=== PATIENT | male | born 1945 | race Caucasian/White ===

== ENCOUNTER 2018-01-06 09:20 | Emergency (ER) | payer MEDICARE ==
[2018-01-06 09:27] VITALS: RESP 16
--- NOTE | 2018-01-06 10:17 | ED ---
General Adult HPI - General Chief complaint: Extremity Injury, Lower Stated complaint: Fall Time Seen by Provider: 01/06/18 09:53 Source: patient, RN notes reviewed Mode of arrival: wheelchair Limitations: no limitations - History of Present Illness Initial comments: Patient is 72-year-old male presented to the emergency room today with a chief complaint of injury to left foot that occurred yesterday. He does admit that he was using his lawnmower when his apparently got caught on the shift or unable to step down he twisted his left foot. He states he was able to continue to work yesterday. He states later in the day he noticed it was swollen and sore to ambulate. He states this morning unable to bear weight due to the pain. Patient denies any other injury or complaint. Patient denies any recent fever, chills, shortness of breath, chest pain, back pain, abdominal pain , nausea or vomiting, numbness or tingling, headaches or visual changes, or any other complaints. - Related Data Home Medications Medication Instructions Recorded Confirmed Aspirin EC [Ecotrin] 81 mg PO DAILY 06/18/14 01/06/18 Dorzolamide 2% [Trusopt] 1 drops BOTH EYES BID 06/18/14 01/06/18 Fluticasone/Salmeterol [Advair 1 inhalation PO BID 06/18/14 01/06/18 250-50 Diskus] Folic Acid 0.4 mg PO DAILY 06/18/14 01/06/18 Furosemide [Lasix] 10 mg PO DAILY 06/18/14 01/06/18 Latanoprost Ophth [Xalatan 0.005%] 1 drops BOTH EYES HS 06/18/14 01/06/18 Metoclopramide [Reglan] 10 mg PO DAILY 06/18/14 01/06/18 Omeprazole [PriLOSEC] 20 mg PO AC-BRKFST 06/18/14 01/06/18 Potassium Chloride [Klor-Con 10] 10 meq PO DAILY 06/18/14 01/06/18 Tiotropium [place] [Spiriva] 1 puff IH DAILY 06/18/14 01/06/18 Allergies Allergy/AdvReac Type Severity Reaction Status Date / Time No Known Allergies Allergy Verified 01/06/18 09:27 Review of Systems ROS Statement: Those systems with pertinent positive or pertinent negative responses have been documented in the HPI. ROS Other: All systems not noted in ROS Statement are negative. Past Medical History Past Medical History: Cancer, COPD, GERD/Reflux Additional Past Medical History / Comment(s): esophageal cancer, cataracts History of Any Multi-Drug Resistant Organisms: None Reported Additional Past Surgical History / Comment(s): esophageal surgery Past Psychological History: No Psychological Hx Reported Smoking Status: Former smoker Past Alcohol Use History: Rare Past Drug Use History: None Reported General Exam - General Exam Comments Initial Comments: General: The patient is awake and alert, in no distress, and does not appear acutely ill. Neck: The neck is supple, there is no tenderness or JVD. Cardiovascular: There is a regular rate and rhythm. No murmur, rub or gallop is appreciated. Respiratory: Lungs are clear to auscultation, respirations are non-labored, breath sounds are equal. No wheezes, stridor, rales, or rhonchi. Musculoskeletal: Patient does have mild swelling to the top left foot. He is tender over the second through fifth proximal metatarsals. Patient's sensations are intact. Pedal pupils 2+. He shows good range of motion. No tenderness specifically down to the digits of the toes. No tenderness over the left ankle. Neurological: A&O x 3. CN II-XII intact, There are no obvious motor or sensory deficits. Coordination appears grossly intact. Speech is normal. Skin: Skin is warm and dry and no rashes or lesions are noted. Psychiatric: Normal mood and affect. Limitations: no limitations Course Vital Signs 01/06/18 09:23 Temperature 98.5 F Pulse Rate 77 Respiratory 16 Rate Blood Pressure 154/70 O2 Sat by Pulse 98 Oximetry Medical Decision Making - Medical Decision Making Patient's x-ray reviewed and shows no acute fracture dislocation. Patient is able to bear weight and ambulate here in emergency room. Was discussed about placing a splint and follow-up orthopedics. He has declined splint. He states he will follow-up orthopedic doctor tomorrow. Patient is advised continued ice elevate. He states it has gotten a little bit better at the days gone on. She states is very stiff this morning. Was discussed that could be just a foot sprain. Was discussing be something more serious and to follow-up with orthopedics if symptoms are not improving. Advised return for any other concerns. Disposition Clinical Impression: Foot injury Disposition: HOME SELF-CARE Condition: Good Instructions: Foot Sprain (ED) Additional Instructions: Please follow back up with orthopedic tomorrow. Please continue to ice elevate the affected area at least 4 times a day for 20 minutes at a time. Please return to emergency room for any other concerns. Is patient prescribed a controlled substance at d/c from ED?: No Referrals: Izabella Caal MD [Primary Care Provider] - 1-2 days Time of Disposition: 11:17
--- NOTE | 2018-01-06 10:36 | XR ---
EXAMINATION TYPE: XR foot complete LT DATE OF EXAM: 01/06/2018 CLINICAL HISTORY: Left foot pain after twisting injury. TECHNIQUE: Frontal, lateral, and oblique images of the left foot are obtained. COMPARISON: None FINDINGS: There is no acute fracture/dislocation evident in the left foot. There is a hallux valgus deformity identified and mild degenerative changes of the distal and interphalangeal joints of first metacarpal phalangeal joint displayed as joint space narrowing and small marginal osteophytes and opp osing surface sclerosis. Peripheral arterial vascular calcifications are also noted. The overlying so ft tissue appears unremarkable. IMPRESSION: There is no acute fracture or dislocation in the left foot.
[2018-01-06 11:34] VITALS: BP 138/70; PULSE 75; TEMP 97.8
== END 2018-01-06 11:32 | disposition home or self-care (01) ==
LOC: EC 09:20
DX: S99.922A Unspecified injury of left foot, initial encounter (principal); M79.89 Other specified soft tissue disorders; J44.9 Chronic obstructive pulmonary disease, unspecified; K21.9 Gastro-esophageal reflux disease without esophagitis; Z85.01 Personal history of malignant neoplasm of esophagus; Z87.891 Personal history of nicotine dependence; Z79.51 Long term (current) use of inhaled steroids; Z79.82 Long term (current) use of aspirin; Z79.899 Other long term (current) drug therapy; X50.1XXA Overexertion from prolonged static or awkward postures, initial encounter; W18.39XA Other fall on same level, initial encounter
CPT/HCPCS: 99283

== ENCOUNTER 2020-04-19 15:02 | Inpatient (IN) | payer MEDICARE ==
[2020-04-19] MEDS ORDERED: IPRATROPIUM-ALBUTEROL 3 ML NEB INHALATION STA ×3 (15:20→16:44)
--- NOTE | 2020-04-19 15:23 | ED ---
Chest Pain HPI - General Chief Complaint: Chest Pain Stated Complaint: chest pain Time Seen by Provider: 04/19/20 15:13 Source: patient, RN notes reviewed Mode of arrival: ambulatory Limitations: no limitations - History of Present Illness Initial Comments: Is a 74-year-old male history of COPD who states she's had intermittent episodes of chest pain shortness breath or last several days getting worse today he started using his home inhaler. He denies any overt fevers chills or sweats but he does state he feels like he's filling up with fluid has exertional dyspnea left-sided achy chest pain is was mild in severity he has the pain when he tries to move or takes a deep breath. Does have a cough but no overt phlegm production at this time he states. No history of CHF. Other complaints or modifying factors MD Complaint: chest pain, other - Related Data Home Medications Medication Instructions Recorded Confirmed Aspirin EC [Ecotrin] 81 mg PO DAILY 06/18/14 01/06/18 Dorzolamide 2% [Trusopt] 1 drops BOTH EYES BID 06/18/14 01/06/18 Fluticasone/Salmeterol [Advair 1 inhalation PO BID 06/18/14 01/06/18 250-50 Diskus] Folic Acid 0.4 mg PO DAILY 06/18/14 01/06/18 Furosemide [Lasix] 10 mg PO DAILY 06/18/14 01/06/18 Latanoprost Ophth [Xalatan 0.005%] 1 drops BOTH EYES HS 06/18/14 01/06/18 Metoclopramide [Reglan] 10 mg PO DAILY 06/18/14 01/06/18 Omeprazole [PriLOSEC] 20 mg PO AC-BRKFST 06/18/14 01/06/18 Potassium Chloride [Klor-Con 10] 10 meq PO DAILY 06/18/14 01/06/18 Tiotropium [place] [Spiriva] 1 puff IH DAILY 06/18/14 01/06/18 Allergies Allergy/AdvReac Type Severity Reaction Status Date / Time No Known Allergies Allergy Verified 04/19/20 15:10 Review of Systems ROS Statement: Those systems with pertinent positive or pertinent negative responses have been documented in the HPI. ROS Other: All systems not noted in ROS Statement are negative. EKG Findings - EKG Results: EKG: interpreted by ERMD, sinus rhythm (Sinus rhythm a 91 NH interval 154 QRS duration 84 QT since QTC 362/445 by atrial enlargement and LVH. Possible lateral infarct of undetermined age.) Past Medical History Past Medical History: Cancer, COPD, GERD/Reflux Additional Past Medical History / Comment(s): esophageal cancer, cataracts, History of Any Multi-Drug Resistant Organisms: None Reported Additional Past Surgical History / Comment(s): esophageal surgery, Past Psychological History: No Psychological Hx Reported Smoking Status: Former smoker Past Alcohol Use History: Daily Past Drug Use History: None Reported General Exam - General Exam Comments Initial Comments: This is a well-developed asthenic appearing male who is awake alert oriented 3 Limitations: no limitations General appearance: alert, anxious, in distress Head exam: Present: atraumatic, normocephalic, normal inspection Eye exam: Present: normal appearance, PERRL, EOMI. Absent: scleral icterus, conjunctival injection, periorbital swelling ENT exam: Present: normal exam, mucous membranes moist Neck exam: Present: normal inspection. Absent: tenderness, meningismus, lymphadenopathy Respiratory exam: Present: respiratory distress, rhonchi, chest wall tenderness, decreased breath sounds. Absent: wheezes, rales, stridor Cardiovascular Exam: Present: regular rate, normal rhythm, normal heart sounds. Absent: systolic murmur, diastolic murmur, rubs, gallop, clicks GI/Abdominal exam: Present: soft, normal bowel sounds. Absent: distended, tenderness, guarding, rebound, rigid Extremities exam: Present: normal inspection, full ROM, normal capillary refill. Absent: tenderness, pedal edema, joint swelling, calf tenderness Back exam: Present: normal inspection Neurological exam: Present: alert, oriented X3, CN II-XII intact Psychiatric exam: Present: normal affect, normal mood Skin exam: Present: warm, dry, intact, normal color. Absent: rash Course Vital Signs 04/19/20 04/19/20 04/19/20 15:05 15:17 15:32 Temperature 97.7 F Pulse Rate 97 92 Pulse Rate [ 97 Marketing Analytics Specialist ] Respiratory 25 H Rate Blood Pressure 167/99 O2 Sat by Pulse 94 L Oximetry 04/19/20 04/19/20 04/19/20 15:38 16:23 16:32 Temperature Pulse Rate 91 92 98 Pulse Rate [ [employer] Specialist ] Respiratory 21 Rate Blood Pressure 138/81 O2 Sat by Pulse 98 Oximetry 04/19/20 16:42 Temperature Pulse Rate 95 Pulse Rate [ [employer] Specialist ] Respiratory Rate Blood Pressure O2 Sat by Pulse Oximetry - Reevaluation(s) Reevaluation #1: 04/19/20 16:43 Reevaluation patient revealed minimal improvement thus far his breathing abilities. Repeat updraft has been ordered. 04/19/20 16:43 In addition IV and easy him has been ordered. Chest Pain MDM - MDM X-ray reviewed and evidence of emphysematous changes with also evidence of a right lower lobe lung mass. Critical Care Time Critical Care Time: Yes Total Critical Care Time: 39 Critical Care Time: 39 minutes of critical care time which includes initial presentation with history physical labs x-rays multiple reevaluation patient responsive therapy discuss with patient regarding findings discussed with the main physician admission orders and documentation of the above this also includes reviewing old charting that was available Disposition Clinical Impression: COPD with exacerbation, Respiratory distress, acute, Atypical chest pain, Lung mass, Hyponatremia syndrome Disposition: ADMITTED IP TO THIS [facility] Condition: Fair Referrals: Izabella Caal MD [Primary Care Provider] - 1-2 days
[2020-04-19 15:49] LABS: Basophils # (A) 0.1 k/uL (0-0.2); Basophils % (A) 0 %; Eosinophils # (A) 0.3 k/uL (0-0.7); Eosinophils % (A) 3 %; HCT 43.9 % (39.0-53.0); HGB 14.2 gm/dL (13.0-17.5); Lymphocytes # (A) 1.6 k/uL (1.0-4.8); Lymphocytes % (A) 14 %; MCH 30.5 pg (25.0-35.0); MCHC 32.3 g/dL (31.0-37.0); MCV 94.5 fL (80.0-100.0); Mean Platelet Volume 6.2; Monocytes # (A) 0.9 k/uL (0-1.0); Monocytes % (A) 7 %; Neutrophils # (A) 8.9 k/uL (1.3-7.7); Neutrophils % (A) 74 %; Platelet Count 443 k/uL (150-450); RBC 4.65 m/uL (4.30-5.90); RDW 12.7 % (11.5-15.5)
--- NOTE | 2020-04-19 15:58 | XR ---
EXAMINATION TYPE: XR chest 2V DATE OF EXAM: 04/19/2020 COMPARISON: NONE HISTORY: Cough and shortness of breath. TECHNIQUE: Frontal and lateral views of the chest are obtained. FINDINGS: Background underlying emphysematous changes are present with increased retrosternal airspa ce. There is reticular interstitial changes bilaterally favoring parenchymal fibrosis. There is small left pleural effusion. There is left basilar opacity favoring scarring and/or atelectasis. The card iac silhouette size is within normal limits. Right pericardial curvilinear opacity with subtle right- sided volume loss as there is tracheal shift. The osseous structures are intact. IMPRESSION: Chronic emphysematous and pulmonary fibrotic changes. Small right pleural effusion. Subt le right-sided volume loss with suggestion of obstructing middle lobe mass. Consider contrast-enhance d chest CT to further evaluate.
[2020-04-19 16:01] LABS: D-Dimer 0.25 mg/L FEU (<0.60); INR 0.9 (<1.2); Partial Thromboplastin Time 25.8 sec (22.0-30.0); Prothrombin Time 9.5 sec (9.0-12.0)
[2020-04-19 16:02] LABS: ALT 14 U/L (4-49); AST 27 U/L (17-59); African American GFR (CKD) >90 (>60 ml/min/1.73 sqM); Albumin 4.4 g/dL (3.5-5.0); Alkaline Phosphatase 88 U/L (38-126); Anion Gap 11 mmol/L; Blood Urea Nitrogen 7 mg/dL (9-20); Calcium 9.1 mg/dL (8.4-10.2); Carbon Dioxide 26 mmol/L (22-30); Chloride 88 mmol/L (98-107); Creatine Kinase 137 U/L (55-170); Glucose 119 mg/dL (74-99); Magnesium 1.7 mg/dL (1.6-2.3); Non-African American GFR(CKD) >90 (>60 ml/min/1.73 sqM); Potassium 4.6 mmol/L (3.5-5.1); Sodium 125 mmol/L (137-145); Total Bilirubin 0.6 mg/dL (0.2-1.3); Total Protein 7.6 g/dL (6.3-8.2)
[2020-04-19] MEDS ORDERED: MAGNESIUM SULFATE-D5W PMX 1 GM in DEXTROSE/WATER 1 100ML.BAG IVPB ONE (16:26)
[2020-04-19] MEDS ORDERED: LEVOFLOXACIN 500 MG TAB PO STA (16:51)
[2020-04-19] MEDS: methylPREDNISolone SOD SUCCI 125 MG/2 ML VIAL IV SCH (17:06)
[2020-04-19] MEDS: SODIUM CHLORIDE 0.9% 1,000 ML IV SCH ×3 (17:07→21:58)
[2020-04-19] MEDS: IPRATROPIUM-ALBUTEROL 3 ML NEB INHALATION SCH (20:30)
[2020-04-19] MEDS ORDERED: FUROSEMIDE 10 MG/ML 4 ML VIAL IV STA (20:45)
[2020-04-19] MEDS: LATANOPROST 0.005% OPHTH DROPS 2.5 ML BTL BOTH EYES SCH (21:12)
[2020-04-19] MEDS: DORZOLAMIDE HCL 2% DROPS 10 ML BTL BOTH EYES SCH (21:12)
[2020-04-20] MEDS: methylPREDNISolone SOD SUCCI 125 MG/2 ML VIAL IV SCH ×5 (00:31→23:20)
[2020-04-20] MEDS: IPRATROPIUM-ALBUTEROL 3 ML NEB INHALATION SCH ×6 (00:58→19:43)
[2020-04-20 06:24] LABS: Glucose,Whole Blood 136 mg/dL (75-99)
[2020-04-20] MEDS: PANTOPRAZOLE 40 MG TABLET PO SCH (06:27)
[2020-04-20] MEDS ORDERED: BUDESONIDE 0.5 MG/2 ML NEBU INHALATION SCH (08:33)
[2020-04-20] MEDS ORDERED: FUROSEMIDE 10 MG TAB PO SCH (09:00)
[2020-04-20] MEDS: FOLIC ACID 1 MG TAB PO SCH (09:25)
[2020-04-20] MEDS: POTASSIUM CHLORIDE ER 10 MEQ TAB.ER.PRT PO SCH (09:25)
[2020-04-20] MEDS: ASPIRIN 81 MG PO SCH (09:25)
[2020-04-20] MEDS: METOCLOPRAMIDE 10 MG TAB PO SCH (09:25)
[2020-04-20] MEDS: guaiFENesin 600 MG TABLET.ER PO SCH ×2 (09:26→20:30)
[2020-04-20] MEDS: DORZOLAMIDE HCL 2% DROPS 10 ML BTL BOTH EYES SCH ×2 (09:26→20:31)
[2020-04-20] MEDS: LEVOFLOXACIN 500 MG TAB PO SCH (09:26)
[2020-04-20] MEDS: LEVOTHYROXINE 25 MCG TAB PO SCH (09:30)
[2020-04-20] MEDS ORDERED: RX INFO: IV CONTRAST WAS GIVEN 1 EACH MISC MISCELLANE PRN (11:11)
[2020-04-20 11:30] LABS: Glucose,Whole Blood 100 mg/dL (75-99)
[2020-04-20] MEDS ORDERED: IPRATROPIUM-ALBUTEROL 3 ML NEB INHALATION PRN (11:48)
--- NOTE | 2020-04-20 12:53 | CONS ---
CONSULTATION PULMONARY/CRITICAL CARE CONSULTATION: DATE OF SERVICE: 04/20/2020 REASON FOR CONSULTATION: COPD exacerbation. This is a 74-year-old male with a history of COPD. The patient apparently presented to the emergency room on April 19, 2020 at 1502 with complaints of increasing shortness of breath over the last couple of days, which was getting worse. In addition, he had intermittent episodes of chest discomfort. He was using his medications as prescribed. He denies any fever or chills. There was no sweats. The patient denied any nausea, vomiting, diarrhea, or abdominal pain. Also denied any genitourinary complaints. His shortness of breath appeared to be worse when he exerted himself. The chest pain was described as being mild in severity. The patient has had 1 or 2 episodes of coughing up phlegm, but mostly the cough is nonproductive. The patient denies other symptoms at this time. He does tell me that he was a heavy smoker in the past. Does not smoke currently. Apparently has a previous history of esophageal cancer and had an esophagectomy with Dr. Sow maybe 18 years ago or so. His family doctor is Dr. Mitchell. HOME MEDICATIONS: Include Ecotrin, eye drops, Advair, folic acid, Lasix, Reglan, Prilosec, potassium chloride, and Spiriva. ALLERGIES: Denied. MEDICAL HISTORY: Positive for esophageal cancer, COPD and acid reflux disease. He also has a history of cataracts. SURGICAL HISTORY: Includes a previous esophagectomy. That occurred maybe 17 or 18 years ago. SOCIAL HISTORY: Positive for previous heavy tobacco use. Does not smoke currently. He does drink on a daily basis. Denies any illicit drug use. FAMILY HISTORY: Noncontributory. Mother and father were healthy. REVIEW OF SYSTEMS: CONSTITUTIONAL: Negative. NEUROLOGIC: Negative. HEENT: Negative. CARDIOVASCULAR: Chest discomfort. PULMONARY: Shortness of breath, nonproductive cough, chest congestion, difficulty breathing. GI: Negative. : Negative. RHEUMATOLOGIC: Negative. IMMUNOLOGIC: Negative. ENDOCRINOLOGIC: Negative. DERMATOLOGIC: Negative. Vital signs are reviewed. Temperature is 98, heart rate is 84, respiratory rate 20, blood pressure 140/70, mean 93, 2 L saturation 94%. Appears in no acute distress. HEENT: Examination is grossly unremarkable. NECK: Supple, full range of motion. No adenopathy. Neck veins are flat. CARDIOVASCULAR: Examination reveals regular rhythm and rate. Heart rate is 84 beats per minute. Heart sounds are distant. LUNGS: Reveal diminished breath sounds throughout. He does have some expiratory wheezes. No crackles or rhonchi. ABDOMEN: Soft. EXTREMITIES: Intact. No cyanosis, clubbing, or edema. SKIN: Without rash. NEUROLOGIC: Examination is nonfocal. LABS: Reviewed. White count 12, hemoglobin 14.2, hematocrit 43.9, platelet count 443,000. PT, INR, PTT normal. D-dimer normal. Sodium 125, potassium 4.6, chloride 88, CO2 is 26, anion gap is 11. BUN and creatinine were 7 and 0.64. The rest of the comprehensive metabolic profile is normal. Microbiology is pending or negative. Chest x-ray shows some chronic emphysematous changes and pulmonary fibrotic changes, small right-sided pleural effusion, right-sided volume loss with a suggestion of obstructing possible right middle lobe mass. A CT scan was ordered. Medications are reviewed. ASSESSMENT: 1. COPD exacerbation complicated by purulent tracheobronchitis. 2. Possible right lung mass. 3. Previous history of heavy tobacco use. 4. History of esophageal cancer, status post esophagectomy. 5. History of gastroesophageal reflux disease. 6. History of cataracts. PLAN: The patient will be scheduled to have a CAT scan of the chest with contrast. I will review his medications to make sure he is on proper medications for COPD. Additional recommendations and suggestions are forthcoming. He certainly will need outpatient evaluation with complete PFT. Additional recommendations and suggestions are forthcoming pending the CAT scan. MMODL / IJN: [id number] /
--- NOTE | 2020-04-20 14:06 | CT ---
EXAMINATION TYPE: CT chest w con DATE OF EXAM: 04/20/2020 COMPARISON: Chest x-ray 04/19/2020 HISTORY: right lung mass, difficulty breathing CT DLP: 251.5 mGycm Automated exposure control for dose reduction was used. CONTRAST: CT scan of the chest is performed with IV Contrast, patient injected with 100 mL of Isovue 300. FINDINGS: LUNGS: Apical pleural thickening with bilateral infiltrate greater on the left. Coarsened interstitiu m could be associated with chronic interstitial pulmonary fibrosis. 5 mm nodule subpleural right lowe r lobe too small to characterize. Areas of pleural thickening additional subpleural nodularity are no xena. There is an irregular density in the right upper lobe right perihilar region measuring 4.7 cm. N o pneumothorax. Additional 2 mm nodule left upper lobe image 26. 4 mm nodule left upper lobe image 30 . Bronchiectasis seen at the lung bases with the peribronchial wall thickening correlate for bronchit is. MEDIASTINUM: There are no greater than 1 cm hilar or mediastinal lymph nodes. No pericardial effusi on is seen. Coronary artery calcification noted. OTHER: Abnormal density along the right heart border appears to correspond to a pull-through surgica l procedure correlate with the surgical history for previous esophageal surgery or cancer. Hypertroph ic and degenerative change of the spine noted. Endplate deformity involving the upper thoracic spine appears chronic and compatible with a chronic superior endplate compression fracture. 2 cm cystic str ucture posterior to the body of the pancreas. Short-term follow-up CT of the abdomen recommended for further evaluation. IMPRESSION: 1. Abnormality seen by recent x-ray appears to correspond to a pull-through procedure. Correlate for esophageal surgery. 2. There is an irregular density within the right upper lobe measuring 4.7 cm. PET scan is recommende d for further evaluation. 3. Bilateral lower lobe infiltrate. 4. COPD correlate for pulmonary fibrosis. 5. 2 cm cystic structure posterior to the body the pancreas is nonspecific. Short-term follow-up CT o f the abdomen recommended.
[2020-04-20 16:20] LABS: Glucose,Whole Blood 134 mg/dL (75-99)
[2020-04-20] MEDS: SODIUM CHLORIDE 0.9% 1,000 ML IV SCH (17:42)
[2020-04-20] MEDS: BUDESONIDE 1 MG/2 ML NEBU INHALATION SCH (19:42)
[2020-04-20 20:17] LABS: Glucose,Whole Blood 144 mg/dL (75-99)
[2020-04-20] MEDS: HYDROcodone/APAP 5-325MG 1 EACH TAB PO PRN (20:30)
[2020-04-20] MEDS: LATANOPROST 0.005% OPHTH DROPS 2.5 ML BTL BOTH EYES SCH (20:31)
--- NOTE | 2020-04-20 22:48 | P.HPIM ---
History of Present Illness H&P Date: 04/20/20 Chief Complaint: shortness of breath Keshav Cuevas is a 74 yo M with PMH of COPD, esophageal cancer s/p resection who presented to the ED complaining of worsening shortness of breath. Pt complains that over the past few days he has become increasingly dyspneic and has been coughing more. He denies any fever or chills. Pt notes that his symptoms had progressed to the point he was short of breath with ambulation. He is a former smoker. He had been doing albuterol inhaler without much relief. On presentation he was tachypneic and hypoxic, WBC 12k, Na 125, CXR with RML de nsity. Review of Systems All systems: negative Constitutional: Reports fatigue, Denies chills, Denies fever Eyes: denies blurred vision, denies pain Ears, nose, mouth and throat: Denies headache, Denies sore throat Cardiovascular: Denies chest pain, Denies shortness of breath Respiratory: Reports cough, Reports dyspnea Gastrointestinal: Denies abdominal pain, Denies diarrhea, Denies nausea, Denies vomiting Musculoskeletal: Denies myalgias Integumentary: Denies pruritus, Denies rash Neurological: Denies numbness, Denies weakness Psychiatric: Denies anxiety, Denies depression Endocrine: Denies fatigue, Denies weight change Past Medical History Past Medical History: Cancer, COPD, GERD/Reflux Additional Past Medical History / Comment(s): esophageal cancer, cataracts, History of Any Multi-Drug Resistant Organisms: None Reported Additional Past Surgical History / Comment(s): esophageal surgery, Past Psychological History: No Psychological Hx Reported Smoking Status: Former smoker Past Alcohol Use History: Daily Past Drug Use History: None Reported Medications and Allergies Home Medications Medication Instructions Recorded Confirmed Type Fluticasone/Salmeterol [Advair 2 puff INHALATION RT-BID 06/18/14 04/19/20 History 250-50 Diskus] Folic Acid 0.4 mg PO DAILY 06/18/14 04/19/20 History Latanoprost Ophth [Xalatan 0.005%] 1 drops BOTH EYES HS 06/18/14 04/19/20 History Omeprazole [PriLOSEC] 20 mg PO AC-BRKFST 06/18/14 04/19/20 History Tiotropium [place] [Spiriva] 1 puff IN RT-DAILY 06/18/14 04/19/20 History Brimonidine Tartrate [Alphagan P 1 drops BOTH EYES HS 04/19/20 04/19/20 History 0.2% Ophth Soln] Cyanocobalamin (Vitamin B-12) 1,000 mcg PO DAILY 04/19/20 04/19/20 History [Vitamin B-12] Fish Oil/Dha/Epa [Fish Oil 1,200 1 cap PO DAILY 04/19/20 04/19/20 History mg Fish Oil] Levothyroxine Sodium 25 mcg PO DAILY 04/19/20 04/19/20 History Magnesium Oxide 400 mg PO DAILY 04/19/20 04/19/20 History Multivitamins, Thera [Multivitamin 1 tab PO DAILY 04/19/20 04/19/20 History (formulary)] Zinc 50 mg PO DAILY 04/19/20 04/19/20 History Allergies Allergy/AdvReac Type Severity Reaction Status Date / Time No Known Allergies Allergy Verified 04/19/20 17:43 Physical Exam Vitals: Vital Signs Temp Pulse Pulse Resp BP Pulse Ox 04/20/20 20:15 98.1 F 98 20 120/79 97 04/20/20 19:58 88 04/20/20 19:43 92 04/20/20 16:00 98.0 F 88 20 146/84 99 04/20/20 15:57 92 04/20/20 15:43 96 04/20/20 12:11 88 04/20/20 12:00 97.6 F 94 22 134/80 97 04/20/20 11:56 88 04/20/20 09:19 86 04/20/20 09:04 84 04/20/20 08:00 97.7 F 111 H 20 133/78 97 04/20/20 04:00 98 F 100 20 140/70 94 L 04/20/20 01:10 92 04/20/20 00:58 88 04/20/20 00:00 98.2 F 98 22 137/75 95 Intake and Output 04/20/20 04/20/20 04/20/20 06:59 14:59 22:59 Intake Total 480 476 240 Output Total 800 Balance -320 476 240 Intake: Intake, IV Titration 240 Amount Magnesium Sulfate-D5w Pmx 100 1 gm In Dextrose/Water 1 100ml.bag @ 100 mls/hr IVPB ONCE ONE Rx#: [id number] Sodium Chloride 0.9% 1, 140 000 ml @ 70 mls/hr IV . [id number] [facility] Rx#:[id number] Oral 240 476 240 Output: Urine 800 Other: Voiding Method Toilet Toilet Toilet Urinal Urinal Urinal # Voids 4 1 2 Weight 57.6 kg General: well nourished, well developed, NAD. Vitals reviewed Eyes: PERRL, EOMI, conjunctiva normal HENT: normocephalic, mucus membranes moist Neck: supple, no JVD Lungs: Diminished air entry throughout, no wheezing. Scattered rhonchi CV: Regular rate and rhythm, no murmur. Peripheral pulses 2+ Abdomen: soft, nondistended, no organomegaly Lymph: no cervical or axillary LAD Skin: warm and dry. Neuro: A&Ox3, normal mood and affect Results CBC & Chem 7: 04/19/20 15:22 04/19/20 15:22 Labs: Abnormal Lab Results - Last 24 Hours (Table) 04/20/20 04/20/20 04/20/20 Range/Units 06:22 11:29 16:19 POC Glucose (mg/dL) 136 H 100 H 134 H (75-99) mg/dL 04/20/20 Range/Units 20:15 POC Glucose (mg/dL) 144 H (75-99) mg/dL Microbiology - Last 24 Hours (Table) 04/19/20 17:02 Blood Culture - Preliminary Blood No Growth after 24 hours Thrombosis Risk Factor Assmnt - Choose All That Apply Any of the Below Risk Factors Present?: Yes Each Factor Represents 1 point: Abnormal pulmonary function (COPD) Other Risk Factors: Yes Each Risk Factor Represents 2 Points: Age 61-74 years Other congenital or acquired thrombophilia - If yes, enter type in comment: No Thrombosis Risk Factor Assessment Total Risk Factor Score: 3 Thrombosis Risk Factor Assessment Level: Moderate Risk Assessment and Plan (1) History of esophageal cancer Current Visit: Yes Status: Acute Code(s): Z85.01 - PERSONAL HISTORY OF MALIGNANT NEOPLASM OF ESOPHAGUS SNOMED Code(s): 298912060 (2) Nodule of right lung Current Visit: Yes Status: Acute Code(s): R91.1 - SOLITARY PULMONARY NODULE SNOMED Code(s): 964888550 (3) COPD with exacerbation Current Visit: Yes Status: Acute Code(s): J44.1 - CHRONIC OBSTRUCTIVE PULMONARY DISEASE W (ACUTE) EXACERBATION SNOMED Code(s): 040589147 Plan: 1. COPD exacerbation. Pulmonology consult. Start IV levaquin and solumedrol. Duonebs and pulmicort. Mucinex 2. History esophageal cancer. RML density on XR. Further evaluation with contrast CT 3. Hyponatremia. Gentle IV fluid correction 4. Glaucoma. Continue home drops DVT prophylaxis lovenox
[2020-04-21] MEDS: methylPREDNISolone SOD SUCCI 125 MG/2 ML VIAL IV SCH ×4 (05:51→23:07)
[2020-04-21] MEDS: SODIUM CHLORIDE 0.9% 1,000 ML IV SCH ×2 (05:51→15:10)
[2020-04-21 06:15] LABS: Glucose,Whole Blood 144 mg/dL (75-99)
[2020-04-21] MEDS: LEVOTHYROXINE 25 MCG TAB PO SCH (06:30)
[2020-04-21] MEDS: PANTOPRAZOLE 40 MG TABLET PO SCH (06:30)
[2020-04-21 06:49] LABS: Basophils % (A) 0 %; Eosinophils % (A) 0 %; HCT 39.1 % (39.0-53.0); HGB 12.6 gm/dL (13.0-17.5); Lymphocytes # (A) 0.7 k/uL (1.0-4.8); Lymphocytes % (A) 6 %; MCH 30.8 pg (25.0-35.0); MCHC 32.3 g/dL (31.0-37.0); MCV 95.5 fL (80.0-100.0); Mean Platelet Volume 6.4; Monocytes # (A) 0.4 k/uL (0-1.0); Monocytes % (A) 3 %; Neutrophils # (A) 11.2 k/uL (1.3-7.7); Neutrophils % (A) 91 %; Platelet Count 401 k/uL (150-450); RBC 4.09 m/uL (4.30-5.90); RDW 12.8 % (11.5-15.5); WBC 12.3 k/uL (3.8-10.6)
[2020-04-21 07:37] LABS: African American GFR (CKD) >90 (>60 ml/min/1.73 sqM); Anion Gap 6 mmol/L; Blood Urea Nitrogen 12 mg/dL (9-20); Calcium 8.6 mg/dL (8.4-10.2); Carbon Dioxide 28 mmol/L (22-30); Chloride 93 mmol/L (98-107); Glucose 152 mg/dL (74-99); Non-African American GFR(CKD) >90 (>60 ml/min/1.73 sqM); Potassium 5.2 mmol/L (3.5-5.1); Sodium 127 mmol/L (137-145)
[2020-04-21] MEDS: HYDROcodone/APAP 5-325MG 1 EACH TAB PO PRN ×2 (08:44→20:52)
[2020-04-21] MEDS: METOCLOPRAMIDE 10 MG TAB PO SCH (08:44)
[2020-04-21] MEDS: DORZOLAMIDE HCL 2% DROPS 10 ML BTL BOTH EYES SCH ×2 (08:44→20:50)
[2020-04-21] MEDS: POTASSIUM CHLORIDE ER 10 MEQ TAB.ER.PRT PO SCH (08:44)
[2020-04-21] MEDS: ENOXAPARIN 40 MG/0.4 ML SYRINGE SQ SCH (08:44)
[2020-04-21] MEDS: FOLIC ACID 1 MG TAB PO SCH (08:44)
[2020-04-21] MEDS: LEVOFLOXACIN 500 MG TAB PO SCH (08:44)
[2020-04-21] MEDS: guaiFENesin 600 MG TABLET.ER PO SCH ×2 (08:44→20:51)
[2020-04-21] MEDS: ASPIRIN 81 MG PO SCH (08:44)
[2020-04-21] MEDS: IPRATROPIUM-ALBUTEROL 3 ML NEB INHALATION SCH ×4 (08:50→20:03)
[2020-04-21] MEDS: BUDESONIDE 1 MG/2 ML NEBU INHALATION SCH ×2 (08:50→20:03)
[2020-04-21 12:21] LABS: Glucose,Whole Blood 138 mg/dL (75-99)
--- NOTE | 2020-04-21 14:46 | P.PN ---
Subjective Progress Note Date: 04/21/20 Keshav Cuevas is a 74 yo M with PMH of COPD, esophageal cancer s/p resection who presented to the ED complaining of worsening shortness of breath. Pt complains that over the past few days he has become increasingly dyspneic and has been coughing more. He denies any fever or chills. Pt notes that his sympt oms had progressed to the point he was short of breath with ambulation. He is a former smoker. He had been doing albuterol inhaler without much relief. On presentation he was tachypneic and hypoxic, WBC 12k, Na 125, CXR with RML density. 04/21/20 maintained on IV fluids. Breathing improving with loose productive cough. Maintaining O2 sats in the 90s on 2 L nasal cannula O2. Maintained on IV fluid hydration with sodium improving, currently up to 127. Blood sugars controlled. Afebrile, WBC 12.3. Denies chest pain, palpitations or increasing shortness of breath. Follow-up CT secondary to abnormal chest x-ray reported corresponding to pull through procedure from esophageal cancer/surgery, irregular density right upper lobe measuring 4.7 cm, bilateral lower lobe infiltrate, COPD, possible pulmonary fibrosis, 2 cm cystic structure posterior to the body, the pancreas nonspecific, follow-up CT of abdomen recommended. Objective - Vital Signs Vital signs: Vital Signs Temp 97.9 F 04/21/20 11:09 Pulse 96 04/21/20 12:12 Resp 16 04/21/20 11:18 BP 117/67 04/21/20 11:09 Pulse Ox 98 04/21/20 11:09 Intake & Output 04/20/20 04/21/20 04/21/20 18:59 06:59 18:59 Intake Total 716 460 Output Total 700 Balance 716 -240 Weight 59 kg 59 kg Intake: Oral 716 460 Output: Urine 700 Other: Voiding Method Toilet Urinal # Voids 2 1 1 - Exam General: Sitting up in bed, NAD. Vitals reviewed Eyes: PERRL, EOMI, conjunctiva normal HENT: normocephalic, mucus membranes moist Neck: supple, no JVD Lungs: Improved air entry , no wheezing. Scattered rhonchi CV: Regular rate and rhythm, no murmur. Peripheral pulses 2+ Abdomen: soft, nondistended, no organomegaly Lymph: no cervical or axillary LAD Skin: warm and dry. Neuro: A&Ox3, normal mood and affect - Labs CBC & Chem 7: 04/21/20 06:10 04/21/20 06:10 Labs: Abnormal Lab Results - Last 24 Hours (Table) 04/20/20 04/20/20 04/21/20 Range/Units 16:19 20:15 06:10 WBC 12.3 H (3.8-10.6) k/uL RBC 4.09 L (4.30-5.90) m/uL Hgb 12.6 L (13.0-17.5) gm/dL Neutrophils # 11.2 H (1.3-7.7) k/uL Lymphocytes # 0.7 L (1.0-4.8) k/uL Sodium (137-145) mmol/L Potassium (3.5-5.1) mmol/L Chloride (98-107) mmol/L Creatinine (0.66-1.25) mg/dL Glucose (74-99) mg/dL POC Glucose (mg/dL) 134 H 144 H (75-99) mg/dL 04/21/20 04/21/20 04/21/20 Range/Units 06:10 06:13 12:06 WBC (3.8-10.6) k/uL RBC (4.30-5.90) m/uL Hgb (13.0-17.5) gm/dL Neutrophils # (1.3-7.7) k/uL Lymphocytes # (1.0-4.8) k/uL Sodium 127 L (137-145) mmol/L Potassium 5.2 H (3.5-5.1) mmol/L Chloride 93 L (98-107) mmol/L Creatinine 0.62 L (0.66-1.25) mg/dL Glucose 152 H (74-99) mg/dL POC Glucose (mg/dL) 144 H 138 H (75-99) mg/dL Microbiology - Last 24 Hours (Table) 04/20/20 15:54 Gram Stain - Preliminary Sputum Sputum Culture - Preliminary Strep agalactiae - (group b) 04/19/20 17:02 Blood Culture - Preliminary Blood No Growth after 24 hours Assessment and Plan Assessment: (1) COPD with exacerbation Current Visit: Yes Status: Acute Code(s): J44.1 - CHRONIC OBSTRUCTIVE PULMONARY DISEASE W (ACUTE) EXACERBATION SNOMED Code(s): 230697794 (2) History of esophageal cancer Current Visit: Yes Status: Acute Code(s): Z85.01 - PERSONAL HISTORY OF MALIGNANT NEOPLASM OF ESOPHAGUS SNOMED Code(s): 854325424 (3) Nodule of right lung, further follow-up outpatient Current Visit: Yes Status: Acute Code(s): R91.1 - SOLITARY PULMONARY NODULE SNOMED Code(s): 506421425 (4) hyponatremia (5) glaucoma (6) 2 cm cystic structure posterior to the pancreas by the nonspecific, further follow-up outpatient Plan: Continue on current medication regime ,monitoring and symptomatic treatment. Maintain nebulized bronchodilators, antibiotics, IV steroids, IV fluids. Follow closely with pulmonary. Incentive spirometer ordered/reinforced. The impression and plan of care has been dictated as directed. : I performed a history and examination of this patient, discussed the same with the dictator. I agree with the dictator's note ,documented as a scribe. Any additional findings or plans will be noted.
[2020-04-21] MEDS: PIPERACILLIN-TAZOBACTAM 3.375 GM in SODIUM CHLORIDE 0.9% 100 ML IVPB SCH ×2 (15:10→23:07)
--- NOTE | 2020-04-21 16:14 | P.PN ---
Subjective Progress Note Date: 04/21/20 Principal diagnosis: Acute exacerbation of COPD, with purulent tracheobronchitis, possible pneumonia On 04/21/2020 patient seen in follow-up on selective care unit, he is more co ngested on today's exam, lung sounds are positive for diffuse rhonchi, CT chest with contrast was completed yesterday, showing irregular density within the right upper lobe bilateral lower lobe infiltrates, possibly related to pneumonia, and PET scan was recommended for further evaluation. Patient continues on Levaquin for antibiotic coverage, will and Zosyn, he is on nebulized bronchodilators, and IV steroids. He is receiving gentle IV hydration with 0.9 normal saline at a rate of 70 ML per hour, today's labs have been reviewed showing white blood cell count of 12.3, hemoglobin of 12.6, sodium is improving, 127, potassium is 5.2, chloride is 93, BUN is 12 and creatinine 0.62. Objective - Vital Signs Vital signs: Vital Signs Temp 97.9 F 04/21/20 11:09 Pulse 96 04/21/20 12:12 Resp 16 04/21/20 11:18 BP 117/67 04/21/20 11:09 Pulse Ox 98 04/21/20 11:09 Intake & Output 04/20/20 04/21/20 04/21/20 18:59 06:59 18:59 Intake Total 716 460 Output Total 700 Balance 716 -240 Weight 59 kg 59 kg Intake: Oral 716 460 Output: Urine 700 Other: Voiding Method Toilet Urinal # Voids 2 1 1 - Exam GENERAL EXAM: Alert, very pleasant, 74-year-old white male, 2 L of oxygen with pulse ox of 98%, with audible chest congestion, congested cough, but no apparent distress. HEAD: Normocephalic/atraumatic. EYES: Normal reaction of pupils, equal size. Conjunctiva pink, sclera white. NOSE: Clear with pink turbinates. THROAT: No erythema or exudates. NECK: No masses, no JVD, no thyroid enlargement, no adenopathy. CHEST: No chest wall deformity. Symmetrical expansion. LUNGS: Equal air entry with diffuse rhonchi CVS: Regular rate and rhythm, normal S1 and S2, no gallops, no murmurs, no rubs ABDOMEN: Soft, nontender. No hepatosplenomegaly, normal bowel sounds, no guarding or rigidity. EXTREMITIES: No clubbing, no edema, no cyanosis, 2+ pulses and upper and lower extremities. MUSCULOSKELETAL: Muscle strength and tone normal. SPINE: No scoliosis or deformity SKIN: No rashes CENTRAL NERVOUS SYSTEM: Alert and oriented -3. No focal deficits, tone is normal in all 4 extremities. PSYCHIATRIC: Alert and oriented -3. Appropriate affect. Intact judgment and insight. - Labs CBC & Chem 7: 04/21/20 06:10 04/21/20 06:10 Labs: Abnormal Lab Results - Last 24 Hours (Table) 04/20/20 04/20/20 04/21/20 Range/Units 16:19 20:15 06:10 WBC 12.3 H (3.8-10.6) k/uL RBC 4.09 L (4.30-5.90) m/uL Hgb 12.6 L (13.0-17.5) gm/dL Neutrophils # 11.2 H (1.3-7.7) k/uL Lymphocytes # 0.7 L (1.0-4.8) k/uL Sodium (137-145) mmol/L Potassium (3.5-5.1) mmol/L Chloride (98-107) mmol/L Creatinine (0.66-1.25) mg/dL Glucose (74-99) mg/dL POC Glucose (mg/dL) 134 H 144 H (75-99) mg/dL 04/21/20 04/21/20 04/21/20 Range/Units 06:10 06:13 12:06 WBC (3.8-10.6) k/uL RBC (4.30-5.90) m/uL Hgb (13.0-17.5) gm/dL Neutrophils # (1.3-7.7) k/uL Lymphocytes # (1.0-4.8) k/uL Sodium 127 L (137-145) mmol/L Potassium 5.2 H (3.5-5.1) mmol/L Chloride 93 L (98-107) mmol/L Creatinine 0.62 L (0.66-1.25) mg/dL Glucose 152 H (74-99) mg/dL POC Glucose (mg/dL) 144 H 138 H (75-99) mg/dL Microbiology - Last 24 Hours (Table) 04/20/20 15:54 Gram Stain - Preliminary Sputum Sputum Culture - Preliminary Strep agalactiae - (group b) 04/19/20 17:02 Blood Culture - Preliminary Blood No Growth after 24 hours Assessment and Plan Plan: Assessment: #1. Bilateral lower lobe infiltrate, likely related to bilateral pneumonia #2. Irregular density in the right upper lobe, possibly related to underlying pneumonia, will be followed #3. Acute exacerbation of COPD #4. Pulmonary fibrosis #5. History of esophageal cancer, status post esophagectomy, with the gastric pull-through #6. History of cataracts #7. Former smoker Plan: Continue with Levaquin, add Zosyn, continue nebulized bronchodilators and IV steroids, CT chest has been reviewed, and there are bilateral lung densities, likely related to underlying bilateral pneumonia, will be followed to resolution, continue with antibiotic coverage. Hemodynamically patient is stable, no altered mentation, no fever or chills, still bronchospastic and dyspneic, send sputum for culture, we'll continue to follow, follow-up chest x- ray in the morning I performed a history & physical examination of the patient and discussed their management with my nurse practitioner, Eileen Duran. I reviewed the nurse practitioner's note and agree with the documented findings and plan of care. Lung sounds are positive for diminished breath sounds The findings and the impression was discussed with the patient. I attest to the documentation by the nurse practitioner. Time with Patient: Less than 30
[2020-04-21 17:21] LABS: Glucose,Whole Blood 128 mg/dL (75-99)
[2020-04-21 20:39] LABS: Glucose,Whole Blood 138 mg/dL (75-99)
[2020-04-21] MEDS: LATANOPROST 0.005% OPHTH DROPS 2.5 ML BTL BOTH EYES SCH (20:51)
[2020-04-22 06:15] LABS: Glucose,Whole Blood 147 mg/dL (75-99)
[2020-04-22 06:34] LABS: Basophils % (A) 0 %; Eosinophils % (A) 0 %; HCT 37.8 % (39.0-53.0); HGB 12.1 gm/dL (13.0-17.5); Lymphocytes # (A) 0.7 k/uL (1.0-4.8); Lymphocytes % (A) 6 %; MCH 30.8 pg (25.0-35.0); MCV 96.1 fL (80.0-100.0); Mean Platelet Volume 6.5; Monocytes # (A) 0.5 k/uL (0-1.0); Monocytes % (A) 4 %; Neutrophils # (A) 10.7 k/uL (1.3-7.7); Neutrophils % (A) 89 %; Platelet Count 428 k/uL (150-450); RBC 3.93 m/uL (4.30-5.90); RDW 12.8 % (11.5-15.5)
[2020-04-22] MEDS: HYDROcodone/APAP 5-325MG 1 EACH TAB PO PRN (06:35)
[2020-04-22] MEDS: LEVOTHYROXINE 25 MCG TAB PO SCH (06:36)
[2020-04-22] MEDS: PANTOPRAZOLE 40 MG TABLET PO SCH (06:36)
[2020-04-22] MEDS: methylPREDNISolone SOD SUCCI 125 MG/2 ML VIAL IV SCH ×3 (06:36→17:06)
[2020-04-22] MEDS: SODIUM CHLORIDE 0.9% 1,000 ML IV SCH ×2 (06:37→21:49)
[2020-04-22 06:49] LABS: African American GFR (CKD) >90 (>60 ml/min/1.73 sqM); Anion Gap 9 mmol/L; Blood Urea Nitrogen 15 mg/dL (9-20); Calcium 8.6 mg/dL (8.4-10.2); Carbon Dioxide 28 mmol/L (22-30); Chloride 91 mmol/L (98-107); Glucose 146 mg/dL (74-99); Magnesium 1.8 mg/dL (1.6-2.3); Non-African American GFR(CKD) >90 (>60 ml/min/1.73 sqM); Potassium 4.9 mmol/L (3.5-5.1); Sodium 128 mmol/L (137-145)
[2020-04-22] MEDS: IPRATROPIUM-ALBUTEROL 3 ML NEB INHALATION SCH ×4 (08:12→20:32)
[2020-04-22] MEDS: BUDESONIDE 1 MG/2 ML NEBU INHALATION SCH ×2 (08:12→20:32)
[2020-04-22] MEDS: ASPIRIN 81 MG PO SCH (08:15)
[2020-04-22] MEDS: FOLIC ACID 1 MG TAB PO SCH (08:15)
[2020-04-22] MEDS: PIPERACILLIN-TAZOBACTAM 3.375 GM in SODIUM CHLORIDE 0.9% 100 ML IVPB SCH ×2 (08:15→17:06)
[2020-04-22] MEDS: LEVOFLOXACIN 500 MG TAB PO SCH (08:15)
[2020-04-22] MEDS: guaiFENesin 600 MG TABLET.ER PO SCH ×2 (08:15→21:45)
[2020-04-22] MEDS: ENOXAPARIN 40 MG/0.4 ML SYRINGE SQ SCH (08:16)
[2020-04-22] MEDS: METOCLOPRAMIDE 10 MG TAB PO SCH (08:16)
[2020-04-22] MEDS: POTASSIUM CHLORIDE ER 10 MEQ TAB.ER.PRT PO SCH ×2 (08:16→09:07)
[2020-04-22] MEDS: DORZOLAMIDE HCL 2% DROPS 10 ML BTL BOTH EYES SCH ×2 (08:17→21:46)
--- NOTE | 2020-04-22 08:35 | XR ---
EXAMINATION TYPE: XR chest 2V DATE OF EXAM: 04/22/2020 COMPARISON: 04/19/2020 TECHNIQUE: PA and lateral views submitted. HISTORY: Cough shortness of breath FINDINGS: Diffuse emphysematous changes are seen and there is a coarsened interstitium somewhat irregular densi ties in bilateral upper lobes. Small bilateral pleural effusions and basilar infiltrate noted. Correl ate for chronic interstitial lung disease versus venous congestion or interstitial pneumonitis. IMPRESSION: 1. COPD with chronic interstitial lung disease or pneumonitis small bilateral pleural effusions with basilar atelectasis or infiltrate. Overall no significant interval change. 2. Somewhat irregular density within the proximal greater on the right as noted by recent CT scan cou ld be correlated with PET scan as clinically warranted
--- NOTE | 2020-04-22 11:11 | P.PN ---
Subjective Progress Note Date: 04/22/20 Keshav Cuevas is a 74 yo M with PMH of COPD, esophageal cancer s/p resection who presented to the ED complaining of worsening shortness of breath. Pt complains that over the past few days he has become increasingly dyspneic and has been coughing more. He denies any fever or chills. Pt notes that his sympt oms had progressed to the point he was short of breath with ambulation. He is a former smoker. He had been doing albuterol inhaler without much relief. On presentation he was tachypneic and hypoxic, WBC 12k, Na 125, CXR with RML density. 04/21/20 maintained on IV fluids. Breathing improving with loose productive cough. Maintaining O2 sats in the 90s on 2 L nasal cannula O2. Maintained on IV fluid hydration with sodium improving, currently up to 127. Blood sugars controlled. Afebrile, WBC 12.3. Denies chest pain, palpitations or increasing shortness of breath. Follow-up CT secondary to abnormal chest x-ray reported corresponding to pull through procedure from esophageal cancer/surgery, irregular density right upper lobe measuring 4.7 cm, bilateral lower lobe infiltrate, COPD, possible pulmonary fibrosis, 2 cm cystic structure posterior to the body, the pancreas nonspecific, follow-up CT of abdomen recommended. 04/22/2020 maintained on Zosyn and Levaquin, sputum culture reporting streptococcal agalactiae group B. Chest x-ray reporting no significant interval change, irregular density within the proximal greater on the right as noted on computed tomography scan. Breathing improving, mild tachycardia, maintaining O2 sats in the 90s on 2 L nasal cannula. Afebrile, WBC 12. Sodium up to 128. Complains of inability to sleep, chronic restless legs at night. Denies chest pain, palpitations or increased shortness of breath. Objective - Vital Signs Vital signs: Vital Signs Temp 97.5 F L 04/22/20 08:00 Pulse 105 H 04/22/20 08:33 Resp 20 04/22/20 08:00 BP 149/72 04/22/20 08:00 Pulse Ox 98 04/22/20 08:00 Intake & Output 04/21/20 04/22/20 04/22/20 18:59 06:59 18:59 Intake Total 460 Output Total 700 300 Balance -240 -300 Weight 59 kg 61 kg Intake: Oral 460 Output: Urine 700 300 Other: # Voids 1 1 - Exam General: Sitting up in bed, NAD. Vitals reviewed Eyes: PERRL, EOMI, conjunctiva normal HENT: normocephalic, mucus membranes moist Neck: supple, no JVD Lungs: Improved air entry , less scattered rhonchi,expiratory wheezing. CV: Regular rate and rhythm, no murmur. Peripheral pulses 2+ Abdomen: soft, nondistended, no organomegaly Skin: warm and dry. Neuro: A&Ox3, normal mood and affect - Labs CBC & Chem 7: 04/22/20 05:54 04/22/20 05:54 Labs: Abnormal Lab Results - Last 24 Hours (Table) 04/21/20 04/21/20 04/21/20 Range/Units 12:06 17:19 20:34 WBC (3.8-10.6) k/uL RBC (4.30-5.90) m/uL Hgb (13.0-17.5) gm/dL Hct (39.0-53.0) % Neutrophils # (1.3-7.7) k/uL Lymphocytes # (1.0-4.8) k/uL Sodium (137-145) mmol/L Chloride (98-107) mmol/L Creatinine (0.66-1.25) mg/dL Glucose (74-99) mg/dL POC Glucose (mg/dL) 138 H 128 H 138 H (75-99) mg/dL 04/22/20 04/22/20 04/22/20 Range/Units 05:54 05:54 06:12 WBC 12.0 H (3.8-10.6) k/uL RBC 3.93 L (4.30-5.90) m/uL Hgb 12.1 L (13.0-17.5) gm/dL Hct 37.8 L (39.0-53.0) % Neutrophils # 10.7 H (1.3-7.7) k/uL Lymphocytes # 0.7 L (1.0-4.8) k/uL Sodium 128 L (137-145) mmol/L Chloride 91 L (98-107) mmol/L Creatinine 0.61 L (0.66-1.25) mg/dL Glucose 146 H (74-99) mg/dL POC Glucose (mg/dL) 147 H (75-99) mg/dL Microbiology - Last 24 Hours (Table) 04/20/20 15:54 Gram Stain - Final Sputum Sputum Culture - Final Strep agalactiae - (group b) Mónica albicans 04/19/20 17:02 Blood Culture - Preliminary Blood No Growth after 48 hours Assessment and Plan Assessment: (1) acute bilateral pneumonia,sputum culture reporting streptococcal agalactiae group B. 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 Requip added to med regimen. Continue on IV antibiotics, nebulized bronchodilators, IV steroids, IV fluids. Follow closely with pulmonary. Aggressive pulmonary toileting with incentive spirometer reinforced. PET scan outpatient regarding pancreatic cyst and right lung nodule. The impression and plan of care has been dictated as directed. : I performed a history and examination of this patient, discussed the same with the dictator. I agree with the dictator's note ,documented as a scribe. Any additional findings or plans will be noted.
[2020-04-22 11:36] LABS: Glucose,Whole Blood 96 mg/dL (75-99)
--- NOTE | 2020-04-22 11:44 | P.PN ---
Subjective Progress Note Date: 04/22/20 Principal diagnosis: Acute exacerbation of COPD, with purulent tracheobronchitis, possible pneumonia On 04/21/2020 patient seen in follow-up on selective care unit, he is more co ngested on today's exam, lung sounds are positive for diffuse rhonchi, CT chest with contrast was completed yesterday, showing irregular density within the right upper lobe bilateral lower lobe infiltrates, possibly related to pneumonia, and PET scan was recommended for further evaluation. Patient continues on Levaquin for antibiotic coverage, will and Zosyn, he is on nebulized bronchodilators, and IV steroids. He is receiving gentle IV hydration with 0.9 normal saline at a rate of 70 ML per hour, today's labs have been reviewed showing white blood cell count of 12.3, hemoglobin of 12.6, sodium is improving, 127, potassium is 5.2, chloride is 93, BUN is 12 and creatinine 0.62. On 04/22/2020 patient seen in follow-up on selective care unit, patient still quite tight, wheezy, with coarse inspiratory crackles at bilateral bases, yesterday we added Zosyn to the patient's antibiotic coverage, patient remains on Levaquin. Afebrile, remains on 2 L of oxygen the pulse ox 98%, no altered me ntation, hemodynamically stable. Sputum culture showed strep agalactiae, blood culture showed no growth at the 48 hour aron. His chest x-ray has been reviewed showing chronic interstitial lung disease, pneumonitis, small bilateral pleural effusions, and basilar atelectasis. Irregular density within the proximal greater on the right. Objective - Vital Signs Vital signs: Vital Signs Temp 97.5 F L 04/22/20 08:00 Pulse 105 H 04/22/20 08:33 Resp 20 04/22/20 08:00 BP 149/72 04/22/20 08:00 Pulse Ox 98 04/22/20 08:00 Intake & Output 04/21/20 04/22/20 04/22/20 18:59 06:59 18:59 Intake Total 460 Output Total 700 300 Balance -240 -300 Weight 59 kg 61 kg Intake: Oral 460 Output: Urine 700 300 Other: # Voids 1 1 - Exam GENERAL EXAM: Alert, very pleasant, 74-year-old white male, 2 L of oxygen with pulse ox of 98%, with audible chest congestion, congested cough, but no apparent distress. HEAD: Normocephalic/atraumatic. EYES: Normal reaction of pupils, equal size. Conjunctiva pink, sclera white. NOSE: Clear with pink turbinates. THROAT: No erythema or exudates. NECK: No masses, no JVD, no thyroid enlargement, no adenopathy. CHEST: No chest wall deformity. Symmetrical expansion. LUNGS: Equal air entry with diffuse rhonchi CVS: Regular rate and rhythm, normal S1 and S2, no gallops, no murmurs, no rubs ABDOMEN: Soft, nontender. No hepatosplenomegaly, normal bowel sounds, no guarding or rigidity. EXTREMITIES: No clubbing, no edema, no cyanosis, 2+ pulses and upper and lower extremities. MUSCULOSKELETAL: Muscle strength and tone normal. SPINE: No scoliosis or deformity SKIN: No rashes CENTRAL NERVOUS SYSTEM: Alert and oriented -3. No focal deficits, tone is normal in all 4 extremities. PSYCHIATRIC: Alert and oriented -3. Appropriate affect. Intact judgment and insight. - Labs CBC & Chem 7: 04/22/20 05:54 04/22/20 05:54 Labs: Abnormal Lab Results - Last 24 Hours (Table) 04/21/20 04/21/20 04/21/20 Range/Units 12:06 17:19 20:34 WBC (3.8-10.6) k/uL RBC (4.30-5.90) m/uL Hgb (13.0-17.5) gm/dL Hct (39.0-53.0) % Neutrophils # (1.3-7.7) k/uL Lymphocytes # (1.0-4.8) k/uL Sodium (137-145) mmol/L Chloride (98-107) mmol/L Creatinine (0.66-1.25) mg/dL Glucose (74-99) mg/dL POC Glucose (mg/dL) 138 H 128 H 138 H (75-99) mg/dL 04/22/20 04/22/20 04/22/20 Range/Units 05:54 05:54 06:12 WBC 12.0 H (3.8-10.6) k/uL RBC 3.93 L (4.30-5.90) m/uL Hgb 12.1 L (13.0-17.5) gm/dL Hct 37.8 L (39.0-53.0) % Neutrophils # 10.7 H (1.3-7.7) k/uL Lymphocytes # 0.7 L (1.0-4.8) k/uL Sodium 128 L (137-145) mmol/L Chloride 91 L (98-107) mmol/L Creatinine 0.61 L (0.66-1.25) mg/dL Glucose 146 H (74-99) mg/dL POC Glucose (mg/dL) 147 H (75-99) mg/dL Microbiology - Last 24 Hours (Table) 04/20/20 15:54 Gram Stain - Final Sputum Sputum Culture - Final Strep agalactiae - (group b) Mónica albicans 04/19/20 17:02 Blood Culture - Preliminary Blood No Growth after 48 hours Assessment and Plan Plan: Assessment: #1. Bilateral lower lobe infiltrate, likely related to bilateral pneumonia #2. Irregular density in the right upper lobe, possibly related to underlying pneumonia, will be followed #3. Acute exacerbation of COPD #4. Pulmonary fibrosis #5. History of esophageal cancer, status post esophagectomy, with the gastric pull-through #6. History of cataracts #7. Former smoker Plan: Continue current medical treatment, continue current antibiotic coverage, continue nebulized bronchodilators, IV steroids. Still bronchospastic and dyspneic. Today's chest x-ray has been reviewed showing bibasilar infiltrates, and an irregular density in the right upper lobe. We'll continue with IV antibiotics, steroids and breathing treatments. I performed a history & physical examination of the patient and discussed their management with my nurse practitioner, Eileen Duran. I reviewed the nurse practitioner's note and agree with the documented findings and plan of care. Lung sounds are positive for diminished breath sounds The findings and the impression was discussed with the patient. I attest to the documentation by the nurse practitioner. Time with Patient: Less than 30
[2020-04-22 17:10] LABS: Glucose,Whole Blood 140 mg/dL (75-99)
[2020-04-22 20:23] LABS: Glucose,Whole Blood 180 mg/dL (75-99)
[2020-04-22] MEDS: LATANOPROST 0.005% OPHTH DROPS 2.5 ML BTL BOTH EYES SCH (21:46)
[2020-04-23] MEDS: methylPREDNISolone SOD SUCCI 125 MG/2 ML VIAL IV SCH ×5 (00:01→23:45)
[2020-04-23] MEDS: PIPERACILLIN-TAZOBACTAM 3.375 GM in SODIUM CHLORIDE 0.9% 100 ML IVPB SCH ×2 (00:01→08:27)
[2020-04-23] MEDS: HYDROcodone/APAP 5-325MG 1 EACH TAB PO PRN ×2 (00:02→23:45)
[2020-04-23] MEDS: SODIUM CHLORIDE 0.9% 1,000 ML IV SCH (05:54)
[2020-04-23 06:09] LABS: Glucose,Whole Blood 126 mg/dL (75-99)
[2020-04-23] MEDS: PANTOPRAZOLE 40 MG TABLET PO SCH (06:25)
[2020-04-23] MEDS: LEVOTHYROXINE 25 MCG TAB PO SCH (06:25)
[2020-04-23] MEDS: INSULIN ASPART (NovoLOG) 100 UNIT/ML VIAL SQ SCH ×4 (06:26→21:25)
[2020-04-23] MEDS: BUDESONIDE 1 MG/2 ML NEBU INHALATION SCH ×2 (08:14→19:36)
[2020-04-23] MEDS: IPRATROPIUM-ALBUTEROL 3 ML NEB INHALATION SCH ×4 (08:14→19:36)
[2020-04-23] MEDS: ENOXAPARIN 40 MG/0.4 ML SYRINGE SQ SCH (08:26)
[2020-04-23] MEDS: POTASSIUM CHLORIDE ER 10 MEQ TAB.ER.PRT PO SCH (08:26)
[2020-04-23] MEDS: guaiFENesin 600 MG TABLET.ER PO SCH ×2 (08:26→21:25)
[2020-04-23] MEDS: ASPIRIN 81 MG PO SCH (08:26)
[2020-04-23] MEDS: FOLIC ACID 1 MG TAB PO SCH (08:26)
[2020-04-23] MEDS: LEVOFLOXACIN 500 MG TAB PO SCH (08:26)
[2020-04-23] MEDS: METOCLOPRAMIDE 10 MG TAB PO SCH (08:26)
[2020-04-23] MEDS: DORZOLAMIDE HCL 2% DROPS 10 ML BTL BOTH EYES SCH ×2 (08:27→21:24)
[2020-04-23 09:10] LABS: HCT 41.8 % (39.0-53.0); HGB 13.1 gm/dL (13.0-17.5); MCH 30.3 pg (25.0-35.0); MCHC 31.3 g/dL (31.0-37.0); MCV 96.9 fL (80.0-100.0); Mean Platelet Volume 6.5; Platelet Count 472 k/uL (150-450); RBC 4.31 m/uL (4.30-5.90); RDW 12.9 % (11.5-15.5); WBC 8.8 k/uL (3.8-10.6)
[2020-04-23 09:20] LABS: African American GFR (CKD) >90 (>60 ml/min/1.73 sqM); Anion Gap 12 mmol/L; Blood Urea Nitrogen 19 mg/dL (9-20); Carbon Dioxide 25 mmol/L (22-30); Chloride 92 mmol/L (98-107); Glucose 223 mg/dL (74-99); Non-African American GFR(CKD) >90 (>60 ml/min/1.73 sqM); Potassium 4.3 mmol/L (3.5-5.1); Sodium 129 mmol/L (137-145)
--- NOTE | 2020-04-23 10:19 | P.PN ---
Subjective Patient admitted for bilateral pneumonia and COPD exacerbation patient still hasn't been wheezing patient remains on systemic steroids will cut down the steroids to every 8 hourly 40 mg. Patient is also on levofloxacin which will be discontinued and patient will be started on ceftriaxone as the sputum cultures are showing strep agalactiae. 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 Constitutional: Denied any fatigue denied any fever. Cardio vascular: denied any chest pain, palpitations Gastrointestinal denied any nausea vomiting Pulmonary: Still significantly short of breath Neurologic denied any new focal deficits All inpatient medications were reviewed and appropriate changes in these medications as dictated in the interval history and assessment and plan. Objective - Vital Signs Vital signs: Vital Signs Temp 97.9 F 04/23/20 08:00 Pulse 80 04/23/20 08:29 Resp 20 04/23/20 08:00 BP 142/73 04/23/20 08:00 Pulse Ox 98 04/23/20 08:00 Intake & Output 04/22/20 04/23/20 04/23/20 18:59 06:59 18:59 Intake Total 960 240 Output Total 300 Balance 660 240 Weight 61.1 kg Intake: Oral 960 240 Output: Urine 300 Other: Voiding Method Toilet Toilet # Voids 0 - Exam PHYSICAL EXAMINATION: GENERAL: The patient is alert and oriented x3, patient is in respiratory distress. Thin built HEENT: Pupils are round and equally reacting to light. EOMI. No scleral icterus. No conjunctival pallor. Normocephalic, atraumatic. No pharyngeal erythema. No thyromegaly. CARDIOVASCULAR: S1 and S2 present. No murmurs, rubs, or gallops. PULMONARY: Significant wheezing and using accessory muscle breathing ABDOMEN: Soft, nontender, nondistended, normoactive bowel sounds. No palpable organomegaly. MUSCULOSKELETAL: No joint swelling or deformity. EXTREMITIES: No cyanosis, clubbing, or pedal edema. NEUROLOGICAL: Gross neurological examination did not reveal any focal deficits. SKIN: Tanned - Labs CBC & Chem 7: 04/23/20 08:46 04/23/20 08:46 Labs: Abnormal Lab Results - Last 24 Hours (Table) 04/22/20 04/22/20 04/23/20 Range/Units 17:07 20:20 06:05 Plt Count (150-450) k/uL Sodium (137-145) mmol/L Chloride (98-107) mmol/L Creatinine (0.66-1.25) mg/dL Glucose (74-99) mg/dL POC Glucose (mg/dL) 140 H 180 H 126 H (75-99) mg/dL 04/23/20 04/23/20 Range/Units 08:46 08:46 Plt Count 472 H (150-450) k/uL Sodium 129 L (137-145) mmol/L Chloride 92 L (98-107) mmol/L Creatinine 0.64 L (0.66-1.25) mg/dL Glucose 223 H (74-99) mg/dL POC Glucose (mg/dL) (75-99) mg/dL Microbiology - Last 24 Hours (Table) 04/19/20 17:02 Blood Culture - Preliminary Blood No Growth after 72 hours 04/20/20 15:54 Gram Stain - Final Sputum Sputum Culture - Final Strep agalactiae - (group b) Mónica albicans Assessment and Plan Plan: -Acute hypoxic and hypercapnic respiratory failure secondary to bilateral pneumonia and COPD exacerbation. With the systemic steroids inhalational treatments and patient was switched to Rocephin as mentioned above patient's blood cultures were positive for strep agalactiae and Mónica -COPD with acute exacerbate - pulmonary fibrosis -Esophageal cancer status post esophagectomy -. 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
--- NOTE | 2020-04-23 11:41 | P.PN ---
Subjective Progress Note Date: 04/23/20 Principal diagnosis: Acute exacerbation of COPD with purulent tracheobronchitis, possible pneumonia On 04/21/2020 patient seen in follow-up on selective care unit, he is more con gested on today's exam, lung sounds are positive for diffuse rhonchi, CT chest with contrast was completed yesterday, showing irregular density within the right upper lobe bilateral lower lobe infiltrates, possibly related to pneumonia, and PET scan was recommended for further evaluation. Patient c ontinues on Levaquin for antibiotic coverage, will and Zosyn, he is on nebulized bronchodilators, and IV steroids. He is receiving gentle IV hydration with 0.9 normal saline at a rate of 70 ML per hour, today's labs have been reviewed showing white blood cell count of 12.3, hemoglobin of 12.6, sodium is improving, 127, potassium is 5.2, chloride is 93, BUN is 12 and creatinine 0.62. On 04/22/2020 patient seen in follow-up on selective care unit, patient still quite tight, wheezy, with coarse inspiratory crackles at bilateral bases, yesterday we added Zosyn to the patient's antibiotic coverage, patient remains on Levaquin. Afebrile, remains on 2 L of oxygen the pulse ox 98%, no altered mentation, hemodynamically stable. Sputum culture showed strep agalactiae, blood culture showed no growth at the 48 hour aron. His chest x-ray has been reviewed showing chronic interstitial lung disease, pneumonitis, small bilateral pleural effusions, and basilar atelectasis. Irregular density within the proximal greater on the right. Patient is seen today 04/23/2020 in follow-up on the selective care unit. He is currently resting comfortably in bed. Awake and alert in no acute distress. He states he is breathing a bit easier today compared to yesterday. He is still dyspneic with minimal conversation and minimal exertion. Better compared to yesterday however. He is maintaining good O2 saturations in the upper 90s on 2 L/m per nasal cannula. His been afebrile. White count 8.8. Hemoglobin 13.1. Sodium 129. Potassium 4.2. Creatinine 0.64. He remains on DuoNeb inhalations, Pulmicort and Perforomist inhalations, IV Solu-Medrol. Antibiotics in the form of ceftriaxone. Objective - Vital Signs Vital signs: Vital Signs Temp 97.9 F 04/23/20 08:00 Pulse 83 04/23/20 11:35 Resp 20 04/23/20 08:00 BP 142/73 04/23/20 08:00 Pulse Ox 98 04/23/20 08:00 Intake & Output 04/22/20 04/23/20 04/23/20 18:59 06:59 18:59 Intake Total 960 240 Output Total 300 Balance 660 240 Weight 61.1 kg Intake: Oral 960 240 Output: Urine 300 Other: Voiding Method Toilet Toilet # Voids 0 - Exam GENERAL EXAM: Alert, very pleasant, 74-year-old male patient, 2 L of oxygen with pulse ox of 98%, congested cough, but no apparent distress. HEAD: Normocephalic/atraumatic. EYES: Normal reaction of pupils, equal size. Conjunctiva pink, sclera white. NOSE: Clear with pink turbinates. THROAT: No erythema or exudates. NECK: No masses, no JVD, no thyroid enlargement, no adenopathy. CHEST: No chest wall deformity. Symmetrical expansion. LUNGS: Equal air entry with diffuse rhonchi CVS: Regular rate and rhythm, normal S1 and S2, no gallops, no murmurs, no rubs ABDOMEN: Soft, nontender. No hepatosplenomegaly, normal bowel sounds, no guarding or rigidity. EXTREMITIES: No clubbing, no edema, no cyanosis, 2+ pulses and upper and lower extremities. MUSCULOSKELETAL: Muscle strength and tone normal. SPINE: No scoliosis or deformity SKIN: No rashes CENTRAL NERVOUS SYSTEM: Alert and oriented -3. No focal deficits, tone is normal in all 4 extremities. PSYCHIATRIC: Alert and oriented -3. Appropriate affect. Intact judgment and insight. - Labs CBC & Chem 7: 04/23/20 08:46 04/23/20 08:46 Labs: Abnormal Lab Results - Last 24 Hours (Table) 04/22/20 04/22/20 04/23/20 Range/Units 17:07 20:20 06:05 Plt Count (150-450) k/uL Sodium (137-145) mmol/L Chloride (98-107) mmol/L Creatinine (0.66-1.25) mg/dL Glucose (74-99) mg/dL POC Glucose (mg/dL) 140 H 180 H 126 H (75-99) mg/dL 04/23/20 04/23/20 Range/Units 08:46 08:46 Plt Count 472 H (150-450) k/uL Sodium 129 L (137-145) mmol/L Chloride 92 L (98-107) mmol/L Creatinine 0.64 L (0.66-1.25) mg/dL Glucose 223 H (74-99) mg/dL POC Glucose (mg/dL) (75-99) mg/dL Microbiology - Last 24 Hours (Table) 04/19/20 17:02 Blood Culture - Preliminary Blood No Growth after 72 hours 04/20/20 15:54 Gram Stain - Final Sputum Sputum Culture - Final Strep agalactiae - (group b) Mónica albicans Assessment and Plan Assessment: #1. Bilateral lower lobe infiltrate, likely related to bilateral pneumonia #2. Irregular density in the right upper lobe, possibly related to underlying pneumonia, will be followed #3. Acute exacerbation of COPD #4. Pulmonary fibrosis #5. History of esophageal cancer, status post esophagectomy, with the gastric pull-through #6. History of cataracts #7. Former smoker Plan: The patient was seen and evaluated by Dr. Concepcion Improved but not quite back to his baseline Continue the current treatment plan Titrate the FiO2 as tolerated Increase his activity as tolerated We'll continue to follow I, the cosigning physician, performed a history & physical examination of the patient. Lungs sounds with diffuse scattered rhonchi, diminished. Maintaining good O2 saturations in the 90s on 2 L/m per nasal cannula. I discussed the assessment and plan of care with my nurse practitioner, Destini Castro. I attest to the above note as dictated by her.
[2020-04-23 17:22] LABS: Glucose,Whole Blood 120 mg/dL (75-99)
[2020-04-23 20:54] LABS: Glucose,Whole Blood 144 mg/dL (75-99)
[2020-04-23] MEDS: LATANOPROST 0.005% OPHTH DROPS 2.5 ML BTL BOTH EYES SCH (21:24)
[2020-04-24] MEDS: PANTOPRAZOLE 40 MG TABLET PO SCH (06:18)
[2020-04-24] MEDS: methylPREDNISolone SOD SUCCI 125 MG/2 ML VIAL IV SCH (06:18)
[2020-04-24] MEDS: LEVOTHYROXINE 25 MCG TAB PO SCH (06:18)
[2020-04-24 06:21] LABS: Glucose,Whole Blood 124 mg/dL (75-99)
[2020-04-24] MEDS: INSULIN ASPART (NovoLOG) 100 UNIT/ML VIAL SQ SCH ×4 (06:23→23:00)
[2020-04-24] MEDS: HYDROcodone/APAP 5-325MG 1 EACH TAB PO PRN (06:30)
[2020-04-24 07:01] LABS: African American GFR (CKD) >90 (>60 ml/min/1.73 sqM); Anion Gap 8 mmol/L; Blood Urea Nitrogen 18 mg/dL (9-20); Calcium 8.8 mg/dL (8.4-10.2); Carbon Dioxide 30 mmol/L (22-30); Chloride 89 mmol/L (98-107); Glucose 131 mg/dL (74-99); Non-African American GFR(CKD) >90 (>60 ml/min/1.73 sqM); Potassium 4.7 mmol/L (3.5-5.1); Sodium 127 mmol/L (137-145)
[2020-04-24] MEDS: BUDESONIDE 1 MG/2 ML NEBU INHALATION SCH ×2 (08:17→19:55)
[2020-04-24] MEDS: IPRATROPIUM-ALBUTEROL 3 ML NEB INHALATION SCH ×4 (08:17→19:55)
--- NOTE | 2020-04-24 08:17 | P.PN ---
Subjective Patient admitted for bilateral pneumonia and COPD exacerbation patient still hasn't been wheezing patient remains on systemic steroids will cut down the steroids to every 8 hourly 40 mg. Patient is also on levofloxacin which will be discontinued and patient will be started on ceftriaxone as the sputum cultures are showing strep agalactiae. 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 04/24/2020 Patient's serum sodium remains at 127 patient is presently on fluid restriction the patient's TSH is within normal limits and the serum cortisol is still p ending. Urine osmolality is very high at 884 consistent with SIADH urine random sodium is 94. Patient continued on fluid restriction and probably will be consulted for hyponatremia regarding his respiratory status is significantly improved and patient is feeling much better although still has significant wheezing on exam cutting down the IV steroids dose. Constitutional: Denied any fatigue denied any fever. Cardio vascular: denied any chest pain, palpitations Gastrointestinal denied any nausea vomiting Pulmonary: Significant improved compared to yesterday patient is not in respiratory distress Neurologic denied any new focal deficits All inpatient medications were reviewed and appropriate changes in these medications as dictated in the interval history and assessment and plan. Objective - Vital Signs Vital signs: Vital Signs Temp 98.3 F 04/23/20 20:00 Pulse 88 04/24/20 04:00 Resp 19 04/24/20 04:00 BP 157/78 04/24/20 04:00 Pulse Ox 94 L 04/24/20 04:00 Intake & Output 04/23/20 04/24/20 04/24/20 18:59 06:59 18:59 Intake Total 1490 100 Output Total 300 Balance 1190 100 Weight 61.5 kg Intake: Intake, IV Titration 150 Amount Piperacillin-Tazobactam 3 100 .375 gm In Sodium Chloride 0.9% 100 ml @ 25 mls/hr IVPB Q8HR [facility] Rx# :[id number] cefTRIAXone 2 gm In 50 Sodium Chloride 0.9% 50 ml @ 100 mls/hr IVPB Q24HR [facility] Rx#:[id number] Oral 1340 100 Output: Urine 300 Other: Voiding Method Toilet # Voids 2 2 - Exam PHYSICAL EXAMINATION: GENERAL: The patient is alert and oriented x3, not in respiratory distress. Thin built HEENT: Pupils are round and equally reacting to light. EOMI. No scleral icterus. No conjunctival pallor. Normocephalic, atraumatic. No pharyngeal erythema. No thyromegaly. CARDIOVASCULAR: S1 and S2 present. No murmurs, rubs, or gallops. PULMONARY: Still wheezing but off oxygen and not using accessory muscles of breathing. ABDOMEN: Soft, nontender, nondistended, normoactive bowel sounds. No palpable organomegaly. MUSCULOSKELETAL: No joint swelling or deformity. EXTREMITIES: No cyanosis, clubbing, or pedal edema. NEUROLOGICAL: Gross neurological examination did not reveal any focal deficits. SKIN: Tanned - Labs CBC & Chem 7: 04/23/20 08:46 04/24/20 06:24 Labs: Abnormal Lab Results - Last 24 Hours (Table) 04/23/20 04/23/20 04/23/20 Range/Units 08:46 08:46 16:59 Plt Count 472 H (150-450) k/uL Sodium 129 L (137-145) mmol/L Chloride 92 L (98-107) mmol/L Creatinine 0.64 L (0.66-1.25) mg/dL Glucose 223 H (74-99) mg/dL POC Glucose (mg/dL) 120 H (75-99) mg/dL 04/23/20 04/24/20 04/24/20 Range/Units 20:51 06:17 06:24 Plt Count (150-450) k/uL Sodium 127 L (137-145) mmol/L Chloride 89 L (98-107) mmol/L Creatinine 0.56 L (0.66-1.25) mg/dL Glucose 131 H (74-99) mg/dL POC Glucose (mg/dL) 144 H 124 H (75-99) mg/dL Microbiology - Last 24 Hours (Table) 04/19/20 17:02 Blood Culture - Preliminary Blood No Growth after 96 hours Assessment and Plan Plan: -Acute hypoxic and hypercapnic respiratory failure secondary to bilateral pneum onia and COPD exacerbation. With the systemic steroids inhalational treatments and patient was switched to Rocephin as mentioned above patient's blood cultures were positive for strep agalactiae and Mónica cough patient has significant improvement in his COPD presently not requiring oxygen. -COPD with acute exacerbation - pulmonary fibrosis -Esophageal cancer status post esophagectomy -. 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
[2020-04-24] MEDS: ASPIRIN 81 MG PO SCH (08:47)
[2020-04-24] MEDS: FOLIC ACID 1 MG TAB PO SCH (08:47)
[2020-04-24] MEDS: ENOXAPARIN 40 MG/0.4 ML SYRINGE SQ SCH (08:47)
[2020-04-24] MEDS: guaiFENesin 600 MG TABLET.ER PO SCH ×2 (08:48→21:01)
[2020-04-24] MEDS: DORZOLAMIDE HCL 2% DROPS 10 ML BTL BOTH EYES SCH ×2 (08:48→21:02)
[2020-04-24] MEDS: METOCLOPRAMIDE 10 MG TAB PO SCH (08:48)
--- NOTE | 2020-04-24 10:02 | P.NPCON ---
History of Present Illness - Reason for Consult hyponatremia - History of Present Illness reason for consultation: Hyponatremia History of present illness: patient is a 74-year-old male seen in renal consultation for hyponatremia. Patient's sodium level was 125 on admission and didn't come up to 129 as of yesterday. It is back down to 127 today. Oral intake is fair. He is maintained on fluid restriction. No vomiting or diarrhea. Patient presented to the hospital shortness of breath. he's also been having a cough with productive sputum. Patient's sputum culture was positive for group B strep as well as Mónica albicans is admission. he is maintained on antibiotics. Also on IV steroids for COPD constipation. denies use of thiazide diuretics. Denies personal or family history of kidney disease. Good urine output. No hematuria or dysuria. No edema. He does have history of esophageal cancer from 18 years ago but no active malignancy. blood pressure in the systolic 150s. No dizziness or syncopal episodes. Vital signs are stable. General: The patient appeared well nourished and normally developed. HEENT: Head exam is unremarkable. Neck is without jugular venous distension. LUNGS: Breath sounds decreased. HEART: Rate and Rhythm are regular. ABDOMEN: soft, nontender. EXTREMITITES: No clubbing, cyanosis, or edema. Past Medical History Past Medical History: Cancer, COPD, GERD/Reflux Additional Past Medical History / Comment(s): esophageal cancer, cataracts, History of Any Multi-Drug Resistant Organisms: None Reported Additional Past Surgical History / Comment(s): esophageal surgery, Past Psychological History: No Psychological Hx Reported Smoking Status: Former smoker Past Alcohol Use History: Daily Past Drug Use History: None Reported Medications and Allergies Home Medications Medication Instructions Recorded Confirmed Type Fluticasone/Salmeterol [Advair 2 puff INHALATION RT-BID 06/18/14 04/19/20 Hist ory 250-50 Diskus] Folic Acid 0.4 mg PO DAILY 06/18/14 04/19/20 History Latanoprost Ophth [Xalatan 0.005%] 1 drops BOTH EYES HS 06/18/14 04/19/20 History Omeprazole [PriLOSEC] 20 mg PO AC-BRKFST 06/18/14 04/19/20 History Tiotropium [place] [Spiriva] 1 puff IN RT-DAILY 06/18/14 04/19/20 History Brimonidine Tartrate [Alphagan P 1 drops BOTH EYES HS 04/19/20 04/19/20 History 0.2% Ophth Soln] Cyanocobalamin (Vitamin B-12) 1,000 mcg PO DAILY 04/19/20 04/19/20 History [Vitamin B-12] Fish Oil/Dha/Epa [Fish Oil 1,200 1 cap PO DAILY 04/19/20 04/19/20 History mg Fish Oil] Levothyroxine Sodium 25 mcg PO DAILY 04/19/20 04/19/20 History Magnesium Oxide 400 mg PO DAILY 04/19/20 04/19/20 History Multivitamins, Thera [Multivitamin 1 tab PO DAILY 04/19/20 04/19/20 History (formulary)] Zinc 50 mg PO DAILY 04/19/20 04/19/20 History Allergies Allergy/AdvReac Type Severity Reaction Status Date / Time No Known Allergies Allergy Verified 04/19/20 17:43 Physical Exam Vitals: Vital Signs Temp Pulse Pulse Resp BP Pulse Ox 04/24/20 08:31 88 04/24/20 08:19 88 04/24/20 08:00 97.9 F 111 H 18 150/70 94 L 04/24/20 04:00 88 19 157/78 94 L 04/24/20 00:00 73 19 158/75 95 04/23/20 20:00 98.3 F 89 19 134/67 95 04/23/20 19:48 92 04/23/20 19:36 90 04/23/20 15:58 88 04/23/20 15:44 90 96 04/23/20 15:28 98 F 79 18 121/62 96 04/23/20 12:00 98 F 81 18 116/60 98 04/23/20 11:50 88 04/23/20 11:35 83 Intake and Output 04/23/20 04/24/20 04/24/20 22:59 06:59 14:59 Intake Total 1010 100 480 Output Total 300 Balance 710 100 480 Intake: Intake, IV Titration 150 Amount Piperacillin-Tazobactam 3 100 .375 gm In Sodium Chloride 0.9% 100 ml @ 25 mls/hr IVPB Q8HR [facility] Rx# :[id number] cefTRIAXone 2 gm In 50 Sodium Chloride 0.9% 50 ml @ 100 mls/hr IVPB Q24HR [facility] Rx#:[id number] Oral 860 100 480 Output: Urine 300 Other: Voiding Method Toilet Toilet # Voids 2 2 Weight 61.5 kg Results - Lab Results Most recent lab results Calcium 8.8 mg/dL (8.4-10.2) 04/24/20 06:24 Magnesium 1.8 mg/dL (1.6-2.3) 04/22/20 05:54 04/23/20 08:46 04/24/20 06:24 Assessment and Plan Plan: Assessment: 1. Hyponatremia. appears euvolemic. 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 urine sodium 94 and urine osmolality 834. TSH normal. 2. Pneumonia maintained on antibiotics. 3. Benign hypertension. Stable. 4. COPD exacerbation. Plan: Maintain fluid restriction. Encourage oral intake, particularly protein. Add Lasix 20 mg orally twice daily. Repeat electrolytes the morning. If no improvement in his sodium level, will give a dose of Samsca. Thank you for the consultation. We'll continue to follow the patient with you during his hospital stay.
--- NOTE | 2020-04-24 11:07 | P.PN ---
Subjective Progress Note Date: 04/24/20 Principal diagnosis: Acute exacerbation of COPD with purulent tracheobronchitis, possible pneumonia On 04/21/2020 patient seen in follow-up on selective care unit, he is more con gested on today's exam, lung sounds are positive for diffuse rhonchi, CT chest with contrast was completed yesterday, showing irregular density within the right upper lobe bilateral lower lobe infiltrates, possibly related to pneumonia, and PET scan was recommended for further evaluation. Patient c ontinues on Levaquin for antibiotic coverage, will and Zosyn, he is on nebulized bronchodilators, and IV steroids. He is receiving gentle IV hydration with 0.9 normal saline at a rate of 70 ML per hour, today's labs have been reviewed showing white blood cell count of 12.3, hemoglobin of 12.6, sodium is improving, 127, potassium is 5.2, chloride is 93, BUN is 12 and creatinine 0.62. On 04/22/2020 patient seen in follow-up on selective care unit, patient still quite tight, wheezy, with coarse inspiratory crackles at bilateral bases, yesterday we added Zosyn to the patient's antibiotic coverage, patient remains on Levaquin. Afebrile, remains on 2 L of oxygen the pulse ox 98%, no altered mentation, hemodynamically stable. Sputum culture showed strep agalactiae, blood culture showed no growth at the 48 hour aron. His chest x-ray has been reviewed showing chronic interstitial lung disease, pneumonitis, small bilateral pleural effusions, and basilar atelectasis. Irregular density within the proximal greater on the right. Patient is seen today 04/23/2020 in follow-up on the selective care unit. He is currently resting comfortably in bed. Awake and alert in no acute distress. He states he is breathing a bit easier today compared to yesterday. He is still dyspneic with minimal conversation and minimal exertion. Better compared to yesterday however. He is maintaining good O2 saturations in the upper 90s on 2 L/m per nasal cannula. His been afebrile. White count 8.8. Hemoglobin 13.1. Sodium 129. Potassium 4.2. Creatinine 0.64. He remains on DuoNeb inhalations, Pulmicort and Perforomist inhalations, IV Solu-Medrol. Antibiotics in the form of ceftriaxone. The patient is seen today 04/24/2020 in follow-up on the selective care unit. He is awake and alert in no acute distress. He is breathing easier today compared to yesterday. Getting closer to his baseline. No worsening shortness of breath, cough or congestion. He is maintaining good O2 saturation in the 90s on room air. He's afebrile. Sputum cultures positive for strep agalactiae group B. Sodium 127. Potassium 4.7. Creatinine 0.56. Objective - Vital Signs Vital signs: Vital Signs Temp 97.9 F 04/24/20 08:00 Pulse 88 04/24/20 08:31 Resp 18 04/24/20 08:00 BP 150/70 04/24/20 08:00 Pulse Ox 94 L 04/24/20 08:00 Intake & Output 04/23/20 04/24/20 04/24/20 18:59 06:59 18:59 Intake Total 1490 100 720 Output Total 300 Balance 1190 100 720 Weight 61.5 kg Intake: Intake, IV Titration 150 Amount Piperacillin-Tazobactam 3 100 .375 gm In Sodium Chloride 0.9% 100 ml @ 25 mls/hr IVPB Q8HR [facility]REE Rx# :[id number] cefTRIAXone 2 gm In 50 Sodium Chloride 0.9% 50 ml @ 100 mls/hr IVPB Q24HR BREE Rx#:[id number] Oral 1340 100 720 Output: Urine 300 Other: Voiding Method Toilet # Voids 2 2 - Exam GENERAL EXAM: Alert, very pleasant, 74-year-old male patient, on room air, no apparent distress. HEAD: Normocephalic/atraumatic. EYES: Normal reaction of pupils, equal size. Conjunctiva pink, sclera white. NOSE: Clear with pink turbinates. THROAT: No erythema or exudates. NECK: No masses, no JVD, no thyroid enlargement, no adenopathy. CHEST: No chest wall deformity. Symmetrical expansion. LUNGS: Equal air entry with few scattered rhonchi CVS: Regular rate and rhythm, normal S1 and S2, no gallops, no murmurs, no rubs ABDOMEN: Soft, nontender. No hepatosplenomegaly, normal bowel sounds, no guarding or rigidity. EXTREMITIES: No clubbing, no edema, no cyanosis, 2+ pulses and upper and lower extremities. MUSCULOSKELETAL: Muscle strength and tone normal. SPINE: No scoliosis or deformity SKIN: No rashes CENTRAL NERVOUS SYSTEM: Alert and oriented -3. No focal deficits, tone is normal in all 4 extremities. PSYCHIATRIC: Alert and oriented -3. Appropriate affect. Intact judgment and insight. - Labs CBC & Chem 7: 04/23/20 08:46 04/24/20 06:24 Labs: Abnormal Lab Results - Last 24 Hours (Table) 04/23/20 04/23/20 04/24/20 Range/Units 16:59 20:51 06:17 Sodium (137-145) mmol/L Chloride (98-107) mmol/L Creatinine (0.66-1.25) mg/dL Glucose (74-99) mg/dL POC Glucose (mg/dL) 120 H 144 H 124 H (75-99) mg/dL 04/24/20 Range/Units 06:24 Sodium 127 L (137-145) mmol/L Chloride 89 L (98-107) mmol/L Creatinine 0.56 L (0.66-1.25) mg/dL Glucose 131 H (74-99) mg/dL POC Glucose (mg/dL) (75-99) mg/dL Microbiology - Last 24 Hours (Table) 04/19/20 17:02 Blood Culture - Preliminary Blood No Growth after 96 hours Assessment and Plan Assessment: #1. Bilateral lower lobe infiltrate, likely related to bilateral pneumonia, improving currently on room air #2. Irregular density in the right upper lobe, possibly related to underlying pneumonia, will be followed #3. Acute exacerbation of COPD #4. Pulmonary fibrosis #5. History of esophageal cancer, status post esophagectomy, with the gastric pull-through #6. History of cataracts #7. Former smoker Plan: The patient was seen and evaluated by Dr. Concepcion Improved today and on room air Continue the current treatment plan Increase his activity as tolerated Probable discharge in the a.m. We'll continue to follow I, the cosigning physician, performed a history & physical examination of the patient. Lungs sounds with scattered rhonchi, diminished. Maintaining good O2 saturations in the 90s on room air. I discussed the assessment and plan of care with my nurse practitioner, Destini Castro. I attest to the above note as dictated by her.
[2020-04-24 12:34] LABS: Glucose,Whole Blood 115 mg/dL (75-99)
[2020-04-24 13:27] VITALS: BMI 17.9
[2020-04-24] MEDS: FUROSEMIDE 20 MG TAB PO SCH (16:37)
[2020-04-24 17:03] LABS: Glucose,Whole Blood 106 mg/dL (75-99)
[2020-04-24] MEDS: methylPREDNISolone SOD SUCCI 40 MG/ML 1 ML VIAL IV SCH (18:28)
[2020-04-24 20:41] LABS: Glucose,Whole Blood 110 mg/dL (75-99)
[2020-04-24] MEDS: LATANOPROST 0.005% OPHTH DROPS 2.5 ML BTL BOTH EYES SCH (21:01)
[2020-04-25 04:12] VITALS: RESP 19
[2020-04-25] MEDS: PANTOPRAZOLE 40 MG TABLET PO SCH (06:36)
[2020-04-25] MEDS: LEVOTHYROXINE 25 MCG TAB PO SCH (06:37)
[2020-04-25] MEDS: methylPREDNISolone SOD SUCCI 40 MG/ML 1 ML VIAL IV SCH (06:37)
[2020-04-25] MEDS: HYDROcodone/APAP 5-325MG 1 EACH TAB PO PRN (06:40)
[2020-04-25 06:46] LABS: Glucose,Whole Blood 90 mg/dL (75-99)
[2020-04-25 07:11] LABS: African American GFR (CKD) >90 (>60 ml/min/1.73 sqM); Anion Gap 6 mmol/L; Blood Urea Nitrogen 22 mg/dL (9-20); Calcium 8.4 mg/dL (8.4-10.2); Carbon Dioxide 31 mmol/L (22-30); Chloride 89 mmol/L (98-107); Glucose 91 mg/dL (74-99); Magnesium 1.8 mg/dL (1.6-2.3); Non-African American GFR(CKD) >90 (>60 ml/min/1.73 sqM); Potassium 4.5 mmol/L (3.5-5.1); Sodium 126 mmol/L (137-145)
[2020-04-25] MEDS: BUDESONIDE 1 MG/2 ML NEBU INHALATION SCH (08:05)
[2020-04-25] MEDS: IPRATROPIUM-ALBUTEROL 3 ML NEB INHALATION SCH ×2 (08:05→11:32)
[2020-04-25] MEDS ORDERED: TOLVAPTAN 15 MG 1/2 TABLET PO ONE (10:00)
[2020-04-25] MEDS: INSULIN ASPART (NovoLOG) 100 UNIT/ML VIAL SQ SCH ×2 (10:05→12:46)
[2020-04-25] MEDS: METOCLOPRAMIDE 10 MG TAB PO SCH (10:05)
[2020-04-25] MEDS: guaiFENesin 600 MG TABLET.ER PO SCH (10:05)
[2020-04-25] MEDS: FOLIC ACID 1 MG TAB PO SCH (10:05)
[2020-04-25] MEDS: ASPIRIN 81 MG PO SCH (10:05)
[2020-04-25] MEDS: ENOXAPARIN 40 MG/0.4 ML SYRINGE SQ SCH (10:06)
[2020-04-25] MEDS: FUROSEMIDE 20 MG TAB PO SCH (10:06)
[2020-04-25] MEDS: DORZOLAMIDE HCL 2% DROPS 10 ML BTL BOTH EYES SCH (10:07)
[2020-04-25 10:48] VITALS: BP 153/70; TEMP 97.6
--- NOTE | 2020-04-25 11:01 | P.DS ---
Providers Date of admission: 04/19/20 16:48 Expected date of discharge: 04/25/20 Attending physician: Saeed Mitchell MD Consults: 04/19/20 16:47 Consult Physician Routine Consulting Provider: Marc Morelos Consult Reason/Comments: She'll be exacerbation, lung mass Do you want consulting provider notified?: Yes 04/24/20 07:46 Consult Physician Routine Consulting Provider: Florin Short Consult Reason/Comments: Hyponatremia Do you want consulting provider notified?: Yes Primary care physician: White Hospital Course: Final Diagnoses: 1) acute bilateral pneumonia,sputum culture reporting streptococcal agalactiae group B. 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 Pt complains that over the past few days he has become increasingly dyspneic and has been coughing more. He denies any fever or chills. Pt notes that his symptoms had progressed to the point he was short of breath with ambulation. He is a former smoker. He had been doing albuterol inhaler without much relief. On presentation he was tachypneic and hypoxic, WBC 12k, Na 125, CXR with RML density. 04/21/20 maintained on IV fluids. Breathing improving with loose productive cough. Maintaining O2 sats in the 90s on 2 L nasal cannula O2. Maintained on IV fluid hydration with sodium improving, currently up to 127. Blood sugars controlled. Afebrile, WBC 12.3. Denies chest pain, palpitations or increasing shortness of breath. Follow-up CT secondary to abnormal chest x-ray reported corresponding to pull through procedure from esophageal cancer/surgery, irregular density right upper lobe measuring 4.7 cm, bilateral lower lobe infiltrate, COPD, possible pulmonary fibrosis, 2 cm cystic structure posterior to the body, the pancreas nonspecific, follow-up CT of abdomen recommended. 04/22/2020 maintained on Zosyn and Levaquin, sputum culture reporting strepto coccal agalactiae group B. Chest x-ray reporting no significant interval change, irregular density within the proximal greater on the right as noted on computed tomography scan. Breathing improving, mild tachycardia, maintaining O2 sats in the 90s on 2 L nasal cannula. Afebrile, WBC 12. Sodium up to 128. Complains of inability to sleep, chronic restless legs at night. Denies chest pain, palpitations or increased shortness of breath. Hyponatremia secondary to SIADH. Urine sodium 94, urine osmolality 834. Oral diuretics as initiated yesterday as per nephrology. Sodium 126, received a dose of Samsca this am. Significant clinical improvement. Patient will be discharged today in stable condition with guarded prognosis pending final DC recommendations and clearance from both nephrology and pulmonary. PET scan will be arranged outpatient and clinic with PCP. The impression and plan of care has been dictated as directed. : I performed a history and examination of this patient, discussed the same with the dictator. I agree with the dictator's note ,documented as a scribe. Any additional findings or plans will be noted. Patient Condition at Discharge: Stable Plan - Discharge Summary Discharge Rx Participant: No New Discharge Prescriptions: New predniSONE 10 mg PO DIRECTED #30 tab Aspirin 81 mg PO DAILY chew Furosemide [Lasix] 20 mg PO BID@0900,1600 #60 tab guaiFENesin [Mucinex] 600 mg PO Q12HR tablet.er rOPINIRole HCL [Requip] 0.5 mg PO HS #60 tab Amoxic-Pot Clav 875-125Mg [Augmentin 875-125] 1 tab PO Q12HR 3 Days #6 tab Ipratropium-Albuterol Nebulize [Duoneb 0.5 mg-3 mg/3 ml Soln] 3 ml INHALATION RT-QID #120 ml Continue Omeprazole [PriLOSEC] 20 mg PO AC-BRKFST Latanoprost Ophth [Xalatan 0.005%] 1 drops BOTH EYES HS Folic Acid 0.4 mg PO DAILY Tiotropium Dod[place] [Spiriva] 1 puff IN RT-DAILY Fluticasone/Salmeterol [Advair 250-50 Diskus] 2 puff INHALATION RT-BID Magnesium Oxide 400 mg PO DAILY Fish Oil/Dha/Epa [Fish Oil 1,200 mg Fish Oil] 1 cap PO DAILY Cyanocobalamin (Vitamin B-12) [Vitamin B-12] 1,000 mcg PO DAILY Multivitamins, Thera [Multivitamin (formulary)] 1 tab PO DAILY Levothyroxine Sodium 25 mcg PO DAILY Brimonidine Tartrate [Alphagan P 0.2% Ophth Soln] 1 drops BOTH EYES HS Zinc 50 mg PO DAILY Discharge Medication List Fluticasone/Salmeterol [Advair 250-50 Diskus] 2 puff INHALATION RT-BID 06/18/14 [History] Folic Acid 0.4 mg PO DAILY 06/18/14 [History] Latanoprost Ophth [Xalatan 0.005%] 1 drops BOTH EYES HS 06/18/14 [History] Omeprazole [PriLOSEC] 20 mg PO AC-BRKFST 06/18/14 [History] Tiotropium [place] [Spiriva] 1 puff IN RT-DAILY 06/18/14 [History] Brimonidine Tartrate [Alphagan P 0.2% Ophth Soln] 1 drops BOTH EYES HS 04/19/20 [History] Cyanocobalamin (Vitamin B-12) [Vitamin B-12] 1,000 mcg PO DAILY 04/19/20 [History] Fish Oil/Dha/Epa [Fish Oil 1,200 mg Fish Oil] 1 cap PO DAILY 04/19/20 [History] Levothyroxine Sodium 25 mcg PO DAILY 04/19/20 [History] Magnesium Oxide 400 mg PO DAILY 04/19/20 [History] Multivitamins, Thera [Multivitamin (formulary)] 1 tab PO DAILY 04/19/20 [History] Zinc 50 mg PO DAILY 09/08/20 [History] Amoxic-Pot Clav 875-125Mg [Augmentin 875-125] 1 tab PO Q12HR 3 Days #6 tab 04/25/20 [Rx] Aspirin 81 mg PO DAILY chew 04/25/20 [Rx] Furosemide [Lasix] 20 mg PO BID@0900,1600 #60 tab 04/25/20 [Rx] Ipratropium-Albuterol Nebulize [Duoneb 0.5 mg-3 mg/3 ml Soln] 3 ml INHALATION RT-QID #120 ml 04/25/20 [Rx] guaiFENesin [Mucinex] 600 mg PO Q12HR tablet.er 04/25/20 [Rx] predniSONE 10 mg PO DIRECTED #30 tab 04/25/20 [Rx] rOPINIRole HCL [Requip] 0.5 mg PO HS #60 tab 04/25/20 [Rx] Follow up Appointment(s)/Referral(s): Saeed Mitchell MD [STAFF PHYSICIAN] - 3 Days Florin Short DO [STAFF PHYSICIAN] - 1 Week Simeon Concepcion MD [STAFF PHYSICIAN] - 2 Weeks Ambulatory/Diagnostic Orders: Complete Blood Count w/diff [LAB.AMB] Time Frame: 3 Days, Location: None Selected Activity/Diet/Wound Care/Special Instructions: Pending final DC recommendations and clearance from both nephrology and pulmonary. Outpatient PET scan to be arranged as per PCP in clinic. Fluid restriction 1500 Case management to ensure patient and his nebulizer for DC
[2020-04-25 11:45] VITALS: PULSE 100
[2020-04-25 11:45] LABS: Glucose,Whole Blood 93 mg/dL (75-99)
--- NOTE | 2020-04-25 12:46 | P.PN ---
Subjective Progress Note Date: 04/25/20 On 04/21/2020 patient seen in follow-up on selective care unit, he is more congested on today's exam, lung sounds are positive for diffuse rhonchi, CT chest with contrast was completed yesterday, showing irregular density within the right upper lobe bilateral lower lobe infiltrates, possibly related to pneumonia, and PET scan was recommended for further evaluation. Patient continues on Levaquin for antibiotic coverage, will and Zosyn, he is on nebulized bronchodilators, and IV steroids. He is receiving gentle IV hydration with 0.9 normal saline at a rate of 70 ML per hour, today's labs have been reviewed showing white blood cell count of 12.3, hemoglobin of 12.6, sodium is improving, 127, potassium is 5.2, chloride is 93, BUN is 12 and creatinine 0.62. On 04/22/2020 patient seen in follow-up on [facility] care [facility], patient still quite tight, wheezy, with coarse inspiratory crackles at bilateral bases, yesterday we added Zosyn to the patient's antibiotic coverage, patient remains on Levaquin. Afebrile, remains on 2 L of oxygen the pulse ox 98%, no altered mentation, hemodynamically stable. Sputum culture showed strep agalactiae, blood culture showed no growth at the 48 hour aron. His chest x-ray has been reviewed showing chronic interstitial lung disease, pneumonitis, small bilateral pleural effusions, and basilar atelectasis. Irregular density within the proximal greater on the right. Patient is seen today 04/23/2020 in follow-up on the selective care unit. He is currently resting comfortably in bed. Awake and alert in no acute distress. He states he is breathing a bit easier today compared to yesterday. He is still dyspneic with minimal conversation and minimal exertion. Better compared to yesterday however. He is maintaining good O2 saturations in the upper 90s on 2 L/m per nasal cannula. His been afebrile. White count 8.8. Hemoglobin 13.1. Sodium 129. Potassium 4.2. Creatinine 0.64. He remains on DuoNeb inhalations, Pulmicort and Perforomist inhalations, IV Solu-Medrol. Antibiotics in the form of ceftriaxone. The patient is seen today 04/24/2020 in follow-up on the selective care unit. He is awake and alert in no acute distress. He is breathing easier today compared to yesterday. Getting closer to his baseline. No worsening shortness of breath, cough or congestion. He is maintaining good O2 saturation in the 90s on room air. He's afebrile. Sputum cultures positive for strep agalactiae group B. Sodium 127. Potassium 4.7. Creatinine 0.56. 04/25/2020, the patient is feeling better. The patient has no specific complaints. He is currently on room air oxygen. Bronchospasm and wheezing has improved considerably and the patient seems to be ready to go home today. Note that he has a maintenance of Spiriva at home and he also has a nebulizer. He has not required home oxygen. No chest pain. No pleurisy. No hemoptysis. His sputum culture was positive for Streptococcus group B and the patient was treated with appropriate antibiotics and the patient is going to complete a course of Augmentin on outpatient basis. No nausea. No vomiting. No aspiration. His sodium level is at 126. He is asymptomatic. Objective - Vital Signs Vital signs: Vital Signs Temp 97.6 F 04/25/20 10:00 Pulse 100 04/25/20 11:44 Resp 19 04/25/20 10:00 BP 153/70 04/25/20 10:00 Pulse Ox 94 L 04/25/20 10:00 Intake & Output 04/24/20 04/25/20 04/25/20 18:59 06:59 18:59 Intake Total 1200 100 130 Output Total 240 Balance 1200 100 -110 Weight 61.5 kg 61.1 kg Intake: IV 10 Invasive Line 2 10 Oral 1200 100 120 Output: Urine 240 Other: Voiding Method Toilet Toilet # Voids 2 1 - Exam GENERAL EXAM: Alert, very pleasant, 74-year-old male patient, on room air, no apparent distress. HEAD: Normocephalic/atraumatic. EYES: Normal reaction of pupils, equal size. Conjunctiva pink, sclera white. NOSE: Clear with pink turbinates. THROAT: No erythema or exudates. NECK: No masses, no JVD, no thyroid enlargement, no adenopathy. CHEST: No chest wall deformity. Symmetrical expansion. LUNGS: Equal air entry with few scattered rhonchi CVS: Regular rate and rhythm, normal S1 and S2, no gallops, no murmurs, no rubs ABDOMEN: Soft, nontender. No hepatosplenomegaly, normal bowel sounds, no guarding or rigidity. EXTREMITIES: No clubbing, no edema, no cyanosis, 2+ pulses and upper and lower extremities. MUSCULOSKELETAL: Muscle strength and tone normal. SPINE: No scoliosis or deformity SKIN: No rashes CENTRAL NERVOUS SYSTEM: Alert and oriented -3. No focal deficits, tone is normal in all 4 extremities. PSYCHIATRIC: Alert and oriented -3. Appropriate affect. Intact judgment and insight. - Labs CBC & Chem 7: 04/23/20 08:46 04/25/20 06:32 Labs: Abnormal Lab Results - Last 24 Hours (Table) 04/24/20 04/24/20 04/25/20 Range/Units 16:43 20:13 06:32 Sodium 126 L (137-145) mmol/L Chloride 89 L (98-107) mmol/L Carbon Dioxide 31 H (22-30) mmol/L BUN 22 H (9-20) mg/dL Creatinine 0.57 L (0.66-1.25) mg/dL POC Glucose (mg/dL) 106 H 110 H (75-99) mg/dL Microbiology - Last 24 Hours (Table) 04/19/20 17:02 Blood Culture - Preliminary Blood No Growth after 120 hours Assessment and Plan Plan: #1. Bilateral lower lobe infiltrate, likely related to bilateral pneumonia, more so on the left lower lobe. Clinically the patient is improved and the patient is currently on room air oxygen. #2. Irregular density in the right upper lobe, possibly related to underlying pneumonia, will be followed #3. Acute exacerbation of COPD, recovered #4. Pulmonary fibrosis #5. History of esophageal cancer, status post esophagectomy, with the gastric pull-through #6. History of cataracts #7. Former smoker Plan: The patient can be discharged home on a course of prednisone burst taper and Augmentin. He has Spiriva at home and he has an albuterol nebulizer at home that he can use on an as-needed basis. Spiriva as maintenance. He is to follow-up in our up as regarding the right upper lobe opacity which I think it's a inflammatory area and then any malignancy. His sodium level is to the monitored. He needs to cut on his liquid intake including free water and the patient is to increase his salt intake. Fluid restriction will be needed. Fol low-up in the office. Clear for discharge from the pulmonary standpoint.
--- NOTE | 2020-04-25 15:59 | PN ---
PROGRESS NOTE Patient is seen for followup for hyponatremia. He is currently maintained on tube feedings. His sodium decreased from 129-126 today. The patient had received a lot of free water, which is currently on hold now. This morning patient denies any significant complaints. PHYSICAL EXAMINATION: Blood pressure was 153/70, heart rate 92 per minute, he is afebrile. Examination of the heart S1, S2. Examination of the lungs, bilateral breath sounds are heard. Abdomen is soft, nontender. Examination of the lower extremities shows no significant edema. PRODUCTION SUPERINTENDENT exam grossly intact. LABS: Show sodium 126, potassium 4.5, chloride 89, CO2 is 31, BUN 22, creatinine 0.57. ASSESSMENT: 1. Hyponatremia associated with excessive free water. Serum sodium staying at 126- 127. Urine osmolality was elevated at 834. Patient will receive a dose of Samsca today. Continue with tube feedings and repeat labs in a.m. 2. Bilateral lower lobe infiltrates, mostly pneumonia maintained on antibiotics. 3. History of esophageal cancer, status post esophagectomy with gastric pull-through, maintained on tube feedings currently. PLAN: Samsca x1, repeat labs in a.m. MMODL / IJN: [id number] /
--- NOTE | 2020-04-26 23:27 | CDI ---
Documentation Clarification Form Date: 04/27/2020 From: Keegan Parham Phone: If you have a question about this query, please contact Nany Ordaz, Glassblower at [phone] between 8am and 5pm. Admit Date: 04/19/2020 Discharge Date: 04/25/2020 Patient Name: Keshav Cuevas Visit Number: [id number] ATTENTION: The Clinical Documentation Specialists (CDI) and [facility] Coding Staff appreciate your assistance in clarifying documentation. Please respond to the clarification below the line at the bottom and electronically sign. The CDI & [facility] Coding staff will review the response and follow-up if needed. Please note: Queries are made part of the Legal Health Record. If you have any questions, please contact the author of this message via ITS. Dear Saeed Johnson MD., The patients principal diagnosis has not been clearly identified and requires clarification. He presented with the COPD exacerbation. History/Risk factors: COPD, HTN, SIADH Clinical Indicators: SOB, Cough, Respiratory distress Radiology findings:Chronic emphysematous and pulmonary fibrotic changes.Small right pleural effusion.Subtle right-sided volume loss with suggestion of obstructing middle lobe mass.Consider contrast-enhanced chest CT to further evaluate. Treatment:Start IV levaquin and solumedrol. COPD exacerbation.Pulmonology consult.Start IV levaquin and solumedrol. 04/21 progress notes .Bilateral lower lobe infiltrate, likely related to bilateral pneumonia. Per DS acute bilateral pneumonia,sputum culture reporting streptococcal agalactiae group B. In your professional opinion, can you please clarify which diagnosis, after study, accounted for the patients presenting symptoms and was the reason chiefly responsible for the admission? COPD Exacerbation Pneumonia due to streptococcus, group B Both, COPD Exacerbation and Pneumonia due to streptococcus group, B Other please specify Both, COPD Exacerbation and Pneumonia due to streptococcus group, B MTDD
== END 2020-04-25 14:02 | disposition home or self-care (01) | DRG 193 ==
LOC: EC 15:02 → 3SCARD 16:48
PROVIDERS: ADMIT Family Medicine; ATTEND Family Medicine
DX: J15.3 Pneumonia due to streptococcus, group B (principal); J96.01 Acute respiratory failure with hypoxia; J96.02 Acute respiratory failure with hypercapnia; J44.1 Chronic obstructive pulmonary disease with (acute) exacerbation; J98.11 Atelectasis; E22.2 Syndrome of inappropriate secretion of antidiuretic hormone; J44.0 Chronic obstructive pulmonary disease with (acute) lower respiratory infection; K21.9 Gastro-esophageal reflux disease without esophagitis; J84.10 Pulmonary fibrosis, unspecified; H40.9 Unspecified glaucoma; I10 Essential (primary) hypertension; R91.1 Solitary pulmonary nodule; G47.00 Insomnia, unspecified; G25.81 Restless legs syndrome; K59.00 Constipation, unspecified; Z79.82 Long term (current) use of aspirin; Z79.890 Hormone replacement therapy; Z79.899 Other long term (current) drug therapy; Z85.01 Personal history of malignant neoplasm of esophagus; Z87.891 Personal history of nicotine dependence; Z98.890 Other specified postprocedural states
CPT/HCPCS: 36415; 71046; 71260; 80048; 80053; 82533; 82550; 82570; 83690; 83735; 83880; 83930; 83935; 84145; 84300; 84443; 84484; 84560; 85025; 85027; 85379; 85610; 85730; 87040; 87070; 87205; 93005; 94640; 96361; 96365; 96375; 99291

== ENCOUNTER → 2020-05-13 | Outpatient (CLI) | payer MEDICARE ==
--- NOTE | 2020-05-13 16:16 | PE ---
R 91.1, solitary pulmonary nodule, initial Patient received 13 mCi F-18 FDG intravenously in delayed scanning performed from skull base to the m id thighs. Localization and attenuation correction CT scan was performed. Correlation to chest x-ray parotid institution 05/13/2020 Chest and neck: Patient shows post esophagectomy change with gastric pull-through. At the level of th e right hilum posteriorly there is only mild uptake, SUV 2.4, some irregular density in the right mid lung is noted with only mild uptake, SUV 1.9. Similarly, mild uptake is present within the left midlu ng. There is no cervical or supraclavicular adenopathy, no mediastinal, axillary, or hilar adenopathy . There is no pleural or pericardial effusion. Dense coronary artery calcifications are present. Some probable atelectatic change or scarring at the left lung base noted, SUV is only 2.2. Medially left upper lobe mild inflammatory change present, SUV 1.8, image 104. ABDOMEN: No suspicious uptake. No evident liver mass. No retroperitoneal adenopathy. There is no asci raquel. Osseous structures are within normal limits. IMPRESSION: Nonspecific uptake may be inflammatory, consider additional follow-up.
== END | disposition home or self-care (01) ==
LOC: RADPETMAIN 10:50
PROVIDERS: ATTEND Family Medicine
DX: R91.1 Solitary pulmonary nodule (principal)
CPT/HCPCS: 78815; A9552

== ENCOUNTER → 2020-07-20 | Outpatient (CLI) | payer MEDICARE ==
[2020-07-20 12:33] LABS: HCT 38.9 % (39.0-53.0); HGB 12.5 gm/dL (13.0-17.5); MCV 99.9 fL (80.0-100.0); Mean Platelet Volume 6.3; Platelet Count 405 k/uL (150-450); RDW 13.8 % (11.5-15.5); WBC 8.1 k/uL (3.8-10.6)
[2020-07-20 12:38] LABS: Appearance,Urine Clear (Clear); Bilirubin,Urine Negative (Negative); Blood,Urine Negative (Negative); Color,Urine Yellow; Glucose,Urine (UA) Negative (Negative); Ketones,Urine Negative (Negative); Leukocyte Esterase,Urine Negative (Negative); Nitrite,Urine Negative (Negative); PH, Urine 7.5 (5.0-8.0); Protein,Urine Trace (Negative); Specific Gravity,Urine 1.019 (1.001-1.035)
[2020-07-20 13:05] LABS: ALT 15 U/L (4-49); AST 29 U/L (17-59); African American GFR (CKD) >90 (>60 ml/min/1.73 sqM); Albumin 4.2 g/dL (3.5-5.0); Albumin/Globulin Ratio 1.4; Alkaline Phosphatase 83 U/L (38-126); Anion Gap 5 mmol/L; Blood Urea Nitrogen 13 mg/dL (9-20); Calcium 9.2 mg/dL (8.4-10.2); Carbon Dioxide 31 mmol/L (22-30); Chloride 95 mmol/L (98-107); Globulin 2.9 g/dL; Glucose 108 mg/dL (74-99); Magnesium 1.8 mg/dL (1.6-2.3); Non-African American GFR(CKD) >90 (>60 ml/min/1.73 sqM); Phosphorus 3.5 mg/dL (2.5-4.5); Potassium 5.7 mmol/L (3.5-5.1); Sodium 131 mmol/L (137-145); Total Bilirubin 0.5 mg/dL (0.2-1.3); Total Protein 7.1 g/dL (6.3-8.2); Uric Acid 4.5 mg/dL (3.5-8.5)
[2020-07-21 04:33] LABS: % Iron Saturation 18.32 (15.00-50.00); Iron 70 ug/dL (65-175); Total Iron Binding Capacity 382 ug/dL (228-460)
[2020-07-21 04:42] LABS: Ferritin 65.2 ng/mL (22.0-322.0)
== END | disposition home or self-care (01) ==
LOC: LABWHC1 11:49
PROVIDERS: ATTEND Internal Medicine
DX: E87.1 Hypo-osmolality and hyponatremia (principal); D64.9 Anemia, unspecified; N39.0 Urinary tract infection, site not specified; N25.81 Secondary hyperparathyroidism of renal origin; E55.9 Vitamin D deficiency, unspecified; M10.19 Lead-induced gout, multiple sites
CPT/HCPCS: 36415; 80053; 81003; 82306; 82728; 83540; 83550; 83735; 83930; 83935; 83970; 84100; 84300; 84443; 84550; 85027

== ENCOUNTER 2022-10-11 10:42 | Inpatient (IN) | payer MEDICARE ==
[2022-10-11] MEDS ORDERED: IPRATROPIUM-ALBUTEROL 3 ML NEB INHALATION STA ×2 (10:50→11:08)
[2022-10-11] MEDS ORDERED: SODIUM CHLORIDE 0.9% 1,000 ML IV STA (10:52)
[2022-10-11] MEDS ORDERED: methylPREDNISolone SOD SUCCI 125 MG/2 ML VIAL IV STA (10:52)
--- NOTE | 2022-10-11 11:11 | ED ---
SOB HPI - General Chief Complaint: Shortness of Breath Stated Complaint: SOB Time Seen by Provider: 10/11/22 10:48 Source: patient Mode of arrival: ambulatory Limitations: no limitations - History of Present Illness Initial Comments: 76-year-old male with a history of COPD who woke up this morning very short of breath he states that yesterday was fine he states he is short of breath in spite of medications at home. He was brought in by private vehicle for evaluation he denies any fevers chills sweats he does have a chronic cough but no new change in phlegm production. No chest pain no other current complaints or modifying factors MD Complaint: shortness of breath, cough - Related Data Home Medications Medication Instructions Recorded Confirmed Omeprazole [PriLOSEC] 20 mg PO DAILY 06/18/14 10/11/22 Tiotropium [place] [Spiriva] 1 puff IN RT-DAILY 06/18/14 10/11/22 Cyanocobalamin (Vitamin B-12) 1,000 mcg PO DAILY 04/19/20 10/11/22 [Vitamin B-12] Levothyroxine Sodium 25 mcg PO DAILY 04/19/20 10/11/22 Multivitamins, Thera [Multivitamin 1 tab PO DAILY 04/19/20 10/11/22 (formulary)] Zinc 50 mg PO DAILY 04/19/20 10/11/22 Ascorbic Acid [Vitamin C] 1,000 mg PO DAILY 10/11/22 10/11/22 Ferrous Sulfate [Feosol] 325 mg PO DAILY 10/11/22 10/11/22 Fluticasone Propion/Salmeterol 2 puff INHALATION RT-DAILY 10/11/22 10/11/22 [Wixela 250-50 Inhub] Folate 666mcg 1 tab PO DAILY 10/11/22 10/11/22 Magnesium 250 mg PO DAILY 10/11/22 10/11/22 Metoprolol Tartrate [Lopressor] 12.5 mg PO HS 10/11/22 10/11/22 Metoprolol Tartrate [Lopressor] 25 mg PO DAILY 10/11/22 10/11/22 [place]-3 Fatty Acids [[place]-3] 1,000 mg PO DAILY 10/11/22 10/11/22 Sodium Chloride Tab 1 gm PO DAILY 03/02/23 03/02/23 Previous Rx's Medication Instructions Recorded Ipratropium-Albuterol Nebulize 3 ml INHALATION RT-QID #120 ml 04/25/20 [Duoneb 0.5 mg-3 mg/3 ml Soln] Allergies Allergy/AdvReac Type Severity Reaction Status Date / Time No Known Allergies Allergy Verified 10/11/22 12:31 Review of Systems ROS Statement: Those systems with pertinent positive or pertinent negative responses have been documented in the HPI. ROS Other: All systems not noted in ROS Statement are negative. Past Medical History Past Medical History: Cancer, COPD, GERD/Reflux Additional Past Medical History / Comment(s): esophageal cancer, cataracts, History of Any Multi-Drug Resistant Organisms: None Reported Additional Past Surgical History / Comment(s): esophageal surgery, Past Psychological History: No Psychological Hx Reported Smoking Status: Former smoker Past Alcohol Use History: Daily Past Drug Use History: None Reported General Exam - General Exam Comments Initial Comments: This is a well-developed thin appearing awake alert oriented 4 male he does demonstrate respiratory distress with some audible rhonchi Limitations: no limitations General appearance: alert, anxious, in distress Head exam: Present: atraumatic, normocephalic, normal inspection Eye exam: Present: normal appearance, PERRL, EOMI. Absent: scleral icterus, conjunctival injection, periorbital swelling ENT exam: Present: mucous membranes dry Neck exam: Present: normal inspection, full ROM, other. Absent: tenderness, meningismus, lymphadenopathy Respiratory exam: Present: normal lung sounds bilaterally, wheezes (Diffuse rhonchi without wheezing), rhonchi (No surgery or bruits), accessory muscle use, decreased breath sounds. Absent: respiratory distress, rales, stridor Cardiovascular Exam: Present: normal rhythm, tachycardia, normal heart sounds. Absent: systolic murmur, diastolic murmur, rubs, gallop, clicks GI/Abdominal exam: Present: soft, normal bowel sounds. Absent: distended, tenderness, guarding, rebound, rigid Extremities exam: Present: normal inspection, full ROM, normal capillary refill. Absent: tenderness, pedal edema, joint swelling, calf tenderness Back exam: Present: normal inspection Neurological exam: Present: alert, oriented X3, CN II-XII intact Psychiatric exam: Present: normal affect, normal mood Skin exam: Present: warm, dry, intact, normal color. Absent: rash Course Vital Signs 10/11/22 10/11/22 10/11/22 10:43 10:54 11:05 Temperature 98.6 F Pulse Rate 65 86 87 Respiratory 40 H Rate Blood Pressure 139/79 O2 Sat by Pulse 95 Oximetry Fraction of Inspired Oxygen (FIO2) 10/11/22 10/11/22 10/11/22 11:06 11:12 11:13 Temperature Pulse Rate 86 Respiratory Rate Blood Pressure O2 Sat by Pulse Oximetry Fraction of 6 40 Inspired Oxygen (FIO2) 10/11/22 10/11/22 11:21 12:45 Temperature Pulse Rate 88 90 Respiratory 20 Rate Blood Pressure 136/74 O2 Sat by Pulse 98 Oximetry Fraction of Inspired Oxygen (FIO2) Medical Decision Making - Medical Decision Making I did reevaluate the patient multiple occasions he initially required multiple updrafts with BiPAP. He has improved markedly since initial treatment discuss the findings with Dr. Londono. The patient will be admitted with consultation by pulmonary medicine. I did discuss the findings with the family patient has a history previously of hyponatremia which she is demonstrating today. His mentation vital signs are stable at this time.Was pt. sent in by a medical professional or institution (, PA, MACHINE CEMENTER, urgent care, hospital, or intermediate...) When possible be specific @ -[No] Did you speak to anyone other than the patient for history (EMS, parent, family, police, friend...)? What history was obtained from this source @ -[Paramedics and family] Did you review nursing and triage notes (agree or disagree)? Why? @ -[I reviewed and agree with nursing and triage notes] Were old charts reviewed (outside hosp., previous admission, EMS record, old EKG, old radiological studies, urgent care reports/EKG's, intermediate records)? Report findings @ -[No old charts were reviewed] Differential Diagnosis (chest pain, altered mental status, abdominal pain women, abdominal pain men, vaginal bleeding, weakness, fever, dyspnea, syncope, headache, dizziness, GI bleed, back pain, seizure, CVA, palpatations, mental health, musculoskeletal)? @ -[Dyspnea, COPD, CHF] EKG interpreted by me (3pts min.). @ -[As above] X-rays interpreted by me (1pt min.). @ -[As above] CT interpreted by me (1pt min.). @ -[None done] U/S interpreted by me (1pt. min.). @ -[None done] What testing was considered but not performed or refused? (CT, X-rays, U/S, labs)? Why? @ -[None] What meds were considered but not given or refused? Why? @ -[None] Did you discuss the management of the patient with other professionals (professionals i.e. , PA, MACHINE CEMENTER, lab, RT, psych nurse, social media executive, corner trimmer operator, teacher, chief human resources officer, rn case mgr)? Give summary @ -[Dr. Mitchell] Was smoking cessation discussed for >3mins.? @ -[No] Was critical care preformed (if so, how long)? @ -[35 minutes] Were there social determinants of health that impacted care today? How? (Homelessness, low income, unemployed, alcoholism, drug addiction, transportation, low edu. Level, literacy, decrease access to med. care, fci, rehab)? @ -[No] Was there de-escalation of care discussed even if they declined (Discuss DNR or withdrawal of care, Hospice)? DNR status @ -[No] What co-morbidities impacted this encounter? (DM, HTN, Smoking, COPD, CAD, Cancer, CVA, ARF, Chemo, Hep., AIDS, mental health diagnosis, sleep apnea, morbid obesity)? @ -[COPD] Was patient admitted / discharged? Hospital course, mention meds given and route, prescriptions, significant lab abnormalities, going to OR and other pertinent info. @ -[hospital course] admitted Undiagnosed new problem with uncertain prognosis? @ -[No] Drug Therapy requiring intensive monitoring for toxicity (Heparin, Nitro, Insulin, Cardizem)? @ -[No] Were any procedures done? @ -[No] Diagnosis/symptom? @ -[Acute respiratory failure, COPD exacerbation, CHF, hyponatremia] Acute, or Chronic, or Acute on Chronic? @ -[default] Uncomplicated (without systemic symptoms) or Complicated (systemic symptoms)? @ -[Applicator did] Side effects of treatment? @ -[No] Exacerbation, Progression, or Severe Exacerbation? @ -[Acute exacerbation COPD] Poses a threat to life or bodily function? How? (Chest pain, [place], NH, pneumonia, PE, COPD, DKA, ARF, appy, cholecystitis, CVA, Diverticulitis, Homicidal, Suicidal, threat to staff... and all critical care pts) @ -[This was not treated, COPD, CHF, hyponatremia] - Lab Data Result diagrams: 10/11/22 11:02 10/11/22 11:02 Lab Results 10/11/22 10/11/22 10/11/22 Range/Units 11:02 11:02 11:02 WBC 11.7 H (3.8-10.6) k/uL RBC 4.43 (4.30-5.90) m/uL Hgb 14.3 (13.0-17.5) gm/dL Hct 42.0 (39.0-53.0) % MCV 94.8 (80.0-100.0) fL MCH 32.2 (25.0-35.0) pg MCHC 34.0 (31.0-37.0) g/dL RDW 12.4 (11.5-15.5) % Plt Count 444 (150-450) k/uL MPV 6.6 Neutrophils % 78 % Lymphocytes % 10 % Monocytes % 8 % Eosinophils % 2 % Basophils % 0 % Neutrophils # 9.2 H (1.3-7.7) k/uL Lymphocytes # 1.1 (1.0-4.8) k/uL Monocytes # 1.0 (0-1.0) k/uL Eosinophils # 0.2 (0-0.7) k/uL Basophils # 0.0 (0-0.2) k/uL PT 10.0 (9.0-12.0) sec INR 0.9 (<1.2) APTT 24.9 (22.0-30.0) sec D-Dimer 0.48 (<0.60) mg/L FEU Sodium 120 L (137-145) mmol/L Potassium 5.4 H (3.5-5.1) mmol/L Chloride 83 L (98-107) mmol/L Carbon Dioxide 25 (22-30) mmol/L Anion Gap 12 mmol/L BUN 13 (9-20) mg/dL Creatinine 0.50 L (0.66-1.25) mg/dL Est GFR (CKD-EPI)AfAm >90 (>60 ml/min/1.73 sqM) Est GFR (CKD-EPI)NonAf >90 (>60 ml/min/1.73 sqM) Glucose 105 H (74-99) mg/dL Plasma Lactic Acid Chi (0.7-2.0) mmol/L Calcium 8.9 (8.4-10.2) mg/dL Magnesium 1.8 (1.6-2.3) mg/dL Total Bilirubin 1.5 H (0.2-1.3) mg/dL AST 38 (17-59) U/L ALT 25 (4-49) U/L Alkaline Phosphatase 99 (38-126) U/L Troponin I (0.000-0.034) ng/mL NT-Pro-B Natriuret Pep pg/mL Total Protein 8.0 (6.3-8.2) g/dL Albumin 4.6 (3.5-5.0) g/dL 10/11/22 10/11/22 10/11/22 Range/Units 11:02 11:02 11:02 WBC (3.8-10.6) k/uL RBC (4.30-5.90) m/uL Hgb (13.0-17.5) gm/dL Hct (39.0-53.0) % MCV (80.0-100.0) fL MCH (25.0-35.0) pg MCHC (31.0-37.0) g/dL RDW (11.5-15.5) % Plt Count (150-450) k/uL MPV Neutrophils % % Lymphocytes % % Monocytes % % Eosinophils % % Basophils % % Neutrophils # (1.3-7.7) k/uL Lymphocytes # (1.0-4.8) k/uL Monocytes # (0-1.0) k/uL Eosinophils # (0-0.7) k/uL Basophils # (0-0.2) k/uL PT (9.0-12.0) sec INR (<1.2) APTT (22.0-30.0) sec D-Dimer (<0.60) mg/L FEU Sodium (137-145) mmol/L Potassium (3.5-5.1) mmol/L Chloride (98-107) mmol/L Carbon Dioxide (22-30) mmol/L Anion Gap mmol/L BUN (9-20) mg/dL Creatinine (0.66-1.25) mg/dL Est GFR (CKD-EPI)AfAm (>60 ml/min/1.73 sqM) Est GFR (CKD-EPI)NonAf (>60 ml/min/1.73 sqM) Glucose (74-99) mg/dL Plasma Lactic Acid Chi 2.0 (0.7-2.0) mmol/L Calcium (8.4-10.2) mg/dL Magnesium (1.6-2.3) mg/dL Total Bilirubin (0.2-1.3) mg/dL AST (17-59) U/L ALT (4-49) U/L Alkaline Phosphatase (38-126) U/L Troponin I <0.012 (0.000-0.034) ng/mL NT-Pro-B Natriuret Pep 2170 pg/mL Total Protein (6.3-8.2) g/dL Albumin (3.5-5.0) g/dL - EKG Data -: EKG Interpreted by Me EKG Comments: EKG read by me on admission no sinus rhythm 89. Interval 172 QRS durations 95 daily since QTC 375/422 artifact present no acute ST-T wave changes - Radiology Data Interpreted by me: Imaging interpreted by me shows evidence of chronic interstitial changes likely pulmonary fibrotic changes with COPD. Critical Care Time Critical Care Time: Yes Total Critical Care Time: 45 Disposition Clinical Impression: Acute exacerbation of chronic obstructive pulmonary disease, Acute respiratory distress syndrome in adult, Acute respiratory failure, Congestive heart failure, Hyponatremia syndrome, Leukocytosis Disposition: ADMITTED IP TO THIS [facility] Condition: Fair Referrals: None,Stated [REFERRING] - 1-2 days Decision Date: 10/11/22 Decision Time: 13:15
--- NOTE | 2022-10-11 11:15 | XR ---
EXAMINATION TYPE: XR chest 1V portable DATE OF EXAM: 10/11/2022 COMPARISON: 04/22/2020 HISTORY: Shortness of breath TECHNIQUE: Single frontal view of the chest is obtained. FINDINGS: Bilateral small effusions and basilar infiltrate. Patchy bilateral areas of coarsened inte rstitium are stable. Underlying COPD pulmonary fibrosis. Heart size normal. Atherosclerotic change ao rta. Irregular density again noted within the right upper lobe is stable from prior exam IMPRESSION: 1. Suspect changes are most likely chronic and similar to the prior exam with pulmonary fibrosis supe rimposed on a background of COPD. 2. Persistent irregular density right upper lobe stable from prior scan of 2019.
[2022-10-11 11:30] LABS: Basophils % (A) 0 %; Eosinophils # (A) 0.2 k/uL (0-0.7); Eosinophils % (A) 2 %; HGB 14.3 gm/dL (13.0-17.5); Lymphocytes # (A) 1.1 k/uL (1.0-4.8); Lymphocytes % (A) 10 %; MCH 32.2 pg (25.0-35.0); MCV 94.8 fL (80.0-100.0); Mean Platelet Volume 6.6; Monocytes % (A) 8 %; Neutrophils # (A) 9.2 k/uL (1.3-7.7); Neutrophils % (A) 78 %; Platelet Count 444 k/uL (150-450); RBC 4.43 m/uL (4.30-5.90); RDW 12.4 % (11.5-15.5); WBC 11.7 k/uL (3.8-10.6)
[2022-10-11 11:50] LABS: INR 0.9 (<1.2); Partial Thromboplastin Time 24.9 sec (22.0-30.0)
[2022-10-11 11:56] LABS: ALT 25 U/L (4-49); African American GFR (CKD) >90 (>60 ml/min/1.73 sqM); Albumin 4.6 g/dL (3.5-5.0); Anion Gap 12 mmol/L; Blood Urea Nitrogen 13 mg/dL (9-20); Calcium 8.9 mg/dL (8.4-10.2); Carbon Dioxide 25 mmol/L (22-30); Chloride 83 mmol/L (98-107); Glucose 105 mg/dL (74-99); Non-African American GFR(CKD) >90 (>60 ml/min/1.73 sqM); Sodium 120 mmol/L (137-145); Total Bilirubin 1.5 mg/dL (0.2-1.3)
[2022-10-11 11:59] LABS: AST 38 U/L (17-59); Alkaline Phosphatase 99 U/L (38-126); Magnesium 1.8 mg/dL (1.6-2.3); Potassium 5.4 mmol/L (3.5-5.1)
[2022-10-11] MEDS ORDERED: FUROSEMIDE 10 MG/ML 4 ML VIAL IV STA (12:07)
[2022-10-11] MEDS ORDERED: ASPIRIN 325 MG TAB PO STA (13:48)
[2022-10-11] MEDS: MAGNESIUM SULFATE-D5W PMX 1 GM in DEXTROSE/WATER 1 100ML.BAG IVPB SCH (14:41)
[2022-10-11] MEDS: FUROSEMIDE 10 MG/ML 4 ML VIAL IV SCH (14:41)
[2022-10-11] MEDS: SYMBICORT 80-4.5 MCG INHALER INHALATION SCH (19:57)
[2022-10-11] MEDS: ALBUTEROL HFA INHALER INHALATION SCH (19:57)
[2022-10-11] MEDS: METOPROLOL TARTRATE 12.5 MG TAB PO SCH (23:04)
[2022-10-12] MEDS: SODIUM CHLORIDE 0.9% 1,000 ML IV SCH ×3 (00:05→12:36)
[2022-10-12] MEDS: ALBUTEROL HFA INHALER INHALATION SCH ×5 (00:07→19:44)
[2022-10-12] MEDS: MAGNESIUM SULFATE-D5W PMX 1 GM in DEXTROSE/WATER 1 100ML.BAG IVPB SCH (00:07)
[2022-10-12] MEDS: FUROSEMIDE 10 MG/ML 4 ML VIAL IV SCH ×3 (00:18→23:28)
[2022-10-12] MEDS: LEVOTHYROXINE 25 MCG TAB PO SCH (05:57)
[2022-10-12] MEDS: SYMBICORT 80-4.5 MCG INHALER INHALATION SCH (07:33)
[2022-10-12] MEDS: TIOTROPIUM 2.5 MCG INHALER INHALATION SCH (07:33)
[2022-10-12] MEDS: ASCORBIC ACID 500 MG TAB PO SCH (08:46)
[2022-10-12] MEDS: MULTIVITAMINS, THERA 1 EACH TAB PO SCH (08:46)
[2022-10-12] MEDS: FOLIC ACID 1 MG TAB PO SCH (08:46)
[2022-10-12] MEDS: CYANOCOBALAMIN 500 MCG TAB PO SCH (08:46)
[2022-10-12] MEDS: PANTOPRAZOLE 40 MG TABLET PO SCH (08:46)
[2022-10-12] MEDS: MAGNESIUM OXIDE 400 MG TAB PO SCH (08:46)
[2022-10-12] MEDS: METOPROLOL TARTRATE 25 MG TAB PO SCH (08:46)
[2022-10-12] MEDS: methylPREDNISolone SOD SUCCI 125 MG/2 ML VIAL IV SCH ×4 (08:47→23:27)
[2022-10-12] MEDS: FERROUS SULFATE 325 MG TAB PO SCH (08:47)
[2022-10-12] MEDS ORDERED: ASPIRIN 325 MG TAB PO SCH (09:00)
[2022-10-12] MEDS ORDERED: SODIUM CHLORIDE TAB 1 GM TAB PO SCH (09:00)
[2022-10-12] MEDS ORDERED: NON FORMULARY DRUG (Omega-3 Fatty Acids [Omega-3] 1,000 MG Capsule) PO SCH (09:00)
[2022-10-12] MEDS ORDERED: DEXTROSE 50% SYRINGE 50 ML IVP PRN ×2 (12:21)
[2022-10-12] MEDS: INSULIN ASPART (NovoLOG) 100 UNIT/ML VIAL SQ SCH ×3 (12:38→21:07)
[2022-10-12] MEDS: ZINC SULFATE 220 MG CAP PO SCH (12:38)
--- NOTE | 2022-10-12 12:41 | P.CNPUL ---
History of Present Illness Consult date: 10/12/22 Requesting physician: Saeed Mitchell Reason for consult: dyspnea, cough, COPD, hypoxemia Chief complaint: Shortness of breath. History of present illness: Pulmonary consult dated 10/12/2022. 76-year-old male with history of will establish COPD from long-term tobacco use. The patient came into the emergency room on October 11, complaining of increasing shortness of breath. He was using his normal home medications, but they were not helping. In addition, he admits to chest tightness, wheezing, cough, and occasional phlegm production. He apparently does not see a whiting machine operator. He only sees his family doctor. We apparently have seen him in the past. He has a history of esophageal cancer, COPD, and gastroesophageal reflux disease. The patient is seen in the emergency room, room 27. He is on 6 L of oxygen. No IV fluids. We added albuterol, Spiriva, formoterol, budesonide, and Solu-Medrol. White count 11.7, hemoglobin, hematocrit, and platelet count all normal. Coagulation studies including d-dimer were normal. Sodium 120, potassium 5.4, chlorides 83, CO2 25, BUN 13, creatinine 0.5. Troponins were less than 0.012, twice, and N-terminal proBNP was 2170. Chest x-ray showed changes of COPD, and chronic fibrotic changes as well. The patient's irregular density right upper lobe, is stable, dating back to scans from 2019. Review of Systems REVIEW OF SYSTEMS: CONSTITUTIONAL: [Negative.] NEUROLOGIC: [ Negative.] HEENT: [ Negative.] CARDIAC: [Negative.] PULMONARY: Shortness of breath, cough, wheezing, chest tightness. GI: [Negative.] : [Negative.] RHEUMATOLOGIC: [ Negative.] IMMUNOLOGIC: [ Negative.] ENDOCRINE: [Negative. ] DERMATOLOGIC: [Negative.] Past Medical History Past Medical History: Cancer, COPD, GERD/Reflux Additional Past Medical History / Comment(s): esophageal cancer, cataracts, History of Any Multi-Drug Resistant Organisms: None Reported Additional Past Surgical History / Comment(s): esophageal surgery, Past Psychological History: No Psychological Hx Reported Smoking Status: Former smoker Past Alcohol Use History: Daily Past Drug Use History: None Reported Medications and Allergies Home Medications Medication Instructions Recorded Confirmed Type Omeprazole [PriLOSEC] 20 mg PO DAILY 06/18/14 10/11/22 History Tiotropium [place] [Spiriva] 1 puff IN RT-DAILY 06/18/14 10/11/22 History Cyanocobalamin (Vitamin B-12) 1,000 mcg PO DAILY 04/19/20 10/11/22 History [Vitamin B-12] Levothyroxine Sodium 25 mcg PO DAILY 04/19/20 10/11/22 History Multivitamins, Thera [Multivitamin 1 tab PO DAILY 04/19/20 10/11/22 History (formulary)] Zinc 50 mg PO DAILY 04/19/20 10/11/22 History Ipratropium-Albuterol Nebulize 3 ml INHALATION RT-QID #120 ml 04/25/20 10/11/22 Rx [Duoneb 0.5 mg-3 mg/3 ml Soln] Ascorbic Acid [Vitamin C] 1,000 mg PO DAILY 10/11/22 10/11/22 History Ferrous Sulfate [Feosol] 325 mg PO DAILY 10/11/22 10/11/22 History Fluticasone Propion/Salmeterol 2 puff INHALATION RT-DAILY 10/11/22 10/11/22 History [[place]ela 250-50 Inhub] Folate 666mcg 1 tab PO DAILY 10/11/22 10/11/22 History Magnesium 250 mg PO DAILY 10/11/22 10/11/22 History Metoprolol Tartrate [Lopressor] 12.5 mg PO HS 10/11/22 10/11/22 History Metoprolol Tartrate [Lopressor] 25 mg PO DAILY 10/11/22 10/11/22 History [place]-3 Fatty Acids [[place]-3] 1,000 mg PO DAILY 10/11/22 10/11/22 History Sodium Chloride Tab 1 gm PO DAILY 10/11/22 10/11/22 History Allergies Allergy/AdvReac Type Severity Reaction Status Date / Time No Known Allergies Allergy Verified 10/11/22 12:31 Physical Exam Osteopathic Statement: *. No significant issues noted on an osteopathic structural exam other than those noted in the History and Physical/Consult. Vitals: Vital Signs Temp Pulse Pulse Resp BP BP Pulse Ox 10/12/22 12:00 98 F 80 14 122/89 95 10/12/22 08:00 96.8 F L 90 20 116/71 97 10/12/22 07:31 99 10/12/22 06:00 79 16 130/82 99 10/12/22 04:38 18 10/12/22 04:00 80 18 124/78 98 10/12/22 02:00 80 18 108/69 97 10/12/22 00:00 97.8 F 80 18 125/86 98 10/11/22 22:00 94 20 121/69 98 10/11/22 20:00 97 18 127/70 96 10/11/22 15:25 10/11/22 14:44 95 20 131/73 100 10/11/22 12:45 90 20 136/74 98 FiO2 10/12/22 12:00 10/12/22 08:00 10/12/22 07:31 10/12/22 06:00 10/12/22 04:38 10/12/22 04:00 10/12/22 02:00 10/12/22 00:00 10/11/22 22:00 10/11/22 20:00 10/11/22 15:25 40 10/11/22 14:44 10/11/22 12:45 Mild conversational dyspnea, no use of accessory muscles. Oriented 3. Currently on 6 L. HEENT examination is grossly unremarkable. Neck supple. Full range of motion. No adenopathy thyromegaly or neck vein distention. Cardiovascular examination reveals regular rhythm rate. S1-S2 normal. No S3 or S4. No discernible murmur noted. Heart sounds are distant. Heart rate 80 bpm. Lungs reveal diffuse inspiratory and expiratory wheezes and rhonchi. There is prolongation on forced maneuver. No crackles. Breath sounds equal bilaterally but diminished throughout. Saturations are 95% on 6 L. Abdomen soft bowel sounds are heard. No masses or tenderness. Extremities are intact. No cyanosis clubbing or edema. Skin is without rash or lesion. Neurologic examination is brief but nonfocal. Results - Laboratory Findings CBC and BMP: 10/11/22 11:02 10/11/22 11:02 PT/INR, D-dimer PT 10.0 sec (9.0-12.0) 10/11/22 11:02 INR 0.9 (<1.2) 10/11/22 11:02 D-Dimer 0.48 mg/L FEU (<0.60) 10/11/22 11:02 Abnormal lab findings: Abnormal Labs 10/11/22 10/11/22 11:02 11:02 WBC 11.7 H Neutrophils # 9.2 H Sodium 120 L Potassium 5.4 H Chloride 83 L Creatinine 0.50 L Glucose 105 H Total Bilirubin 1.5 H - Diagnostic Findings Chest x-ray: image reviewed Assessment and Plan Assessment: Acute hypoxemic respiratory failure secondary to COPD exacerbation. History of esophageal cancer, status post esophageal surgery. History of gastroesophageal reflux disease. Prior history of heavy tobacco use. Plan: Plan dated 10/12/2022. The patient's medications are adjusted accordingly. We'll make sure he is gett ing appropriate medications including anticholinergics, beta agonist, inhaled corticosteroids, and systemic corticosteroids. Additional recommendations and suggestions are forthcoming. Prognosis is guarded. Labs, x-rays, and medications are reviewed. We will continue to follow and make recommendations along the way. Time with Patient: Greater than 30
--- NOTE | 2022-10-12 12:56 | P.CRDCN ---
History of Present Illness Consult date: 10/12/22 History of present illness: History of present illness: This is a 76-year-old male patient of Dr. Parham with past medical history of hypertension, aortic stenosis, COPD, esophageal cancer status post resection, gastroesophageal reflux disease, remote history of tobacco use. We have been asked to see the patient because he follows with a canary raiser. Patient came into the emergency center he states he had shortness of breath yesterday also had a fall in his kitchen with loss of consciousness as he could not remember what happened. He denies having any cough, no sputum production, no wheezing, no lower extremity edema. He denies having any chest pain, lightheadedness or dizziness. He was initially found to have a pulse ox of 95% but later required BiPAP is currently on 6 L nasal cannula. Patient was started on IV Lasix and he has a condom cath in place. Patient was last seen in the office on August 21 of this year at which time he was seen for dizziness when he stands too quickly, shortness of breath with maximal exertion. He was instructed to increase oral water intake, change position slowly and wear EDMUND hose. EKG sinus rhythm with no acute ST changes WBC 11.7, hemoglobin 14.3. D-dimer 0.48. Sodium 120, potassium 5.4, chloride 83, CO2 25, BUN 13 and creatinine 0.5. Troponin negative 2. Total bilirubin 1.5 and other liver function tests within normal limits. Magnesium 1.8. Chest x-ray reveals chronic changes with pulmonary fibrosis superimposed on COPD. Persistent irregular density right upper lobe stable. Home cardiac medications: Lopressor 25 mg daily and 12.5 at bedtime. He is also on levothyroxine and ferrous sulfate Effie scan stress test 08/17/2022: Normal EF without stress-induced ischemia Echocardiogram 04/2022: EF 50%, global LV hypokinesis. Grade 2 diastolic dysfunction. Mild LVH. Moderate aortic regurgitation, moderate to severe , moderate MR, mild MS, moderate TR. PAS P 43, mild VA Review Of Systems: At the time of my evaluation: Constitutional: No fever, no chills. No weakness, fatigue or lethargy. EENT: No headache. No dizziness. Lungs: Reports shortness of breath, cough, no sputum production. No wheezing. Cardiovascular: No chest pain, no lower extremity edema. No palpitations. No paroxysmal nocturnal dyspnea. No orthopnea. No lightheadedness or dizziness. Reported syncopal episodes. Abdominal: No abdominal pain. No nausea, vomiting. No diarrhea. No constipation. No bloody or tarry stools. Genitourinary: No dysuria. No urinary retention. Musculoskeletal: No myalgias. No muscle weakness, no frequent falls. No back pain. No neck pain. Integumentary: No wounds. No rash. No unusual bruising. Neurologic: No aphasia. No facial droop. No change in mentation. No head injury. No headache. Physical examination: Gen: This is a 76-year-old male. He is resting on ER stretcher and appears to be comfortable and in no acute distress VS: reviewed HEENT: Head is atraumatic, normocephalic. Pupils equal, round. Sclerae is anicteric. NECK: Supple. No JVD. No lymphadenopathy. No thyromegaly. LUNGS: Clear to auscultation. No wheezes or rhonchi. No intercostal retractions. HEART: Regular rate and rhythm. 2/6 systolic murmur. ABDOMEN: Soft. Bowel sounds are present. No masses. No tenderness. EXTREMITIES: No pedal edema. No calf tenderness. NEUROLOGICAL: Patient is awake, alert and oriented x3. Cranial nerves 2 through 12 are grossly intact. Assessment: Syncopal episode Hyponatremia Shortness of breath with possible component of acute diastolic heart failure COPD exacerbation Valvular heart disease with Moderate to severe aortic stenosis, moderate MR, mild MS, moderate TR Hypertension Esophageal cancer Gastroesophageal reflux disease Remote history of tobacco use. Plan: Continue patient's home cardiac medications Decrease Lasix 40 mg IV to frequency of every 12 hours Obtain 2-D echocardiogram and Doppler study to assess cardiac structure and function Further recommendations to follow based upon clinical course Thank you kindly for this consultation. Nurse practitioner note has been reviewed, I agree with documented findings and plan of care. Patient was seen and examined. Past Medical History Past Medical History: Cancer, COPD, GERD/Reflux Additional Past Medical History / Comment(s): esophageal cancer, cataracts, History of Any Multi-Drug Resistant Organisms: None Reported Additional Past Surgical History / Comment(s): esophageal surgery, Past Psychological History: No Psychological Hx Reported Smoking Status: Former smoker Past Alcohol Use History: Daily Past Drug Use History: None Reported Medications and Allergies Home Medications Medication Instructions Recorded Confirmed Type Omeprazole [PriLOSEC] 20 mg PO DAILY 06/18/14 10/11/22 History Tiotropium [place] [Spiriva] 1 puff IN RT-DAILY 06/18/14 10/11/22 History Cyanocobalamin (Vitamin B-12) 1,000 mcg PO DAILY 04/19/20 10/11/22 History [Vitamin B-12] Levothyroxine Sodium 25 mcg PO DAILY 04/19/20 10/11/22 History Multivitamins, Thera [Multivitamin 1 tab PO DAILY 04/19/20 10/11/22 History (formulary)] Zinc 50 mg PO DAILY 04/19/20 10/11/22 History Ipratropium-Albuterol Nebulize 3 ml INHALATION RT-QID #120 ml 04/25/20 10/11/22 Rx [Duoneb 0.5 mg-3 mg/3 ml Soln] Ascorbic Acid [Vitamin C] 1,000 mg PO DAILY 10/11/22 10/11/22 History Ferrous Sulfate [Feosol] 325 mg PO DAILY 10/11/22 10/11/22 History Fluticasone Propion/Salmeterol 2 puff INHALATION RT-DAILY 10/11/22 10/11/22 History [Wixela 250-50 Inhub] Folate 666mcg 1 tab PO DAILY 10/11/22 10/11/22 History Magnesium 250 mg PO DAILY 10/11/22 10/11/22 History Metoprolol Tartrate [Lopressor] 12.5 mg PO HS 10/11/22 10/11/22 History Metoprolol Tartrate [Lopressor] 25 mg PO DAILY 10/11/22 10/11/22 History [place]-3 Fatty Acids [[place]-3] 1,000 mg PO DAILY 10/11/22 10/11/22 History Sodium Chloride Tab 1 gm PO DAILY 10/11/22 10/11/22 History Allergies Allergy/AdvReac Type Severity Reaction Status Date / Time No Known Allergies Allergy Verified 10/11/22 12:31 Physical Exam Vitals: Vital Signs Temp Pulse Resp BP Pulse Ox FiO2 10/12/22 07:31 99 10/12/22 06:00 79 16 130/82 99 10/12/22 04:38 18 10/12/22 04:00 80 18 124/78 98 10/12/22 02:00 80 18 108/69 97 10/12/22 00:00 97.8 F 80 18 125/86 98 10/11/22 22:00 94 20 121/69 98 10/11/22 20:00 97 18 127/70 96 10/11/22 15:25 40 10/11/22 14:44 95 20 131/73 100 10/11/22 12:45 90 20 136/74 98 10/11/22 11:21 88 10/11/22 11:13 40 10/11/22 11:12 86 10/11/22 11:06 6 10/11/22 11:05 87 10/11/22 10:54 86 10/11/22 10:43 98.6 F 65 40 H 139/79 95 Results 10/11/22 11:02 10/11/22 11:02 Cardiac Enzymes 10/11/22 10/11/22 Range/Units 11:02 11:02 AST 38 (17-59) U/L Troponin I <0.012 (0.000-0.034) ng/mL Coagulation 10/11/22 Range/Units 11:02 PT 10.0 (9.0-12.0) sec APTT 24.9 (22.0-30.0) sec CBC 10/11/22 Range/Units 11:02 WBC 11.7 H (3.8-10.6) k/uL RBC 4.43 (4.30-5.90) m/uL Hgb 14.3 (13.0-17.5) gm/dL Hct 42.0 (39.0-53.0) % Plt Count 444 (150-450) k/uL Comprehensive Metabolic Panel 10/11/22 Range/Units 11:02 Sodium 120 L (137-145) mmol/L Potassium 5.4 H (3.5-5.1) mmol/L Chloride 83 L (98-107) mmol/L Carbon Dioxide 25 (22-30) mmol/L BUN 13 (9-20) mg/dL Creatinine 0.50 L (0.66-1.25) mg/dL Glucose 105 H (74-99) mg/dL Calcium 8.9 (8.4-10.2) mg/dL AST 38 (17-59) U/L ALT 25 (4-49) U/L Alkaline Phosphatase 99 (38-126) U/L Total Protein 8.0 (6.3-8.2) g/dL Albumin 4.6 (3.5-5.0) g/dL Current Medications Generic Name Dose Route Start Last Admin Trade Name Freq PRN Reason Stop Dose Admin Albuterol Sulfate 2 puff 10/11/22 16:00 10/12/22 07:33 Albuterol Hfa Inhaler INHALATION 2 puff RT-QID BREE Administration Ascorbic Acid 1,000 mg 10/12/22 09:00 10/12/22 08:46 Ascorbic Acid 500 Mg Tab PO 1,000 mg DAILY BREE Administration Aspirin 325 mg 10/12/22 09:00 10/12/22 08:46 Aspirin 325 Mg Tab PO 325 mg DAILY BREE Administration Budesonide 1 mg 10/12/22 20:00 Budesonide 1 Mg/2 Ml Nebu INHALATION RT-BID BREE Cyanocobalamin 1,000 mcg 10/12/22 09:00 10/12/22 08:46 Cyanocobalamin 500 Mcg Tab PO 1,000 mcg DAILY BREE Administration Ferrous Sulfate 325 mg 10/12/22 09:00 10/12/22 08:47 Ferrous Sulfate 325 Mg Tab PO 325 mg DAILY BREE Administration Folic Acid 1 mg 10/12/22 09:00 10/12/22 08:46 Folic Acid 1 Mg Tab PO 1 mg DAILY BREE Administration Formoterol Fumarate 20 mcg 10/12/22 20:00 Formoterol Fumarate 20 Mcg/2 Ml Nebu INHALATION RT-BID BREE Furosemide 40 mg 10/11/22 16:00 10/12/22 08:47 Furosemide 10 Mg/Ml 4 Ml Vial IV 40 mg Q8H BREE Administration Sodium Chloride 1,000 mls @ 100 mls/hr 10/11/22 14:00 10/12/22 00:08 Saline 0.9% IV Not Given .Q10H BREE Levothyroxine Sodium 25 mcg 10/12/22 06:30 10/12/22 05:57 Levothyroxine 25 Mcg Tab PO 25 mcg 0630 BREE Administration Magnesium Oxide 400 mg 10/12/22 09:00 10/12/22 08:46 Magnesium Oxide 400 Mg Tab PO 400 mg DAILY BREE Administration Methylprednisolone Sodium Succinate 60 mg 10/12/22 08:30 10/12/22 08:47 Methylprednisolone Sod Succi 125 Mg/2 Ml Vial IV 60 mg Q6HR BREE Administration Metoprolol Tartrate 25 mg 10/12/22 09:00 10/12/22 08:46 Metoprolol Tartrate 25 Mg Tab PO 25 mg DAILY BREE Administration Metoprolol Tartrate 12.5 mg 10/11/22 21:00 10/11/22 23:04 Metoprolol Tartrate 12.5 Mg Tab PO 12.5 mg HS BREE Administration Multivitamins 1 each 10/12/22 09:00 10/12/22 08:46 Multivitamins, Thera 1 Each Tab PO 1 each DAILY BREE Administration Pantoprazole Sodium 40 mg 10/12/22 09:00 10/12/22 08:46 Pantoprazole 40 Mg Tablet PO 40 mg DAILY BREE Administration Sodium Chloride 1 gm 10/12/22 09:00 10/12/22 08:52 Sodium Chloride Tab 1 Gm Tab PO 1 gm DAILY BREE Administration Tiotropium [place] 2 puff 10/12/22 08:00 10/12/22 07:33 Tiotropium 2.5 Mcg Inhaler INHALATION 2 puff RT-DAILY BREE Administration Zinc Sulfate 220 mg 10/12/22 09:00 Zinc Sulfate 220 Mg Cap PO DAILY BREE 10/11/22 11:02 10/11/22 11:02
--- NOTE | 2022-10-12 13:06 | P.NPCON ---
History of Present Illness - Reason for Consult hyponatremia - History of Present Illness reason for consultation: Hyponatremia history of present illness: Patient is a 76-year-old male seen in a consultation for hyponatremia. Patient seems to have chronic hyponatremia with sodium level in the range of 125-131 since April [address] to November 2021. Sodium level this admission was 120. Patient came to the hospital due to worsening shortness of breath. He has been diagnosed with COPD and is currently receiving IV steroids as well as nebulized treatment. He has history of esophageal cancer but no active malignancy. According to the he's been eating okay and denies excessive fluid intake. He is not on any diuretics. Denies regular use of nonsteroidals. No vomiting or diarrhea.patient was receiving IV fluids but has now been started on IV Lasix by cardiology.blood pressure is stable. Denies chest pain. no fever or chills. Currently on 5 L nasal cannula. denies history of kidney disease. No gross hematuria. GFR currently at baseline. Vital signs are stable. General: no acute distress. HEENT: Head exam is unremarkable. on nasal cannula. LUNGS: diffuse wheezing and rhonchi present. HEART: Rate and Rhythm are regular. ABDOMEN: no distention. EXTREMITITES: No edema. Past Medical History Past Medical History: Cancer, COPD, GERD/Reflux Additional Past Medical History / Comment(s): esophageal cancer, cataracts, History of Any Multi-Drug Resistant Organisms: None Reported Additional Past Surgical History / Comment(s): esophageal surgery, Past Psychological History: No Psychological Hx Reported Smoking Status: Former smoker Past Alcohol Use History: Daily Past Drug Use History: None Reported Medications and Allergies Home Medications Medication Instructions Recorded Confirmed Type Omeprazole [PriLOSEC] 20 mg PO DAILY 06/18/14 10/11/22 History Tiotropium [place] [Spiriva] 1 puff IN RT-DAILY 06/18/14 10/11/22 History Cyanocobalamin (Vitamin B-12) 1,000 mcg PO DAILY 04/19/20 10/11/22 History [Vitamin B-12] Levothyroxine Sodium 25 mcg PO DAILY 04/19/20 10/11/22 History Multivitamins, Thera [Multivitamin 1 tab PO DAILY 04/19/20 10/11/22 History (formulary)] Zinc 50 mg PO DAILY 04/19/20 10/11/22 History Ipratropium-Albuterol Nebulize 3 ml INHALATION RT-QID #120 ml 04/25/20 10/11/22 Rx [Duoneb 0.5 mg-3 mg/3 ml Soln] Ascorbic Acid [Vitamin C] 1,000 mg PO DAILY 10/11/22 10/11/22 History Ferrous Sulfate [Feosol] 325 mg PO DAILY 10/11/22 10/11/22 History Fluticasone Propion/Salmeterol 2 puff INHALATION RT-DAILY 10/11/22 10/11/22 History [Wixela 250-50 Inhub] Folate 666mcg 1 tab PO DAILY 10/11/22 10/11/22 History Magnesium 250 mg PO DAILY 10/11/22 10/11/22 History Metoprolol Tartrate [Lopressor] 12.5 mg PO HS 10/11/22 10/11/22 History Metoprolol Tartrate [Lopressor] 25 mg PO DAILY 10/11/22 10/11/22 History [place]-3 Fatty Acids [[place]-3] 1,000 mg PO DAILY 10/11/22 10/11/22 History Sodium Chloride Tab 1 gm PO DAILY 10/11/22 10/11/22 History Allergies Allergy/AdvReac Type Severity Reaction Status Date / Time No Known Allergies Allergy Verified 10/11/22 12:31 Physical Exam Vitals: Vital Signs Temp Pulse Pulse Resp BP BP Pulse Ox 10/12/22 12:00 98 F 80 14 122/89 95 10/12/22 08:00 96.8 F L 90 20 116/71 97 10/12/22 07:31 99 10/12/22 06:00 79 16 130/82 99 10/12/22 04:38 18 10/12/22 04:00 80 18 124/78 98 10/12/22 02:00 80 18 108/69 97 10/12/22 00:00 97.8 F 80 18 125/86 98 10/11/22 22:00 94 20 121/69 98 10/11/22 20:00 97 18 127/70 96 10/11/22 15:25 10/11/22 14:44 95 20 131/73 100 FiO2 10/12/22 12:00 10/12/22 08:00 10/12/22 07:31 10/12/22 06:00 03/03/23 04:38 10/12/22 04:00 10/12/22 02:00 10/12/22 00:00 10/11/22 22:00 10/11/22 20:00 10/11/22 15:25 40 10/11/22 14:44 Results - Lab Results Most recent lab results Calcium 8.9 mg/dL (8.4-10.2) 10/11/22 11:02 Magnesium 1.8 mg/dL (1.6-2.3) 10/11/22 11:02 10/11/22 11:02 10/11/22 11:02 Assessment and Plan Plan: assessment: 1. acute on chronic hyponatremia. Slightly hypervolemic as pleural effusion noted on chest x-ray. He received IV fluids in the ER but now is maintained on IV Lasix by cardiology. History of esophageal cancer but no active malignancy. No use of diuretics prior to admission. sodium level 120 on admission yesterday. No labs today. 2. COPD exacerbation. 3. Acute hypoxic respiratory failure secondary to above. 4. Benign hypertension. Stable. plan: 1200 mL fluid restriction. Encourage oral intake. Add ensure. Maintain IV Lasix for now. Repeat labs today. check serum and urine osmolality and urine sodium level. Check TSH. Thank you for the consultation. I will continue to follow patient with you during his hospital stay.
[2022-10-12 13:44] LABS: African American GFR (CKD) >90 (>60 ml/min/1.73 sqM); Anion Gap 13 mmol/L; Blood Urea Nitrogen 24 mg/dL (9-20); Carbon Dioxide 25 mmol/L (22-30); Chloride 83 mmol/L (98-107); Glucose 177 mg/dL (74-99); Non-African American GFR(CKD) 86 (>60 ml/min/1.73 sqM); Sodium 121 mmol/L (137-145)
[2022-10-12] MEDS ORDERED: MAGNESIUM SULFATE-D5W PMX 1 GM in DEXTROSE/WATER 1 100ML.BAG IVPB ONE (15:00)
--- NOTE | 2022-10-12 15:23 | P.HPIM ---
History of Present Illness H&P Date: 10/12/22 Hospital course:Keshav Cuevas is a 76 yo M with PMH of COPD, former nicotine dependence ,esophageal cancer s/p resection, hyponatremia who presented to the ED complaining of worsening shortness of breath. Pt reports that yesterday morning after breakfast developed increased shortness of breath ,apparently fell in the kitchen accompanied by loss of consciousness- does not recall the event. No incontinence of urine or bowel .reports occasional cough, denies any fever or chills. He is a former smoker. He had been using albuterol inhaler, Spiriva, Wixela, nebulized bronchodilators without much relief. Recently placed on oral sodium chloride tabs with diuretics placed on hold outpatient .denies excessive fluid intake.On presentation he was tachypneic, respiratory rate 40 and hypoxic, WBC 11.7k, Na 120, CXR with persistent RUL density, changes most likely chronic, similar to prior exam with pulmonary fibrosis superimposed on background of COPD. received BiPAP throughout the night, currently maintaining O2 sats in the 90s on 6 L nasal cannula (patient does not wear oxygen at home). Afebrile. ProBNP 2170. EKG reported sinus rhythm, Troponins negative 2. Review of Systems ROS Statement: Those systems with pertinent positive or pertinent negative responses have been documented in the HPI. ROS Other: All systems not noted in ROS Statement are negative. Past Medical History Past Medical History: Cancer, COPD, GERD/Reflux Additional Past Medical History / Comment(s): esophageal cancer, cataracts, History of Any Multi-Drug Resistant Organisms: None Reported Additional Past Surgical History / Comment(s): esophageal surgery, Past Psychological History: No Psychological Hx Reported Smoking Status: Former smoker Past Alcohol Use History: Daily Past Drug Use History: None Reported Medications and Allergies Home Medications Medication Instructions Recorded Confirmed Type Omeprazole [PriLOSEC] 20 mg PO DAILY 06/18/14 10/11/22 History Tiotropium [place] [Spiriva] 1 puff IN RT-DAILY 06/18/14 10/11/22 History Cyanocobalamin (Vitamin B-12) 1,000 mcg PO DAILY 04/19/20 10/11/22 History [Vitamin B-12] Levothyroxine Sodium 25 mcg PO DAILY 04/19/20 10/11/22 History Multivitamins, Thera [Multivitamin 1 tab PO DAILY 04/19/20 10/11/22 History (formulary)] Zinc 50 mg PO DAILY 04/19/20 10/11/22 History Ipratropium-Albuterol Nebulize 3 ml INHALATION RT-QID #120 ml 04/25/20 10/11/22 Rx [Duoneb 0.5 mg-3 mg/3 ml Soln] Ascorbic Acid [Vitamin C] 1,000 mg PO DAILY 10/11/22 10/11/22 History Ferrous Sulfate [Feosol] 325 mg PO DAILY 10/11/22 10/11/22 History Fluticasone Propion/Salmeterol 2 puff INHALATION RT-DAILY 10/11/22 10/11/22 History [Wixela 250-50 Inhub] Folate 666mcg 1 tab PO DAILY 10/11/22 10/11/22 History Magnesium 250 mg PO DAILY 10/11/22 10/11/22 History Metoprolol Tartrate [Lopressor] 12.5 mg PO HS 10/11/22 10/11/22 History Metoprolol Tartrate [Lopressor] 25 mg PO DAILY 10/11/22 10/11/22 History [place]-3 Fatty Acids [[place]-3] 1,000 mg PO DAILY 10/11/22 10/11/22 History Sodium Chloride Tab 1 gm PO DAILY 10/11/22 10/11/22 History Allergies Allergy/AdvReac Type Severity Reaction Status Date / Time No Known Allergies Allergy Verified 10/11/22 12:31 Physical Exam Vitals: Vital Signs Temp Pulse Pulse Resp BP BP Pulse Ox 10/12/22 08:00 96.8 F L 90 20 116/71 97 10/12/22 07:31 99 10/12/22 06:00 79 16 130/82 99 10/12/22 04:38 18 10/12/22 04:00 80 18 124/78 98 10/12/22 02:00 80 18 108/69 97 10/12/22 00:00 97.8 F 80 18 125/86 98 10/11/22 22:00 94 20 121/69 98 10/11/22 20:00 97 18 127/70 96 10/11/22 15:25 10/11/22 14:44 95 20 131/73 100 10/11/22 12:45 90 20 136/74 98 10/11/22 11:21 88 10/11/22 11:13 10/11/22 11:12 86 FiO2 10/12/22 08:00 10/12/22 07:31 10/12/22 06:00 10/12/22 04:38 10/12/22 04:00 10/12/22 02:00 10/12/22 00:00 10/11/22 22:00 10/11/22 20:00 10/11/22 15:25 40 10/11/22 14:44 10/11/22 12:45 10/11/22 11:21 10/11/22 11:13 40 10/11/22 11:12 General: well nourished, well developed, NAD. Vitals reviewed. Eyes: PERRL, EOMI, conjunctiva normal. HENT: normocephalic, mucus membranes moist Neck: supple, no JVD Lungs: Diminished air entry throughout, inspiratory and expiratory wheezing. Scattered rhonchi CV: Regular rate and rhythm, systolic murmur. Peripheral pulses 2+ Abdomen: soft, nondistended, no organomegaly Lymph: no cervical or axillary LAD Skin: warm and dry. Neuro: A&Ox3, normal mood and affect Results CBC & Chem 7: 10/11/22 11:02 10/12/22 13:05 Labs: Abnormal Lab Results - Last 24 Hours (Table) 10/11/22 10/11/22 Range/Units 11:02 11:02 WBC 11.7 H (3.8-10.6) k/uL Neutrophils # 9.2 H (1.3-7.7) k/uL Sodium 120 L (137-145) mmol/L Potassium 5.4 H (3.5-5.1) mmol/L Chloride 83 L (98-107) mmol/L Creatinine 0.50 L (0.66-1.25) mg/dL Glucose 105 H (74-99) mg/dL Total Bilirubin 1.5 H (0.2-1.3) mg/dL Assessment and Plan Assessment: Acute COPD exacerbation in a patient with history of pulmonary fibrosis Acute hypoxic and hypercapnic respiratory failure secondary to the above Syncope,fall. Acute on chronic hyponatremia, diuretics has been on hold and on oral sodium chloride outpatient. Multivalvular heart disease, moderate to severe aortic stenosis Gastroesophageal reflux disease History of esophageal cancer, as post resection Former nicotine dependence Glaucoma Restless leg syndrome Plan: Continue on current medication regime ,monitoring and symptomatic treatment. Aggressive pulmonary toileting, nebulized bronchodilators, IV steroids,LABA, diuretics. Fluid restrictions. Echocardiogram pending. Pulmonary, cardiology, nephrology consults in place. Repeat sodium level this morning pending,nephrology consulted. Orthostatic VS, PT/OT. The impression and plan of care has been dictated as directed. : I performed a history and examination of this patient, discussed the same with the dictator. I agree with the dictator's note ,documented as a scribe. Any additional findings or plans will be noted.
[2022-10-12 16:49] LABS: Glucose,Whole Blood 154 mg/dL (70-110)
[2022-10-12] MEDS ORDERED: ONDANSETRON 4 MG/2 ML VIAL IVP PRN (17:59)
[2022-10-12] MEDS: FORMOTEROL FUMARATE 20 MCG/2 ML NEBU INHALATION SCH (19:45)
[2022-10-12] MEDS: BUDESONIDE 1 MG/2 ML NEBU INHALATION SCH (19:45)
[2022-10-12 20:17] LABS: African American GFR (CKD) >90 (>60 ml/min/1.73 sqM); Anion Gap 11 mmol/L; Blood Urea Nitrogen 34 mg/dL (9-20); Calcium 8.9 mg/dL (8.4-10.2); Carbon Dioxide 27 mmol/L (22-30); Chloride 84 mmol/L (98-107); Glucose 124 mg/dL (74-99); Non-African American GFR(CKD) 88 (>60 ml/min/1.73 sqM); Potassium 5.1 mmol/L (3.5-5.1); Sodium 122 mmol/L (137-145)
[2022-10-12 20:40] LABS: Glucose,Whole Blood 149 mg/dL (70-110)
[2022-10-12] MEDS: METOPROLOL TARTRATE 12.5 MG TAB PO SCH (21:06)
[2022-10-12] MEDS: PANTOPRAZOLE 40 MG/10 ML VIAL IVP SCH (23:27)
[2022-10-13 05:39] LABS: Glucose,Whole Blood 178 mg/dL (70-110)
[2022-10-13] MEDS: INSULIN ASPART (NovoLOG) 100 UNIT/ML VIAL SQ SCH ×4 (06:29→21:23)
[2022-10-13] MEDS: methylPREDNISolone SOD SUCCI 125 MG/2 ML VIAL IV SCH ×4 (06:29→23:56)
[2022-10-13] MEDS: LEVOTHYROXINE 25 MCG TAB PO SCH (06:30)
[2022-10-13] MEDS: ASPIRIN 81 MG PO SCH (07:59)
[2022-10-13] MEDS: ASCORBIC ACID 500 MG TAB PO SCH (07:59)
[2022-10-13] MEDS: CYANOCOBALAMIN 500 MCG TAB PO SCH (07:59)
[2022-10-13] MEDS: PANTOPRAZOLE 40 MG TABLET PO SCH (07:59)
[2022-10-13] MEDS: FERROUS SULFATE 325 MG TAB PO SCH (07:59)
[2022-10-13] MEDS: FOLIC ACID 1 MG TAB PO SCH (08:00)
[2022-10-13] MEDS: METOPROLOL TARTRATE 25 MG TAB PO SCH (08:00)
[2022-10-13] MEDS: MAGNESIUM OXIDE 400 MG TAB PO SCH (08:00)
[2022-10-13] MEDS: ZINC SULFATE 220 MG CAP PO SCH (08:06)
[2022-10-13] MEDS: MULTIVITAMINS, THERA 1 EACH TAB PO SCH (08:06)
[2022-10-13] MEDS: ALBUTEROL HFA INHALER INHALATION SCH ×4 (08:08→19:45)
[2022-10-13] MEDS: FORMOTEROL FUMARATE 20 MCG/2 ML NEBU INHALATION SCH ×2 (08:08→19:45)
[2022-10-13] MEDS: BUDESONIDE 1 MG/2 ML NEBU INHALATION SCH ×2 (08:08→19:45)
[2022-10-13] MEDS: TIOTROPIUM 2.5 MCG INHALER INHALATION SCH (08:08)
--- NOTE | 2022-10-13 08:15 | P.PN ---
Subjective Progress Note Date: 10/13/22 The patient is a pleasant 76 old gentleman with a past medical history significant for COPD and valvular heart disease with aortic stenosis as well as multiple comorbid conditions was admitted to the hospital was acute hypoxic respiratory failure secondary to COPD exacerbation and heart failure exacerbati on of unknown etiology at this point. October [id number] He was seen this morning. He still on oxygen to keep his saturation above 90%. He is feeling slightly better. On examination he does have bilateral expiratory wheezing. He is on Lasix at 40 mg IV twice a day. The echocardiogram is still pending and we will follow-up on that. Assessment Acute hypoxic respiratory failure COPD exacerbation CHF exacerbation of unknown etiology at this point Valvular heart disease with aortic stenosis Multiple comorbid conditions Plan Continue current medical regimen Follow-up on the blood work from the morning including the kidney function and electrolytes Nephrology service is on the case Follow-up on the echocardiogram Objective - Vital Signs Vital signs: Vital Signs Temp 98.0 F 10/13/22 02:00 Pulse 98 10/13/22 08:12 Resp 16 10/13/22 02:00 BP 107/71 10/13/22 02:00 Pulse Ox 97 10/13/22 08:12 FiO2 40 10/12/22 15:02 Intake & Output 10/12/22 10/13/22 10/13/22 18:59 06:59 18:59 Output Total 300 1600 Balance -300 -1600 Weight 67.132 kg Output: Urine 300 1600 Other: Voiding Method Indwelling Catheter - Labs CBC & Chem 7: 10/11/22 11:02 10/12/22 19:52 Labs: Abnormal Lab Results - Last 24 Hours (Table) 10/12/22 10/12/22 10/12/22 Range/Units 13:05 13:05 16:48 Sodium 121 L (137-145) mmol/L Chloride 83 L (98-107) mmol/L BUN 24 H (9-20) mg/dL Glucose 177 H (74-99) mg/dL POC Glucose (mg/dL) 154 H (70-110) mg/dL Hemoglobin A1c 6.2 H (0.0-6.0) % Osmolality 264 L (280-301) mosm/kg 10/12/22 10/12/22 10/13/22 Range/Units 19:52 20:39 05:38 Sodium 122 L (137-145) mmol/L Chloride 84 L (98-107) mmol/L BUN 34 H (9-20) mg/dL Glucose 124 H (74-99) mg/dL POC Glucose (mg/dL) 149 H 178 H (70-110) mg/dL Hemoglobin A1c (0.0-6.0) % Osmolality (280-301) mosm/kg Microbiology - Last 24 Hours (Table) 10/11/22 22:35 Blood Culture - Preliminary Blood No Growth after 24 hours
[2022-10-13 09:30] LABS: African American GFR (CKD) 100.6 (60.0-200.0); BUN/Creat Ratio 41.38 Ratio (12.00-20.00); Blood Urea Nitrogen 33.1 mg/dL (9.0-27.0); Calcium 9.2 mg/dL (8.7-10.3); Carbon Dioxide 23.8 mmol/L (20.0-27.5); Chloride 85 mmol/L (96-109); Glucose 147 mg/dL (70-110); Magnesium 2.1 mg/dL (1.5-2.4); Non-African American GFR(CKD) 86.8 (60.0-200.0); Potassium 4.9 mmol/L (3.5-5.5); Sodium 124 mmol/L (135-145)
[2022-10-13] MEDS: PANTOPRAZOLE 40 MG/10 ML VIAL IVP SCH ×2 (09:48→21:24)
[2022-10-13] MEDS: FUROSEMIDE 10 MG/ML 4 ML VIAL IV SCH (09:48)
--- NOTE | 2022-10-13 11:28 | CA ---
Transthoracic Echo Report Name: Keshav Cuevas Age: 76 Gender: M : 1945 Exam Date: 10/12/2022 10:15 Exam Location: [facility] Ht (in): 71 Wt (lb): 145 Ordering Physician: Jessica Modi Attending/Referring Phys: [id number], Rian Forming Press Operator Sayra Sykes RDCS Procedure CPT: Indications: LVF Cardiac Hx: Technical Quality: Fair Contrast 1: Total Dose (mL): Contrast 2: Total Dose (mL): MEASUREMENTS (Male / Female) Normal Values 2D ECHO LV Diastolic Diameter PLAX 4.2 cm 4.2 - 5.9 / 3.9 - 5.3 cm LV Systolic Diameter PLAX 3.1 cm IVS Diastolic Thickness 1.0 cm 0.6 - 1.0 / 0.6 - 0.9 cm LVPW Diastolic Thickness 0.9 cm 0.6 - 1.0 / 0.6 - 0.9 cm LV Relative Wall Thickness 0.5 RV Internal Dim ED PLAX 2.6 cm LVOT Diameter 2.0 cm M-MODE Aortic Root Diameter MM 3.3 cm AV Cusp Separation MM 0.9 cm DOPPLER AV Peak Velocity 221.3 cm/s AV Peak Gradient 19.6 mmHg AV Mean Velocity 156.1 cm/s AV Mean Gradient 10.6 mmHg AV Velocity Time Integral 43.2 cm AI Peak Velocity 325.9 cm/s AI Peak Gradient 42.5 mmHg AI Pressure Half Time 534.7 ms LVOT Peak Velocity 101.7 cm/s LVOT Peak Gradient 4.1 mmHg AV Area Cont Eq pk 1.5 cm??? MV Area PHT 1.6 cm??? MR Peak Velocity 440.3 cm/s MR Peak Gradient 77.5 mmHg Mitral E Point Velocity 170.4 cm/s Mitral A Point Velocity 142.6 cm/s Mitral E to A Ratio 1.2 MV Deceleration Time 477.8 ms TR Peak Velocity 291.0 cm/s TR Peak Gradient 33.9 mmHg Right Atrial Pressure 3.0 mmHg Pulmonary Artery Systolic Pressu 36.9 mmHg Right Ventricular Systolic Press 36.9 mmHg FINDINGS Left Ventricle Left ventricular wall thickness normal. Left ventricular cavity size normal. Grade 2 diastolic dysfunction. Left ventricular ejection fraction is estimated at 45-50 %. Right Ventricle Normal right ventricular size. Normal right ventricular global systolic function. Mild pulmonary hypertension. Right Atrium Normal right atrial size. Left Atrium Normal left atrial size. Mitral Valve Mass seen on chordae tendineae. Mitral stenosis. Tbaq-ya-saiirwwh mitral regurgitation. Aortic Valve Trileaflet aortic valve. Mild aortic stenosis with a peak gradient of 19 mmHg and a mean gradient of 10 mmHg. Tamy-xe-oyvxhqqo aortic regurgitation. Tricuspid Valve Mild tricuspid regurgitation. Pulmonic Valve No pulmonic regurgitation. Pericardium Aorta Normal size aortic root and proximal ascending aorta. CONCLUSIONS Impaired LV function was EF between 45-50% Aortic sclerosis with mild aortic stenosis and moderate aortic insufficiency Yejs-pa-gqueyaud mitral regurgitation Previewed by: Dr. Alpesh Barahona MD (Electronically Signed) Final Date: 13 October 2022 11:27
[2022-10-13 11:58] LABS: Glucose,Whole Blood 122 mg/dL (70-110)
[2022-10-13 13:02] LABS: African American GFR (CKD) >90 (>60 ml/min/1.73 sqM); Anion Gap 14 mmol/L; Blood Urea Nitrogen 43 mg/dL (9-20); Carbon Dioxide 24 mmol/L (22-30); Chloride 87 mmol/L (98-107); Glucose 116 mg/dL (74-99); Non-African American GFR(CKD) 87 (>60 ml/min/1.73 sqM); Potassium 4.5 mmol/L (3.5-5.1); Sodium 125 mmol/L (137-145)
--- NOTE | 2022-10-13 14:43 | P.PN ---
Subjective Progress Note Date: 10/13/22 Principal diagnosis: Shortness of breath. Pulmonary consult dated 10/12/2022. 76-year-old male with history of will establish COPD from long-term tobacco use. The patient came into the emergency room on October 11, complaining of increasing shortness of breath. He was using his normal home medications, but they were not helping. In addition, he admits to chest tightness, wheezing, cough, and occasional phlegm production. He apparently does not see a plastic surgery nurse. He only sees his family doctor. We apparently have seen him in the past. He has a history of esophageal cancer, COPD, and gastroesophageal reflux disease. The patient is seen in the emergency room, room 27. He is on 6 L of oxygen. No IV fluids. We added albuterol, Spiriva, formoterol, budesonide, and Solu-Medrol. White count 11.7, hemoglobin, hematocrit, and platelet count all normal. Coagulation studies including d-dimer were normal. Sodium 120, potassium 5.4, chlorides 83, CO2 25, BUN 13, creatinine 0.5. Troponins were less than 0.012, twice, and N-terminal proBNP was 2170. Chest x-ray showed changes of COPD, and chronic fibrotic changes as well. The patient's irregular density right upper lobe, is stable, dating back to scans from 2019. Progress note dated 10/13/2022. 76-year-old male with a history of COPD from previous heavy tobacco use. The patient was seen in the emergency room yesterday. Currently, he is seen in room 467. He's on 2 L of oxygen. He's not receiving any IV fluids. The patient did not use of BiPAP mask last night, and able be discontinued from the room. Clinically, he is feeling better. Certainly not back to baseline. Laboratory data today include a sodium 125, potassium 4.5, chloride 87, CO2 24, anion gap 14, BUN 43, and creatinine 0.8. TSH was normal. Calcium was 9. Magnesium was 2.1. Objective - Vital Signs Vital signs: Vital Signs Temp 98.1 F 10/13/22 07:43 Pulse 96 10/13/22 08:32 Resp 16 10/13/22 07:43 BP 118/69 10/13/22 07:43 Pulse Ox 97 10/13/22 08:12 FiO2 40 10/12/22 15:02 Intake & Output 10/12/22 10/13/22 10/13/22 18:59 06:59 18:59 Output Total 300 1600 Balance -300 -1600 Weight 67.132 kg 67.132 kg Output: Urine 300 1600 Other: Voiding Method Indwelling Catheter Indwelling Catheter # Bowel Movements 1 - Exam Improved conversational dyspnea, no use of accessory muscles. Oriented 3. Currently on 2 L. HEENT examination is grossly unremarkable. Neck supple. Full range of motion. No adenopathy thyromegaly or neck vein dist ention. Cardiovascular examination reveals regular rhythm rate. S1-S2 normal. No S3 or S4. No discernible murmur noted. Heart sounds are distant. Heart rate 96 bpm. Lungs reveal diffuse inspiratory and expiratory wheezes and rhonchi. There is prolongation on forced maneuver. No crackles. Breath sounds equal bilaterally but diminished throughout. Saturations are 97% on 2 L. Abdomen soft bowel sounds are heard. No masses or tenderness. Extremities are intact. No cyanosis clubbing or edema. Skin is without rash or lesion. Neurologic examination is brief but nonfocal. - Labs CBC & Chem 7: 10/11/22 11:02 10/13/22 12:13 Labs: Abnormal Lab Results - Last 24 Hours (Table) 10/12/22 10/12/22 10/12/22 Range/Units 13:05 16:48 19:52 Sodium 122 L (137-145) mmol/L Chloride 84 L (98-107) mmol/L BUN 34 H (9-20) mg/dL BUN/Creatinine Ratio (12.00-20.00) Ratio Glucose 124 H (74-99) mg/dL POC Glucose (mg/dL) 154 H (70-110) mg/dL Hemoglobin A1c 6.2 H (0.0-6.0) % 10/12/22 10/13/22 10/13/22 Range/Units 20:39 05:38 06:41 Sodium 124 L (137-145) mmol/L Chloride 85 L (98-107) mmol/L BUN 33.1 H (9-20) mg/dL BUN/Creatinine Ratio 41.38 H (12.00-20.00) Ratio Glucose 147 H (74-99) mg/dL POC Glucose (mg/dL) 149 H 178 H (70-110) mg/dL Hemoglobin A1c (0.0-6.0) % 10/13/22 10/13/22 Range/Units 11:57 12:13 Sodium 125 L (137-145) mmol/L Chloride 87 L (98-107) mmol/L BUN 43 H (9-20) mg/dL BUN/Creatinine Ratio (12.00-20.00) Ratio Glucose 116 H (74-99) mg/dL POC Glucose (mg/dL) 122 H (70-110) mg/dL Hemoglobin A1c (0.0-6.0) % Microbiology - Last 24 Hours (Table) 10/11/22 22:35 Blood Culture - Preliminary Blood No Growth after 24 hours Assessment and Plan Assessment: Acute hypoxemic respiratory failure secondary to COPD exacerbation. History of esophageal cancer, status post esophageal surgery. History of gastroesophageal reflux disease. Prior history of heavy tobacco use. Plan: Plan dated 10/12/2022. The patient's medications are adjusted accordingly. We'll make sure he is getting appropriate medications including anticholinergics, beta agonist, inhaled corticosteroids, and systemic corticosteroids. Additional recommendatio ns and suggestions are forthcoming. Prognosis is guarded. Labs, x-rays, and medications are reviewed. We will continue to follow and make recommendations along the way. Plan dated 10/13/2022. The patient appears to be doing relatively well. He certainly not back to baseline. His oxygen has been titrated down from 6 L nasal cannula, O2 2 L nasal cannula. His medications were adjusted yesterday. We will continue to follow the patient and make recommendations along the way. Prognosis is c ertainly guarded. Labs, x-rays, and medications are all reviewed. Time with Patient: Less than 30
[2022-10-13 16:44] LABS: Glucose,Whole Blood 145 mg/dL (70-110)
--- NOTE | 2022-10-13 16:49 | P.PN ---
Subjective Progress Note Date: 10/13/22 Follow-up for hyponatremia. Family at bedside. Urine output of 1.9 L in the last 24 hours. Objective - Vital Signs Vital signs: Vital Signs Temp 98.1 F 10/13/22 14:00 Pulse 71 10/13/22 14:00 Resp 19 10/13/22 14:00 BP 96/50 10/13/22 14:00 Pulse Ox 97 10/13/22 14:00 FiO2 40 10/12/22 15:02 Intake & Output 10/12/22 10/13/22 10/13/22 18:59 06:59 18:59 Output Total 300 1600 Balance -300 -1600 Weight 67.132 kg 67.132 kg Output: Urine 300 1600 Other: Voiding Method Indwelling Catheter Indwelling Catheter # Bowel Movements 1 - Exam No acute distress S1-S2 heard Decreased breath sounds No edema - Labs CBC & Chem 7: 10/11/22 11:02 10/13/22 12:13 Labs: Abnormal Lab Results - Last 24 Hours (Table) 10/12/22 10/12/22 10/12/22 Range/Units 13:05 16:48 19:52 Sodium 122 L (137-145) mmol/L Chloride 84 L (98-107) mmol/L BUN 34 H (9-20) mg/dL BUN/Creatinine Ratio (12.00-20.00) Ratio Glucose 124 H (74-99) mg/dL POC Glucose (mg/dL) 154 H (70-110) mg/dL Hemoglobin A1c 6.2 H (0.0-6.0) % 10/12/22 10/13/22 10/13/22 Range/Units 20:39 05:38 06:41 Sodium 124 L (137-145) mmol/L Chloride 85 L (98-107) mmol/L BUN 33.1 H (9-20) mg/dL BUN/Creatinine Ratio 41.38 H (12.00-20.00) Ratio Glucose 147 H (74-99) mg/dL POC Glucose (mg/dL) 149 H 178 H (70-110) mg/dL Hemoglobin A1c (0.0-6.0) % 10/13/22 10/13/22 10/13/22 Range/Units 11:57 12:13 16:42 Sodium 125 L (137-145) mmol/L Chloride 87 L (98-107) mmol/L BUN 43 H (9-20) mg/dL BUN/Creatinine Ratio (12.00-20.00) Ratio Glucose 116 H (74-99) mg/dL POC Glucose (mg/dL) 122 H 145 H (70-110) mg/dL Hemoglobin A1c (0.0-6.0) % Microbiology - Last 24 Hours (Table) 10/11/22 22:35 Blood Culture - Final Blood Assessment and Plan Assessment: #1 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 #2 COPD exacerbation #3 hypercarbic respiratory failure #4 hypertension essential. Plan: #1 sodium stable and improving. #2 hold Lasix, add Samsca #3 labs in the morning
[2022-10-13] MEDS ORDERED: TOLVAPTAN 15 MG 1/2 TABLET PO ONE (17:00)
[2022-10-13] MEDS ORDERED: VANCOMYCIN IV PER PHARMACY 1 EACH MISC MISCELLANE PRN (19:13)
--- NOTE | 2022-10-13 20:51 | P.PN ---
Subjective Progress Note Date: 10/13/22 76-year-old male with history of will establish COPD from long-term tobacco use. The patient came into the emergency room on October 11, complaining of increasing shortness of breath. He was using his normal home medications, but they were not helping. In addition, he admits to chest tightness, wheezing, cough, and occasional phlegm production. He apparently does not see a marine firer. He only sees his family doctor. We apparently have seen him in the past. He has a history of esophageal cancer, COPD, and gastroesophageal reflux disease. The patient is seen in the emergency room, room 27. He is on 6 L of oxygen. No IV fluids. We added albuterol, Spiriva, formoterol, budesonide, and Solu-Medrol. White count 11.7, hemoglobin, hematocrit, and platelet count all normal. Coagulation studies including d-dimer were normal. Sodium 120, potassium 5.4, chlorides 83, CO2 25, BUN 13, creatinine 0.5. Troponins were less than 0.012, twice, and N-terminal proBNP was 2170. Chest x-ray showed changes of COPD, and chronic fibrotic changes as well. The patient's irregular density right upper lobe, is stable, dating back to scans from 2019. Objective - Vital Signs Vital signs: Vital Signs Temp 98.1 F 10/13/22 07:43 Pulse 96 10/13/22 08:32 Resp 16 10/13/22 07:43 BP 118/69 10/13/22 07:43 Pulse Ox 97 10/13/22 08:12 FiO2 40 10/12/22 15:02 Intake & Output 10/12/22 10/13/22 10/13/22 18:59 06:59 18:59 Output Total 300 1600 Balance -300 -1600 Weight 67.132 kg Output: Urine 300 1600 Other: Voiding Method Indwelling Catheter Indwelling Catheter # Bowel Movements 1 - Exam - Constitutional General appearance: Present: average body habitus, cooperative, no acute distress - EENT Eyes: Present: anicteric sclerae, EOMI, PERRLA, normal appearance ENT: Present: hearing grossly normal, normal oropharynx Ears: bilateral: normal - Neck Neck: Present: normal ROM. Absent: lymphadenopathy, rigidity, thyromegaly Carotids: negative: bruit present Thyroid: bilateral: normal size, negative: enlarged, nodule - Respiratory Respiratory: bilateral: CTA, negative: rales, rhonchi, wheezing - Cardiovascular Rhythm: regular Heart sounds: normal: S1, S2 Abnormal Heart Sounds: Absent: systolic murmur, diastolic murmur - Gastrointestinal General gastrointestinal: Present: normal bowel sounds, soft. Absent: distended, organomegaly, tenderness - Genitourinary Genitourinary Comment(s): deferred - Integumentary Integumentary: Present: normal turgor. Absent: jaundiced, rash, ulcer - Neurologic Neurologic: Present: CNII-XII intact. Absent: focal deficits - Musculoskeletal Musculoskeletal: Present: gait normal, strength equal bilaterally - Psychiatric Psychiatric: Present: A&O x's 3, appropriate affect, intact judgment & insight - Labs CBC & Chem 7: 10/11/22 11:02 10/13/22 12:13 Labs: Abnormal Lab Results - Last 24 Hours (Table) 10/12/22 10/12/22 10/12/22 Range/Units 13:05 13:05 16:48 Sodium 121 L (137-145) mmol/L Chloride 83 L (98-107) mmol/L BUN 24 H (9-20) mg/dL BUN/Creatinine Ratio (12.00-20.00) Ratio Glucose 177 H (74-99) mg/dL POC Glucose (mg/dL) 154 H (70-110) mg/dL Hemoglobin A1c 6.2 H (0.0-6.0) % Osmolality 264 L (280-301) mosm/kg 10/12/22 10/12/22 10/13/22 Range/Units 19:52 20:39 05:38 Sodium 122 L (137-145) mmol/L Chloride 84 L (98-107) mmol/L BUN 34 H (9-20) mg/dL BUN/Creatinine Ratio (12.00-20.00) Ratio Glucose 124 H (74-99) mg/dL POC Glucose (mg/dL) 149 H 178 H (70-110) mg/dL Hemoglobin A1c (0.0-6.0) % Osmolality (280-301) mosm/kg 10/13/22 Range/Units 06:41 Sodium 124 L (137-145) mmol/L Chloride 85 L (98-107) mmol/L BUN 33.1 H (9-20) mg/dL BUN/Creatinine Ratio 41.38 H (12.00-20.00) Ratio Glucose 147 H (74-99) mg/dL POC Glucose (mg/dL) (70-110) mg/dL Hemoglobin A1c (0.0-6.0) % Osmolality (280-301) mosm/kg Microbiology - Last 24 Hours (Table) 10/11/22 22:35 Blood Culture - Preliminary Blood No Growth after 24 hours Assessment and Plan Assessment: 1. Acute hypoxemic respiratory failure - Slowly improving; patient is currently saturating around 97% on an FiO2 of 40%; we will continue to titrate her venous able; patient wears BiPAP at night 2. Acute exacerbation COPD --medications including anticholinergics, beta agonist, inhaled corticosteroids, and systemic corticosteroids 3. Gastroesophageal reflux disease; Protonix 40 mg daily 4. History of esophageal cancer; patient is status post esophageal surgery 5. Hypothyroidism; levothyroxin 25 MCG daily 6. Hypertension; metoprolol 25 mg daily along with 12.5 mg daily at bedtime DVT prophylaxis; SCDs CODE STATUS; full code
[2022-10-13 21:00] LABS: Glucose,Whole Blood 208 mg/dL (70-110)
[2022-10-13] MEDS: VANCOMYCIN 1,250 MG in SODIUM CHLORIDE 0.9% 250 ML IVPB SCH (21:23)
[2022-10-13] MEDS: METOPROLOL TARTRATE 12.5 MG TAB PO SCH (21:24)
[2022-10-14 05:39] LABS: Glucose,Whole Blood 166 mg/dL (70-110)
[2022-10-14] MEDS: LEVOTHYROXINE 25 MCG TAB PO SCH (05:44)
[2022-10-14] MEDS: methylPREDNISolone SOD SUCCI 125 MG/2 ML VIAL IV SCH ×3 (05:44→19:03)
[2022-10-14] MEDS: INSULIN ASPART (NovoLOG) 100 UNIT/ML VIAL SQ SCH ×4 (05:44→21:51)
[2022-10-14] MEDS: TIOTROPIUM 2.5 MCG INHALER INHALATION SCH (08:03)
[2022-10-14] MEDS: ALBUTEROL HFA INHALER INHALATION SCH ×4 (08:03→20:18)
[2022-10-14] MEDS: BUDESONIDE 1 MG/2 ML NEBU INHALATION SCH ×2 (08:04→20:17)
[2022-10-14] MEDS: FORMOTEROL FUMARATE 20 MCG/2 ML NEBU INHALATION SCH ×2 (08:04→20:17)
[2022-10-14] MEDS: VANCOMYCIN 1,250 MG in SODIUM CHLORIDE 0.9% 250 ML IVPB SCH (08:26)
[2022-10-14] MEDS: FERROUS SULFATE 325 MG TAB PO SCH (08:27)
[2022-10-14] MEDS: ASPIRIN 81 MG PO SCH (08:27)
[2022-10-14] MEDS: FOLIC ACID 1 MG TAB PO SCH (08:27)
[2022-10-14] MEDS: MULTIVITAMINS, THERA 1 EACH TAB PO SCH (08:27)
[2022-10-14] MEDS: CYANOCOBALAMIN 500 MCG TAB PO SCH (08:27)
[2022-10-14] MEDS: PANTOPRAZOLE 40 MG/10 ML VIAL IVP SCH ×2 (08:27→21:50)
[2022-10-14] MEDS: ZINC SULFATE 220 MG CAP PO SCH (08:27)
[2022-10-14] MEDS: ASCORBIC ACID 500 MG TAB PO SCH (08:28)
[2022-10-14] MEDS: METOPROLOL TARTRATE 25 MG TAB PO SCH (08:28)
[2022-10-14] MEDS: MAGNESIUM OXIDE 400 MG TAB PO SCH (08:28)
[2022-10-14 08:54] LABS: Basophils # (A) 0.02 X 10*3/uL (0.00-0.10); Basophils % (A) 0.1 %; Eosinophils # (A) 0 X 10*3/uL (0.04-0.35); Eosinophils % (A) 0 %; HCT 39.2 % (39.6-50.0); HGB 13.2 g/dL (13.0-17.0); Immature Grans, Automated 0.8 %; Lymphocytes # (A) 0.93 X 10*3/uL (0.90-5.00); Lymphocytes % (A) 4.5 %; MCH 31.3 pg (27.0-32.0); MCHC 33.7 g/dL (32.0-37.0); MCV 92.9 fL (80.0-97.0); Mean Platelet Volume 8.6 fL (9.5-12.2); Monocytes # (A) 1.27 X 10*3/uL (0.20-1.00); Monocytes % (A) 6.1 %; NRBC Per 100 WBC 0 /100 WBCS (0.0-0.0); Neutrophils # (A) 18.31 X 10*3/uL (1.80-7.70); Neutrophils % (A) 88.5 %; Platelet Count 451 X 10*3/uL (140-440); RBC 4.22 X 10*6/uL (4.40-5.60); RDW 12.7 % (11.5-14.5)
[2022-10-14 09:04] LABS: African American GFR (CKD) 101.1 (60.0-200.0); Anion Gap 10.7 mmol/L (10.00-18.00); BUN/Creat Ratio 45.37 Ratio (12.00-20.00); Blood Urea Nitrogen 35.8 mg/dL (9.0-27.0); C Reactive Protein 1.9 mg/dL (0.00-0.80); Calcium 9.1 mg/dL (8.7-10.3); Carbon Dioxide 28.1 mmol/L (20.0-27.5); Non-African American GFR(CKD) 87.3 (60.0-200.0); Potassium 4.5 mmol/L (3.5-5.5)
[2022-10-14 11:46] LABS: Glucose,Whole Blood 173 mg/dL (70-110)
--- NOTE | 2022-10-14 11:55 | P.PN ---
Subjective Progress Note Date: 10/14/22 The patient is a pleasant 76 old gentleman with a past medical history significant for COPD and valvular heart disease with aortic stenosis as well as multiple comorbid conditions was admitted to the hospital was acute hypoxic respiratory failure secondary to COPD exacerbation and heart failure exacerbati on of unknown etiology at this point. October [id number] He was seen this morning. He still on oxygen to keep his saturation above 90%. He is feeling slightly better. On examination he does have bilateral expiratory wheezing. He is on Lasix at 40 mg IV twice a day. The echocardiogram is still pending and we will follow-up on that. October 142022 The patient was seen this morning. He continues to be short of breath and he continues to be hypoxic and he has been coughing with sputum production. He was receiving Lasix IV and that was followed by the nephrology service because he developed hyponatremia. He underwent an echo which revealed mildly impaired LV function was EF around 45% with mild aortic stenosis and moderate aortic insufficiency and moderate mitral regurgitation. On examination he does have bilateral expiratory wheezing noted. Assessment Acute hypoxic respiratory failure COPD exacerbation Valvular heart disease with aortic stenosis and regurgitation and mitral regur gitation Multiple comorbid conditions Plan Continue the current medical regimen Follow-up with the patient on when necessary case Objective - Vital Signs Vital signs: Vital Signs Temp 97.5 F L 10/14/22 06:54 Pulse 90 10/14/22 08:20 Resp 18 10/14/22 06:54 BP 113/73 10/14/22 06:54 Pulse Ox 97 10/14/22 06:54 FiO2 40 10/12/22 15:02 Intake & Output 10/13/22 10/14/22 10/14/22 18:59 06:59 18:59 Intake Total 236 Output Total 2100 Balance -2099 236 Weight 67.132 kg 58.5 kg Intake: Oral 236 Output: Urine 2100 Other: Voiding Method Indwelling Catheter Indwelling Catheter Indwelling Catheter # Bowel Movements 1 1 - Labs CBC & Chem 7: 10/14/22 06:35 10/14/22 06:35 Labs: Abnormal Lab Results - Last 24 Hours (Table) 10/13/22 10/13/22 10/13/22 Range/Units 11:57 12:13 16:42 WBC (4.50-10.00) X 10*3/uL RBC (4.40-5.60) X 10*6/uL Hct (39.6-50.0) % Plt Count (140-440) X 10*3/uL MPV (9.5-12.2) fL Immature Gran # (0.00-0.04) X 10*3/uL Neutrophils # (1.80-7.70) X 10*3/uL Monocytes # (0.20-1.00) X 10*3/uL Eosinophils # (0.04-0.35) X 10*3/uL Sodium 125 L (137-145) mmol/L Chloride 87 L (98-107) mmol/L Carbon Dioxide (20.0-27.5) mmol/L BUN 43 H (9-20) mg/dL BUN/Creatinine Ratio (12.00-20.00) Ratio Glucose 116 H (74-99) mg/dL POC Glucose (mg/dL) 122 H 145 H (70-110) mg/dL C-Reactive Protein (0.00-0.80) mg/dL 10/13/22 10/14/22 10/14/22 Range/Units 20:57 05:37 06:35 WBC (4.50-10.00) X 10*3/uL RBC (4.40-5.60) X 10*6/uL Hct (39.6-50.0) % Plt Count (140-440) X 10*3/uL MPV (9.5-12.2) fL Immature Gran # (0.00-0.04) X 10*3/uL Neutrophils # (1.80-7.70) X 10*3/uL Monocytes # (0.20-1.00) X 10*3/uL Eosinophils # (0.04-0.35) X 10*3/uL Sodium 128 L (137-145) mmol/L Chloride 89 L (98-107) mmol/L Carbon Dioxide 28.1 H (20.0-27.5) mmol/L BUN 35.8 H (9-20) mg/dL BUN/Creatinine Ratio 45.37 H (12.00-20.00) Ratio Glucose 141 H (74-99) mg/dL POC Glucose (mg/dL) 208 H 166 H (70-110) mg/dL C-Reactive Protein 1.90 H (0.00-0.80) mg/dL 10/14/22 10/14/22 Range/Units 06:35 11:44 WBC 20.70 H (4.50-10.00) X 10*3/uL RBC 4.22 L (4.40-5.60) X 10*6/uL Hct 39.2 L (39.6-50.0) % Plt Count 451 H (140-440) X 10*3/uL MPV 8.6 L (9.5-12.2) fL Immature Gran # 0.17 H (0.00-0.04) X 10*3/uL Neutrophils # 18.31 H (1.80-7.70) X 10*3/uL Monocytes # 1.27 H (0.20-1.00) X 10*3/uL Eosinophils # 0 L (0.04-0.35) X 10*3/uL Sodium (137-145) mmol/L Chloride (98-107) mmol/L Carbon Dioxide (20.0-27.5) mmol/L BUN (9-20) mg/dL BUN/Creatinine Ratio (12.00-20.00) Ratio Glucose (74-99) mg/dL POC Glucose (mg/dL) 173 H (70-110) mg/dL C-Reactive Protein (0.00-0.80) mg/dL Microbiology - Last 24 Hours (Table) 10/11/22 23:03 Blood Culture Gram Stain - Preliminary Blood Blood Culture - Preliminary Coagulase Negative Staph 10/11/22 22:35 Blood Culture - Final Blood
--- NOTE | 2022-10-14 12:43 | P.PN ---
Subjective Progress Note Date: 10/14/22 Principal diagnosis: Shortness of breath. Pulmonary consult dated 10/12/2022. 76-year-old male with history of will establish COPD from long-term tobacco use. The patient came into the emergency room on October 11, complaining of increasing shortness of breath. He was using his normal home medications, but they were not helping. In addition, he admits to chest tightness, wheezing, cough, and occasional phlegm production. He apparently does not see a supervisor dials. He only sees his family doctor. We apparently have seen him in the past. He has a history of esophageal cancer, COPD, and gastroesophageal reflux disease. The patient is seen in the emergency room, room 27. He is on 6 L of oxygen. No IV fluids. We added albuterol, Spiriva, formoterol, budesonide, and Solu-Medrol. White count 11.7, hemoglobin, hematocrit, and platelet count all normal. Coagulation studies including d-dimer were normal. Sodium 120, potassium 5.4, chlorides 83, CO2 25, BUN 13, creatinine 0.5. Troponins were less than 0.012, twice, and N-terminal proBNP was 2170. Chest x-ray showed changes of COPD, and chronic fibrotic changes as well. The patient's irregular density right upper lobe, is stable, dating back to scans from 2019. Progress note dated 10/13/2022. 76-year-old male with a history of COPD from previous heavy tobacco use. The patient was seen in the emergency room yesterday. Currently, he is seen in room 467. He's on 2 L of oxygen. He's not receiving any IV fluids. The patient did not use of BiPAP mask last night, and able be discontinued from the room. Clinically, he is feeling better. Certainly not back to baseline. Laboratory data today include a sodium 125, potassium 4.5, chloride 87, CO2 24, anion gap 14, BUN 43, and creatinine 0.8. TSH was normal. Calcium was 9. Magnesium was 2.1. Progress note dated 10/14/2022. 76-year-old male seen today in room 467. The patient is currently on 2 L of oxygen. His pro-calcitonin level was 0.04. The primary service should consider a de-escalation of his antibiotics. Clinically, he is feeling better. He still short of breath with any activity. White count 20.7, hemoglobin 13.2, hematocri t 39.2, and platelet count 451,000. Sodium 128, potassium 4.5, chlorides 89, CO2 28, anion gap 11, BUN 36, creatinine 0.8. Pro-calcitonin level is 0.04. Blood cultures show evidence of coag-negative staph. Medications are reviewed and appear to be appropriate. Objective - Vital Signs Vital signs: Vital Signs Temp 97.5 F L 10/14/22 06:54 Pulse 90 10/14/22 08:20 Resp 18 10/14/22 06:54 BP 113/73 10/14/22 06:54 Pulse Ox 97 10/14/22 06:54 FiO2 40 10/12/22 15:02 Intake & Output 10/13/22 10/14/22 10/14/22 18:59 06:59 18:59 Intake Total 236 Output Total 2100 Balance -2099 236 Weight 67.132 kg 58.5 kg Intake: Oral 236 Output: Urine 2100 Other: Voiding Method Indwelling Catheter Indwelling Catheter Indwelling Catheter # Bowel Movements 1 1 - Exam Improved conversational dyspnea, no use of accessory muscles. Oriented 3. Currently on 2 L. HEENT examination is grossly unremarkable. Neck supple. Full range of motion. No adenopathy thyromegaly or neck vein distention. Cardiovascular examination reveals regular rhythm rate. S1-S2 normal. No S3 or S4. No discernible murmur noted. Heart sounds are distant. Heart rate 90 bpm. Lungs reveal diffuse inspiratory and expiratory wheezes and rhonchi. There is prolongation on forced maneuver. No crackles. Breath sounds equal bilaterally but diminished throughout. Saturations are 97% on 2 L. Abdomen soft bowel sounds are heard. No masses or tenderness. Extremities are intact. No cyanosis clubbing or edema. Skin is without rash or lesion. Neurologic examination is brief but nonfocal. - Labs CBC & Chem 7: 10/14/22 06:35 10/14/22 06:35 Labs: Abnormal Lab Results - Last 24 Hours (Table) 10/13/22 10/13/22 10/13/22 Range/Units 12:13 16:42 20:57 WBC (4.50-10.00) X 10*3/uL RBC (4.40-5.60) X 10*6/uL Hct (39.6-50.0) % Plt Count (140-440) X 10*3/uL MPV (9.5-12.2) fL Immature Gran # (0.00-0.04) X 10*3/uL Neutrophils # (1.80-7.70) X 10*3/uL Monocytes # (0.20-1.00) X 10*3/uL Eosinophils # (0.04-0.35) X 10*3/uL Sodium 125 L (137-145) mmol/L Chloride 87 L (98-107) mmol/L Carbon Dioxide (20.0-27.5) mmol/L BUN 43 H (9-20) mg/dL BUN/Creatinine Ratio (12.00-20.00) Ratio Glucose 116 H (74-99) mg/dL POC Glucose (mg/dL) 145 H 208 H (70-110) mg/dL C-Reactive Protein (0.00-0.80) mg/dL 10/14/22 10/14/22 10/14/22 Range/Units 05:37 06:35 06:35 WBC 20.70 H (4.50-10.00) X 10*3/uL RBC 4.22 L (4.40-5.60) X 10*6/uL Hct 39.2 L (39.6-50.0) % Plt Count 451 H (140-440) X 10*3/uL MPV 8.6 L (9.5-12.2) fL Immature Gran # 0.17 H (0.00-0.04) X 10*3/uL Neutrophils # 18.31 H (1.80-7.70) X 10*3/uL Monocytes # 1.27 H (0.20-1.00) X 10*3/uL Eosinophils # 0 L (0.04-0.35) X 10*3/uL Sodium 128 L (137-145) mmol/L Chloride 89 L (98-107) mmol/L Carbon Dioxide 28.1 H (20.0-27.5) mmol/L BUN 35.8 H (9-20) mg/dL BUN/Creatinine Ratio 45.37 H (12.00-20.00) Ratio Glucose 141 H (74-99) mg/dL POC Glucose (mg/dL) 166 H (70-110) mg/dL C-Reactive Protein 1.90 H (0.00-0.80) mg/dL 10/14/22 Range/Units 11:44 WBC (4.50-10.00) X 10*3/uL RBC (4.40-5.60) X 10*6/uL Hct (39.6-50.0) % Plt Count (140-440) X 10*3/uL MPV (9.5-12.2) fL Immature Gran # (0.00-0.04) X 10*3/uL Neutrophils # (1.80-7.70) X 10*3/uL Monocytes # (0.20-1.00) X 10*3/uL Eosinophils # (0.04-0.35) X 10*3/uL Sodium (137-145) mmol/L Chloride (98-107) mmol/L Carbon Dioxide (20.0-27.5) mmol/L BUN (9-20) mg/dL BUN/Creatinine Ratio (12.00-20.00) Ratio Glucose (74-99) mg/dL POC Glucose (mg/dL) 173 H (70-110) mg/dL C-Reactive Protein (0.00-0.80) mg/dL Microbiology - Last 24 Hours (Table) 10/11/22 23:03 Blood Culture Gram Stain - Preliminary Blood Blood Culture - Preliminary Coagulase Negative Staph 10/11/22 22:35 Blood Culture - Final Blood Assessment and Plan Assessment: Acute hypoxemic respiratory failure secondary to COPD exacerbation. History of esophageal cancer, status post esophageal surgery. History of gastroesophageal reflux disease. Prior history of heavy tobacco use. Plan: Plan dated 10/12/2022. The patient's medications are adjusted accordingly. We'll make sure he is getting appropriate medications including anticholinergics, beta agonist, inhaled corticosteroids, and systemic corticosteroids. Additional recommend ations and suggestions are forthcoming. Prognosis is guarded. Labs, x-rays, and medications are reviewed. We will continue to follow and make recommendations along the way. Plan dated 10/13/2022. The patient appears to be doing relatively well. He certainly not back to baseline. His oxygen has been titrated down from 6 L nasal cannula, O2 2 L nasal cannula. His medications were adjusted yesterday. We will continue to follow the patient and make recommendations along the way. Prognosis is certainly guarded. Labs, x-rays, and medications are all reviewed Plan dated 10/14/2022. The patient appears to be improving. The patient continues on 2 L. He is on appropriate medications including anticholinergics, beta agonist, inhaled corticosteroids, and systemic corticosteroids. We will continue to follow the patient make recommendations along the way. Labs, x-rays, and medications are all reviewed. Prognosis is guarded. Time with Patient: Less than 30
[2022-10-14] MEDS ORDERED: TOLVAPTAN 15 MG TABLET PO ONE (15:09)
--- NOTE | 2022-10-14 15:09 | P.PN ---
Subjective Progress Note Date: 10/14/22 Follow-up for hyponatremia. Family at bedside. Urine output of 2.1 L in the last 24 hours. Objective - Vital Signs Vital signs: Vital Signs Temp 97.5 F L 10/14/22 06:54 Pulse 90 10/14/22 08:20 Resp 18 10/14/22 06:54 BP 113/73 10/14/22 06:54 Pulse Ox 97 10/14/22 06:54 FiO2 40 10/12/22 15:02 Intake & Output 10/13/22 10/14/22 10/14/22 18:59 06:59 18:59 Intake Total 236 Output Total 2100 Balance -2099 236 Weight 67.132 kg 58.5 kg Intake: Oral 236 Output: Urine 2100 Other: Voiding Method Indwelling Catheter Indwelling Catheter Indwelling Catheter # Bowel Movements 1 1 - Exam No acute distress S1-S2 heard Decreased breath sounds No edema - Labs CBC & Chem 7: 10/14/22 06:35 10/14/22 06:35 Labs: Abnormal Lab Results - Last 24 Hours (Table) 10/13/22 10/13/22 10/14/22 Range/Units 16:42 20:57 05:37 WBC (4.50-10.00) X 10*3/uL RBC (4.40-5.60) X 10*6/uL Hct (39.6-50.0) % Plt Count (140-440) X 10*3/uL MPV (9.5-12.2) fL Immature Gran # (0.00-0.04) X 10*3/uL Neutrophils # (1.80-7.70) X 10*3/uL Monocytes # (0.20-1.00) X 10*3/uL Eosinophils # (0.04-0.35) X 10*3/uL Sodium (135-145) mmol/L Chloride (96-109) mmol/L Carbon Dioxide (20.0-27.5) mmol/L BUN (9.0-27.0) mg/dL BUN/Creatinine Ratio (12.00-20.00) Ratio Glucose (70-110) mg/dL POC Glucose (mg/dL) 145 H 208 H 166 H (70-110) mg/dL C-Reactive Protein (0.00-0.80) mg/dL 10/14/22 10/14/22 10/14/22 Range/Units 06:35 06:35 11:44 WBC 20.70 H (4.50-10.00) X 10*3/uL RBC 4.22 L (4.40-5.60) X 10*6/uL Hct 39.2 L (39.6-50.0) % Plt Count 451 H (140-440) X 10*3/uL MPV 8.6 L (9.5-12.2) fL Immature Gran # 0.17 H (0.00-0.04) X 10*3/uL Neutrophils # 18.31 H (1.80-7.70) X 10*3/uL Monocytes # 1.27 H (0.20-1.00) X 10*3/uL Eosinophils # 0 L (0.04-0.35) X 10*3/uL Sodium 128 L (135-145) mmol/L Chloride 89 L (96-109) mmol/L Carbon Dioxide 28.1 H (20.0-27.5) mmol/L BUN 35.8 H (9.0-27.0) mg/dL BUN/Creatinine Ratio 45.37 H (12.00-20.00) Ratio Glucose 141 H (70-110) mg/dL POC Glucose (mg/dL) 173 H (70-110) mg/dL C-Reactive Protein 1.90 H (0.00-0.80) mg/dL Microbiology - Last 24 Hours (Table) 10/11/22 23:03 Blood Culture Gram Stain - Preliminary Blood Blood Culture - Preliminary Coagulase Negative Staph 10/11/22 22:35 Blood Culture - Final Blood Assessment and Plan Assessment: #1 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 #2 COPD exacerbation #3 hypercarbic respiratory failure #4 hypertension essential. Plan: #1 sodium stable and improving. #2 hold Lasix, Samsca 15 mg yesterday, plan again today. #3 labs in the morning
[2022-10-14 16:54] LABS: Glucose,Whole Blood 159 mg/dL (70-110)
--- NOTE | 2022-10-14 17:21 | P.PN ---
Subjective Progress Note Date: 10/14/22 76-year-old male with history of will establish COPD from long-term tobacco use. The patient came into the emergency room on October 11, complaining of increasing shortness of breath. He was using his normal home medications, but they were not helping. In addition, he admits to chest tightness, wheezing, cough, and occasional phlegm production. 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 He only sees his family doctor. We apparently have seen him in the past. He has a history of esophageal cancer, COPD, and gastroesophageal reflux disease. The patient is seen in the emergency room, room 27. He is on 6 L of oxygen. No IV fluids. We added albuterol, Spiriva, formoterol, budesonide, and Solu-Medrol. White count 11.7, hemoglobin, hematocrit, and platelet count all normal. Coagulation studies including d-dimer were normal. Sodium 120, potassium 5.4, chlorides 83, CO2 25, BUN 13, creatinine 0.5. Troponins were less than 0.012, twice, and N-terminal proBNP was 2170. Chest x-ray showed changes of COPD, and chronic fibrotic changes as well. The patient's irregular density right upper lobe, is stable, dating back to scans from 2019. patient is currently on 2 L of oxygen. His pro-calcitonin level was 0.04. The primary service should consider a de-escalation of his antibiotics. Clinically, he is feeling better. He still short of breath with any activity. White count 20.7, hemoglobin 13.2, hematocrit 39.2, and platelet count 451,000. Sodium 128, potassium 4.5, chlorides 89, CO2 28, anion gap 11, BUN 36, creatinine 0.8. Pro- calcitonin level is 0.04. Blood cultures show evidence of coag-negative staph. Medications are reviewed and appear to be appropriate. Objective - Vital Signs Vital signs: Vital Signs Temp 97.5 F L 10/14/22 06:54 Pulse 90 10/14/22 08:20 Resp 18 10/14/22 06:54 BP 113/73 10/14/22 06:54 Pulse Ox 97 10/14/22 06:54 FiO2 40 10/12/22 15:02 Intake & Output 03/04/23 03/05/23 03/05/23 18:59 06:59 18:59 Intake Total 236 Output Total 2100 Balance -2099 236 Weight 67.132 kg 58.5 kg Intake: Oral 236 Output: Urine 2100 Other: Voiding Method Indwelling Catheter Indwelling Catheter Indwelling Catheter # Bowel Movements 1 1 - Exam - Constitutional General appearance: Present: average body habitus, cooperative, no acute distress - EENT Eyes: Present: anicteric sclerae, EOMI, PERRLA, normal appearance ENT: Present: hearing grossly normal, normal oropharynx Ears: bilateral: normal - Neck Neck: Present: normal ROM. Absent: lymphadenopathy, rigidity, thyromegaly Carotids: negative: bruit present Thyroid: bilateral: normal size, negative: enlarged, nodule - Respiratory Respiratory: bilateral: CTA, negative: rales, rhonchi, wheezing - Cardiovascular Rhythm: regular Heart sounds: normal: S1, S2 Abnormal Heart Sounds: Absent: systolic murmur, diastolic murmur - Gastrointestinal General gastrointestinal: Present: normal bowel sounds, soft. Absent: distended, organomegaly, tenderness - Genitourinary Genitourinary Comment(s): deferred - Integumentary Integumentary: Present: normal turgor. Absent: jaundiced, rash, ulcer - Neurologic Neurologic: Present: CNII-XII intact. Absent: focal deficits - Musculoskeletal Musculoskeletal: Present: gait normal, strength equal bilaterally - Psychiatric Psychiatric: Present: A&O x's 3, appropriate affect, intact judgment & insight - Labs CBC & Chem 7: 10/14/22 06:35 10/14/22 06:35 Labs: Abnormal Lab Results - Last 24 Hours (Table) 10/13/22 10/13/22 10/14/22 Range/Units 16:42 20:57 05:37 WBC (4.50-10.00) X 10*3/uL RBC (4.40-5.60) X 10*6/uL Hct (39.6-50.0) % Plt Count (140-440) X 10*3/uL MPV (9.5-12.2) fL Immature Gran # (0.00-0.04) X 10*3/uL Neutrophils # (1.80-7.70) X 10*3/uL Monocytes # (0.20-1.00) X 10*3/uL Eosinophils # (0.04-0.35) X 10*3/uL Sodium (135-145) mmol/L Chloride (96-109) mmol/L Carbon Dioxide (20.0-27.5) mmol/L BUN (9.0-27.0) mg/dL BUN/Creatinine Ratio (12.00-20.00) Ratio Glucose (70-110) mg/dL POC Glucose (mg/dL) 145 H 208 H 166 H (70-110) mg/dL C-Reactive Protein (0.00-0.80) mg/dL 10/14/22 10/14/22 10/14/22 Range/Units 06:35 06:35 11:44 WBC 20.70 H (4.50-10.00) X 10*3/uL RBC 4.22 L (4.40-5.60) X 10*6/uL Hct 39.2 L (39.6-50.0) % Plt Count 451 H (140-440) X 10*3/uL MPV 8.6 L (9.5-12.2) fL Immature Gran # 0.17 H (0.00-0.04) X 10*3/uL Neutrophils # 18.31 H (1.80-7.70) X 10*3/uL Monocytes # 1.27 H (0.20-1.00) X 10*3/uL Eosinophils # 0 L (0.04-0.35) X 10*3/uL Sodium 128 L (135-145) mmol/L Chloride 89 L (96-109) mmol/L Carbon Dioxide 28.1 H (20.0-27.5) mmol/L BUN 35.8 H (9.0-27.0) mg/dL BUN/Creatinine Ratio 45.37 H (12.00-20.00) Ratio Glucose 141 H (70-110) mg/dL POC Glucose (mg/dL) 173 H (70-110) mg/dL C-Reactive Protein 1.90 H (0.00-0.80) mg/dL Microbiology - Last 24 Hours (Table) 10/11/22 23:03 Blood Culture Gram Stain - Preliminary Blood Blood Culture - Preliminary Coagulase Negative Staph 10/11/22 22:35 Blood Culture - Final Blood Assessment and Plan Assessment: 1. Acute hypoxemic respiratory failure - Slowly improving; patient is currently saturating around 97% on an FiO2 of 40%; we will continue to titrate her venous able; patient wears BiPAP at night 2. Acute exacerbation COPD --medications including anticholinergics, beta agonist, inhaled corticosteroids, and systemic corticosteroids 3. Gastroesophageal reflux disease; Protonix 40 mg daily 4. History of esophageal cancer; patient is status post esophageal surgery 5. Hypothyroidism; levothyroxin 25 MCG daily 6. Hypertension; metoprolol 25 mg daily along with 12.5 mg daily at bedtime DVT prophylaxis; SCDs CODE STATUS; full code
[2022-10-14 20:45] LABS: Glucose,Whole Blood 172 mg/dL (70-110)
--- NOTE | 2022-10-14 21:00 | P.CONS ---
History of Present Illness - Reason for Consult Consult date: 10/14/22 Positive blood culture Requesting physician: Chris E Emiliano - Chief Complaint Increasing shortness of breath x few days - History of Present Illness Patient is a 76-year-old male with a past medical history significant for COPD GERD esophageal cancer for the patient did have surgery done presenting to the ER on 10/11/2022 for evaluation of increasing shortness of breath that apparently was getting worse for few days before presentation to the hospital patient denies having any chest pain he did have a cough which is mild to moderate intensity however the patient is unable to cough up any sputum patient denies having any nausea no vomiting no choking on the food no abdominal pain or any diarrhea on presentation to the hospital the patient was afebrile and no fever have recorded subsequently patient is currently on 2 L nasal cannula satting 98% patient did have white count of 11 point 7 repeat this morning is 20.70 patient did have a normal creatinine CRP checked this morning is 1.90 however procalcitonin was normal at 0.04 patient did have a chest x-ray suspect this changes more likely chronic in changes of pulmonary fibrosis patient did have blood cultures drawn which came back positive with gram-positive cocci that has prompted this infectious disease consultation patient was started on vancomycin last night pending finalization of the blood culture and evaluation this morning. At the time of evaluation 10/15/2019 the patient denies having any fever or any chills still complaining of shortness of breath and also have a cough moderate intensity but not able to roller picker any sputum patient denies any nausea no vomiting no abdominal pain no diarrhea currently do not have any open sores or any pain and swelling at the IV site Review of Systems Positive point has been mentioned in the HPI rest of the systems are negative Past Medical History Past Medical History: Cancer, COPD, GERD/Reflux Additional Past Medical History / Comment(s): esophageal cancer, cataracts, History of Any Multi-Drug Resistant Organisms: None Reported Additional Past Surgical History / Comment(s): esophageal surgery, Past Psychological History: No Psychological Hx Reported Smoking Status: Former smoker Past Alcohol Use History: Daily Past Drug Use History: None Reported Medications and Allergies Home Medications Medication Instructions Recorded Confirmed Type Omeprazole [PriLOSEC] 20 mg PO DAILY 06/18/14 10/11/22 History Tiotropium [place] [Spiriva] 1 puff IN RT-DAILY 06/18/14 10/11/22 History Cyanocobalamin (Vitamin B-12) 1,000 mcg PO DAILY 04/19/20 10/11/22 History [Vitamin B-12] Levothyroxine Sodium 25 mcg PO DAILY 04/19/20 10/11/22 History Multivitamins, Thera [Multivitamin 1 tab PO DAILY 04/19/20 10/11/22 History (formulary)] Zinc 50 mg PO DAILY 04/19/20 10/11/22 History Ipratropium-Albuterol Nebulize 3 ml INHALATION RT-QID #120 ml 04/25/20 10/11/22 Rx [Duoneb 0.5 mg-3 mg/3 ml Soln] Ascorbic Acid [Vitamin C] 1,000 mg PO DAILY 10/11/22 10/11/22 History Ferrous Sulfate [Iron (65 MG 325 mg PO DAILY 10/11/22 10/11/22 History Elemental)] Folate 666mcg 1 tab PO DAILY 10/11/22 10/11/22 History Magnesium 250 mg PO DAILY 10/11/22 10/11/22 History Metoprolol Tartrate [Lopressor] 12.5 mg PO HS 10/11/22 10/11/22 History Metoprolol Tartrate [Lopressor] 25 mg PO DAILY 10/11/22 10/11/22 History [place]-3 Fatty Acids [[place]-3] 1,000 mg PO DAILY 10/11/22 10/11/22 History Sodium Chloride Tab 1 gm PO DAILY 10/11/22 10/11/22 History Allergies Allergy/AdvReac Type Severity Reaction Status Date / Time No Known Allergies Allergy Verified 10/11/22 12:31 Physical Exam Vitals: Vital Signs Temp Pulse Pulse Resp BP Pulse Ox 10/14/22 08:20 90 10/14/22 08:06 88 10/14/22 06:54 97.5 F L 90 18 113/73 97 10/14/22 00:35 97.9 F 80 16 106/61 95 10/13/22 21:23 71 18 10/13/22 20:10 97.5 F L 71 18 101/66 97 10/13/22 20:03 96 10/13/22 19:49 95 10/13/22 14:00 98.1 F 71 19 96/50 97 Intake and Output 10/13/22 10/14/22 10/14/22 22:59 06:59 14:59 Intake Total 236 Output Total 900 1200 Balance -900 -1200 236 Intake: Oral 236 Output: Urine 900 1200 Other: Voiding Method Indwelling Catheter # Bowel Movements 1 Weight 58.5 kg GENERAL DESCRIPTION: Elderly male lying in bed, no distress. No tachypnea or accessory muscle of respiration use. HEENT: Shows Pallor , no scleral icterus. Oral mucous membrane is dry. No pharyngeal erythema or thrush NECK: Trachea central, no thyromegaly. LUNGS: Unlabored breathing. Coarse breath sounds bilaterally with occasional wheeze. HEART: S1, S2, regular rate and rhythm. No loud murmur ABDOMEN: Soft, no tenderness , guarding or rigidity, no organomegaly EXTREMITIES: No edema of feet. SKIN: No rash, no masses palpable. NEUROLOGICAL: The patient is awake, alert, oriented x3, mood and affect normal. Results CBC & Chem 7: 10/18/22 06:18 10/18/22 06:18 Labs: Abnormal Lab Results - Last 24 Hours (Table) 10/13/22 10/13/22 10/13/22 Range/Units 11:57 12:13 16:42 WBC (4.50-10.00) X 10*3/uL RBC (4.40-5.60) X 10*6/uL Hct (39.6-50.0) % Plt Count (140-440) X 10*3/uL MPV (9.5-12.2) fL Immature Gran # (0.00-0.04) X 10*3/uL Neutrophils # (1.80-7.70) X 10*3/uL Monocytes # (0.20-1.00) X 10*3/uL Eosinophils # (0.04-0.35) X 10*3/uL Sodium 125 L (137-145) mmol/L Chloride 87 L (98-107) mmol/L Carbon Dioxide (20.0-27.5) mmol/L BUN 43 H (9-20) mg/dL BUN/Creatinine Ratio (12.00-20.00) Ratio Glucose 116 H (74-99) mg/dL POC Glucose (mg/dL) 122 H 145 H (70-110) mg/dL C-Reactive Protein (0.00-0.80) mg/dL 10/13/22 10/14/22 10/14/22 Range/Units 20:57 05:37 06:35 WBC (4.50-10.00) X 10*3/uL RBC (4.40-5.60) X 10*6/uL Hct (39.6-50.0) % Plt Count (140-440) X 10*3/uL MPV (9.5-12.2) fL Immature Gran # (0.00-0.04) X 10*3/uL Neutrophils # (1.80-7.70) X 10*3/uL Monocytes # (0.20-1.00) X 10*3/uL Eosinophils # (0.04-0.35) X 10*3/uL Sodium 128 L (137-145) mmol/L Chloride 89 L (98-107) mmol/L Carbon Dioxide 28.1 H (20.0-27.5) mmol/L BUN 35.8 H (9-20) mg/dL BUN/Creatinine Ratio 45.37 H (12.00-20.00) Ratio Glucose 141 H (74-99) mg/dL POC Glucose (mg/dL) 208 H 166 H (70-110) mg/dL C-Reactive Protein 1.90 H (0.00-0.80) mg/dL 10/14/22 Range/Units 06:35 WBC 20.70 H (4.50-10.00) X 10*3/uL RBC 4.22 L (4.40-5.60) X 10*6/uL Hct 39.2 L (39.6-50.0) % Plt Count 451 H (140-440) X 10*3/uL MPV 8.6 L (9.5-12.2) fL Immature Gran # 0.17 H (0.00-0.04) X 10*3/uL Neutrophils # 18.31 H (1.80-7.70) X 10*3/uL Monocytes # 1.27 H (0.20-1.00) X 10*3/uL Eosinophils # 0 L (0.04-0.35) X 10*3/uL Sodium (137-145) mmol/L Chloride (98-107) mmol/L Carbon Dioxide (20.0-27.5) mmol/L BUN (9-20) mg/dL BUN/Creatinine Ratio (12.00-20.00) Ratio Glucose (74-99) mg/dL POC Glucose (mg/dL) (70-110) mg/dL C-Reactive Protein (0.00-0.80) mg/dL Microbiology - Last 24 Hours (Table) 10/11/22 23:03 Blood Culture Gram Stain - Preliminary Blood Blood Culture - Preliminary Coagulase Negative Staph 10/11/22 22:35 Blood Culture - Final Blood Assessment and Plan (1) Positive blood culture Current Visit: Yes Status: Acute Code(s): R78.81 - BACTEREMIA SNOMED Code(s): 357594141 Plan: 1patient with a positive blood culture which has not been finalized with coagulase-negative staph likely skin contamination as patient has no clinical disease to go along with it we will go ahead and discontinue the vancomycin blood cultures have been repeated this morning those will be followed. 2patient with shortness of breath more likely COPD exacerbation clinic not behaving as pneumonia as the patient did have normal procalcitonin continue with steroids and bronchodilators per pulmonary. 3elevated white count more likely steroid related and will monitor closely. We will follow on clinical condition and cultures to further adjust medication if needed Thank you for this consultation we will follow the patient along with you Time with Patient: Greater than 30
[2022-10-14] MEDS: METOPROLOL TARTRATE 12.5 MG TAB PO SCH (21:51)
[2022-10-15] MEDS: methylPREDNISolone SOD SUCCI 125 MG/2 ML VIAL IV SCH ×5 (00:01→23:28)
[2022-10-15 05:59] LABS: Glucose,Whole Blood 156 mg/dL (70-110)
[2022-10-15] MEDS: LEVOTHYROXINE 25 MCG TAB PO SCH (06:21)
[2022-10-15] MEDS: INSULIN ASPART (NovoLOG) 100 UNIT/ML VIAL SQ SCH ×4 (06:21→21:34)
[2022-10-15] MEDS: FORMOTEROL FUMARATE 20 MCG/2 ML NEBU INHALATION SCH ×2 (09:29→20:19)
[2022-10-15] MEDS: ALBUTEROL HFA INHALER INHALATION SCH ×4 (09:29→20:19)
[2022-10-15] MEDS: BUDESONIDE 1 MG/2 ML NEBU INHALATION SCH ×2 (09:29→20:19)
[2022-10-15] MEDS: TIOTROPIUM 2.5 MCG INHALER INHALATION SCH (09:30)
--- NOTE | 2022-10-15 09:50 | P.PN ---
Subjective Progress Note Date: 10/15/22 The patient is a pleasant 76 old gentleman with a past medical history significant for COPD and valvular heart disease with aortic stenosis as well as multiple comorbid conditions was admitted to the hospital was acute hypoxic respiratory failure secondary to COPD exacerbation and heart failure exacerbati on of unknown etiology at this point. October 132022 He was seen this morning. He still on oxygen to keep his saturation above 90%. He is feeling slightly better. On examination he does have bilateral expiratory wheezing. He is on Lasix at 40 mg IV twice a day. The echocardiogram is still pending and we will follow-up on that. October 142022 The patient was seen this morning. He continues to be short of breath and he continues to be hypoxic and he has been coughing with sputum production. He was receiving Lasix IV and that was followed by the nephrology service because he developed hyponatremia. He underwent an echo which revealed mildly impaired LV function was EF around 45% with mild aortic stenosis and moderate aortic insufficiency and moderate mitral regurgitation. On examination he does have bilateral expiratory wheezing noted. 10/15 Patient is seen today in follow-up. He states he has been able to walk for a little bit, unsteady. He denies any lower extremity edema. Blood pressures noted to be stable but on the softer side. Patient is stating that he wants his Kraft catheter removed. He is eating okay. CM afib. Assessment Acute hypoxic respiratory failure COPD exacerbation Valvular heart disease with aortic stenosis and regurgitation and mitral regurgitation Multiple comorbid conditions Plan Continue the current medical regimen Cardiology will follow on an as-needed basis. Please re-consult for any new concerns. Nurse practitioner note has been reviewed, I agree with the documented findings and plan of care. Patient was seen and examined. Objective - Vital Signs Vital signs: Vital Signs Temp 98.1 F 10/15/22 07:08 Pulse 100 10/15/22 09:44 Resp 18 10/15/22 07:08 BP 109/71 10/15/22 07:08 Pulse Ox 96 10/15/22 09:30 FiO2 40 10/12/22 15:02 Intake & Output 10/14/22 10/15/22 10/15/22 18:59 06:59 18:59 Intake Total 236 Output Total 200 500 Balance 36 -500 Weight 58.5 kg Intake: Oral 236 Output: Urine 200 500 Other: Voiding Method Indwelling Catheter Indwelling Catheter Indwelling Catheter - Labs CBC & Chem 7: 10/14/22 06:35 10/14/22 06:35 Labs: Abnormal Lab Results - Last 24 Hours (Table) 10/14/22 10/14/22 10/14/22 Range/Units 11:44 16:52 20:43 POC Glucose (mg/dL) 173 H 159 H 172 H (70-110) mg/dL 10/15/22 Range/Units 05:57 POC Glucose (mg/dL) 156 H (70-110) mg/dL Microbiology - Last 24 Hours (Table) 10/14/22 06:35 Blood Culture - Preliminary Blood No Growth after 24 hours
[2022-10-15] MEDS: PANTOPRAZOLE 40 MG/10 ML VIAL IVP SCH ×2 (10:28→21:35)
[2022-10-15] MEDS: ZINC SULFATE 220 MG CAP PO SCH (10:29)
[2022-10-15] MEDS: ASPIRIN 81 MG PO SCH (10:29)
[2022-10-15] MEDS: METOPROLOL TARTRATE 25 MG TAB PO SCH (10:29)
[2022-10-15] MEDS: ASCORBIC ACID 500 MG TAB PO SCH (10:29)
[2022-10-15] MEDS: CYANOCOBALAMIN 500 MCG TAB PO SCH (10:29)
[2022-10-15] MEDS: FERROUS SULFATE 325 MG TAB PO SCH (10:29)
[2022-10-15] MEDS: MAGNESIUM OXIDE 400 MG TAB PO SCH (10:29)
[2022-10-15] MEDS: FOLIC ACID 1 MG TAB PO SCH (10:29)
[2022-10-15] MEDS: MULTIVITAMINS, THERA 1 EACH TAB PO SCH (10:29)
[2022-10-15 11:31] LABS: Glucose,Whole Blood 162 mg/dL (70-110)
--- NOTE | 2022-10-15 11:39 | P.PN ---
Subjective Progress Note Date: 10/15/22 Principal diagnosis: Positive blood culture and leukocytosis Patient is a 76-year-old male with a past medical history significant for COPD GERD esophageal cancer for the patient did have surgery done presenting to the ER on 10/11/2022 for evaluation of increasing shortness of breath , diagnosed with COPD exacerbation patient also noticed to have a positive blood culture subsequently finalized as coagulase negative staph. on today's evaluation, that is 10/15/2022, the patient denies having any fever or chills patient is breathing slightly comfortably continued have a cough and was unable to bring up some sputum and no hemoptysis no nausea no vomiting no abdominal pain or diarrhea Objective - Vital Signs Vital signs: Vital Signs Temp 98.1 F 10/15/22 07:08 Pulse 100 10/15/22 09:44 Resp 18 10/15/22 07:08 BP 109/71 10/15/22 07:08 Pulse Ox 96 10/15/22 09:30 FiO2 40 10/12/22 15:02 Intake & Output 10/14/22 10/15/22 10/15/22 18:59 06:59 18:59 Intake Total 236 Output Total 200 500 Balance 36 -500 Weight 58.5 kg Intake: Oral 236 Output: Urine 200 500 Other: Voiding Method Indwelling Catheter Indwelling Catheter Indwelling Catheter - Exam GENERAL DESCRIPTION: An elderly male lying in bed in no distress RESPIRATORY SYSTEM: Unlabored breathing , coarse breath sounds bilaterally HEART: S1 S2 regular rate and rhythm , ABDOMEN: Soft , no tenderness EXTREMITIES: No edema feet - Labs CBC & Chem 7: 10/14/22 06:35 10/14/22 06:35 Labs: Abnormal Lab Results - Last 24 Hours (Table) 10/14/22 10/14/22 10/14/22 Range/Units 11:44 16:52 20:43 POC Glucose (mg/dL) 173 H 159 H 172 H (70-110) mg/dL 10/15/22 Range/Units 05:57 POC Glucose (mg/dL) 156 H (70-110) mg/dL Microbiology - Last 24 Hours (Table) 10/14/22 06:35 Blood Culture - Preliminary Blood No Growth after 24 hours Assessment and Plan (1) Positive blood culture Current Visit: Yes Status: Acute Code(s): R78.81 - BACTEREMIA SNOMED Code(s): 592033067 (2) Leukocytosis Current Visit: Yes Status: Acute Code(s): D72.829 - ELEVATED WHITE BLOOD CELL COUNT, UNSPECIFIED SNOMED Code(s): 899948140 Plan: 1patient with a positive blood culture which has not been finalized with coagulase-negative staph likely skin contamination as patient has no clinical disease to go along with it we will go ahead and discontinue the vancomycin blood cultures have been repeated on 10/14/2022 and has been negative so for 2patient with shortness of breath more likely COPD exacerbation clinic not behaving as pneumonia as the patient did have normal procalcitonin continue with steroids and bronchodilators per pulmonary. 3leukocytosis more likely steroid related and we will monitor closely off antibiotic therapy at this point Family the bedside questions were answered Time with Patient: Less than 30
--- NOTE | 2022-10-15 11:57 | P.PN ---
Subjective Patient is seen in follow-up for hyponatremia. Sitting up in chair. Oral intake fair. Has been drinking ensure. Family present at bedside. Does admit to loose stools after drinking ensure. Kraft catheter placed for urinary retention 10/12/2022. Vital signs are stable. General: No acute distress. HEENT: Head exam is unremarkable. On nasal cannula. LUNGS: No rhonchi or wheezes. HEART: Rate and Rhythm are regular. ABDOMEN: No distention. EXTREMITITES: No edema. Objective - Vital Signs Vital signs: Vital Signs Temp 98.1 F 10/15/22 07:08 Pulse 100 10/15/22 09:44 Resp 18 10/15/22 07:08 BP 109/71 10/15/22 07:08 Pulse Ox 96 10/15/22 09:30 FiO2 40 10/12/22 15:02 Intake & Output 10/14/22 10/15/22 10/15/22 18:59 06:59 18:59 Intake Total 236 Output Total 200 500 Balance 36 -500 Weight 58.5 kg Intake: Oral 236 Output: Urine 200 500 Other: Voiding Method Indwelling Catheter Indwelling Catheter Indwelling Catheter # Bowel Movements 1 - Labs CBC & Chem 7: 10/14/22 06:35 10/14/22 06:35 Labs: Abnormal Lab Results - Last 24 Hours (Table) 10/14/22 10/14/22 10/15/22 Range/Units 16:52 20:43 05:57 POC Glucose (mg/dL) 159 H 172 H 156 H (70-110) mg/dL 10/15/22 Range/Units 11:29 POC Glucose (mg/dL) 162 H (70-110) mg/dL Microbiology - Last 24 Hours (Table) 10/14/22 06:35 Blood Culture - Preliminary Blood No Growth after 24 hours Assessment and Plan Plan: assessment: 1. Acute on chronic hyponatremia. Slightly hypervolemic as pleural effusions noted on chest x-ray. Status post IV Lasix. History of esophageal cancer but no active malignancy. Sodium level improving - 128 yesterday. Status post [place] this admission. Urine sodium 60 and urine osmolality 309. TSH normal. 2. COPD exacerbation. 3. Acute hypoxic respiratory failure secondary to above. 4. Benign hypertension. Stable. plan: 1200 mL fluid restriction. Encourage oral intake. Repeat labs in the morning.
[2022-10-15 12:11] LABS: African American GFR (CKD) >90 (>60 ml/min/1.73 sqM); Anion Gap 7 mmol/L; Blood Urea Nitrogen 30 mg/dL (9-20); Calcium 8.2 mg/dL (8.4-10.2); Carbon Dioxide 30 mmol/L (22-30); Chloride 92 mmol/L (98-107); Glucose 167 mg/dL (74-99); Non-African American GFR(CKD) >90 (>60 ml/min/1.73 sqM); Potassium 5.4 mmol/L (3.5-5.1); Sodium 129 mmol/L (137-145)
[2022-10-15 12:13] LABS: MCH 32.5 pg (25.0-35.0); MCHC 33.3 g/dL (31.0-37.0); MCV 97.7 fL (80.0-100.0); Mean Platelet Volume 7.2; Platelet Count 406 k/uL (150-450); RBC 3.99 m/uL (4.30-5.90); RDW 13.2 % (11.5-15.5); WBC 27.8 k/uL (3.8-10.6)
[2022-10-15] MEDS ORDERED: RX INFO: IV CONTRAST WAS GIVEN 1 EACH MISC MISCELLANE PRN (12:48)
--- NOTE | 2022-10-15 12:54 | P.PN ---
Subjective Progress Note Date: 10/15/22 On 10/15/2022, I'm seeing the patient for a follow-up. The patient is still struggling with his breathing. He still short of breath. He has a congested cough. At times is able to bring up some sputum. We were finally able to collect a sputum sample. This is very important special the patient's white cell count is up to 27. His recovery has been only limited since his admission to the hospital. He has not received any antibiotics. He is on IV Solu-Medrol. He is on Pulmicort Respules, Spiriva and albuterol nebs [id number] in addition to IV Solu-Medrol 60 mg IV every 6 hours. Note that his sodium level was 120 and currently is up to 129 and he has seen some improvement. Meanwhile, he was given also a Kraft catheter. The fronts on the case regarding his underlying hyponatremia. He is a known case of resophageal cancer and his disease is currently in remission Objective - Vital Signs Vital signs: Vital Signs Temp 98.1 F 10/15/22 07:08 Pulse 100 10/15/22 09:44 Resp 18 10/15/22 07:08 BP 109/71 10/15/22 07:08 Pulse Ox 96 10/15/22 09:30 FiO2 40 10/12/22 15:02 Intake & Output 10/14/22 10/15/22 10/15/22 18:59 06:59 18:59 Intake Total 236 Output Total 200 500 Balance 36 -500 Weight 58.5 kg Intake: Oral 236 Output: Urine 200 500 Other: Voiding Method Indwelling Catheter Indwelling Catheter Indwelling Catheter # Bowel Movements 1 - Exam Improved conversational dyspnea, no use of accessory muscles. Oriented 3. Currently on 2 L. HEENT examination is grossly unremarkable. Neck supple. Full range of motion. No adenopathy thyromegaly or neck vein distention. Cardiovascular examination reveals regular rhythm rate. S1-S2 normal. No S3 or S4. No discernible murmur noted. Heart sounds are distant. Heart rate 90 bpm. Lungs reveal diffuse inspiratory and expiratory wheezes and rhonchi. There is prolongation on forced maneuver. No crackles. Breath sounds equal bilaterally but diminished throughout. Saturations are 97% on 2 L. Abdomen soft bowel sounds are heard. No masses or tenderness. Extremities are intact. No cyanosis clubbing or edema. Skin is without rash or lesion. Neurologic examination is brief but nonfocal. - Labs CBC & Chem 7: 10/15/22 11:16 10/15/22 11:16 Labs: Abnormal Lab Results - Last 24 Hours (Table) 10/14/22 10/14/22 10/15/22 Range/Units 16:52 20:43 05:57 WBC (3.8-10.6) k/uL RBC (4.30-5.90) m/uL Sodium (137-145) mmol/L Potassium (3.5-5.1) mmol/L Chloride (98-107) mmol/L BUN (9-20) mg/dL Creatinine (0.66-1.25) mg/dL Glucose (74-99) mg/dL POC Glucose (mg/dL) 159 H 172 H 156 H (70-110) mg/dL Calcium (8.4-10.2) mg/dL 10/15/22 10/15/22 10/15/22 Range/Units 11:16 11:16 11:29 WBC 27.8 H (3.8-10.6) k/uL RBC 3.99 L (4.30-5.90) m/uL Sodium 129 L (137-145) mmol/L Potassium 5.4 H (3.5-5.1) mmol/L Chloride 92 L (98-107) mmol/L BUN 30 H (9-20) mg/dL Creatinine 0.56 L (0.66-1.25) mg/dL Glucose 167 H (74-99) mg/dL POC Glucose (mg/dL) 162 H (70-110) mg/dL Calcium 8.2 L (8.4-10.2) mg/dL Microbiology - Last 24 Hours (Table) 10/11/22 23:03 Blood Culture Gram Stain - Preliminary Blood Blood Culture - Preliminary Coagulase Negative Staph 10/14/22 06:35 Blood Culture - Preliminary Blood No Growth after 24 hours Assessment and Plan Plan: Acute hypoxemic respiratory failure secondary to COPD exacerbation. Suspect underlying tracheal bronchitis especially the patient is having significant congestion and cough. Currently on 2 L of oxygen by nasal cannula. Noted the pro calcitonin level checked twice was negative. Acute leukocytosis, rule out underlying infection. History of esophageal cancer, status post esophageal surgery. The patient has undergone esophagectomy and the patient has not received any treatment since. His disease is been in remission. History of gastroesophageal reflux disease. Prior history of heavy tobacco use. Hyponatremia, improving Plan: Continue same treatment for now Collected sputum sample for Gram stain and culture Monitor the sodium level and also monitor the white cell count Proceed with a CAT scan of the chest Start the patient IV Rocephin 1 g 24 hours.
--- NOTE | 2022-10-15 15:19 | CT ---
Exam: CT Chest with contrast. Date: 10/15/2022. Comparison: 04/20/2020 History: History of chest mass. Technique: CT examination of the chest was performed following the intravenous administration of 100 mL of Omnipaque 300. Coronal and sagittal reformats were performed. CT dose lowering techniques were used, to include: automated exposure control, adjustment for patient size, and/or use of iterative r econstruction. FINDINGS: Mediastinum and Lala: There is been a prior esophagectomy with a gastric pull-through on the right si de in the posterior mediastinum which is unchanged since the previous examination. Pleural and Pericardial spaces: No pleural thickening is seen on the left which is similar to the pre vious examination. Upper Abdomen: There is an unchanged cystic area within the gastrohepatic ligament the visualized upp er abdomen. The remainder the visualized upper abdomen appears unremarkable. Cardiovascular: There is mild vascular calcification throughout the thoracic aorta without evidence o f aneurysmal dilation or dissection. There are severe diffuse coronary artery calcifications. Pulmonary Artery: There are no central pulmonary arterial abnormalities. The examination was not per formed to evaluate for pulmonary embolism. Lung Parenchyma and Airways: There are tree-in-bud areas of nodularity in the lower lobes bilaterally with some bronchial wall thickening and some patchy areas of opacity that are likely related to an i nflammatory or atypical infectious process. Unchanged chronic changes otherwise noted in the upper kathryn ngs. There is moderate upper lobe predominant centrilobular emphysema. Bones: No fracture or aggressive osseous lesion. IMPRESSION: 1. Findings the lungs bilaterally described above are likely related to an inflammatory or atypical i nfectious process. 2. Chronic nodular changes and linear changes in the upper lobes bilaterally are unchanged. 3. Moderate emphysema is unchanged. 4. Prior esophagectomy with gastric pull-through appears unchanged. 4. Severe coronary artery calcifications.
[2022-10-15 16:47] LABS: Glucose,Whole Blood 151 mg/dL (70-110)
--- NOTE | 2022-10-15 17:40 | P.PN ---
Subjective Progress Note Date: 10/15/22 H&P Date: 10/12/22 Hospital course:Keshav Cuevas is a 76 yo M with PMH of COPD, former nicotine dependence ,esophageal cancer s/p resection, hyponatremia who presented to the ED complaining of worsening shortness of breath. Pt reports that yesterday morning after breakfast developed increased shortness of breath ,apparently fell in the kitchen accompanied by loss of consciousness- does not recall the event. No incontinence of urine or bowel .reports occasional cough, denies any fever or chills. He is a former smoker. He had been using albuterol inhaler, Spiriva, Wixela, nebulized bronchodilators without much relief. Recently placed on oral sodium chloride tabs with diuretics placed on hold outpatient .denies excessive fluid intake.On presentation he was tachypneic, respiratory rate 40 and hypoxic, WBC 11.7k, Na 120, CXR with persistent RUL density, changes most likely chronic, similar to prior exam with pulmonary fibrosis superimposed on background of COPD. received BiPAP throughout the night, currently maintaining O2 sats in the 90s on 6 L nasal cannula (patient does not wear oxygen at home). Afebrile. ProBNP 2170. EKG reported sinus rhythm, Troponins negative 2. 10/15/2022 and maintained on nebulized bronchodilators, IV steroids. Afebrile, wbc increased to 27.8-possibly steroid-induced, normal pro-calcitonin 0.04. Maintaining O2 sats in the 90s on 2 L nasal cannula. congested cough continues, sometimes productive. Sputum culture collected, pending. Blood culture from 3 to reporting coagulase-negative staph-likely skin contaminant, repeat blood culture 35 reported no growth after 24 hours. Sodium improving up to 129. Reports he was able to stand up by the bedside yesterday. Evaluated by physical therapy recommending home with home care at discharge, poor functional endurance. Objective - Vital Signs Vital signs: Vital Signs Temp 98.2 F 10/15/22 14:00 Pulse 81 10/15/22 14:00 Resp 17 10/15/22 14:00 BP 101/65 10/15/22 14:00 Pulse Ox 99 10/15/22 14:00 FiO2 40 10/12/22 15:02 Intake & Output 10/14/22 10/15/22 10/15/22 18:59 06:59 18:59 Intake Total 236 Output Total 200 500 Balance 36 -500 Weight 58.5 kg Intake: Oral 236 Output: Urine 200 500 Other: Voiding Method Indwelling Catheter Indwelling Catheter Indwelling Catheter # Bowel Movements 1 - Exam General: well nourished, well developed, respiratory effort mildly increased,Vitals reviewed. Eyes: PERRL, EOMI, conjunctiva normal. HENT: normocephalic, mucus membranes moist Neck: supple, no JVD Lungs: Diminished, audible congested rattling, positive rhonchi,I & E wheezing. CV: Regular rate and rhythm, systolic murmur. Peripheral pulses 2+ Abdomen: soft, nondistended, no organomegaly Lymph: no cervical or axillary LAD Skin: warm and dry. Neuro: A&Ox3, normal mood and affect - Labs CBC & Chem 7: 10/15/22 11:16 10/15/22 11:16 Labs: Abnormal Lab Results - Last 24 Hours (Table) 10/14/22 10/15/22 10/15/22 Range/Units 20:43 05:57 11:16 WBC 27.8 H (3.8-10.6) k/uL RBC 3.99 L (4.30-5.90) m/uL Sodium (137-145) mmol/L Potassium (3.5-5.1) mmol/L Chloride (98-107) mmol/L BUN (9-20) mg/dL Creatinine (0.66-1.25) mg/dL Glucose (74-99) mg/dL POC Glucose (mg/dL) 172 H 156 H (70-110) mg/dL Calcium (8.4-10.2) mg/dL 10/15/22 10/15/22 10/15/22 Range/Units 11:16 11:29 16:45 WBC (3.8-10.6) k/uL RBC (4.30-5.90) m/uL Sodium 129 L (137-145) mmol/L Potassium 5.4 H (3.5-5.1) mmol/L Chloride 92 L (98-107) mmol/L BUN 30 H (9-20) mg/dL Creatinine 0.56 L (0.66-1.25) mg/dL Glucose 167 H (74-99) mg/dL POC Glucose (mg/dL) 162 H 151 H (70-110) mg/dL Calcium 8.2 L (8.4-10.2) mg/dL Microbiology - Last 24 Hours (Table) 10/11/22 23:03 Blood Culture Gram Stain - Preliminary Blood Blood Culture - Preliminary Coagulase Negative Staph 10/14/22 06:35 Blood Culture - Preliminary Blood No Growth after 24 hours Assessment and Plan Assessment: Acute COPD exacerbation with possible tracheobronchitis, in a patient with history of pulmonary fibrosis Acute hypoxic and hypercapnic respiratory failure secondary to the above Acute leukocytosis, sputum culture pending Syncope,fall. Acute on chronic hyponatremia, diuretics has been on hold and on oral sodium chloride outpatient. Status post [place]. Multivalvular heart disease, moderate to severe aortic stenosis Gastroesophageal reflux disease History of esophageal cancer, status post resection, in remission. Former nicotine dependence Glaucoma Restless leg syndrome Plan: Continue on current medication regime ,monitoring and symptomatic treatment. Chest CT pending. Aggressive pulmonary toileting, nebulized bronchodilators, IV steroids,LABA, diuretics. Fluid restrictions. PT/OT. The impression and plan of care has been dictated as directed. : I performed a history and examination of this patient, discussed the same with the dictator. I agree with the dictator's note ,documented as a scribe. Any additional findings or plans will be noted.
[2022-10-15 20:05] LABS: Glucose,Whole Blood 158 mg/dL (70-110)
[2022-10-15] MEDS: METOPROLOL TARTRATE 12.5 MG TAB PO SCH (21:34)
[2022-10-16 06:11] LABS: Glucose,Whole Blood 142 mg/dL (70-110)
[2022-10-16] MEDS: LEVOTHYROXINE 25 MCG TAB PO SCH (06:11)
[2022-10-16] MEDS: methylPREDNISolone SOD SUCCI 125 MG/2 ML VIAL IV SCH (06:11)
[2022-10-16] MEDS: INSULIN ASPART (NovoLOG) 100 UNIT/ML VIAL SQ SCH ×4 (06:11→21:53)
[2022-10-16] MEDS: CYANOCOBALAMIN 500 MCG TAB PO SCH (08:11)
[2022-10-16] MEDS: METOPROLOL TARTRATE 25 MG TAB PO SCH (08:12)
[2022-10-16] MEDS: ZINC SULFATE 220 MG CAP PO SCH (08:13)
[2022-10-16] MEDS: FOLIC ACID 1 MG TAB PO SCH (08:15)
[2022-10-16] MEDS: FERROUS SULFATE 325 MG TAB PO SCH (08:15)
[2022-10-16] MEDS: MAGNESIUM OXIDE 400 MG TAB PO SCH (08:15)
[2022-10-16] MEDS: MULTIVITAMINS, THERA 1 EACH TAB PO SCH (08:16)
[2022-10-16] MEDS: ASPIRIN 81 MG PO SCH (08:16)
[2022-10-16] MEDS: ASCORBIC ACID 500 MG TAB PO SCH (08:17)
[2022-10-16] MEDS: BUDESONIDE 1 MG/2 ML NEBU INHALATION SCH ×2 (08:45→21:14)
[2022-10-16] MEDS: FORMOTEROL FUMARATE 20 MCG/2 ML NEBU INHALATION SCH ×2 (08:45→21:14)
[2022-10-16] MEDS: ALBUTEROL HFA INHALER INHALATION SCH ×4 (08:45→21:14)
[2022-10-16] MEDS: TIOTROPIUM 2.5 MCG INHALER INHALATION SCH (08:50)
[2022-10-16] MEDS: PANTOPRAZOLE 40 MG/10 ML VIAL IVP SCH (09:22)
--- NOTE | 2022-10-16 09:58 | P.PN ---
Subjective Patient is seen in follow-up for hyponatremia. Sitting up in bed. Oral intake fair. Developed loose stools from ensure so having double protein with meals. Family present at bedside. Kraft catheter placed for urinary retention 10/12/2022. Vital signs are stable. General: No acute distress. HEENT: Head exam is unremarkable. On nasal cannula. LUNGS: No rhonchi or wheezes. HEART: Rate and Rhythm are regular. ABDOMEN: No distention. EXTREMITITES: No edema. Objective - Vital Signs Vital signs: Vital Signs Temp 97.3 F L 10/16/22 07:00 Pulse 100 10/16/22 09:05 Resp 18 10/16/22 07:00 BP 113/60 10/16/22 07:00 Pulse Ox 97 10/16/22 08:46 FiO2 40 10/12/22 15:02 Intake & Output 10/15/22 10/16/22 10/16/22 18:59 06:59 18:59 Intake Total 50 Output Total 330 351 Balance -280 -351 Weight 57.1 kg Intake: Intake, IV Titration 50 Amount cefTRIAXone 1 gm In 50 Sodium Chloride 0.9% 50 ml @ 100 mls/hr IVPB Q24HR [facility] Rx#:[id number] Output: Urine 330 350 Stool 1 Other: Voiding Method Indwelling Catheter Indwelling Catheter # Bowel Movements 1 - Labs CBC & Chem 7: 10/15/22 11:16 10/15/22 11:16 Labs: Abnormal Lab Results - Last 24 Hours (Table) 10/15/22 10/15/22 10/15/22 Range/Units 11:16 11:16 11:29 WBC 27.8 H (3.8-10.6) k/uL RBC 3.99 L (4.30-5.90) m/uL Sodium 129 L (137-145) mmol/L Potassium 5.4 H (3.5-5.1) mmol/L Chloride 92 L (98-107) mmol/L BUN 30 H (9-20) mg/dL Creatinine 0.56 L (0.66-1.25) mg/dL Glucose 167 H (74-99) mg/dL POC Glucose (mg/dL) 162 H (70-110) mg/dL Calcium 8.2 L (8.4-10.2) mg/dL 10/15/22 10/15/2210/16/23 Range/Units 16:45 20:03 06:10 WBC (3.8-10.6) k/uL RBC (4.30-5.90) m/uL Sodium (137-145) mmol/L Potassium (3.5-5.1) mmol/L Chloride (98-107) mmol/L BUN (9-20) mg/dL Creatinine (0.66-1.25) mg/dL Glucose (74-99) mg/dL POC Glucose (mg/dL) 151 H 158 H 142 H (70-110) mg/dL Calcium (8.4-10.2) mg/dL Microbiology - Last 24 Hours (Table) 10/14/22 06:35 Blood Culture - Preliminary Blood No Growth after 48 hours 10/15/22 12:09 Sputum Culture - Preliminary Sputum 10/11/22 23:03 Blood Culture Gram Stain - Preliminary Blood Blood Culture - Preliminary Coagulase Negative Staph Assessment and Plan Plan: assessment: 1. Acute on chronic hyponatremia. Slightly hypervolemic as pleural effusions noted on chest x-ray. Status post IV Lasix. History of esophageal cancer but no active malignancy. Sodium level improving - 129 yesterday. [facility] [place]. Urine sodium 60 and urine osmolality 309. TSH normal. 2. COPD exacerbation. 3. Acute hypoxic respiratory failure secondary to above. 4. Benign hypertension. Stable. plan: 1200 mL fluid restriction. Encourage oral intake. Labs pending.
[2022-10-16 11:38] LABS: Glucose,Whole Blood 133 mg/dL (70-110)
--- NOTE | 2022-10-16 12:01 | P.PN ---
Subjective Progress Note Date: 10/16/22 H&P Date: 10/12/22 Hospital course:Keshav Cuevas is a 76 yo M with PMH of COPD, former nicotine dependence ,esophageal cancer s/p resection, hyponatremia who presented to the ED complaining of worsening shortness of breath. Pt reports that yesterday morning after breakfast developed increased shortness of breath ,apparently fell in the kitchen accompanied by loss of consciousness- does not recall the event. No incontinence of urine or bowel .reports occasional cough, denies any fever or chills. He is a former smoker. He had been using albuterol inhaler, Spiriva, Wixela, nebulized bronchodilators without much relief. Recently placed on oral sodium chloride tabs with diuretics placed on hold outpatient .denies excessive fluid intake.On presentation he was tachypneic, respiratory rate 40 and hypoxic, WBC 11.7k, Na 120, CXR with persistent RUL density, changes most likely chronic, similar to prior exam with pulmonary fibrosis superimposed on background of COPD. received BiPAP throughout the night, currently maintaining O2 sats in the 90s on 6 L nasal cannula (patient does not wear oxygen at home). Afebrile. ProBNP 2170. EKG reported sinus rhythm, Troponins negative 2. 10/15/2022 and maintained on nebulized bronchodilators, IV steroids. Afebrile, wbc increased to 27.8-possibly steroid-induced, normal pro-calcitonin 0.04. Maintaining O2 sats in the 90s on 2 L nasal cannula. congested cough continues, sometimes productive. Sputum culture collected, pending. Blood culture from 3 to reporting coagulase-negative staph-likely skin contaminant, repeat blood culture 35 reported no growth after 24 hours. Sodium improving up to 129. Reports he was able to stand up by the bedside yesterday. Evaluated by physical therapy recommending home with home care at discharge, poor functional endurance. 10/16/2022 breathing improving, maintaining higher O2 sats, currently 97% on 2 L NC. Continues on nebulized bronchodilators, IV steroids. WBC increased yes terday,antibiotics resumed as per pulmonary. Sputum collected yesterday, pending. Labs pending. Chest CT completed yesterday, reporting bilateral lower lobes nodularity, bronchial wall thickening, some patchy airspace opacity related to inflammatory, atypical infectious process bilateral lungs , chronic nodular changes and minor changes in the upper lobes bilaterally unchanged, moderate emphysema unchanged, prior esophagectomy with gastric pull through unchanged. Fluid restrictions maintained,labs pending. Objective - Vital Signs Vital signs: Vital Signs Temp 97.3 F L 10/16/22 07:00 Pulse 100 10/16/22 09:05 Resp 18 10/16/22 07:00 BP 113/60 10/16/22 07:00 Pulse Ox 97 10/16/22 08:46 FiO2 40 10/12/22 15:02 Intake & Output 10/15/22 10/16/22 10/16/22 18:59 06:59 18:59 Intake Total 50 Output Total 330 351 Balance -280 -351 Weight 57.1 kg Intake: Intake, IV Titration 50 Amount cefTRIAXone 1 gm In 50 Sodium Chloride 0.9% 50 ml @ 100 mls/hr IVPB Q24HR [facility] Rx#:[id number] Output: Urine 330 350 Stool 1 Other: Voiding Method Indwelling Catheter Indwelling Catheter # Bowel Movements 1 - Exam General: Alert and oriented 3, sitting up in bed, no acute distress. Eyes: PERRL, EOMI, conjunctiva normal. HENT: normocephalic, mucus membranes moist Neck: supple, no JVD Lungs: Improved air entry, audible congestion,positive rhonchi,I & E wheezing. CV: Regular rate and rhythm, systolic murmur. Peripheral pulses 2+ Abdomen: soft, nondistended, no organomegaly Skin: warm and dry. Neuro: A&Ox3, normal mood and affect. - Labs CBC & Chem 7: 10/15/22 11:16 10/15/22 11:16 Labs: Abnormal Lab Results - Last 24 Hours (Table) 10/15/22 10/15/22 10/15/22 Range/Units 11:16 11:16 11:29 WBC 27.8 H (3.8-10.6) k/uL RBC 3.99 L (4.30-5.90) m/uL Sodium 129 L (137-145) mmol/L Potassium 5.4 H (3.5-5.1) mmol/L Chloride 92 L (98-107) mmol/L BUN 30 H (9-20) mg/dL Creatinine 0.56 L (0.66-1.25) mg/dL Glucose 167 H (74-99) mg/dL POC Glucose (mg/dL) 162 H (70-110) mg/dL Calcium 8.2 L (8.4-10.2) mg/dL 10/15/22 10/15/22 10/16/22 Range/Units 16:45 20:03 06:10 WBC (3.8-10.6) k/uL RBC (4.30-5.90) m/uL Sodium (137-145) mmol/L Potassium (3.5-5.1) mmol/L Chloride (98-107) mmol/L BUN (9-20) mg/dL Creatinine (0.66-1.25) mg/dL Glucose (74-99) mg/dL POC Glucose (mg/dL) 151 H 158 H 142 H (70-110) mg/dL Calcium (8.4-10.2) mg/dL Microbiology - Last 24 Hours (Table) 10/14/22 06:35 Blood Culture - Preliminary Blood No Growth after 48 hours 10/15/22 12:09 Sputum Culture - Preliminary Sputum 10/11/22 23:03 Blood Culture Gram Stain - Preliminary Blood Blood Culture - Preliminary Coagulase Negative Staph Assessment and Plan Assessment: Acute COPD exacerbation with possible tracheobronchitis, in a patient with history of pulmonary fibrosis Acute hypoxic and hypercapnic respiratory failure secondary to the above Acute leukocytosis, sputum culture pending Urinary retention, requiring Kraft catheter Syncope,fall. Acute on chronic hyponatremia, diuretics has been on hold and on oral sodium chloride outpatient. Status post Samsca. Multivalvular heart disease, moderate to severe aortic stenosis Gastroesophageal reflux disease History of esophageal cancer, status post resection, in remission. Former nicotine dependence Glaucoma Restless leg syndrome Plan: Continue on current medication regime ,monitoring and symptomatic treatment.Labs pending. Improved air entry, decreased IV steroids. Continue close monitoring of WBC. Maintain aggressive pulmonary toileting, nebulized bronchodilators, IV steroids,LABA, diuretics. Fluid restrictions. PT/OT. The impression and plan of care has been dictated as directed. : I performed a history and examination of this patient, discussed the same with the dictator. I agree with the dictator's note ,documented as a scribe. Any additional findings or plans will be noted.
--- NOTE | 2022-10-16 12:12 | P.PN ---
Subjective Progress Note Date: 10/16/22 On 10/15/2022, I'm seeing the patient for a follow-up. The patient is still struggling with his breathing. He still short of breath. He has a congested cough. At times is able to bring up some sputum. We were finally able to collect a sputum sample. This is very important special the patient's white cell count is up to 27. His recovery has been only limited since his admission to the hospital. He has not received any antibiotics. He is on IV Solu-Medrol. He is on Pulmicort Respules, Spiriva and albuterol nebs [id number] in addition to IV Solu-Medrol 60 mg IV every 6 hours. Note that his sodium level was 120 and currently is up to 129 and he has seen some improvement. Meanwhile, he was given also a Kraft catheter. The fronts on the case regarding his underlying hyponatremia. He is a known case of resophageal cancer and his disease is currently in remission 10/16/2022, I'm seeing the patient for a follow-up. The patient is feeling much better compared to yesterday. The patient is less short of breath. He is less congested. He was started on IV Rocephin yesterday. CAT scan of the chest was also done that showed some inflammatory changes in lung bases bilaterally most consistent with an underlying pneumonia. As such, the patient was started on antibiotics. He remains on Pulmicort Respules, Spiriva, albuterol nebs 4 times a day. No fever. No chills. Remains on oxygen at 2 L/m nasal cannula. Blood sugar today is at 133. No other significant events otherwise for now. Objective - Vital Signs Vital signs: Vital Signs Temp 97.3 F L 10/16/22 07:00 Pulse 100 10/16/22 09:05 Resp 18 10/16/22 07:00 BP 113/60 10/16/22 07:00 Pulse Ox 97 10/16/22 08:46 FiO2 40 10/12/22 15:02 Intake & Output 10/15/22 10/16/22 10/16/22 18:59 06:59 18:59 Intake Total 50 Output Total 330 351 Balance -280 -351 Weight 57.1 kg Intake: Intake, IV Titration 50 Amount cefTRIAXone 1 gm In 50 Sodium Chloride 0.9% 50 ml @ 100 mls/hr IVPB Q24HR [facility] Rx#:[id number] Output: Urine 330 350 Stool 1 Other: Voiding Method Indwelling Catheter Indwelling Catheter # Bowel Movements 1 - Exam Improved conversational dyspnea, no use of accessory muscles. Oriented 3. Currently on 2 L. HEENT examination is grossly unremarkable. Neck supple. Full range of motion. No adenopathy thyromegaly or neck vein distention. Cardiovascular examination reveals regular rhythm rate. S1-S2 normal. No S3 or S4. No discernible murmur noted. Heart sounds are distant. Heart rate 90 bpm. Lungs reveal diffuse inspiratory and expiratory wheezes and rhonchi. There is prolongation on forced maneuver. No crackles. Breath sounds equal bilaterally but diminished throughout. Saturations are 97% on 2 L. Abdomen soft bowel sounds are heard. No masses or tenderness. Extremities are intact. No cyanosis clubbing or edema. Skin is without rash or lesion. Neurologic examination is brief but nonfocal. - Labs CBC & Chem 7: 10/15/22 11:16 10/15/22 11:16 Labs: Abnormal Lab Results - Last 24 Hours (Table) 10/15/22 10/15/22 10/15/22 Range/Units 11:16 11:16 11:29 WBC 27.8 H (3.8-10.6) k/uL RBC 3.99 L (4.30-5.90) m/uL Sodium 129 L (137-145) mmol/L Potassium 5.4 H (3.5-5.1) mmol/L Chloride 92 L (98-107) mmol/L BUN 30 H (9-20) mg/dL Creatinine 0.56 L (0.66-1.25) mg/dL Glucose 167 H (74-99) mg/dL POC Glucose (mg/dL) 162 H (70-110) mg/dL Calcium 8.2 L (8.4-10.2) mg/dL 10/15/22 10/15/22 10/16/22 Range/Units 16:45 20:03 06:10 WBC (3.8-10.6) k/uL RBC (4.30-5.90) m/uL Sodium (137-145) mmol/L Potassium (3.5-5.1) mmol/L Chloride (98-107) mmol/L BUN (9-20) mg/dL Creatinine (0.66-1.25) mg/dL Glucose (74-99) mg/dL POC Glucose (mg/dL) 151 H 158 H 142 H (70-110) mg/dL Calcium (8.4-10.2) mg/dL Microbiology - Last 24 Hours (Table) 10/14/22 06:35 Blood Culture - Preliminary Blood No Growth after 48 hours 10/15/22 12:09 Sputum Culture - Preliminary Sputum 10/11/22 23:03 Blood Culture Gram Stain - Preliminary Blood Blood Culture - Preliminary Coagulase Negative Staph Assessment and Plan Plan: Acute hypoxemic respiratory failure secondary to COPD exacerbation. Suspect underlying tracheal bronchitis especially the patient is having significant congestion and cough. Currently on 2 L of oxygen by nasal cannula. Noted the pro calcitonin level checked twice was negative. Nevertheless, the CAT scan of the chest that was done yesterday showed indication of a bilateral lower lobe pneumonias and the patient is currently on IV Rocephin. Clinically improving. Bilateral lower lobe pneumonia worse on the left Acute leukocytosis, rule out underlying infection. History of esophageal cancer, status post esophageal surgery. The patient has undergone esophagectomy and the patient has not received any treatment since. His disease is been in remission. History of gastroesophageal reflux disease. Prior history of heavy tobacco use. Hyponatremia, improving Plan: Clinically improving Continue same treatment for now Collected sputum sample for Gram stain and culture, sample was collected and the results are still pending for now Monitor the sodium level and also monitor the white cell count, the white cell count is already improving I reviewed the CAT scan of the chest Continue the patient IV Rocephin 1 g 24 hours. We'll continue to follow.
--- NOTE | 2022-10-16 12:42 | P.PN ---
Subjective Progress Note Date: 10/16/22 Principal diagnosis: Positive blood culture and leukocytosis Patient is a 76-year-old male with a past medical history significant for COPD GERD esophageal cancer for the patient did have surgery done presenting to the ER on 10/11/2022 for evaluation of increasing shortness of breath , diagnosed with COPD exacerbation patient also noticed to have a positive blood culture subsequently finalized as coagulase negative staph. on today's evaluation, that is 10/16/2022, the patient remains to be afebrile, patient is breathing slightly comfortably and is currently on 2 L nasal cannula, the patient continued to have a cough and and is bringing up some sputum, no hemoptysis no nausea no vomiting no abdominal pain or diarrhea Objective - Vital Signs Vital signs: Vital Signs Temp 97.3 F L 10/16/22 07:00 Pulse 100 10/16/22 09:05 Resp 18 10/16/22 07:00 BP 113/60 10/16/22 07:00 Pulse Ox 97 10/16/22 08:46 FiO2 40 10/12/22 15:02 Intake & Output 10/15/22 10/16/22 10/16/22 18:59 06:59 18:59 Intake Total 50 Output Total 330 351 Balance -280 -351 Weight 57.1 kg Intake: Intake, IV Titration 50 Amount cefTRIAXone 1 gm In 50 Sodium Chloride 0.9% 50 ml @ 100 mls/hr IVPB Q24HR [facility] Rx#:[id number] Output: Urine 330 350 Stool 1 Other: Voiding Method Indwelling Catheter Indwelling Catheter # Bowel Movements 1 - Exam GENERAL DESCRIPTION: An elderly male lying in bed in no distress RESPIRATORY SYSTEM: Unlabored breathing , coarse breath sounds bilaterally HEART: S1 S2 regular rate and rhythm , ABDOMEN: Soft , no tenderness EXTREMITIES: No edema feet - Labs CBC & Chem 7: 10/15/22 11:16 10/15/22 11:16 Labs: Abnormal Lab Results - Last 24 Hours (Table) 10/15/22 10/15/22 10/16/22 Range/Units 16:45 20:03 06:10 POC Glucose (mg/dL) 151 H 158 H 142 H (70-110) mg/dL 10/16/22 Range/Units 11:36 POC Glucose (mg/dL) 133 H (70-110) mg/dL Microbiology - Last 24 Hours (Table) 10/15/22 12:09 Gram Stain - Preliminary Sputum Sputum Culture - Preliminary 10/14/22 06:35 Blood Culture - Preliminary Blood No Growth after 48 hours 10/11/22 23:03 Blood Culture Gram Stain - Preliminary Blood Blood Culture - Preliminary Coagulase Negative Staph Assessment and Plan (1) Positive blood culture Current Visit: Yes Status: Acute Code(s): R78.81 - BACTEREMIA SNOMED Code(s): 262622218 (2) Leukocytosis Current Visit: Yes Status: Acute Code(s): D72.829 - ELEVATED WHITE BLOOD CELL COUNT, UNSPECIFIED SNOMED Code(s): 068218152 Plan: 1patient with a positive blood culture which has not been finalized with coagulase-negative staph likely skin contamination as patient has no clinical disease to go along with it we will go ahead and discontinue the vancomycin blood cultures have been repeated on 10/14/2022 and has been negative so for 2patient with shortness of breath more likely COPD exacerbation clinic not beh aving as pneumonia as the patient did have normal procalcitonin continue with steroids and bronchodilators per pulmonary. 3leukocytosis more likely steroid related however the patient did have a CT of the chest completed yesterday concerning for possible infectious etiology patient was started on Rocephin sputum culture had been obtained and those will be followed Time with Patient: Less than 30
[2022-10-16 13:06] LABS: Basophils # (A) 0.1 k/uL (0-0.2); Basophils % (A) 0 %; Eosinophils # (A) 0.1 k/uL (0-0.7); Eosinophils % (A) 1 %; HCT 42.6 % (39.0-53.0); HGB 13.3 gm/dL (13.0-17.5); Lymphocytes # (A) 0.8 k/uL (1.0-4.8); Lymphocytes % (A) 3 %; MCH 31.9 pg (25.0-35.0); MCHC 31.2 g/dL (31.0-37.0); MCV 102.3 fL (80.0-100.0); Macrocytosis Slight; Mean Platelet Volume 8.5; Monocytes % (A) 4 %; Neutrophils # (A) 22.7 k/uL (1.3-7.7); Neutrophils % (A) 91 %; Platelet Count 410 k/uL (150-450); RBC 4.16 m/uL (4.30-5.90); RDW 12.6 % (11.5-15.5); WBC 24.8 k/uL (3.8-10.6)
[2022-10-16] MEDS: methylPREDNISolone SOD SUCCI 40 MG/ML 1 ML VIAL IV SCH ×2 (16:42→23:24)
[2022-10-16 16:49] LABS: African American GFR (CKD) 106.2 (60.0-200.0); Anion Gap 16.5 mmol/L (10.00-18.00); BUN/Creat Ratio 47.43 Ratio (12.00-20.00); Blood Urea Nitrogen 33.2 mg/dL (9.0-27.0); Calcium 9.1 mg/dL (8.7-10.3); Carbon Dioxide 25.5 mmol/L (20.0-27.5); Magnesium 2.3 mg/dL (1.5-2.4); Non-African American GFR(CKD) 91.7 (60.0-200.0); Potassium 5.1 mmol/L (3.5-5.5)
[2022-10-16 17:06] LABS: Glucose,Whole Blood 168 mg/dL (70-110)
[2022-10-16] MEDS: PANTOPRAZOLE 40 MG TABLET PO SCH (17:34)
[2022-10-16 20:21] LABS: Glucose,Whole Blood 172 mg/dL (70-110)
[2022-10-16] MEDS: METOPROLOL TARTRATE 12.5 MG TAB PO SCH (21:53)
[2022-10-16] MEDS ORDERED: ACETAMINOPHEN TAB 500 MG TAB PO PRN (22:49)
[2022-10-17 06:09] LABS: Glucose,Whole Blood 143 mg/dL (70-110)
[2022-10-17] MEDS: LEVOTHYROXINE 25 MCG TAB PO SCH (06:30)
[2022-10-17] MEDS: PANTOPRAZOLE 40 MG TABLET PO SCH ×2 (06:30→16:43)
[2022-10-17] MEDS: INSULIN ASPART (NovoLOG) 100 UNIT/ML VIAL SQ SCH ×4 (06:31→20:50)
[2022-10-17] MEDS: FORMOTEROL FUMARATE 20 MCG/2 ML NEBU INHALATION SCH ×2 (08:18→20:56)
[2022-10-17] MEDS: BUDESONIDE 1 MG/2 ML NEBU INHALATION SCH ×2 (08:18→20:56)
[2022-10-17] MEDS: ALBUTEROL HFA INHALER INHALATION SCH ×4 (08:18→20:56)
[2022-10-17 08:56] LABS: African American GFR (CKD) 106.2 (60.0-200.0); Anion Gap 14.8 mmol/L (10.00-18.00); BUN/Creat Ratio 53.71 Ratio (12.00-20.00); Blood Urea Nitrogen 37.6 mg/dL (9.0-27.0); Calcium 9.2 mg/dL (8.7-10.3); Carbon Dioxide 25.2 mmol/L (20.0-27.5); Magnesium 2.1 mg/dL (1.5-2.4); Non-African American GFR(CKD) 91.7 (60.0-200.0); Potassium 5.1 mmol/L (3.5-5.5)
[2022-10-17] MEDS: TIOTROPIUM 2.5 MCG INHALER INHALATION SCH (09:01)
[2022-10-17] MEDS: CYANOCOBALAMIN 500 MCG TAB PO SCH (10:09)
[2022-10-17] MEDS: ASCORBIC ACID 500 MG TAB PO SCH (10:10)
[2022-10-17] MEDS: MAGNESIUM OXIDE 400 MG TAB PO SCH (10:10)
[2022-10-17] MEDS: methylPREDNISolone SOD SUCCI 40 MG/ML 1 ML VIAL IV SCH ×3 (10:10→23:01)
[2022-10-17] MEDS: ASPIRIN 81 MG PO SCH (10:10)
[2022-10-17] MEDS: FERROUS SULFATE 325 MG TAB PO SCH (10:11)
[2022-10-17] MEDS: MULTIVITAMINS, THERA 1 EACH TAB PO SCH (10:11)
[2022-10-17] MEDS: METOPROLOL TARTRATE 25 MG TAB PO SCH (10:11)
[2022-10-17] MEDS: FOLIC ACID 1 MG TAB PO SCH (10:13)
[2022-10-17] MEDS: ZINC SULFATE 220 MG CAP PO SCH (10:38)
[2022-10-17 11:10] LABS: Glucose,Whole Blood 156 mg/dL (70-110)
--- NOTE | 2022-10-17 11:12 | P.PN ---
Subjective Patient is seen in follow-up for hyponatremia. Sitting up in bed. Oral intake fair. Admits to loose bowel movements. Kraft catheter placed for urinary retention 10/12/2022. Vital signs are stable. General: No acute distress. HEENT: Head exam is unremarkable. On nasal cannula. LUNGS: No rhonchi or wheezes. HEART: Rate and Rhythm are regular. ABDOMEN: No distention. EXTREMITITES: No edema. Objective - Vital Signs Vital signs: Vital Signs Temp 97.9 F 10/17/22 07:10 Pulse 120 H 10/17/22 08:41 Resp 16 10/17/22 07:10 BP 107/67 10/17/22 07:10 Pulse Ox 94 L 10/17/22 08:19 FiO2 21 10/17/22 08:19 Intake & Output 10/16/22 10/17/22 10/17/22 18:59 06:59 18:59 Intake Total 500 Output Total 330 550 Balance -330 -50 Weight 57.4 kg Intake: Oral 500 Output: Urine 330 550 Other: Voiding Method Indwelling Catheter Indwelling Catheter - Labs CBC & Chem 7: 10/16/22 07:41 10/17/22 06:21 Labs: Abnormal Lab Results - Last 24 Hours (Table) 10/16/22 10/16/22 10/16/22 Range/Units 07:41 07:41 11:36 WBC 24.8 H (3.8-10.6) k/uL RBC 4.16 L (4.30-5.90) m/uL MCV 102.3 H (80.0-100.0) fL Neutrophils # 22.7 H (1.3-7.7) k/uL Lymphocytes # 0.8 L (1.0-4.8) k/uL Chloride 93 L (96-109) mmol/L BUN 33.2 H (9.0-27.0) mg/dL BUN/Creatinine Ratio 47.43 H (12.00-20.00) Ratio Glucose 160 H (70-110) mg/dL POC Glucose (mg/dL) 133 H (70-110) mg/dL 10/16/22 10/16/22 10/17/22 Range/Units 17:04 20:20 06:08 WBC (3.8-10.6) k/uL RBC (4.30-5.90) m/uL MCV (80.0-100.0) fL Neutrophils # (1.3-7.7) k/uL Lymphocytes # (1.0-4.8) k/uL Chloride (96-109) mmol/L BUN (9.0-27.0) mg/dL BUN/Creatinine Ratio (12.00-20.00) Ratio Glucose (70-110) mg/dL POC Glucose (mg/dL) 168 H 172 H 143 H (70-110) mg/dL 10/17/22 10/17/22 Range/Units 06:21 11:08 WBC (3.8-10.6) k/uL RBC (4.30-5.90) m/uL MCV (80.0-100.0) fL Neutrophils # (1.3-7.7) k/uL Lymphocytes # (1.0-4.8) k/uL Chloride 95 L (96-109) mmol/L BUN 37.6 H (9.0-27.0) mg/dL BUN/Creatinine Ratio 53.71 H (12.00-20.00) Ratio Glucose 148 H (70-110) mg/dL POC Glucose (mg/dL) 156 H (70-110) mg/dL Microbiology - Last 24 Hours (Table) 10/15/22 12:09 Gram Stain - Final Sputum Sputum Culture - Final 10/14/22 06:35 Blood Culture - Preliminary Blood No Growth after 72 hours Assessment and Plan Plan: assessment: 1. Acute on chronic hyponatremia. Slightly hypervolemic as pleural effusions noted on chest x-ray. Status post IV Lasix. History of esophageal cancer but no active malignancy. Sodium level improving - 135 today. [facility]. Urine sodium 60 and urine osmolality 309. TSH normal. 2. COPD exacerbation. 3. Acute hypoxic respiratory failure secondary to above. 4. Benign hypertension. Stable. plan: 1200 mL fluid restriction. Encourage oral intake. DC Kraft catheter. Monitor serial postvoids to make sure no retention.
--- NOTE | 2022-10-17 12:51 | P.PN ---
Subjective Progress Note Date: 10/17/22 On 10/15/2022, I'm seeing the patient for a follow-up. The patient is still struggling with his breathing. He still short of breath. He has a congested cough. At times is able to bring up some sputum. We were finally able to collect a sputum sample. This is very important special the patient's white cell count is up to 27. His recovery has been only limited since his admission to the hospital. He has not received any antibiotics. He is on IV Solu-Medrol. He is on Pulmicort Respules, Spiriva and albuterol nebs [id number] in addition to IV Solu-Medrol 60 mg IV every 6 hours. Note that his sodium level was 120 and currently is up to 129 and he has seen some improvement. Meanwhile, he was given also a Kraft catheter. The fronts on the case regarding his underlying hyponatremia. He is a known case of resophageal cancer and his disease is currently in remission 10/16/2022, I'm seeing the patient for a follow-up. The patient is feeling much better compared to yesterday. The patient is less short of breath. He is less congested. He was started on IV Rocephin yesterday. CAT scan of the chest was also done that showed some inflammatory changes in lung bases bilaterally most consistent with an underlying pneumonia. As such, the patient was started on antibiotics. He remains on Pulmicort Respules, Spiriva, albuterol nebs 4 times a day. No fever. No chills. Remains on oxygen at 2 L/m nasal cannula. Blood sugar today is at 133. No other significant events otherwise for now. On 10/17/2022, seeing the patient for a follow-up. The patient is improving slowly. On today's evaluation, the patient was taken off the oxygen and patient is currently on room air oxygen. Remains on IV Rocephin. Less congested. Less wheezy. Less bronchospastic. Increasing his level of activity as tolerated and the patient is walking and becoming more active. He is tolerating his diet. No nausea or vomiting or diarrhea or abdominal pain. He remains on IV Solu-Medrol 48 hours. He also is on albuterol rescue [id number] 4 times a day and IV Rocephin. The patient's electrolytes all within normal limits. BUN is at 37 with a creatinine of 0.7 and a sodium level is at 135. Potassium levels at 5.1. White cell count from yesterday 24. The sputum sample was negative. Objective - Vital Signs Vital signs: Vital Signs Temp 97.9 F 10/17/22 07:10 Pulse 120 H 10/17/22 08:41 Resp 16 10/17/22 07:10 BP 107/67 10/17/22 07:10 Pulse Ox 94 L 10/17/22 08:19 FiO2 21 10/17/22 08:19 Intake & Output 10/16/22 10/17/22 10/17/22 18:59 06:59 18:59 Intake Total 500 Output Total 330 550 Balance -330 -50 Weight 57.4 kg Intake: Oral 500 Output: Urine 330 550 Other: Voiding Method Indwelling Catheter Indwelling Catheter - Exam Improved conversational dyspnea, no use of accessory muscles. Oriented 3. Currently on room air oxygen HEENT examination is grossly unremarkable. Neck supple. Full range of motion. No adenopathy thyromegaly or neck vein distention. Cardiovascular examination reveals regular rhythm rate. S1-S2 normal. No S3 or S4. No discernible murmur noted. Heart sounds are distant. Lungs reveal diffuse inspiratory and expiratory wheezes and rhonchi. There is prolongation on forced maneuver. No crackles. Breath sounds equal bilaterally but diminished throughout. Abdomen soft bowel sounds are heard. No masses or tenderness. Extremities are intact. No cyanosis clubbing or edema. Skin is without rash or lesion. Neurologic examination is brief but nonfocal. - Labs CBC & Chem 7: 10/16/22 07:41 10/17/22 06:21 Labs: Abnormal Lab Results - Last 24 Hours (Table) 10/16/22 10/16/22 10/16/22 Range/Units 07:41 07:41 11:36 WBC 24.8 H (3.8-10.6) k/uL RBC 4.16 L (4.30-5.90) m/uL MCV 102.3 H (80.0-100.0) fL Neutrophils # 22.7 H (1.3-7.7) k/uL Lymphocytes # 0.8 L (1.0-4.8) k/uL Chloride 93 L (96-109) mmol/L BUN 33.2 H (9.0-27.0) mg/dL BUN/Creatinine Ratio 47.43 H (12.00-20.00) Ratio Glucose 160 H (70-110) mg/dL POC Glucose (mg/dL) 133 H (70-110) mg/dL 10/16/22 10/16/22 10/17/22 Range/Units 17:04 20:20 06:08 WBC (3.8-10.6) k/uL RBC (4.30-5.90) m/uL MCV (80.0-100.0) fL Neutrophils # (1.3-7.7) k/uL Lymphocytes # (1.0-4.8) k/uL Chloride (96-109) mmol/L BUN (9.0-27.0) mg/dL BUN/Creatinine Ratio (12.00-20.00) Ratio Glucose (70-110) mg/dL POC Glucose (mg/dL) 168 H 172 H 143 H (70-110) mg/dL 10/17/22 Range/Units 06:21 WBC (3.8-10.6) k/uL RBC (4.30-5.90) m/uL MCV (80.0-100.0) fL Neutrophils # (1.3-7.7) k/uL Lymphocytes # (1.0-4.8) k/uL Chloride 95 L (96-109) mmol/L BUN 37.6 H (9.0-27.0) mg/dL BUN/Creatinine Ratio 53.71 H (12.00-20.00) Ratio Glucose 148 H (70-110) mg/dL POC Glucose (mg/dL) (70-110) mg/dL Microbiology - Last 24 Hours (Table) 10/15/22 12:09 Gram Stain - Final Sputum Sputum Culture - Final 10/14/22 06:35 Blood Culture - Preliminary Blood No Growth after 72 hours Assessment and Plan Plan: Acute hypoxemic respiratory failure secondary to COPD exacerbation. Suspect underlying tracheal bronchitis especially the patient is having significant congestion and cough. Noted the pro calcitonin level checked twice was negative. Nevertheless, the CAT scan of the chest that was done yesterday showed indication of a bilateral lower lobe pneumonias and the patient is currently on IV Rocephin. Clinically improving. Patient is currently on room air oxygen and the patient was taken off Bilateral lower lobe pneumonia , improving and the patient is currently on IV Rocephin Acute leukocytosis, rule out underlying infection, improving History of esophageal cancer, status post esophageal surgery. The patient has undergone esophagectomy and the patient has not received any treatment since. His disease is been in remission. History of gastroesophageal reflux disease. Prior history of heavy tobacco use. Hyponatremia, improving Plan: Clinically improving The patient is currently on room air oxygen Continue same treatment for now sputum sample was negative for Gram stain and culture Pro calcitonin level was low Monitor the white cell count Continue the patient IV Rocephin 1 g 24 hours. We'll continue to follow.
[2022-10-17 16:15] LABS: Glucose,Whole Blood 133 mg/dL (70-110)
--- NOTE | 2022-10-17 16:39 | P.PN ---
Subjective Progress Note Date: 10/17/22 H&P Date: 10/12/22 Hospital course:Keshav Cuevas is a 76 yo M with PMH of COPD, former nicotine dependence ,esophageal cancer s/p resection, hyponatremia who presented to the ED complaining of worsening shortness of breath. Pt reports that yesterday morning after breakfast developed increased shortness of breath ,apparently fell in the kitchen accompanied by loss of consciousness- does not recall the event. No incontinence of urine or bowel .reports occasional cough, denies any fever or chills. He is a former smoker. He had been using albuterol inhaler, Spiriva, Wixela, nebulized bronchodilators without much relief. Recently placed on oral sodium chloride tabs with diuretics placed on hold outpatient .denies excessive fluid intake.On presentation he was tachypneic, respiratory rate 40 and hypoxic, WBC 11.7k, Na 120, CXR with persistent RUL density, changes most likely chronic, similar to prior exam with pulmonary fibrosis superimposed on background of COPD. received BiPAP throughout the night, currently maintaining O2 sats in the 90s on 6 L nasal cannula (patient does not wear oxygen at home). Afebrile. ProBNP 2170. EKG reported sinus rhythm, Troponins negative 2. 10/15/2022 and maintained on nebulized bronchodilators, IV steroids. Afebrile, wbc increased to 27.8-possibly steroid-induced, normal pro-calcitonin 0.04. Maintaining O2 sats in the 90s on 2 L nasal cannula. congested cough continues, sometimes productive. Sputum culture collected, pending. Blood culture from 3 to reporting coagulase-negative staph-likely skin contaminant, repeat blood culture 35 reported no growth after 24 hours. Sodium improving up to 129. Reports he was able to stand up by the bedside yesterday. Evaluated by physical therapy recommending home with home care at discharge, poor functional endurance. 10/16/2022 breathing improving, maintaining higher O2 sats, currently 97% on 2 L NC. Continues on nebulized bronchodilators, IV steroids. WBC increased yes terday,antibiotics resumed as per pulmonary. Sputum collected yesterday, pending. Labs pending. Chest CT completed yesterday, reporting bilateral lower lobes nodularity, bronchial wall thickening, some patchy airspace opacity related to inflammatory, atypical infectious process bilateral lungs , chronic nodular changes and minor changes in the upper lobes bilaterally unchanged, moderate emphysema unchanged, prior esophagectomy with gastric pull through unchanged. Fluid restrictions maintained,labs pending. 10/17/2022 maintained on IV antibiotics of Rocephin, IV steroids, nebulized bronchodilators with breathing improving, less wheezing. Sputum culture negative. Maintaining O2 sats in the 90s on room air. Tachycardic. Positive diet intake with no nausea vomiting or diarrhea. Blood sugars controlled. Sodium 135, potassium 5.1, bicarb 25, BUN 37.6, creatinine 0.7, easy and 2.1. Objective - Vital Signs Vital signs: Vital Signs Temp 97.4 F L 10/17/22 13:45 Pulse 82 10/17/22 13:45 Resp 16 10/17/22 13:45 BP 116/76 10/17/22 13:45 Pulse Ox 97 10/17/22 13:45 FiO2 21 10/17/22 08:19 Intake & Output 10/16/22 10/17/22 10/17/22 18:59 06:59 18:59 Intake Total 500 Output Total 330 550 150 Balance -330 -50 -150 Weight 57.4 kg Intake: Oral 500 Output: Urine 330 550 150 Other: Voiding Method Indwelling Catheter Indwelling Catheter Indwelling Catheter - Exam General: Alert and oriented 3, sitting up in bed, no acute distress. Eyes: PERRL, EOMI, conjunctiva normal. HENT: normocephalic, mucus membranes moist Neck: supple, no JVD Lungs: Improved air entry, audible congestion,positive rhonchi, I & E wheezing lessened CV: Regular rate and rhythm, systolic murmur. Peripheral pulses 2+ Abdomen: soft, nondistended, no organomegaly,+BS Skin: warm and dry. Neuro: Cranial nerves II through XII grossly intact - Labs CBC & Chem 7: 10/16/22 07:41 10/17/22 06:21 Labs: Abnormal Lab Results - Last 24 Hours (Table) 10/16/22 10/16/22 10/16/22 Range/Units 07:41 17:04 20:20 Chloride 93 L (96-109) mmol/L BUN 33.2 H (9.0-27.0) mg/dL BUN/Creatinine Ratio 47.43 H (12.00-20.00) Ratio Glucose 160 H (70-110) mg/dL POC Glucose (mg/dL) 168 H 172 H (70-110) mg/dL 10/17/22 10/17/22 10/17/22 Range/Units 06:08 06:21 11:08 Chloride 95 L (96-109) mmol/L BUN 37.6 H (9.0-27.0) mg/dL BUN/Creatinine Ratio 53.71 H (12.00-20.00) Ratio Glucose 148 H (70-110) mg/dL POC Glucose (mg/dL) 143 H 156 H (70-110) mg/dL 10/17/22 Range/Units 16:13 Chloride (96-109) mmol/L BUN (9.0-27.0) mg/dL BUN/Creatinine Ratio (12.00-20.00) Ratio Glucose (70-110) mg/dL POC Glucose (mg/dL) 133 H (70-110) mg/dL Microbiology - Last 24 Hours (Table) 10/11/22 23:03 Blood Culture Gram Stain - Final Blood Blood Culture - Final Staph capitis SS capitis 10/15/22 12:09 Gram Stain - Final Sputum Sputum Culture - Final 10/14/22 06:35 Blood Culture - Preliminary Blood No Growth after 72 hours Assessment and Plan Assessment: Acute COPD exacerbation with possible tracheobronchitis, in a patient with history of pulmonary fibrosis. Pro-calcitonin low. CT suggested bilateral lower lobe pneumonia per pulmonary. Acute hypoxic respiratory failure secondary to the above Acute leukocytosis, sputum culture negative Urinary retention, requiring Kraft catheter Syncope,fall. Acute on chronic hyponatremia, diuretics has been on hold and on oral sodium chloride outpatient. Status post Samsca. Multivalvular heart disease, moderate to severe aortic stenosis Gastroesophageal reflux disease History of esophageal cancer, status post resection, in remission. Former nicotine dependence Glaucoma Restless leg syndrome Plan: Continue on current medication regime ,monitoring and symptomatic treatment. Encourage patient to be up in chair and ambulate as tolerated. Mainta in aggressive pulmonary toileting, nebulized bronchodilators, IV steroids,LABA. Fluid restrictions. PT/OT. Close monitoring of electrolytes, WBC with repeat labs ordered for a.m. The impression and plan of care has been dictated as directed. : I performed a history and examination of this patient, discussed the same with the dictator. I agree with the dictator's note ,documented as a scribe. Any additional findings or plans will be noted.
[2022-10-17 20:25] LABS: Glucose,Whole Blood 187 mg/dL (70-110)
[2022-10-17] MEDS: METOPROLOL TARTRATE 12.5 MG TAB PO SCH (20:50)
--- NOTE | 2022-10-17 22:12 | P.PN ---
Subjective Progress Note Date: 10/17/22 Principal diagnosis: Positive blood culture and leukocytosis Patient is a 76-year-old male with a past medical history significant for COPD GERD esophageal cancer for the patient did have surgery done presenting to the ER on 10/11/2022 for evaluation of increasing shortness of breath , diagnosed with COPD exacerbation patient also noticed to have a positive blood culture subsequently finalized as coagulase negative staph. on today's evaluation, that is 10/17/2022, the patient continues to be afebrile, patient is breathing comfortably on room air this morning, the patient continued to have a cough however has decreased in intensity and less productive no nausea no vomiting no diarrhea Objective - Vital Signs Vital signs: Vital Signs Temp 97.9 F 10/17/22 07:10 Pulse 120 H 10/17/22 08:41 Resp 16 10/17/22 07:10 BP 107/67 10/17/22 07:10 Pulse Ox 94 L 10/17/22 08:19 FiO2 21 10/17/22 08:19 Intake & Output 10/16/22 10/17/22 10/17/22 18:59 06:59 18:59 Intake Total 500 Output Total 330 550 Balance -330 -50 Weight 57.4 kg Intake: Oral 500 Output: Urine 330 550 Other: Voiding Method Indwelling Catheter Indwelling Catheter - Exam GENERAL DESCRIPTION: An elderly male lying in bed in no distress RESPIRATORY SYSTEM: Unlabored breathing , coarse breath sounds bilaterally HEART: S1 S2 regular rate and rhythm , ABDOMEN: Soft , no tenderness EXTREMITIES: No edema feet - Labs CBC & Chem 7: 10/16/22 07:41 10/17/22 06:21 Labs: Abnormal Lab Results - Last 24 Hours (Table) 10/16/22 10/16/22 10/16/22 Range/Units 07:41 07:41 11:36 WBC 24.8 H (3.8-10.6) k/uL RBC 4.16 L (4.30-5.90) m/uL MCV 102.3 H (80.0-100.0) fL Neutrophils # 22.7 H (1.3-7.7) k/uL Lymphocytes # 0.8 L (1.0-4.8) k/uL Chloride 93 L (96-109) mmol/L BUN 33.2 H (9.0-27.0) mg/dL BUN/Creatinine Ratio 47.43 H (12.00-20.00) Ratio Glucose 160 H (70-110) mg/dL POC Glucose (mg/dL) 133 H (70-110) mg/dL 10/16/22 10/16/22 10/17/22 Range/Units 17:04 20:20 06:08 WBC (3.8-10.6) k/uL RBC (4.30-5.90) m/uL MCV (80.0-100.0) fL Neutrophils # (1.3-7.7) k/uL Lymphocytes # (1.0-4.8) k/uL Chloride (96-109) mmol/L BUN (9.0-27.0) mg/dL BUN/Creatinine Ratio (12.00-20.00) Ratio Glucose (70-110) mg/dL POC Glucose (mg/dL) 168 H 172 H 143 H (70-110) mg/dL 10/17/22 Range/Units 06:21 WBC (3.8-10.6) k/uL RBC (4.30-5.90) m/uL MCV (80.0-100.0) fL Neutrophils # (1.3-7.7) k/uL Lymphocytes # (1.0-4.8) k/uL Chloride 95 L (96-109) mmol/L BUN 37.6 H (9.0-27.0) mg/dL BUN/Creatinine Ratio 53.71 H (12.00-20.00) Ratio Glucose 148 H (70-110) mg/dL POC Glucose (mg/dL) (70-110) mg/dL Microbiology - Last 24 Hours (Table) 10/14/22 06:35 Blood Culture - Preliminary Blood No Growth after 72 hours 10/15/22 12:09 Gram Stain - Preliminary Sputum Sputum Culture - Preliminary Assessment and Plan (1) Positive blood culture Current Visit: Yes Status: Acute Code(s): R78.81 - BACTEREMIA SNOMED Code(s): 863500145 (2) Leukocytosis Current Visit: Yes Status: Acute Code(s): D72.829 - ELEVATED WHITE BLOOD CELL COUNT, UNSPECIFIED SNOMED Code(s): 492949353 Plan: 1patient with a positive blood culture which has not been finalized with coag ulase-negative staph likely skin contamination as patient has no clinical disease to go along with it we will go ahead and discontinue the vancomycin blood cultures have been repeated on 10/14/2022 and has been negative so for 2patient with shortness of breath more likely COPD exacerbation clinic not behaving as pneumonia, patient continue with steroids and bronchodilators per pulmonary. 3leukocytosis more likely steroid related however the patient did have a CT of the chest completed yesterday concerning for possible infectious etiology patient was started on Rocephin sputum culture had been obtained which are currently pending and monitor clinical course closely Time with Patient: Less than 30
[2022-10-18 05:54] LABS: Glucose,Whole Blood 146 mg/dL (70-110)
[2022-10-18] MEDS: INSULIN ASPART (NovoLOG) 100 UNIT/ML VIAL SQ SCH ×4 (06:17→21:41)
[2022-10-18] MEDS: LEVOTHYROXINE 25 MCG TAB PO SCH (06:22)
[2022-10-18] MEDS: PANTOPRAZOLE 40 MG TABLET PO SCH ×2 (06:22→17:27)
--- NOTE | 2022-10-18 07:36 | XR ---
EXAMINATION TYPE: XR chest 1V DATE OF EXAM: 10/18/2022 COMPARISON: 10/11/2022 HISTORY: Cough TECHNIQUE: Single frontal view of the chest is obtained. FINDINGS: Post esophagectomy and pull-through procedure suspected. There is bilateral interstitial i nfiltrates with small pleural effusion. Underlying COPD and chronic interstitial lung disease suspect ed. Apical pleural thickening. Somewhat irregular density in the right upper lobe. IMPRESSION: 1. COPD with bilateral interstitial infiltrate and small pleural effusions correlate for interstitial pneumonitis or pneumonia. 2. Pulmonary mass or nodule right upper lobe not excluded.
[2022-10-18 09:06] LABS: African American GFR (CKD) 113.2 (60.0-200.0); Anion Gap 13.4 mmol/L (10.00-18.00); Carbon Dioxide 25.6 mmol/L (20.0-27.5); Non-African American GFR(CKD) 97.7 (60.0-200.0); Potassium 5.3 mmol/L (3.5-5.5)
[2022-10-18 09:07] LABS: Basophils # (A) 0.03 X 10*3/uL (0.00-0.10); Basophils % (A) 0.2 %; Eosinophils # (A) 0 X 10*3/uL (0.04-0.35); Eosinophils % (A) 0 %; HCT 38.8 % (39.6-50.0); HGB 12.5 g/dL (13.0-17.0); Immature Grans, Automated 1.3 %; Lymphocytes # (A) 1.35 X 10*3/uL (0.90-5.00); Lymphocytes % (A) 9.4 %; MCH 31.2 pg (27.0-32.0); MCHC 32.2 g/dL (32.0-37.0); MCV 96.8 fL (80.0-97.0); Mean Platelet Volume 8.9 fL (9.5-12.2); Monocytes # (A) 1.22 X 10*3/uL (0.20-1.00); Monocytes % (A) 8.5 %; NRBC Per 100 WBC 0 /100 WBCS (0.0-0.0); Neutrophils # (A) 11.58 X 10*3/uL (1.80-7.70); Neutrophils % (A) 80.6 %; Platelet Count 471 X 10*3/uL (140-440); RBC 4.01 X 10*6/uL (4.40-5.60); WBC 14.37 X 10*3/uL (4.50-10.00)
[2022-10-18] MEDS: TIOTROPIUM 2.5 MCG INHALER INHALATION SCH (09:09)
[2022-10-18] MEDS: ALBUTEROL HFA INHALER INHALATION SCH ×4 (09:09→19:18)
[2022-10-18] MEDS: FORMOTEROL FUMARATE 20 MCG/2 ML NEBU INHALATION SCH ×2 (09:10→19:18)
[2022-10-18] MEDS: BUDESONIDE 1 MG/2 ML NEBU INHALATION SCH ×2 (09:10→19:18)
[2022-10-18] MEDS: methylPREDNISolone SOD SUCCI 40 MG/ML 1 ML VIAL IV SCH ×3 (09:27→23:06)
[2022-10-18] MEDS: ZINC SULFATE 220 MG CAP PO SCH (09:27)
[2022-10-18] MEDS: CYANOCOBALAMIN 500 MCG TAB PO SCH (09:28)
[2022-10-18] MEDS: ASCORBIC ACID 500 MG TAB PO SCH (09:28)
[2022-10-18] MEDS: MAGNESIUM OXIDE 400 MG TAB PO SCH (09:28)
[2022-10-18] MEDS: FOLIC ACID 1 MG TAB PO SCH (09:28)
[2022-10-18] MEDS: MULTIVITAMINS, THERA 1 EACH TAB PO SCH (09:28)
[2022-10-18] MEDS: ASPIRIN 81 MG PO SCH (09:28)
[2022-10-18] MEDS: METOPROLOL TARTRATE 25 MG TAB PO SCH (09:28)
[2022-10-18] MEDS: FERROUS SULFATE 325 MG TAB PO SCH (09:28)
--- NOTE | 2022-10-18 10:18 | P.PN ---
Subjective Patient is seen in follow-up for hyponatremia. Sitting up in bed. Oral intake fair. Kraft catheter placed for urinary retention 10/12/2022. Sodium level fairly stable. Denies chest pain or shortness of breath. Vital signs are stable. General: No acute distress. HEENT: Head exam is unremarkable. On nasal cannula. LUNGS: No rhonchi or wheezes. HEART: Rate and Rhythm are regular. ABDOMEN: No distention. EXTREMITITES: No edema. Objective - Vital Signs Vital signs: Vital Signs Temp 97.8 F 10/18/22 06:47 Pulse 96 10/18/22 09:29 Resp 17 10/18/22 06:47 BP 127/81 10/18/22 06:47 Pulse Ox 94 L 10/18/22 09:10 FiO2 21 10/17/22 08:19 Intake & Output 10/17/22 10/18/22 10/18/22 18:59 06:59 18:59 Output Total 230 1000 250 Balance -230 -1000 -250 Weight 56.8 kg Output: Urine 230 1000 250 Other: Voiding Method Indwelling Catheter # Voids 1 # Bowel Movements 1 - Labs CBC & Chem 7: 10/18/22 06:18 10/18/22 06:18 Labs: Abnormal Lab Results - Last 24 Hours (Table) 10/17/22 10/17/22 10/17/22 Range/Units 11:08 16:13 20:24 WBC (4.50-10.00) X 10*3/uL RBC (4.40-5.60) X 10*6/uL Hgb (13.0-17.0) g/dL Hct (39.6-50.0) % Plt Count (140-440) X 10*3/uL MPV (9.5-12.2) fL Immature Gran # (0.00-0.04) X 10*3/uL Neutrophils # (1.80-7.70) X 10*3/uL Monocytes # (0.20-1.00) X 10*3/uL Eosinophils # (0.04-0.35) X 10*3/uL Sodium (135-145) mmol/L Chloride (96-109) mmol/L BUN (9.0-27.0) mg/dL BUN/Creatinine Ratio (12.00-20.00) Ratio Glucose (70-110) mg/dL POC Glucose (mg/dL) 156 H 133 H 187 H (70-110) mg/dL 10/18/22 10/18/22 10/18/22 Range/Units 05:53 06:18 06:18 WBC 14.37 H (4.50-10.00) X 10*3/uL RBC 4.01 L (4.40-5.60) X 10*6/uL Hgb 12.5 L (13.0-17.0) g/dL Hct 38.8 L (39.6-50.0) % Plt Count 471 H (140-440) X 10*3/uL MPV 8.9 L (9.5-12.2) fL Immature Gran # 0.19 H (0.00-0.04) X 10*3/uL Neutrophils # 11.58 H (1.80-7.70) X 10*3/uL Monocytes # 1.22 H (0.20-1.00) X 10*3/uL Eosinophils # 0 L (0.04-0.35) X 10*3/uL Sodium 133 L (135-145) mmol/L Chloride 94 L (96-109) mmol/L BUN 33.0 H (9.0-27.0) mg/dL BUN/Creatinine Ratio 55.00 H (12.00-20.00) Ratio Glucose 126 H (70-110) mg/dL POC Glucose (mg/dL) 146 H (70-110) mg/dL Microbiology - Last 24 Hours (Table) 10/14/22 06:35 Blood Culture - Preliminary Blood No Growth after 96 hours 10/11/22 23:03 Blood Culture Gram Stain - Final Blood Blood Culture - Final Staph capitis SS capitis 10/15/22 12:09 Gram Stain - Final Sputum Sputum Culture - Final Assessment and Plan Plan: assessment: 1. Acute on chronic hyponatremia. Slightly hypervolemic as pleural effusions noted on chest x-ray. Status post IV Lasix. History of esophageal cancer but no active malignancy. Sodium level fairly stable at 133 today. Status post samsca this admission. Urine sodium 60 and urine osmolality 309. TSH normal. 2. COPD exacerbation. 3. Acute hypoxic respiratory failure secondary to above. 4. Benign hypertension. Stable. plan: 1200 mL fluid restriction. Encourage oral intake. Kraft catheter removed. Has been voiding on his own. Check PTH related peptide.
--- NOTE | 2022-10-18 12:17 | P.PN ---
Subjective Progress Note Date: 10/18/22 On 10/15/2022, I'm seeing the patient for a follow-up. The patient is still struggling with his breathing. He still short of breath. He has a congested cough. At times is able to bring up some sputum. We were finally able to collect a sputum sample. This is very important special the patient's white cell count is up to 27. His recovery has been only limited since his admission to the hospital. He has not received any antibiotics. He is on IV Solu-Medrol. He is on Pulmicort Respules, Spiriva and albuterol nebs [id number] in addition to IV Solu-Medrol 60 mg IV every 6 hours. Note that his sodium level was 120 and currently is up to 129 and he has seen some improvement. Meanwhile, he was given also a Kraft catheter. The fronts on the case regarding his underlying hyponatremia. He is a known case of resophageal cancer and his disease is currently in remission 10/16/2022, I'm seeing the patient for a follow-up. The patient is feeling much better compared to yesterday. The patient is less short of breath. He is less congested. He was started on IV Rocephin yesterday. CAT scan of the chest was also done that showed some inflammatory changes in lung bases bilaterally most consistent with an underlying pneumonia. As such, the patient was started on antibiotics. He remains on Pulmicort Respules, Spiriva, albuterol nebs 4 times a day. No fever. No chills. Remains on oxygen at 2 L/m nasal cannula. Blood sugar today is at 133. No other significant events otherwise for now. On 10/17/2022, seeing the patient for a follow-up. The patient is improving slowly. On today's evaluation, the patient was taken off the oxygen and patient is currently on room air oxygen. Remains on IV Rocephin. Less congested. Less wheezy. Less bronchospastic. Increasing his level of activity as tolerated and the patient is walking and becoming more active. He is tolerating his diet. No nausea or vomiting or diarrhea or abdominal pain. He remains on IV Solu-Medrol 48 hours. He also is on albuterol rescue [id number] 4 times a day and IV Rocephin. The patient's electrolytes all within normal limits. BUN is at 37 with a creatinine of 0.7 and a sodium level is at 135. Potassium levels at 5.1. White cell count from yesterday 24. The sputum sample was negative. On 10/18/2022, I'm seeing the patient for a follow-up. The patient remains on room air oxygen. No major respiratory distress on today's evaluation. He feels that his overall respiratory status is back to his baseline. Chest x-ray findings of essentially unchanged and stable. The patient remains on IV Rocephin. Sputum Gram stain and culture showed no microbial growth. Meanwhile, the WBC count is at 14.3 with hemoglobin 12.5. BUN is at 33 with a creatinine of 0.6 and a sodium level is at 133. Bicarb is at 25. BUN is at 33 with a creatinine of 0.6. Calcium levels at 5.0. He is on room air oxygen. No fever. No chills and altered mentation. Objective - Vital Signs Vital signs: Vital Signs Temp 97.8 F 10/18/22 06:47 Pulse 96 10/18/22 09:29 Resp 17 10/18/22 06:47 BP 127/81 10/18/22 06:47 Pulse Ox 94 L 10/18/22 09:10 FiO2 21 10/17/22 08:19 Intake & Output 10/17/22 10/18/22 10/18/22 18:59 06:59 18:59 Output Total 230 1000 250 Balance -230 -1000 -250 Weight 56.8 kg Output: Urine 230 1000 250 Other: Voiding Method Indwelling Catheter # Voids 1 # Bowel Movements 1 - Exam Improved conversational dyspnea, no use of accessory muscles. Oriented 3. Currently on room air oxygen HEENT examination is grossly unremarkable. Neck supple. Full range of motion. No adenopathy thyromegaly or neck vein distention. Cardiovascular examination reveals regular rhythm rate. S1-S2 normal. No S3 or S4. No discernible murmur noted. Heart sounds are distant. Lungs reveal diffuse inspiratory and expiratory wheezes and rhonchi. There is prolongation on forced maneuver. No crackles. Breath sounds equal bilaterally but diminished throughout. Abdomen soft bowel sounds are heard. No masses or tenderness. Extremities are intact. No cyanosis clubbing or edema. Skin is without rash or lesion. Neurologic examination is brief but nonfocal. - Labs CBC & Chem 7: 10/18/22 06:18 10/18/22 06:18 Labs: Abnormal Lab Results - Last 24 Hours (Table) 10/17/22 10/17/22 10/17/22 Range/Units 11:08 16:13 20:24 WBC (4.50-10.00) X 10*3/uL RBC (4.40-5.60) X 10*6/uL Hgb (13.0-17.0) g/dL Hct (39.6-50.0) % Plt Count (140-440) X 10*3/uL MPV (9.5-12.2) fL Immature Gran # (0.00-0.04) X 10*3/uL Neutrophils # (1.80-7.70) X 10*3/uL Monocytes # (0.20-1.00) X 10*3/uL Eosinophils # (0.04-0.35) X 10*3/uL Sodium (135-145) mmol/L Chloride (96-109) mmol/L BUN (9.0-27.0) mg/dL BUN/Creatinine Ratio (12.00-20.00) Ratio Glucose (70-110) mg/dL POC Glucose (mg/dL) 156 H 133 H 187 H (70-110) mg/dL 10/18/22 10/18/22 10/18/22 Range/Units 05:53 06:18 06:18 WBC 14.37 H (4.50-10.00) X 10*3/uL RBC 4.01 L (4.40-5.60) X 10*6/uL Hgb 12.5 L (13.0-17.0) g/dL Hct 38.8 L (39.6-50.0) % Plt Count 471 H (140-440) X 10*3/uL MPV 8.9 L (9.5-12.2) fL Immature Gran # 0.19 H (0.00-0.04) X 10*3/uL Neutrophils # 11.58 H (1.80-7.70) X 10*3/uL Monocytes # 1.22 H (0.20-1.00) X 10*3/uL Eosinophils # 0 L (0.04-0.35) X 10*3/uL Sodium 133 L (135-145) mmol/L Chloride 94 L (96-109) mmol/L BUN 33.0 H (9.0-27.0) mg/dL BUN/Creatinine Ratio 55.00 H (12.00-20.00) Ratio Glucose 126 H (70-110) mg/dL POC Glucose (mg/dL) 146 H (70-110) mg/dL Microbiology - Last 24 Hours (Table) 10/14/22 06:35 Blood Culture - Preliminary Blood No Growth after 96 hours 10/11/22 23:03 Blood Culture Gram Stain - Final Blood Blood Culture - Final Staph capitis SS capitis 10/15/22 12:09 Gram Stain - Final Sputum Sputum Culture - Final Assessment and Plan Plan: Acute hypoxemic respiratory failure secondary to COPD exacerbation. Suspect underlying tracheal bronchitis especially the patient is having significant congestion and cough. Noted the pro calcitonin level checked twice was negative. Nevertheless, the CAT scan of the chest that was done yesterday showed indication of a bilateral lower lobe pneumonias and the patient is currently on IV Rocephin. Clinically improving. Patient is currently on room air oxygen and the patient was taken off Bilateral lower lobe pneumonia , improving and the patient is currently on IV Rocephin Acute leukocytosis, rule out underlying infection, improving History of esophageal cancer, status post esophageal surgery. The patient has undergone esophagectomy and the patient has not received any treatment since. His disease is been in remission. History of gastroesophageal reflux disease. Prior history of heavy tobacco use. Hyponatremia, improving Plan: Clinically improving, the patient is back to his baseline terms of his breathing. His shortness of breath is also improved. Continue IV Rocephin and switch this patient to oral antibiotics at time of discharge, probably a course of Augmentin at time of discharge. The patient is currently on room air oxygen Continue same treatment for now sputum sample was negative for Gram stain and culture Pro calcitonin level was low Monitor the white cell count We'll continue to follow.
--- NOTE | 2022-10-18 12:19 | P.PN ---
Subjective Progress Note Date: 10/18/22 Principal diagnosis: Positive blood culture and leukocytosis Patient is a 76-year-old male with a past medical history significant for COPD GERD esophageal cancer for the patient did have surgery done presenting to the ER on 10/11/2022 for evaluation of increasing shortness of breath , diagnosed with COPD exacerbation patient also noticed to have a positive blood culture subsequently finalized as coagulase negative staph. on today's evaluation, that is 10/18/2022, the patient remains continues to be afebrile, patient is breathing comfortably on room air, the patient cough has decreased in intensity and mostly dry in nature. Denies having any nausea no vomiting no abdominal pain or diarrhea Objective - Vital Signs Vital signs: Vital Signs Temp 97.8 F 10/18/22 06:47 Pulse 96 10/18/22 09:29 Resp 17 10/18/22 06:47 BP 127/81 10/18/22 06:47 Pulse Ox 94 L 10/18/22 09:10 FiO2 21 10/17/22 08:19 Intake & Output 10/17/22 10/18/22 10/18/22 18:59 06:59 18:59 Output Total 230 1000 250 Balance -230 -1000 -250 Weight 56.8 kg Output: Urine 230 1000 250 Other: Voiding Method Indwelling Catheter # Voids 1 # Bowel Movements 1 - Exam GENERAL DESCRIPTION: An elderly male lying in bed in no distress RESPIRATORY SYSTEM: Unlabored breathing , coarse breath sounds bilaterally HEART: S1 S2 regular rate and rhythm , ABDOMEN: Soft , no tenderness EXTREMITIES: No edema feet - Labs CBC & Chem 7: 10/18/22 06:18 10/18/22 06:18 Labs: Abnormal Lab Results - Last 24 Hours (Table) 10/17/22 10/17/22 10/17/22 Range/Units 11:08 16:13 20:24 WBC (4.50-10.00) X 10*3/uL RBC (4.40-5.60) X 10*6/uL Hgb (13.0-17.0) g/dL Hct (39.6-50.0) % Plt Count (140-440) X 10*3/uL MPV (9.5-12.2) fL Immature Gran # (0.00-0.04) X 10*3/uL Neutrophils # (1.80-7.70) X 10*3/uL Monocytes # (0.20-1.00) X 10*3/uL Eosinophils # (0.04-0.35) X 10*3/uL Sodium (135-145) mmol/L Chloride (96-109) mmol/L BUN (9.0-27.0) mg/dL BUN/Creatinine Ratio (12.00-20.00) Ratio Glucose (70-110) mg/dL POC Glucose (mg/dL) 156 H 133 H 187 H (70-110) mg/dL 10/18/22 10/18/22 10/18/22 Range/Units 05:53 06:18 06:18 WBC 14.37 H (4.50-10.00) X 10*3/uL RBC 4.01 L (4.40-5.60) X 10*6/uL Hgb 12.5 L (13.0-17.0) g/dL Hct 38.8 L (39.6-50.0) % Plt Count 471 H (140-440) X 10*3/uL MPV 8.9 L (9.5-12.2) fL Immature Gran # 0.19 H (0.00-0.04) X 10*3/uL Neutrophils # 11.58 H (1.80-7.70) X 10*3/uL Monocytes # 1.22 H (0.20-1.00) X 10*3/uL Eosinophils # 0 L (0.04-0.35) X 10*3/uL Sodium 133 L (135-145) mmol/L Chloride 94 L (96-109) mmol/L BUN 33.0 H (9.0-27.0) mg/dL BUN/Creatinine Ratio 55.00 H (12.00-20.00) Ratio Glucose 126 H (70-110) mg/dL POC Glucose (mg/dL) 146 H (70-110) mg/dL Microbiology - Last 24 Hours (Table) 10/14/22 06:35 Blood Culture - Preliminary Blood No Growth after 96 hours 10/11/22 23:03 Blood Culture Gram Stain - Final Blood Blood Culture - Final Staph capitis SS capitis 10/15/22 12:09 Gram Stain - Final Sputum Sputum Culture - Final Assessment and Plan (1) Positive blood culture Current Visit: Yes Status: Acute Code(s): R78.81 - BACTEREMIA SNOMED Code(s): 458658945 (2) Leukocytosis Current Visit: Yes Status: Acute Code(s): D72.829 - ELEVATED WHITE BLOOD CELL COUNT, UNSPECIFIED SNOMED Code(s): 775179723 Plan: 1patient with a positive blood culture which has not been finalized with coagulase-negative staph likely skin contamination as patient has no clinical disease to go along with it we will go ahead and discontinue the vancomycin blood cultures have been repeated on 10/14/2022 and has been negative and there is no need for vancomycin 2patient with shortness of breath more likely COPD exacerbation clinic not behaving as pneumonia, patient continue with steroids and bronchodilators per pulmonary. 3leukocytosis more likely steroid related however the patient did have a CT of the chest completed yesterday concerning for possible infectious etiology patient was started on Rocephin sputum culture had been negative for any resistant pathogen with repeat pro-calcitonin normal as well antibiotics can be safely discontinued Family the bedside questions were answered Time with Patient: Less than 30
[2022-10-18 12:48] LABS: Glucose,Whole Blood 129 mg/dL (70-110)
[2022-10-18 17:07] LABS: Glucose,Whole Blood 137 mg/dL (70-110)
[2022-10-18 20:56] LABS: Glucose,Whole Blood 183 mg/dL (70-110)
[2022-10-18] MEDS: METOPROLOL TARTRATE 12.5 MG TAB PO SCH (21:41)
[2022-10-19 06:06] LABS: Glucose,Whole Blood 101 mg/dL (70-110)
[2022-10-19] MEDS: INSULIN ASPART (NovoLOG) 100 UNIT/ML VIAL SQ SCH ×2 (06:17→11:40)
[2022-10-19] MEDS: PANTOPRAZOLE 40 MG TABLET PO SCH (06:18)
[2022-10-19] MEDS: LEVOTHYROXINE 25 MCG TAB PO SCH (06:18)
[2022-10-19 07:55] VITALS: BP 121/73; RESP 18; TEMP 97.9
[2022-10-19] MEDS: ASPIRIN 81 MG PO SCH (08:14)
[2022-10-19] MEDS: MAGNESIUM OXIDE 400 MG TAB PO SCH (08:14)
[2022-10-19] MEDS: MULTIVITAMINS, THERA 1 EACH TAB PO SCH (08:15)
[2022-10-19] MEDS: ZINC SULFATE 220 MG CAP PO SCH (08:16)
[2022-10-19] MEDS: CYANOCOBALAMIN 500 MCG TAB PO SCH (08:17)
[2022-10-19] MEDS: METOPROLOL TARTRATE 25 MG TAB PO SCH (08:17)
[2022-10-19] MEDS: FERROUS SULFATE 325 MG TAB PO SCH (08:17)
[2022-10-19] MEDS: ASCORBIC ACID 500 MG TAB PO SCH (08:17)
[2022-10-19] MEDS: FOLIC ACID 1 MG TAB PO SCH (08:35)
[2022-10-19] MEDS: methylPREDNISolone SOD SUCCI 40 MG/ML 1 ML VIAL IV SCH (08:35)
[2022-10-19] MEDS: ALBUTEROL HFA INHALER INHALATION SCH ×2 (09:08→12:51)
[2022-10-19] MEDS: TIOTROPIUM 2.5 MCG INHALER INHALATION SCH (09:08)
[2022-10-19] MEDS: BUDESONIDE 1 MG/2 ML NEBU INHALATION SCH (09:08)
[2022-10-19] MEDS: FORMOTEROL FUMARATE 20 MCG/2 ML NEBU INHALATION SCH (09:08)
[2022-10-19 09:35] VITALS: PULSE 89
--- NOTE | 2022-10-19 10:29 | P.PN ---
Subjective Patient is seen in follow-up for hyponatremia. Sitting up in bed. Oral intake fair. Kraft catheter placed for urinary retention 10/12/2022. Removed yesterday. Has been voiding on his own now. Sodium level fairly stable as of yesterday. Denies chest pain or shortness of breath. Family present at bedside. Vital signs are stable. General: No acute distress. HEENT: Head exam is unremarkable. LUNGS: No rhonchi or wheezes. HEART: Rate and Rhythm are regular. ABDOMEN: No distention. EXTREMITITES: No edema. Objective - Vital Signs Vital signs: Vital Signs Temp 97.9 F 10/19/22 07:02 Pulse 89 10/19/22 09:34 Resp 18 10/19/22 07:46 BP 121/73 10/19/22 07:02 Pulse Ox 96 10/19/22 09:09 FiO2 21 10/17/22 08:19 Intake & Output 10/18/22 10/19/22 10/19/22 18:59 06:59 18:59 Intake Total 358 Output Total 500 800 100 Balance -500 -800 258 Weight 56.2 kg Intake: Oral 358 Output: Urine 500 800 100 Other: Voiding Method Toilet Urinal # Bowel Movements 0 1 - Labs CBC & Chem 7: 10/18/22 06:18 10/18/22 06:18 Labs: Abnormal Lab Results - Last 24 Hours (Table) 10/18/22 10/18/22 10/18/22 Range/Units 12:46 17:06 20:55 POC Glucose (mg/dL) 129 H 137 H 183 H (70-110) mg/dL Microbiology - Last 24 Hours (Table) 10/14/22 06:35 Blood Culture - Preliminary Blood No Growth after 120 hours Assessment and Plan Plan: assessment: 1. Acute on chronic hyponatremia. Slightly hypervolemic as pleural effusions noted on chest x-ray. Status post IV Lasix. History of esophageal cancer but no active malignancy. Sodium level fairly stable at 133 today. Status [place] [facility] [place]. Urine sodium 60 and urine osmolality 309. TSH normal. 2. COPD exacerbation. 3. Acute hypoxic respiratory failure secondary to above. 4. Benign hypertension. Stable. Plan: 1200 mL fluid restriction. Encourage oral intake. Kraft catheter removed. Has been voiding on his own. Follow-up PTH related peptide.
[2022-10-19 11:26] LABS: Glucose,Whole Blood 104 mg/dL (70-110)
--- NOTE | 2022-10-19 11:57 | P.PN ---
Subjective Progress Note Date: 10/19/22 On 10/15/2022, I'm seeing the patient for a follow-up. The patient is still struggling with his breathing. He still short of breath. He has a congested cough. At times is able to bring up some sputum. We were finally able to collect a sputum sample. This is very important special the patient's white cell count is up to 27. His recovery has been only limited since his admission to the hospital. He has not received any antibiotics. He is on IV Solu-Medrol. He is on Pulmicort Respules, Spiriva and albuterol nebs [id number] in addition to IV Solu-Medrol 60 mg IV every 6 hours. Note that his sodium level was 120 and currently is up to 129 and he has seen some improvement. Meanwhile, he was given also a Kraft catheter. The fronts on the case regarding his underlying hyponatremia. He is a known case of resophageal cancer and his disease is currently in remission 10/16/2022, I'm seeing the patient for a follow-up. The patient is feeling much better compared to yesterday. The patient is less short of breath. He is less congested. He was started on IV Rocephin yesterday. CAT scan of the chest was also done that showed some inflammatory changes in lung bases bilaterally most consistent with an underlying pneumonia. As such, the patient was started on antibiotics. He remains on Pulmicort Respules, Spiriva, albuterol nebs 4 times a day. No fever. No chills. Remains on oxygen at 2 L/m nasal cannula. Blood sugar today is at 133. No other significant events otherwise for now. On 10/17/2022, seeing the patient for a follow-up. The patient is improving slowly. On today's evaluation, the patient was taken off the oxygen and patient is currently on room air oxygen. Remains on IV Rocephin. Less congested. Less wheezy. Less bronchospastic. Increasing his level of activity as tolerated and the patient is walking and becoming more active. He is tolerating his diet. No nausea or vomiting or diarrhea or abdominal pain. He remains on IV Solu-Medrol 48 hours. He also is on albuterol rescue [id number] 4 times a day and IV Rocephin. The patient's electrolytes all within normal limits. BUN is at 37 with a creatinine of 0.7 and a sodium level is at 135. Potassium levels at 5.1. White cell count from yesterday 24. The sputum sample was negative. On 10/18/2022, I'm seeing the patient for a follow-up. The patient remains on room air oxygen. No major respiratory distress on today's evaluation. He feels that his overall respiratory status is back to his baseline. Chest x-ray findings of essentially unchanged and stable. The patient remains on IV Rocephin. Sputum Gram stain and culture showed no microbial growth. Meanwhile, the WBC count is at 14.3 with hemoglobin 12.5. BUN is at 33 with a creatinine of 0.6 and a sodium level is at 133. Bicarb is at 25. BUN is at 33 with a creatinine of 0.6. Calcium levels at 5.0. He is on room air oxygen. No fever. No chills and altered mentation. 03/21/2023, the patient states that he is improving. He was able to ambulate here in the unit. He is on room air oxygen. Overall, doing much better. No his complaints for now. His white cell count has dropped. He has home inhalers which include Spiriva and Wixela should be continued on outpatient basis. No need for home O2 at this point in time. He'll complete his antibiotic course. He is making adequate urine for now. Objective - Vital Signs Vital signs: Vital Signs Temp 97.9 F 10/19/22 07:02 Pulse 89 10/19/22 09:34 Resp 18 10/19/22 07:46 BP 121/73 10/19/22 07:02 Pulse Ox 96 10/19/22 09:09 FiO2 21 10/17/22 08:19 Intake & Output 10/18/22 10/19/22 10/19/22 18:59 06:59 18:59 Intake Total 358 Output Total 500 800 100 Balance -500 -800 258 Weight 56.2 kg Intake: Oral 358 Output: Urine 500 800 100 Other: Voiding Method Toilet Urinal # Bowel Movements 0 1 - Exam Improved conversational dyspnea, no use of accessory muscles. Oriented 3. Currently on room air oxygen HEENT examination is grossly unremarkable. Neck supple. Full range of motion. No adenopathy thyromegaly or neck vein distention. Cardiovascular examination reveals regular rhythm rate. S1-S2 normal. No S3 or S4. No discernible murmur noted. Heart sounds are distant. Lungs reveal diffuse inspiratory and expiratory wheezes and rhonchi. There is prolongation on forced maneuver. No crackles. Breath sounds equal bilaterally but diminished throughout. Abdomen soft bowel sounds are heard. No masses or tenderness. Extremities are intact. No cyanosis clubbing or edema. Skin is without rash or lesion. Neurologic examination is brief but nonfocal. - Labs CBC & Chem 7: 10/18/22 06:18 10/18/22 06:18 Labs: Abnormal Lab Results - Last 24 Hours (Table) 10/18/22 10/18/22 10/18/22 Range/Units 12:46 17:06 20:55 POC Glucose (mg/dL) 129 H 137 H 183 H (70-110) mg/dL Microbiology - Last 24 Hours (Table) 10/14/22 06:35 Blood Culture - Preliminary Blood No Growth after 120 hours Assessment and Plan Plan: Acute hypoxemic respiratory failure secondary to COPD exacerbation. Suspect underlying tracheal bronchitis especially the patient is having significant congestion and cough. Noted the pro calcitonin level checked twice was negative. Nevertheless, the CAT scan of the chest that was done yesterday showed indication of a bilateral lower lobe pneumonias and the patient is currently on IV Rocephin. Clinically improving. Patient is currently on room air oxygen and the patient was taken off Bilateral lower lobe pneumonia , improving and the patient is currently on IV Rocephin Acute leukocytosis, rule out underlying infection, improving History of esophageal cancer, status post esophageal surgery. The patient has undergone esophagectomy and the patient has not received any treatment since. His disease is been in remission. History of gastroesophageal reflux disease. Prior history of heavy tobacco use. Hyponatremia, improving Plan: Clinically improving, Patient should be able to go home today. I approve on his discharge. He will continue Spiriva and wixela and albuterol updrafts on an as-needed basis. Recommend completing a one week course of Augmentin The patient is currently on room air oxygen Continue same treatment for now sputum sample was negative for Gram stain and culture Pro calcitonin level was low Monitor the white cell count We'll continue to follow. We'll follow-up in the office.
--- NOTE | 2022-10-19 13:16 | P.PN ---
Subjective Progress Note Date: 10/19/22 Principal diagnosis: Positive blood culture and leukocytosis Patient is a 76-year-old male with a past medical history significant for COPD GERD esophageal cancer for the patient did have surgery done presenting to the ER on 10/11/2022 for evaluation of increasing shortness of breath , diagnosed with COPD exacerbation patient also noticed to have a positive blood culture subsequently finalized as coagulase negative staph. on today's evaluation, that is 10/19/2022, the patient continues to be afebrile, patient is breathing comfortably on room air, the patient cough has decreased in intensity and not bringing up any sputum, the patient denies having any nausea no vomiting no abdominal pain or diarrhea Objective - Vital Signs Vital signs: Vital Signs Temp 97.9 F 10/19/22 07:02 Pulse 89 10/19/22 09:34 Resp 18 10/19/22 07:46 BP 121/73 10/19/22 07:02 Pulse Ox 96 10/19/22 09:09 FiO2 21 10/17/22 08:19 Intake & Output 10/18/22 10/19/22 10/19/22 18:59 06:59 18:59 Intake Total 358 Output Total 500 800 100 Balance -500 -800 258 Weight 56.2 kg Intake: Oral 358 Output: Urine 500 800 100 Other: Voiding Method Toilet Urinal # Bowel Movements 0 1 - Exam GENERAL DESCRIPTION: An elderly male lying in bed in no distress RESPIRATORY SYSTEM: Unlabored breathing , coarse breath sounds bilaterally HEART: S1 S2 regular rate and rhythm , ABDOMEN: Soft , no tenderness EXTREMITIES: No edema feet - Labs CBC & Chem 7: 10/18/22 06:18 10/18/22 06:18 Labs: Abnormal Lab Results - Last 24 Hours (Table) 10/18/22 10/18/22 10/18/22 Range/Units 12:46 17:06 20:55 POC Glucose (mg/dL) 129 H 137 H 183 H (70-110) mg/dL Microbiology - Last 24 Hours (Table) 10/14/22 06:35 Blood Culture - Preliminary Blood No Growth after 120 hours Assessment and Plan (1) Positive blood culture Current Visit: Yes Status: Acute Code(s): R78.81 - BACTEREMIA SNOMED Code(s): 415885518 Plan: 1patient with a positive blood culture which has not been finalized with coagulase-negative staph likely skin contamination as patient has no clinical disease to go along with it we will go ahead and discontinue the vancomycin bl ood cultures have been repeated and dose has been negative 2patient with shortness of breath more likely COPD exacerbation clinic not behaving as pneumonia as the patient did have normal procalcitonin , patient seemed to have shown clinical improvement no need for any antibiotics on discharge Time with Patient: Less than 30
--- NOTE | 2022-10-23 08:56 | CDI ---
Documentation Clarification Form Date: 10/23/2022 8:30:41 AM From: Britney Way Admit Date: 10/11/2022 1:48:00 PM Patient Name: Keshav Cuevas Visit Number: [id number] Discharge Date: 10/19/2022 1:52:00 PM ATTENTION: The Clinical Documentation Specialists (CDI) and [facility] Coding Staff appreciate your assistance in clarifying documentation. Please respond to the clarification below the line at the bottom and electronically sign. The CDI & [facility] Coding staff will review the response and follow-up if needed. Please note: Queries are made part of the Legal Health Record. If you have any questions, please contact the author of this message via ITS. Dr. Saeed Mitchell Per Progress Notes 10/16 - 10/19 CAT scan of chest was also done that showed some inflammatory changes in lung bases bilaterally most consistent with an underlying pneumonia. Please clarify if patient had pneumonia or was it ruled out. Additional clarification regarding pneumonia is requested. History/Risk Factors: COPD respiratory failure, Patient placed on BIPAP Clinical Indicators: WBC/Left shift: 11.7 CT scan of chest consistent with underlying pneumonia Lung/Breathing assessment Unlabored breathing coarse breath sounds bilaterally Treatment: Antibiotics Rocephin and Vancomycin O2 Patient was placed on Bipap Please clarify if patient had pneumonia POA or was it ruled out. [ X ] Pneumonia POA [ ] Pneumonia ruled out [ ] Other, please specify [ ] Unable to determine MTDD
--- NOTE | 2022-10-29 13:02 | CDI ---
Documentation Clarification Form Date: 10/29/2022 12:49:01 PM From: Britney Green Admit Date: 10/11/2022 1:48:00 PM Patient Name: Keshav Cuevas Visit Number: [id number] Discharge Date: 10/19/2022 1:52:00 PM ATTENTION: The Clinical Documentation Specialists (CDI) and [facility] Coding Staff appreciate your assistance in clarifying documentation. Please respond to the clarification below the line at the bottom and electronically sign. The CDI & [facility] Coding staff will review the response and follow-up if needed. Please note: Queries are made part of the Legal Health Record. If you have any questions, please contact the author of this message via ITS. Dr. Saeed Mitchell Conflicting documentation has been found in the medical record. As attending physician, please provide clarification. Per ID consult and Progress Notes "Patient with SOB more likely COPD exacerbation clinic not behaving as pneumonia as the patient did have normal procalcitonin continue with steroids and Bronchodilators per pulmonology. Per Progress Note 10/17 "CT suggested bilateral lower lobe pneumonia per pulmonology." "Bilateral lower lobe pneumonia improving and the patient is currently on IV Rocephin." History/Risk Factors: COPD exacerbation, pulmonary fibrosis, elevated WBC, former smoker. Acute and chronic hypoxic and hypercapnic respiratory failure Clinical Indicators: CT scan of chest concerning for possible infectious etiology. CT suggested bilateral lower lobe pneumonia. Treatment: Rocephin Please clarify which diagnosis is most appropriate: [ X] Pneumonia [ ] Pneumonia ruled out [ ] Other (please specify) [ ] Unable to determine MTDD
== END 2022-10-19 13:52 | disposition home or self-care (01) | DRG 190 ==
LOC: EC 10:42 → 3SCARD 13:48 → 4SSUR 10-12 11:47
PROVIDERS: ADMIT Family Medicine; ATTEND Family Medicine
PROC: 5A09357 Assistance with Respiratory Ventilation, Less than 24 Consecutive Hours, Continuous Positive Airway Pressure (ICD-10-PCS; principal; 2022-10-11)
DX: J44.1 Chronic obstructive pulmonary disease with (acute) exacerbation (principal); I50.31 Acute diastolic (congestive) heart failure; J18.9 Pneumonia, unspecified organism; J96.01 Acute respiratory failure with hypoxia; E87.1 Hypo-osmolality and hyponatremia; J44.0 Chronic obstructive pulmonary disease with (acute) lower respiratory infection; Z87.891 Personal history of nicotine dependence; J84.10 Pulmonary fibrosis, unspecified; K21.9 Gastro-esophageal reflux disease without esophagitis; Z91.81 History of falling; D72.829 Elevated white blood cell count, unspecified; I08.3 Combined rheumatic disorders of mitral, aortic and tricuspid valves; I11.0 Hypertensive heart disease with heart failure; Z79.890 Hormone replacement therapy; Z85.01 Personal history of malignant neoplasm of esophagus; Z79.899 Other long term (current) drug therapy
CPT/HCPCS: 36415; 71045; 71260; 80048; 80053; 83036; 83519; 83605; 83735; 83880; 83930; 83935; 84145; 84300; 84443; 84484; 85025; 85027; 85379; 85610; 85730; 86140; 87040; 87070; 87077; 87186; 87205; 93005; 93306; 94640; 94660; 94760; 96374; 96375; 96376; 99291

== ENCOUNTER 2022-11-01 11:05 | Inpatient (IN) | payer MEDICARE ==
--- NOTE | 2022-11-01 11:50 | XR ---
EXAMINATION TYPE: XR chest 1V portable DATE OF EXAM: 11/01/2022 COMPARISON: 10/11/2022, 10/18/2022, 11/01/2022 at 1022 HISTORY: Shortness of breath TECHNIQUE: Single frontal view of the chest is obtained. FINDINGS: The lungs are hyperinflated and there is flattening of the diaphragm compatible with COPD. There is diffuse bilateral increased interstitial prominence. Small bilateral pleural effusions or p leural thickening, unchanged. Increased right paraspinal opacity compatible with known gastric pull-t hrough. The heart is not enlarged. No pneumothorax. No acute osseous abnormality. IMPRESSION: COPD with increased bilateral interstitial opacities which have been present on multiple recent radiographs. There are no significant changes compared to recent examinations.
[2022-11-01] MEDS ORDERED: FUROSEMIDE 10 MG/ML 4 ML VIAL IV STA (12:00)
[2022-11-01] MEDS ORDERED: methylPREDNISolone SOD SUCCI 125 MG/2 ML VIAL IV STA (12:00)
[2022-11-01] MEDS ORDERED: IPRATROPIUM-ALBUTEROL 3 ML NEB INHALATION STA (12:00)
[2022-11-01 12:02] LABS: Basophils % (A) 0 %; Eosinophils # (A) 0.2 k/uL (0-0.7); Eosinophils % (A) 1 %; HCT 39.4 % (39.0-53.0); HGB 12.7 gm/dL (13.0-17.5); Lymphocytes # (A) 1.6 k/uL (1.0-4.8); Lymphocytes % (A) 12 %; MCH 31.7 pg (25.0-35.0); MCHC 32.2 g/dL (31.0-37.0); MCV 98.5 fL (80.0-100.0); Mean Platelet Volume 6.8; Monocytes # (A) 0.8 k/uL (0-1.0); Monocytes % (A) 5 %; Neutrophils # (A) 10.9 k/uL (1.3-7.7); Neutrophils % (A) 80 %; Platelet Count 281 k/uL (150-450); RBC 4.01 m/uL (4.30-5.90); RDW 13.5 % (11.5-15.5); WBC 13.7 k/uL (3.8-10.6)
[2022-11-01 12:14] LABS: ALT 146 U/L (4-49); AST 127 U/L (17-59); African American GFR (CKD) >90 (>60 ml/min/1.73 sqM); Albumin 3.4 g/dL (3.5-5.0); Alkaline Phosphatase 91 U/L (38-126); Anion Gap 8 mmol/L; Blood Urea Nitrogen 24 mg/dL (9-20); Carbon Dioxide 26 mmol/L (22-30); Chloride 98 mmol/L (98-107); Glucose 77 mg/dL (74-99); Non-African American GFR(CKD) >90 (>60 ml/min/1.73 sqM); Potassium 4.3 mmol/L (3.5-5.1); Sodium 132 mmol/L (137-145); Total Bilirubin 0.5 mg/dL (0.2-1.3); Total Protein 5.9 g/dL (6.3-8.2)
[2022-11-01 12:21] LABS: INR 0.9 (<1.2); Partial Thromboplastin Time 22.2 sec (22.0-30.0); Prothrombin Time 9.9 sec (9.0-12.0)
[2022-11-01 13:14] LABS: VBG PH 7.33 (7.31-7.41)
--- NOTE | 2022-11-01 13:45 | ED ---
General Adult HPI - General Chief complaint: Shortness of Breath Stated complaint: MIREYA Time Seen by Provider: 11/01/22 11:19 Source: patient, RN notes reviewed Mode of arrival: ambulatory Limitations: no limitations - History of Present Illness Initial comments: 76 year old male presents emergency from chief complaint shortness of breath. Patient was sent in by Dr. Hudson for evaluation of worsening shortness breath. Patient states is following up from his recent hospitalization. Patient started having increasing shortness breath last to 3 days. Patient does have underlying COPD, CHF, A. fib. Patient denies any chest pain states is tight. N o leg swelling denies anything or weight gain. Patient states he cannot complete a full sentence without feeling short of breath for states he cannot lay down. - Related Data Home Medications Medication Instructions Recorded Confirmed Omeprazole [PriLOSEC] 20 mg PO DAILY 06/18/14 11/01/22 Tiotropium [place] [Spiriva] 1 puff INHALATION RT-DAILY 06/18/14 11/01/22 Cyanocobalamin (Vitamin B-12) 1,000 mcg PO DAILY 04/19/20 11/01/22 [Vitamin B-12] Levothyroxine Sodium 25 mcg PO DAILY 04/19/20 11/01/22 Zinc 50 mg PO DAILY 04/19/20 11/01/22 Ascorbic Acid [Vitamin C] 1,000 mg PO DAILY 10/11/22 11/01/22 Ferrous Sulfate [Iron (65 MG 325 mg PO DAILY 10/11/22 11/01/22 Elemental)] Folate 666mcg 1 tab PO DAILY 10/11/22 11/01/22 Magnesium 250 mg PO DAILY 10/11/22 11/01/22 Metoprolol Tartrate [Lopressor] 12.5 mg PO HS 10/11/22 11/01/22 Metoprolol Tartrate [Lopressor] 25 mg PO DAILY 10/11/22 11/01/22 [place]-3 Fatty Acids [[place]-3] 1,000 mg PO DAILY 10/11/22 11/01/22 Sodium Chloride Tab 1 gm PO DAILY 10/11/22 11/01/22 Budesonide 0.5 mg INHALATION RT-BID 11/01/22 11/01/22 Furosemide [Lasix] 20 mg PO MOTH 11/01/22 11/01/22 Multivit-Min/FA/Lycopen/Lutein 1 tab PO DAILY 11/01/22 11/01/22 [Centrum Silver Tablet] Potassium Chloride [Klor-Con M10] 10 meq PO MOTH 11/01/22 11/01/22 Previous Rx's Medication Instructions Recorded Ipratropium-Albuterol Nebulize 3 ml INHALATION RT-QID #120 ml 04/25/20 [Duoneb 0.5 mg-3 mg/3 ml Soln] Allergies Allergy/AdvReac Type Severity Reaction Status Date / Time No Known Allergies Allergy Verified 11/01/22 13:29 Review of Systems ROS Statement: Those systems with pertinent positive or pertinent negative responses have been documented in the HPI. ROS Other: All systems not noted in ROS Statement are negative. Past Medical History Past Medical History: Cancer, COPD, GERD/Reflux Additional Past Medical History / Comment(s): esophageal cancer, cataracts, History of Any Multi-Drug Resistant Organisms: None Reported Additional Past Surgical History / Comment(s): esophageal surgery, Past Psychological History: No Psychological Hx Reported Smoking Status: Former smoker Past Alcohol Use History: Daily Past Drug Use History: None Reported General Exam Limitations: no limitations General appearance: alert, in no apparent distress, anxious Head exam: Present: atraumatic, normocephalic, normal inspection Eye exam: Present: normal appearance, PERRL, EOMI. Absent: scleral icterus, conjunctival injection, periorbital swelling ENT exam: Present: normal exam, normal oropharynx, mucous membranes moist Neck exam: Present: normal inspection, full ROM. Absent: tenderness, meningismus, lymphadenopathy Respiratory exam: Present: respiratory distress, wheezes, accessory muscle use. Absent: normal lung sounds bilaterally, rales, rhonchi, stridor Cardiovascular Exam: Present: tachycardia, irregular rhythm, normal heart sounds. Absent: normal rhythm, systolic murmur, diastolic murmur, rubs, gallop, clicks Course Vital Signs 11/01/22 11/01/22 11/01/22 11:12 11:20 11:40 Temperature 98 F Pulse Rate 72 Respiratory 26 H 18 Rate Blood Pressure 107/72 O2 Sat by Pulse 99 Oximetry Fraction of 40 Inspired Oxygen (FIO2) 11/01/22 11/01/22 11/01/22 12:00 12:17 12:30 Temperature Pulse Rate 75 101 H 102 H Respiratory 16 25 H 22 Rate Blood Pressure 114/97 O2 Sat by Pulse 99 Oximetry Fraction of Inspired Oxygen (FIO2) EKG Findings - EKG Comments: EKG Findings:: EKG performed at 11:20 4H fibrillation with RVR rate of 104 QRS 88 QT /QTC 337/398 - EKG Results: EKG: interpreted by LEE Medical Decision Making - Medical Decision Making Was pt. sent in by a medical professional or institution (, PA, LIFT TRUCK OPERATOR, urgent care, hospital, or longterm...) When possible be specific @ -Fire Prevention Bureau Captain Dr. Concepcion Did you speak to anyone other than the patient for history (EMS, parent, family, police, friend...)? What history was obtained from this source @ -No Did you review nursing and triage notes (agree or disagree)? Why? @ -I reviewed and agree with nursing and triage notes Were old charts reviewed (outside hosp., previous admission, EMS record, old EKG, old radiological studies, urgent care reports/EKG's, longterm records)? Report findings @ -Reviewed recent hospitalization: Labs, imaging Differential Diagnosis (chest pain, altered mental status, abdominal pain women, abdominal pain men, vaginal bleeding, weakness, fever, dyspnea, syncope, headach e, dizziness, GI bleed, back pain, seizure, CVA, palpatations, mental health, musculoskeletal)? @ -Differential Dyspnea: Coronary syndrome, arrhythmia, tamponade, asthma, COPD, pulmonary embolism, pneumonia, pneumothorax, pulmonary effusion, anaphylaxis, diabetic ketoacidosis, flailed chest, pulmonary contusion, diaphragmatic rupture, anemia, neuromuscular, this is not meant to be an all-inclusive list. e EKG interpreted by me (3pts min.). @ -As above X-rays interpreted by me (1pt min.). @ -Chest x-ray shows COPD changes, mild CHF changes CT interpreted by me (1pt min.). @ -None done U/S interpreted by me (1pt. min.). @ -None done What testing was considered but not performed or refused? (CT, X-rays, U/S, labs)? Why? @ -None What meds were considered but not given or refused? Why? @ -None Did you discuss the management of the patient with other professionals (professionals i.e. , PA, LIFT TRUCK OPERATOR, lab, RT, psych nurse, social services manager, manager music, teacher, enforcement safety officer, lining caser)? Give summary @ -Admitting physician with consult to pulmonology Was smoking cessation discussed for >3mins.? @ -No Was critical care preformed (if so, how long)? @ -35 Were there social determinants of health that impacted care today? How? (Homelessness, low income, unemployed, alcoholism, drug addiction, transportation, low edu. Level, literacy, decrease access to med. care, [facility], rehab)? @ -No Was there de-escalation of care discussed even if they declined (Discuss DNR or withdrawal of care, Hospice)? DNR status @ -No What co-morbidities impacted this encounter? (DM, HTN, Smoking, COPD, CAD, Cancer, CVA, ARF, Chemo, Hep., AIDS, mental health diagnosis, sleep apnea, morbid obesity)? @ -Copd, A. fib, CHF Was patient admitted / discharged? Hospital course, mention meds given and route, prescriptions, significant lab abnormalities, going to OR and other pertinent info. @ -Admitted patient is found to be in acute respiratory distress, patient was immediately placed on BiPAP on arrival patient did have labs, EKG, chest x-ray. Patient is improving. Patient was given Solu-Medrol, DuoNeb treatment, Lasix. Patient continues to have tachycardia patient is on metoprolol was given farooq tional dose emergency from. Patient will be admitted to stepdown with consults. Undiagnosed new problem with uncertain prognosis? @ -No Drug Therapy requiring intensive monitoring for toxicity (Heparin, Nitro, Insulin, Cardizem)? @ -No Were any procedures done? @ -No Diagnosis/symptom? @ -COPD exacerbation Acute, or Chronic, or Acute on Chronic? @ -[Acute on chronic Uncomplicated (without systemic symptoms) or Complicated (systemic symptoms)? @ -Complicated Side effects of treatment? @ -No Exacerbation, Progression, or Severe Exacerbation? @ -[Exacerbation Poses a threat to life or bodily function? How? (Chest pain, [place], [place], pneumonia, PE, COPD, DKA, ARF, appy, cholecystitis, CVA, Diverticulitis, Homicidal, Suicidal, threat to staff... and all critical care pts) @ -Yes respiratory distress may lead to respiratory failure Diagnosis/symptom? @ -A. fib, CHF Acute, or Chronic, or Acute on Chronic? @ -Acute on chronic Uncomplicated (without systemic symptoms) or Complicated (systemic symptoms)? @ -Comp. Side effects of treatment? @ -none Exacerbation, Progression, or Severe Exacerbation @ -no Poses a threat to life or bodily function? @ -no - Lab Data Result diagrams: 11/01/22 11:53 11/01/22 11:53 Lab Results 11/01/22 11/01/22 11/01/22 Range/Units 11:53 11:53 11:53 WBC 13.7 H (3.8-10.6) k/uL RBC 4.01 L (4.30-5.90) m/uL Hgb 12.7 L (13.0-17.5) gm/dL Hct 39.4 (39.0-53.0) % MCV 98.5 (80.0-100.0) fL MCH 31.7 (25.0-35.0) pg MCHC 32.2 (31.0-37.0) g/dL RDW 13.5 (11.5-15.5) % Plt Count 281 (150-450) k/uL MPV 6.8 Neutrophils % 80 % Lymphocytes % 12 % Monocytes % 5 % Eosinophils % 1 % Basophils % 0 % Neutrophils # 10.9 H (1.3-7.7) k/uL Lymphocytes # 1.6 (1.0-4.8) k/uL Monocytes # 0.8 (0-1.0) k/uL Eosinophils # 0.2 (0-0.7) k/uL Basophils # 0.0 (0-0.2) k/uL PT 9.9 (9.0-12.0) sec INR 0.9 (<1.2) APTT 22.2 (22.0-30.0) sec VBG pH (7.31-7.41) VBG pCO2 (37-51) mmHg VBG HCO3 (24-28) mmol/L Sodium 132 L (137-145) mmol/L Potassium 4.3 (3.5-5.1) mmol/L Chloride 98 (98-107) mmol/L Carbon Dioxide 26 (22-30) mmol/L Anion Gap 8 mmol/L BUN 24 H (9-20) mg/dL Creatinine 0.64 L (0.66-1.25) mg/dL Est GFR (CKD-EPI)AfAm >90 (>60 ml/min/1.73 sqM) Est GFR (CKD-EPI)NonAf >90 (>60 ml/min/1.73 sqM) Glucose 77 (74-99) mg/dL Calcium 8.0 L (8.4-10.2) mg/dL Total Bilirubin 0.5 (0.2-1.3) mg/dL AST 127 H (17-59) U/L ALT 146 H (4-49) U/L Alkaline Phosphatase 91 (38-126) U/L Troponin I (0.000-0.034) ng/mL NT-Pro-B Natriuret Pep pg/mL Total Protein 5.9 L (6.3-8.2) g/dL Albumin 3.4 L (3.5-5.0) g/dL 11/01/22 11/01/22 11/01/22 Range/Units 11:53 11:53 12:58 WBC (3.8-10.6) k/uL RBC (4.30-5.90) m/uL Hgb (13.0-17.5) gm/dL Hct (39.0-53.0) % MCV (80.0-100.0) fL MCH (25.0-35.0) pg MCHC (31.0-37.0) g/dL RDW (11.5-15.5) % Plt Count (150-450) k/uL MPV Neutrophils % % Lymphocytes % % Monocytes % % Eosinophils % % Basophils % % Neutrophils # (1.3-7.7) k/uL Lymphocytes # (1.0-4.8) k/uL Monocytes # (0-1.0) k/uL Eosinophils # (0-0.7) k/uL Basophils # (0-0.2) k/uL PT (9.0-12.0) sec INR (<1.2) APTT (22.0-30.0) sec VBG pH 7.33 (7.31-7.41) VBG pCO2 56 H (37-51) mmHg VBG HCO3 29 H (24-28) mmol/L Sodium (137-145) mmol/L Potassium (3.5-5.1) mmol/L Chloride (98-107) mmol/L Carbon Dioxide (22-30) mmol/L Anion Gap mmol/L BUN (9-20) mg/dL Creatinine (0.66-1.25) mg/dL Est GFR (CKD-EPI)AfAm (>60 ml/min/1.73 sqM) Est GFR (CKD-EPI)NonAf (>60 ml/min/1.73 sqM) Glucose (74-99) mg/dL Calcium (8.4-10.2) mg/dL Total Bilirubin (0.2-1.3) mg/dL AST (17-59) U/L ALT (4-49) U/L Alkaline Phosphatase (38-126) U/L Troponin I <0.012 (0.000-0.034) ng/mL NT-Pro-B Natriuret Pep 1270 pg/mL Total Protein (6.3-8.2) g/dL Albumin (3.5-5.0) g/dL Critical Care Time Critical Care Time: No Total Critical Care Time: 35 Disposition Clinical Impression: Acute exacerbation of chronic obstructive pulmonary disease, Acute respiratory distress syndrome in adult, Congestive heart failure, Atrial fibrillation with RVR Disposition: ADMITTED IP TO THIS HOSP Condition: Poor Referrals: Izabella Caal MD [Primary Care Provider] - 1-2 days Time of Disposition: 13:45
[2022-11-01] MEDS ORDERED: NALOXONE 0.4 MG/ML 1 ML VIAL IVP PRN (13:46)
[2022-11-01] MEDS ORDERED: IPRATROPIUM-ALBUTEROL 3 ML NEB INHALATION PRN (13:46)
[2022-11-01] MEDS ORDERED: ACETAMINOPHEN TAB 325 MG TAB PO PRN (13:46)
[2022-11-01] MEDS ORDERED: METOPROLOL TARTRATE 5 MG/5 ML VIAL IVP STA (13:52)
[2022-11-01] MEDS ORDERED: IPRATROPIUM 0.5 MG/2.5 ML NEBU INHALATION PRN (14:15)
[2022-11-01] MEDS ORDERED: ALBUTEROL NEBULIZED 2.5 MG/3 ML INHALATION PRN (14:15)
[2022-11-01] MEDS: POTASSIUM CHLORIDE ER 10 MEQ TAB.ER.PRT PO SCH (15:37)
[2022-11-01] MEDS: IPRATROPIUM 0.5 MG/2.5 ML NEBU INHALATION SCH ×2 (15:59→20:41)
[2022-11-01] MEDS: ALBUTEROL NEBULIZED 2.5 MG/3 ML INHALATION SCH ×2 (15:59→20:41)
[2022-11-01] MEDS ORDERED: IPRATROPIUM-ALBUTEROL 3 ML NEB INHALATION SCH (16:00)
[2022-11-01] MEDS: methylPREDNISolone SOD SUCCI 125 MG/2 ML VIAL IV SCH (17:25)
[2022-11-01] MEDS ORDERED: BUDESONIDE 0.5 MG/2 ML NEBU INHALATION SCH (20:00)
[2022-11-01 20:06] LABS: Glucose,Whole Blood 165 mg/dL (70-110)
[2022-11-01] MEDS: BUDESONIDE 1 MG/2 ML NEBU INHALATION SCH (20:40)
[2022-11-01] MEDS: FORMOTEROL FUMARATE 20 MCG/2 ML NEBU INHALATION SCH (20:40)
[2022-11-01] MEDS: METOPROLOL TARTRATE 12.5 MG TAB PO SCH (21:40)
[2022-11-02] MEDS: methylPREDNISolone SOD SUCCI 125 MG/2 ML VIAL IV SCH ×5 (00:28→23:30)
[2022-11-02 06:18] LABS: Glucose,Whole Blood 139 mg/dL (70-110)
[2022-11-02] MEDS ORDERED: IPRATROPIUM-ALBUTEROL 3 ML NEB INHALATION PRN (06:50)
[2022-11-02] MEDS: LEVOTHYROXINE 25 MCG TAB PO SCH (06:59)
[2022-11-02] MEDS: PANTOPRAZOLE 40 MG TABLET PO SCH (06:59)
[2022-11-02] MEDS: ASCORBIC ACID 500 MG TAB PO SCH (08:55)
[2022-11-02] MEDS: FOLIC ACID 1 MG TAB PO SCH (08:55)
[2022-11-02] MEDS: MAGNESIUM OXIDE 400 MG TAB PO SCH (08:55)
[2022-11-02] MEDS: METOPROLOL TARTRATE 25 MG TAB PO SCH (08:55)
[2022-11-02] MEDS: FERROUS SULFATE 325 MG TAB PO SCH (08:55)
[2022-11-02] MEDS: ZINC SULFATE 220 MG CAP PO SCH (08:55)
[2022-11-02] MEDS: SODIUM CHLORIDE TAB 1 GM TAB PO SCH (08:55)
[2022-11-02] MEDS: BUDESONIDE 1 MG/2 ML NEBU INHALATION SCH ×2 (09:25→21:21)
[2022-11-02] MEDS: FORMOTEROL FUMARATE 20 MCG/2 ML NEBU INHALATION SCH ×2 (09:25→21:21)
[2022-11-02] MEDS: IPRATROPIUM-ALBUTEROL 3 ML NEB INHALATION SCH ×4 (09:25→21:21)
[2022-11-02] MEDS: TIOTROPIUM 2.5 MCG INHALER INHALATION SCH (09:25)
[2022-11-02] MEDS: AZITHROMYCIN 500 MG TAB PO SCH (11:08)
--- NOTE | 2022-11-02 11:14 | P.CNPUL ---
History of Present Illness Consult date: 11/02/22 Requesting physician: Roxana Mitchell Reason for consult: dyspnea, cough, COPD, hypoxemia, abnormal CXR/CT Chief complaint: Shortness of breath. History of present illness: Pulmonary consult dated 11/02/2022. 76-year-old male who was seen by my partner in the office, and sent to the emergency room. We saw him briefly yesterday, did not do a consult on him yesterday. The patient was admitted to the hospital with a diagnosis of COPD exacerbation. He came in complaining of shortness of breath, cough, chest congestion, wheezing, and occasional phlegm production. He does have history of underlying COPD, THF, atrial fibrillation, and esophageal cancer. Currently, the patient appears to be doing reasonably well. He is on 5 L nasal cannula, turned down to 3 L. He's not receiving any IV fluids. He did not use of BiPAP device. When we saw him in the emergency room yesterday, he was on BiPAP, with settings of 10/5 and 40%. His chest x-ray was unchanged. He was seen in room 5, in the emergency department. White count 13.7, hemoglobin 12.7, hematocrit 39.4, and platelet count 281,000. Coagulation studies were normal. Venous blood gases show a pCO2 of 56, and a pH is 7.33. Sodium 132, potassium 4.3, chlorides 98, CO2 26, BUN 24, and creatinine 0.64. Calcium was 8. AST was 127 with an ALT 146. N-terminal proBNP was 1270. The patient's chest x-ray was consistent with COPD, and some increased interstitial opacities, which are not new. Review of Systems REVIEW OF SYSTEMS: CONSTITUTIONAL: [Negative.] NEUROLOGIC: [ Negative.] HEENT: [ Negative.] CARDIAC: [Negative.] PULMONARY: Shortness of breath, chest congestion, and cough. GI: [Negative.] : [Negative.] RHEUMATOLOGIC: [ Negative.] IMMUNOLOGIC: [ Negative.] ENDOCRINE: [Negative. ] DERMATOLOGIC: [Negative.] Past Medical History Past Medical History: Cancer, COPD, GERD/Reflux Additional Past Medical History / Comment(s): esophageal cancer, cataracts, History of Any Multi-Drug Resistant Organisms: None Reported Additional Past Surgical History / Comment(s): esophageal surgery, Past Psychological History: No Psychological Hx Reported Smoking Status: Former smoker Past Alcohol Use History: Daily Past Drug Use History: None Reported Medications and Allergies Home Medications Medication Instructions Recorded Confirmed Type Omeprazole [PriLOSEC] 20 mg PO DAILY 06/18/14 11/01/22 History Tiotropium [place] [Spiriva] 1 puff INHALATION RT-DAILY 06/18/14 11/01/22 History Cyanocobalamin (Vitamin B-12) 1,000 mcg PO DAILY 04/19/20 11/01/22 History [Vitamin B-12] Levothyroxine Sodium 25 mcg PO DAILY 04/19/20 11/01/22 History Zinc 50 mg PO DAILY 04/19/20 11/01/22 History Ipratropium-Albuterol Nebulize 3 ml INHALATION RT-QID #120 ml 04/25/20 11/01/22 Rx [Duoneb 0.5 mg-3 mg/3 ml Soln] Ascorbic Acid [Vitamin C] 1,000 mg PO DAILY 10/11/22 11/01/22 History Ferrous Sulfate [Iron (65 MG 325 mg PO DAILY 10/11/22 11/01/22 History Elemental)] Folate 666mcg 1 tab PO DAILY 10/11/22 11/01/22 History Magnesium 250 mg PO DAILY 10/11/22 11/01/22 History Metoprolol Tartrate [Lopressor] 12.5 mg PO HS 10/11/22 11/01/22 History Metoprolol Tartrate [Lopressor] 25 mg PO DAILY 10/11/22 11/01/22 History [place]-3 Fatty Acids [[place]-3] 1,000 mg PO DAILY 10/11/22 11/01/22 History Sodium Chloride Tab 1 gm PO DAILY 10/11/22 11/01/22 History Budesonide 0.5 mg INHALATION RT-BID 11/01/22 11/01/22 History Furosemide [Lasix] 20 mg PO MOTH 11/01/22 11/01/22 History Multivit-Min/FA/Lycopen/Lutein 1 tab PO DAILY 11/01/22 11/01/22 History [Centrum Silver Tablet] Potassium Chloride [Klor-Con M10] 10 meq PO MOTH 11/01/22 11/01/22 History Allergies Allergy/AdvReac Type Severity Reaction Status Date / Time No Known Allergies Allergy Verified 11/01/22 13:29 Physical Exam Osteopathic Statement: *. No significant issues noted on an osteopathic structural exam other than those noted in the History and Physical/Consult. Vitals: Vital Signs Temp Pulse Pulse Resp BP BP Pulse Ox 11/02/22 09:48 90 11/02/22 09:36 88 11/02/22 09:35 88 11/02/22 09:25 90 97 11/02/22 08:00 98.0 F 82 20 118/68 100 11/02/22 04:00 97.8 F 98 22 121/79 99 11/02/22 02:00 98 20 11/02/22 00:00 99 20 125/63 98 11/01/22 21:05 88 11/01/22 20:48 84 11/01/22 20:00 98 F 98 22 121/71 96 11/01/22 18:10 121 H 16 95/42 95 11/01/22 16:21 115 H 18 126/70 98 11/01/22 16:00 123 H 121 H 19 126/86 95/42 95 11/01/22 15:44 100 22 11/01/22 15:25 135 H 24 102/79 99 11/01/22 12:30 102 H 22 11/01/22 12:17 101 H 25 H 11/01/22 12:00 75 16 114/97 99 11/01/22 11:40 11/01/22 11:20 18 11/01/22 11:12 98 F 72 26 H 107/72 99 FiO2 11/02/22 09:48 11/02/22 09:36 11/02/22 09:35 11/02/22 09:25 11/02/22 08:00 11/02/22 04:00 11/02/22 02:00 11/02/22 00:00 11/01/22 21:05 11/01/22 20:48 11/01/22 20:00 40 11/01/22 18:10 40 11/01/22 16:21 11/01/22 16:00 40 11/01/22 15:44 40 11/01/22 15:25 11/01/22 12:30 11/01/22 12:17 11/01/22 12:00 11/01/22 11:40 40 11/01/22 11:20 11/01/22 11:12 Intake and Output 11/01/22 11/02/22 11/02/22 22:59 06:59 14:59 Intake Total 118 Output Total 500 300 Balance -500 -300 118 Intake: Oral 118 Output: Urine 500 300 Other: Voiding Method Urinal Urinal Urinal Weight 60.781 kg No acute distress, oriented 3. Currently on nasal oxygen at 3 L. No obvious respiratory distress, conversational dyspnea, or audible wheezing. HEENT examination is grossly unremarkable. Neck supple. Full range of motion. No adenopathy thyromegaly or neck vein distention. Cardiovascular examination reveals regular rhythm rate. S1-S2 normal. No S3 or S4. No discernible murmur noted. Heart sounds are distant. Heart rate 90 bpm. Lungs reveal scattered inspiratory and expiratory rhonchi and expiratory wheezes. No crackles. Breath sounds are equal. Slight prolongation on forced maneuver. Saturations are 97% on 3 L. Abdomen soft bowel sounds are heard. No masses or tenderness. Extremities are intact. No cyanosis clubbing or edema. Skin is without rash or lesion. Neurologic examination is brief but nonfocal. Results - Laboratory Findings CBC and BMP: 11/01/22 11:53 11/01/22 11:53 PT/INR, D-dimer PT 9.9 sec (9.0-12.0) 11/01/22 11:53 INR 0.9 (<1.2) 11/01/22 11:53 Abnormal lab findings: Abnormal Labs 11/01/22 11/01/22 11/01/22 11:53 11:53 12:58 WBC 13.7 H RBC 4.01 L Hgb 12.7 L Neutrophils # 10.9 H VBG pCO2 56 H VBG HCO3 29 H Sodium 132 L BUN 24 H Creatinine 0.64 L POC Glucose (mg/dL) Calcium 8.0 L AST 127 H ALT 146 H Total Protein 5.9 L Albumin 3.4 L 11/01/22 11/02/22 20:05 06:17 WBC RBC Hgb Neutrophils # VBG pCO2 VBG HCO3 Sodium BUN Creatinine POC Glucose (mg/dL) 165 H 139 H Calcium AST ALT Total Protein Albumin - Diagnostic Findings Chest x-ray: image reviewed Assessment and Plan Assessment: Acute hypoxemic respiratory failure, secondary to COPD exacerbation, without obvious pneumonia. History of esophageal cancer, previous esophageal surgery. History of gastroesophageal reflux disease. Prior history of heavy tobacco use. Plan: Plan dated 11/02/2022. The patient appears to be improving. Yesterday in the emergency room, he was on BiPAP. He was converted to nasal oxygen at 5 L, and now has been weaned down to 3 L. Labs, x-rays, and medications are all reviewed. Chest x-ray shows nothing acute. Currently, the patient is on azithromycin, Pulmicort updrafts, formoterol updrafts, doing nebs, and Solu-Medrol. We will continue to follow and make recommendations along the way. Prognosis is guarded. Time with Patient: Greater than 30
[2022-11-02 11:39] LABS: Glucose,Whole Blood 143 mg/dL (70-110)
[2022-11-02 12:22] VITALS: BMI 18.1
--- NOTE | 2022-11-02 13:40 | P.CONS ---
History of Present Illness - Reason for Consult Consult date: 11/02/22 goals of care Requesting physician: Alvaro Trevino - Chief Complaint Shortness of breath - History of Present Illness She is a 76-year-old male with a past medical history significant for esophageal cancer, COPD, CHF, A. fib, and GERD. He presented to the emergency department on 11/01/22 with complaints of shortness of breath. Patient was sent in by Dr. Hudson for evaluation of worsening shortness breath. The patient was at his follow up appointment after his recent hospitalization for a COPD exacerbation from 10/11-10/19. The patient started having increasing shortness breath last to 3 days. He denied any chest pain. Peripheral edema or weight gain. Patient reports conversational dyspnea and orthopnea. He was put on BiPAP 40% 05/16 in the emergency department. Chest x-ray shows chronic changes with small to tiny left pleural effusion and left basilar consolidation and/or atelectasis. BNP was 1270, WBC 13.7, hemoglobin 12.7, VBG shows a pH of 7.33 and a pCO2 of 56. Review of Systems Constitutional: Denies chills, Denies fever Cardiovascular: Reports orthopnea, Reports shortness of breath, Denies chest pain Respiratory: Reports cough, Reports dyspnea Gastrointestinal: Denies abdominal pain Past Medical History Past Medical History: Cancer, COPD, GERD/Reflux Additional Past Medical History / Comment(s): esophageal cancer, cataracts, History of Any Multi-Drug Resistant Organisms: None Reported Additional Past Surgical History / Comment(s): esophageal surgery, Past Psychological History: No Psychological Hx Reported Smoking Status: Former smoker Past Alcohol Use History: Daily Past Drug Use History: None Reported Medications and Allergies Home Medications Medication Instructions Recorded Confirmed Type Omeprazole [PriLOSEC] 20 mg PO DAILY 06/18/14 11/01/22 History Tiotropium [place] [Spiriva] 1 puff INHALATION RT-DAILY 06/18/14 11/01/22 History Cyanocobalamin (Vitamin B-12) 1,000 mcg PO DAILY 04/19/20 11/01/22 History [Vitamin B-12] Levothyroxine Sodium 25 mcg PO DAILY 04/19/20 11/01/22 History Zinc 50 mg PO DAILY 04/19/20 11/01/22 History Ipratropium-Albuterol Nebulize 3 ml INHALATION RT-QID #120 ml 04/25/20 11/01/22 Rx [Duoneb 0.5 mg-3 mg/3 ml Soln] Ascorbic Acid [Vitamin C] 1,000 mg PO DAILY 10/11/22 11/01/22 History Ferrous Sulfate [Iron (65 MG 325 mg PO DAILY 10/11/22 11/01/22 History Elemental)] Folate 666mcg 1 tab PO DAILY 10/11/22 11/01/22 History Magnesium 250 mg PO DAILY 10/11/22 11/01/22 History Metoprolol Tartrate [Lopressor] 12.5 mg PO HS 10/11/22 11/01/22 History Metoprolol Tartrate [Lopressor] 25 mg PO DAILY 10/11/22 11/01/22 History [place]-3 Fatty Acids [[place]-3] 1,000 mg PO DAILY 10/11/22 11/01/22 History Sodium Chloride Tab 1 gm PO DAILY 10/11/22 11/01/22 History Budesonide 0.5 mg INHALATION RT-BID 11/01/22 11/01/22 History Furosemide [Lasix] 20 mg PO MOTH 11/01/22 11/01/22 History Multivit-Min/FA/Lycopen/Lutein 1 tab PO DAILY 11/01/22 11/01/22 History [Centrum Silver Tablet] Potassium Chloride [Klor-Con M10] 10 meq PO MOTH 11/01/22 11/01/22 History Allergies Allergy/AdvReac Type Severity Reaction Status Date / Time No Known Allergies Allergy Verified 11/01/22 13:29 Physical Exam Vitals: Vital Signs Temp Pulse Pulse Resp BP BP Pulse Ox 11/02/22 12:35 90 11/02/22 12:17 88 11/02/22 09:48 90 11/02/22 09:36 88 11/02/22 09:35 88 11/02/22 09:25 90 97 11/02/22 08:00 98.0 F 82 20 118/68 100 11/02/22 04:00 97.8 F 98 22 121/79 99 11/02/22 02:00 98 20 11/02/22 00:00 99 20 125/63 98 11/01/22 21:05 88 11/01/22 20:48 84 11/01/22 20:00 98 F 98 22 121/71 96 11/01/22 18:10 121 H 16 95/42 95 11/01/22 16:21 115 H 18 126/70 98 11/01/22 16:00 123 H 121 H 19 126/86 95/42 95 11/01/22 15:44 100 22 11/01/22 15:25 135 H 24 102/79 99 FiO2 11/02/22 12:35 11/02/22 12:17 11/02/22 09:48 11/02/22 09:36 11/02/22 09:35 11/02/22 09:25 11/02/22 08:00 11/02/22 04:00 11/02/22 02:00 11/02/22 00:00 11/01/22 21:05 11/01/22 20:48 11/01/22 20:00 40 11/01/22 18:10 40 11/01/22 16:21 11/01/22 16:00 40 11/01/22 15:44 40 11/01/22 15:25 Intake and Output 11/01/22 11/02/22 11/02/22 22:59 06:59 14:59 Intake Total 118 Output Total 500 300 Balance -500 -300 118 Intake: Oral 118 Output: Urine 500 300 Other: Voiding Method Urinal Urinal Urinal Weight 60.781 kg 60.781 kg General: No acute distress. Chronically ill appearing. Appears stated age. HEENT: Head is atraumatic, normocephalic. Sclera are clear. Mucus membranes moist. CV: Heart regular in rate and rhythm positive S1 and S2. No peripheral edema Lungs: Respirations even and nonlabored. On 2L NC. Abdomen/GI: Soft, nondistended, nontender. : No suprapubic tenderness. Musculoskeletal/ Extremities: No joint deformity or swelling. No contractures or gross atrophy. + generalized weakness Skin: Warm and dry Neurologic: Awake, alert and oriented times 3. CN II-XII grossly intact. No focal deficits. Psychiatric: Appropriate mood and affect. Results CBC & Chem 7: 11/01/22 11:53 11/01/22 11:53 Labs: Abnormal Lab Results - Last 24 Hours (Table) 11/01/22 11/01/22 11/02/22 Range/Units 12:58 20:05 06:17 VBG pCO2 56 H (37-51) mmHg VBG HCO3 29 H (24-28) mmol/L POC Glucose (mg/dL) 165 H 139 H (70-110) mg/dL 11/02/22 Range/Units 11:37 VBG pCO2 (37-51) mmHg VBG HCO3 (24-28) mmol/L POC Glucose (mg/dL) 143 H (70-110) mg/dL Chest x-ray: report reviewed Assessment and Plan Assessment: Social * Occupation - Retired * Marital status - * Residence - House * Who do you reside with - * ETOH - No * Tobacco - Former heavy smoker * Illicit drugs - None reported Functional Assessment * Able to walk independently - Yes * Assistive devices - Patient has a walker, but does not use it * Able to use the bathroom independently - Yes * Continent - Yes * Require assistance bathing- No * Able to feed self - Yes * Who prepares meals - * How many meals a day eaten - 3 meals + snacks * Able to clean house/do laundry - A little * Transportation - Patient still drives * Able to shop - Yes * Who manages medications - Patient * Who manages finances - Patient * Does pain impact ability to perform ADL's - No PPS score - 60% Safety * In home/residence - Yes * In relationships - Yes Psychological/Emotional * Dementia present - No * Insight and judgment - Intact * Depression - No * Suicidal thoughts - No * Good support system - Yes, Family * Patients goals - prolonged survival * Frequent hospitalizations - Yes * Desire to keep coming back to the hospital for treatment - Yes Symptoms * Pain - No pain, Tylenol prn * Fatigue - Yes, Generalized weakness and fatigue, continue Feosol * SOB - Conversational dyspnea - improved. Dyspnea with exertion. On 2L NC. Continue Solumedrol, Pulmicort, Peroromist, Duoneb, Spiriva, and Zithromax * Insomnia - No * N/V - No * Anxiety - No * Depression - No * Confusion - No * Agitation - No * Hallucinations - No * Appetite/weight loss - Patient reports having a good appetite, no recent weight loss. BMI 18.2, continue with heart healthy diet. Does not want oral supplements - they give him diarrhea * Dysphagia - No * Constipation - No * Incontinence - No * Itch - No * Cough - Occasional Plan: Summary/Goals - The patient is sitting up in the chair eating lunch. His and grandson are present. Information regarding palliative care philosophies and services provided. The patient states that his breathing improved very quickly. He is now only on 2L NC. Education provided on COPD progression, including more frequent exacerbations that will be harder to control. Eventually the treatments will not work. The patient is aware and thankful he is not at that end stage yet. He states that he does not weak oxygen at home. He is very independent with his ADL's. He even still drives. He was encouraged to eat more. His BMI is only 18.2. His states that he has always been a skinny jessica and that he eats fairly well. The patient and his will consider palliative care in the future, but they do not feel like they need it or home care at this time. Recommendations - Home when medically stable Advanced Directives - on file Code Status - full code Thank you for this consultation Itzel Carrasco [facility] [id number] Email: [email or web address]
[2022-11-02 16:35] LABS: Glucose,Whole Blood 181 mg/dL (70-110)
[2022-11-02 20:10] LABS: Glucose,Whole Blood 149 mg/dL (70-110)
[2022-11-02] MEDS: METOPROLOL TARTRATE 12.5 MG TAB PO SCH (20:39)
--- NOTE | 2022-11-02 22:52 | P.HPIM ---
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 He states his symptoms worsened relatively quickly over the past few days, denies any specific trigger. He denies fever, chills. Reports he has been complaint with duonebs qid and pulmicort nebs bid. On presentation pt hypoxic, requiring BIPAP, WBC 13.7, Hgb 12.7, plt 281k, VBG with CO2 56. BNP 1270, BUN 24, Cr 0.64. CXR with COPD, interstitial opacitiy. Review of Systems All systems: negative Constitutional: Reports malaise, Reports weakness, Denies chills, Denies fever Eyes: denies blurred vision, denies pain Ears, nose, mouth and throat: Denies headache, Denies sore throat Cardiovascular: Denies chest pain, Denies shortness of breath Respiratory: Reports cough, Reports cough with sputum, Reports dyspnea, Reports wheezing Gastrointestinal: Denies abdominal pain, Denies diarrhea, Denies nausea, Denies vomiting Musculoskeletal: Denies myalgias Integumentary: Denies pruritus, Denies rash Neurological: Denies numbness, Denies weakness Psychiatric: Denies anxiety, Denies depression Endocrine: Denies fatigue, Denies weight change Past Medical History Past Medical History: Cancer, COPD, GERD/Reflux Additional Past Medical History / Comment(s): esophageal cancer, cataracts, History of Any Multi-Drug Resistant Organisms: None Reported Additional Past Surgical History / Comment(s): esophageal surgery, Past Psychological History: No Psychological Hx Reported Smoking Status: Former smoker Past Alcohol Use History: Daily Past Drug Use History: None Reported Medications and Allergies Home Medications Medication Instructions Recorded Confirmed Type Omeprazole [PriLOSEC] 20 mg PO DAILY 06/18/14 11/01/22 History Tiotropium [place] [Spiriva] 1 puff INHALATION RT-DAILY 06/18/14 11/01/22 History Cyanocobalamin (Vitamin B-12) 1,000 mcg PO DAILY 04/19/20 11/01/22 History [Vitamin B-12] Levothyroxine Sodium 25 mcg PO DAILY 04/19/20 11/01/22 History Zinc 50 mg PO DAILY 04/19/20 11/01/22 History Ipratropium-Albuterol Nebulize 3 ml INHALATION RT-QID #120 ml 04/25/20 11/01/22 Rx [Duoneb 0.5 mg-3 mg/3 ml Soln] Ascorbic Acid [Vitamin C] 1,000 mg PO DAILY 10/11/22 11/01/22 History Ferrous Sulfate [Iron (65 MG 325 mg PO DAILY 10/11/22 11/01/22 History Elemental)] Folate 666mcg 1 tab PO DAILY 10/11/22 11/01/22 History Magnesium 250 mg PO DAILY 10/11/22 11/01/22 History Metoprolol Tartrate [Lopressor] 12.5 mg PO HS 10/11/22 11/01/22 History Metoprolol Tartrate [Lopressor] 25 mg PO DAILY 10/11/22 11/01/22 History [place]-3 Fatty Acids [[place]-3] 1,000 mg PO DAILY 10/11/22 11/01/22 History Sodium Chloride Tab 1 gm PO DAILY 10/11/22 11/01/22 History Budesonide 0.5 mg INHALATION RT-BID 11/01/22 11/01/22 History Furosemide [Lasix] 20 mg PO MOTH 11/01/22 11/01/22 History Multivit-Min/FA/Lycopen/Lutein 1 tab PO DAILY 11/01/22 11/01/22 History [Centrum Silver Tablet] Potassium Chloride [Klor-Con M10] 10 meq PO MOTH 11/01/22 11/01/22 History Allergies Allergy/AdvReac Type Severity Reaction Status Date / Time No Known Allergies Allergy Verified 11/01/22 13:29 Physical Exam Vitals: Vital Signs Temp Pulse Pulse Resp BP Pulse Ox 11/02/22 21:44 92 11/02/22 21:33 92 11/02/22 21:21 88 11/02/22 20:36 97.8 F 89 18 101/63 95 11/02/22 20:00 84 18 11/02/22 16:25 90 11/02/22 16:10 92 11/02/22 16:00 97.7 F 87 18 107/65 96 11/02/22 14:00 74 18 11/02/22 12:35 90 11/02/22 12:17 88 11/02/22 12:00 98.3 F 74 18 101/55 99 11/02/22 09:48 90 11/02/22 09:36 88 11/02/22 09:35 88 11/02/22 09:25 90 97 11/02/22 08:00 98.0 F 82 20 118/68 100 11/02/22 04:00 97.8 F 98 22 121/79 99 11/02/22 02:00 98 20 11/02/22 00:00 99 20 125/63 98 Intake and Output 11/02/22 11/02/22 11/02/22 06:59 14:59 22:59 Intake Total 236 118 Output Total 300 Balance -300 236 118 Intake: Oral 236 118 Output: Urine 300 Other: Voiding Method Urinal Urinal Urinal # Voids 2 1 Weight 60.781 kg Gen: thin, elderly male, NAD HEENT: NC/AT, mmm. On 3 LPM NC Neck: supple, no JVD or thyromegaly CV: RRR, no murmur Lungs: Normal effort, wheezing and rhonchi throughout Abd: soft, nontender, non distended Neuro: alert and oriented x3, no focal deficit Skin: warm and dry Results CBC & Chem 7: 11/01/22 11:53 11/01/22 11:53 Labs: Abnormal Lab Results - Last 24 Hours (Table) 11/02/22 11/02/22 11/02/22 Range/Units 06:17 11:37 16:33 POC Glucose (mg/dL) 139 H 143 H 181 H (70-110) mg/dL 11/02/22 Range/Units 20:09 POC Glucose (mg/dL) 149 H (70-110) mg/dL Microbiology - Last 24 Hours (Table) 11/01/22 11:55 Blood Culture - Preliminary Blood No Growth after 24 hours 11/01/22 11:40 Blood Culture - Preliminary Blood No Growth after 24 hours Thrombosis Risk Factor Assmnt - Choose All That Apply Each Risk Factor Represents 3 Points: Age 75 years or older Thrombosis Risk Factor Assessment Total Risk Factor Score: 3 Thrombosis Risk Factor Assessment Level: Moderate Risk Assessment and Plan Plan: 1. Acute hypoxic and hypercapneic respiratory failure. Secondary to COPD exacerbation. Admit and start IV and inhaled steroids. Azithromycin. Pulmonology consult. Dior 2. Chronic diastolic CHF. Continue with lasix and metoprolol 3. Iron deficiency anemia. Continue iron
[2022-11-03] MEDS: PANTOPRAZOLE 40 MG TABLET PO SCH (06:04)
[2022-11-03] MEDS: LEVOTHYROXINE 25 MCG TAB PO SCH (06:04)
[2022-11-03] MEDS: methylPREDNISolone SOD SUCCI 125 MG/2 ML VIAL IV SCH ×4 (06:04→23:29)
[2022-11-03 06:10] LABS: Glucose,Whole Blood 139 mg/dL (70-110)
[2022-11-03] MEDS: IPRATROPIUM-ALBUTEROL 3 ML NEB INHALATION SCH ×4 (08:58→21:58)
[2022-11-03] MEDS: BUDESONIDE 1 MG/2 ML NEBU INHALATION SCH ×2 (09:09→21:58)
[2022-11-03] MEDS: TIOTROPIUM 2.5 MCG INHALER INHALATION SCH (09:09)
[2022-11-03] MEDS: FORMOTEROL FUMARATE 20 MCG/2 ML NEBU INHALATION SCH ×2 (09:09→21:58)
[2022-11-03] MEDS: FOLIC ACID 1 MG TAB PO SCH (09:51)
[2022-11-03] MEDS: AZITHROMYCIN 500 MG TAB PO SCH (09:52)
[2022-11-03] MEDS: FERROUS SULFATE 325 MG TAB PO SCH (09:52)
[2022-11-03] MEDS: MAGNESIUM OXIDE 400 MG TAB PO SCH (09:52)
[2022-11-03] MEDS: ZINC SULFATE 220 MG CAP PO SCH (09:52)
[2022-11-03] MEDS: ASCORBIC ACID 500 MG TAB PO SCH (09:52)
[2022-11-03] MEDS: METOPROLOL TARTRATE 25 MG TAB PO SCH (09:52)
[2022-11-03] MEDS: SODIUM CHLORIDE TAB 1 GM TAB PO SCH (09:56)
[2022-11-03 10:25] LABS: ALT 98 U/L (4-49); AST 31 U/L (17-59); African American GFR (CKD) >90 (>60 ml/min/1.73 sqM); Albumin 3.6 g/dL (3.5-5.0); Alkaline Phosphatase 71 U/L (38-126); Blood Urea Nitrogen 21 mg/dL (9-20); Calcium 8.5 mg/dL (8.4-10.2); Carbon Dioxide 24 mmol/L (22-30); Chloride 97 mmol/L (98-107); Glucose 126 mg/dL (74-99); Non-African American GFR(CKD) >90 (>60 ml/min/1.73 sqM); Total Bilirubin 0.4 mg/dL (0.2-1.3)
[2022-11-03 11:00] LABS: Anion Gap 11 mmol/L; Sodium 132 mmol/L (137-145)
--- NOTE | 2022-11-03 11:42 | P.PN ---
Subjective Progress Note Date: 11/03/22 Principal diagnosis: Shortness of breath. Pulmonary consult dated 11/02/2022. 76-year-old male who was seen by my partner in the office, and sent to the emergency room. We saw him briefly yesterday, did not do a consult on him yesterday. The patient was admitted to the hospital with a diagnosis of COPD exacerbation. He came in complaining of shortness of breath, cough, chest congestion, wheezing, and occasional phlegm production. He does have history of underlying COPD, THF, atrial fibrillation, and esophageal cancer. Currently, the patient appears to be doing reasonably well. He is on 5 L nasal cannula, turned down to 3 L. He's not receiving any IV fluids. He did not use of BiPAP device. When we saw him in the emergency room yesterday, he was on BiPAP, with settings of 10/5 and 40%. His chest x-ray was unchanged. He was seen in room 5, in the emergency department. White count 13.7, hemoglobin 12.7, hematocrit 39.4, and platelet count 281,000. Coagulation studies were normal. Venous blood gases show a pCO2 of 56, and a pH is 7.33. Sodium 132, potassium 4.3, chlorides 98, CO2 26, BUN 24, and creatinine 0.64. Calcium was 8. AST was 127 with an ALT 146. N-terminal proBNP was 1270. The patient's chest x-ray was consistent with COPD, and some increased interstitial opacities, which are not new. Progress note dated 11/03/2022. Patient was seen in consultation yesterday. He was seen in my office, by one of my partners, and sent to the emergency room. Currently, the patient is on 3 L of oxygen. He's not receiving any IV fluids. His respiratory status is somewhat tenuous right now, and we've asked respiratory to place him back on BiPAP. He has a history of COPD, CHF, atrial fibrillation, and esophageal cancer. Certain laboratory includes a sodium 132, potassium 4, chlorides 97, CO2 24, BUN 21, creatinine 0.64. Albumin is 3.6. Culture data is as far negative. Objective - Vital Signs Vital signs: Vital Signs Temp 97.5 F L 11/03/22 08:15 Pulse 108 H 03/25/23 09:23 Resp 26 H 11/03/22 08:15 BP 112/60 11/03/22 08:15 Pulse Ox 96 11/03/22 08:58 FiO2 35 11/03/22 10:18 Intake & Output 11/02/22 11/03/22 11/03/22 18:59 06:59 18:59 Intake Total 354 118 Balance 354 118 Weight 60.781 kg Intake: Oral 354 118 Other: Voiding Method Urinal Urinal # Voids 2 1 - Exam Mild/moderate respiratory distress, on 3 L of oxygen. The patient is oriented 3. HEENT examination is grossly unremarkable. Neck supple. Full range of motion. No adenopathy thyromegaly or neck vein distention. Cardiovascular examination reveals regular rhythm rate. S1-S2 normal. No S3 or S4. No discernible murmur noted. Heart sounds are distant. Heart rate 108 bpm. Lungs reveal scattered inspiratory and expiratory rhonchi and expiratory wheezes. No crackles. Breath sounds are equal. Slight prolongation on forced maneuver. Saturations are 96% on 3 L. Abdomen soft bowel sounds are heard. No masses or tenderness. Extremities are intact. No cyanosis clubbing or edema. Skin is without rash or lesion. Neurologic examination is brief but nonfocal. - Labs CBC & Chem 7: 11/01/22 11:53 11/03/22 09:20 Labs: Abnormal Lab Results - Last 24 Hours (Table) 11/02/22 11/02/22 11/02/22 Range/Units 11:37 16:33 20:09 Sodium (137-145) mmol/L Chloride (98-107) mmol/L BUN (9-20) mg/dL Creatinine (0.66-1.25) mg/dL Glucose (74-99) mg/dL POC Glucose (mg/dL) 143 H 181 H 149 H (70-110) mg/dL ALT (4-49) U/L Total Protein (6.3-8.2) g/dL 11/03/22 11/03/22 Range/Units 06:09 09:20 Sodium 132 L (137-145) mmol/L Chloride 97 L (98-107) mmol/L BUN 21 H (9-20) mg/dL Creatinine 0.64 L (0.66-1.25) mg/dL Glucose 126 H (74-99) mg/dL POC Glucose (mg/dL) 139 H (70-110) mg/dL ALT 98 H (4-49) U/L Total Protein 6.0 L (6.3-8.2) g/dL Microbiology - Last 24 Hours (Table) 11/02/22 21:25 Sputum Culture - Preliminary Sputum 11/01/22 11:55 Blood Culture - Preliminary Blood No Growth after 24 hours 11/01/22 11:40 Blood Culture - Preliminary Blood No Growth after 24 hours Assessment and Plan Assessment: Acute hypoxemic respiratory failure, secondary to COPD exacerbation, without obvious pneumonia. History of esophageal cancer, previous esophageal surgery. History of gastroesophageal reflux disease. Prior history of heavy tobacco use. Plan: Plan dated 11/02/2022. The patient appears to be improving. Yesterday in the emergency room, he was on BiPAP. He was converted to nasal oxygen at 5 L, and now has been weaned down to 3 L. Labs, x-rays, and medications are all reviewed. Chest x-ray shows nothing acute. Currently, the patient is on azithromycin, Pulmicort updrafts, formoterol updrafts, doing nebs, and Solu-Medrol. We will continue to follow and make recommendations along the way. Prognosis is guarded. Plan dated 11/03/2022. The patient is seen today in 360. The nurse mentioned test before we went into the room, the patient was having some respiratory difficulty. The patient's currently on 3 L. We'll ask respiratory therapy to place him on BiPAP. The rest of his medications are appropriate. We will continue to follow the patient and make recommendations along the way. Prognosis is guarded. Labs, x-rays, and medications are all reviewed. Time with Patient: Less than 30
[2022-11-03 12:02] LABS: Glucose,Whole Blood 120 mg/dL (70-110)
--- NOTE | 2022-11-03 14:48 | XR ---
EXAMINATION TYPE: XR chest 1V DATE OF EXAM: 11/03/2022 COMPARISON: 11/01/2022, 10/18/2022, PET/CT 05/13/2020 INDICATION: CHF TECHNIQUE: Single frontal view of the chest is obtained. FINDINGS: The heart size is normal. The pulmonary vasculature is normal. There is fullness to the right hilar and right mediastinal lesly on. This appears to correlate with a gastric pull-through. There is a small left pleural effusion. Mild diffuse increased lung markings are present. Findings ap pear stable prior study. IMPRESSION: 1. Mild scattered increased lung markings, stable from recent comparisons 2. Small left pleural effusion.
[2022-11-03] MEDS ORDERED: FUROSEMIDE 10 MG/ML 2 ML VIAL IV ONE (15:23)
--- NOTE | 2022-11-03 15:34 | P.PN ---
Subjective Progress Note Date: 11/03/22 Patient is evaluated today on the stepdown unit. Patient was weaned to 3L of oxygen, however patient was found to have increased work of breathing and was placed back on BiPAP with FiO2 of 35%. He is rhonchorous throughout with some scattered basilar wheezing noted. Chest xray taken showing small left pleural effusion and mild scattered increased lungs markings. His proBNP is slightly increased to 1600. Patient is maintained on oral lasix at home 20 mg every saturday and which has been off this admission. Patient is receiving IV solumedrol 60 mg every 6 hours. Currently on day 2 of 3 oral azithromycin. Labs today showing sodium 132, stable kidney function. Sputum culture pending. Review of Systems Constitutional: Denied any fatigue denied any fever. Cardio vascular: denied any chest pain, palpitations Gastrointestinal: denied any nausea, vomiting, diarrhea Pulmonary: Reports shortness of breath. Reports cough. Neurologic denied any new focal deficits All inpatient medications were reviewed and appropriate changes in these medications as dictated in the interval history and assessment and plan. PHYSICAL EXAMINATION: GENERAL: The patient is alert and oriented x3, not in any acute distress. Well developed, well nourished. HEENT: Pupils are round and equally reacting to light. EOMI. No scleral icterus. No conjunctival pallor. Normocephalic, atraumatic. No pharyngeal erythema. No thyromegaly. CARDIOVASCULAR: S1 and S2 present. No murmurs, rubs, or gallops. PULMONARY: Scattered wheezing and rhonchi throughout. Brown sputum. ABDOMEN: Soft, nontender, nondistended, normoactive bowel sounds. No palpable organomegaly. MUSCULOSKELETAL: No joint swelling or deformity. EXTREMITIES: No cyanosis, clubbing, or pedal edema. NEUROLOGICAL: Gross neurological examination did not reveal any focal deficits. SKIN: No rashes. Assessment and Plan Assessment Acute hypoxic and hypercapnic respiratory failure secondary to acute COPD exacerbation. Requiring BiPAP today with FiO2 of 35%. Leukocytosis secondary to above Chronic diastolic CHF Chronic atrial fibrillation History of iron deficiency anemia Elevated transaminases improving History of esophageal cancer Former smoker GI prophylaxis DVT prophylaxis Plan Continue same medications Resume lasix 20 mg daily and give IV lasix x 1 today AM labs Continue on BiPAP Pulmonary following The impression and plan of care has been dictated by Anat Bynum, Nurse Practitioner as directed. Dr. Misha MD I have performed a history and physical examination and medical decision making of this patient, discussed the same with the dictator, and agree with the dictators assessment and plan as written, documented as a scribe. Based on total visit time, I have performed more than 50% of this visit. Objective - Vital Signs Vital signs: Vital Signs Temp 97.8 F 11/03/22 04:00 Pulse 108 H 11/03/22 09:11 Resp 16 11/03/22 04:00 BP 110/62 11/03/22 04:00 Pulse Ox 96 11/03/22 08:58 FiO2 40 11/01/22 20:00 Intake & Output 11/02/22 11/03/22 11/03/22 18:59 06:59 18:59 Intake Total 354 118 Balance 354 118 Weight 60.781 kg Intake: Oral 354 118 Other: Voiding Method Urinal Urinal # Voids 2 1 - Labs CBC & Chem 7: 11/01/22 11:53 11/03/22 09:20 Labs: Abnormal Lab Results - Last 24 Hours (Table) 11/02/22 11/02/22 11/02/22 Range/Units 11:37 16:33 20:09 POC Glucose (mg/dL) 143 H 181 H 149 H (70-110) mg/dL 11/03/22 Range/Units 06:09 POC Glucose (mg/dL) 139 H (70-110) mg/dL Microbiology - Last 24 Hours (Table) 11/01/22 11:55 Blood Culture - Preliminary Blood No Growth after 24 hours 11/01/22 11:40 Blood Culture - Preliminary Blood No Growth after 24 hours Assessment and Plan Time with Patient: Less than 30
[2022-11-03 17:09] LABS: Glucose,Whole Blood 204 mg/dL (70-110)
[2022-11-03] MEDS: HEPARIN SODIUM,PORCINE/PF 5,000 UNIT/0.5 ML SYRINGE SQ SCH ×2 (17:31→23:29)
[2022-11-03 20:35] LABS: Glucose,Whole Blood 151 mg/dL (70-110)
[2022-11-03] MEDS: METOPROLOL TARTRATE 12.5 MG TAB PO SCH (20:42)
[2022-11-04] MEDS: PANTOPRAZOLE 40 MG TABLET PO SCH (06:02)
[2022-11-04] MEDS: LEVOTHYROXINE 25 MCG TAB PO SCH (06:02)
[2022-11-04] MEDS: methylPREDNISolone SOD SUCCI 125 MG/2 ML VIAL IV SCH ×4 (06:02→23:00)
[2022-11-04 06:16] LABS: Glucose,Whole Blood 136 mg/dL (70-110)
[2022-11-04] MEDS: IPRATROPIUM-ALBUTEROL 3 ML NEB INHALATION SCH ×4 (08:00→21:54)
[2022-11-04] MEDS: BUDESONIDE 1 MG/2 ML NEBU INHALATION SCH ×2 (08:00→21:54)
[2022-11-04] MEDS: FORMOTEROL FUMARATE 20 MCG/2 ML NEBU INHALATION SCH ×2 (08:00→21:54)
[2022-11-04] MEDS: TIOTROPIUM 2.5 MCG INHALER INHALATION SCH (08:07)
[2022-11-04 09:26] LABS: African American GFR (CKD) >90 (>60 ml/min/1.73 sqM); Anion Gap 5 mmol/L; Blood Urea Nitrogen 23 mg/dL (9-20); Calcium 8.3 mg/dL (8.4-10.2); Carbon Dioxide 31 mmol/L (22-30); Chloride 94 mmol/L (98-107); Glucose 188 mg/dL (74-99); Non-African American GFR(CKD) >90 (>60 ml/min/1.73 sqM); Potassium 4.3 mmol/L (3.5-5.1); Sodium 130 mmol/L (137-145)
[2022-11-04] MEDS: HEPARIN SODIUM,PORCINE/PF 5,000 UNIT/0.5 ML SYRINGE SQ SCH ×3 (09:52→23:01)
[2022-11-04] MEDS: SODIUM CHLORIDE TAB 1 GM TAB PO SCH (09:52)
[2022-11-04] MEDS: polyethylene glycoL 3350 17 GM POWD.PACK PO SCH (09:52)
[2022-11-04] MEDS: FUROSEMIDE 20 MG TAB PO SCH (09:53)
[2022-11-04] MEDS: MAGNESIUM OXIDE 400 MG TAB PO SCH (09:53)
[2022-11-04] MEDS: ZINC SULFATE 220 MG CAP PO SCH (09:53)
[2022-11-04] MEDS: METOPROLOL TARTRATE 25 MG TAB PO SCH (09:53)
[2022-11-04] MEDS: AZITHROMYCIN 500 MG TAB PO SCH (09:53)
[2022-11-04] MEDS: FOLIC ACID 1 MG TAB PO SCH (09:53)
[2022-11-04] MEDS: FERROUS SULFATE 325 MG TAB PO SCH (09:53)
[2022-11-04] MEDS: ASCORBIC ACID 500 MG TAB PO SCH (09:54)
--- NOTE | 2022-11-04 11:32 | P.PN ---
Subjective Progress Note Date: 11/04/22 Principal diagnosis: Shortness of breath. Pulmonary consult dated 11/02/2022. 76-year-old male who was seen by my partner in the office, and sent to the emergency room. We saw him briefly yesterday, did not do a consult on him yesterday. The patient was admitted to the hospital with a diagnosis of COPD exacerbation. He came in complaining of shortness of breath, cough, chest congestion, wheezing, and occasional phlegm production. He does have history of underlying COPD, THF, atrial fibrillation, and esophageal cancer. Currently, the patient appears to be doing reasonably well. He is on 5 L nasal cannula, turned down to 3 L. He's not receiving any IV fluids. He did not use of BiPAP device. When we saw him in the emergency room yesterday, he was on BiPAP, with settings of 10/5 and 40%. His chest x-ray was unchanged. He was seen in room 5, in the emergency department. White count 13.7, hemoglobin 12.7, hematocrit 39.4, and platelet count 281,000. Coagulation studies were normal. Venous blood gases show a pCO2 of 56, and a pH is 7.33. Sodium 132, potassium 4.3, chlorides 98, CO2 26, BUN 24, and creatinine 0.64. Calcium was 8. AST was 127 with an ALT 146. N-terminal proBNP was 1270. The patient's chest x-ray was consistent with COPD, and some increased interstitial opacities, which are not new. Progress note dated 11/03/2022. Patient was seen in consultation yesterday. He was seen in my office, by one of my partners, and sent to the emergency room. Currently, the patient is on 3 L of oxygen. He's not receiving any IV fluids. His respiratory status is somewhat tenuous right now, and we've asked respiratory to place him back on BiPAP. He has a history of COPD, CHF, atrial fibrillation, and esophageal cancer. Certain laboratory includes a sodium 132, potassium 4, chlorides 97, CO2 24, BUN 21, creatinine 0.64. Albumin is 3.6. Culture data is as far negative. Progress note dated 11/04/2022. The patient is seen today in room 360. Currently, he's on 3 L of oxygen. The patient is not using his BiPAP. BiPAP settings are 12/6 and dirty 5%. He was placed on a yesterday, because his respiratory status has declined. The patient mention to us, that Dr. Concepcion, mention doing a bronchoscopy on this patient. For this reason, we'll keep the patient nothing by mouth after midnight. The patient is still coughing up dark phlegm. Sodium 1:30, potassium 4.3, chlorides 94, CO2 31, BUN 23, and creatinine 0.65. Anion gap is normal. Sputum and blood sampling assess far negative. Chest x-ray from yesterday shows a small left- sided pleural effusion, and chronic changes, without anything acute. Objective - Vital Signs Vital signs: Vital Signs Temp 98.0 F 11/04/22 08:00 Pulse 92 11/04/22 08:22 Resp 22 11/04/22 08:00 BP 117/67 11/04/22 08:00 Pulse Ox 98 11/04/22 08:00 FiO2 35 11/03/22 12:41 Intake & Output 11/03/22 11/04/22 11/04/22 18:59 06:59 18:59 Intake Total 476 480 Balance 476 480 Intake: Oral 476 480 Other: Voiding Method Urinal Urinal Urinal # Voids 3 2 - Exam Mild/moderate respiratory distress, on 3 L of oxygen. The patient is oriented 3. HEENT examination is grossly unremarkable. Neck supple. Full range of motion. No adenopathy thyromegaly or neck vein distention. Cardiovascular examination reveals regular rhythm rate. S1-S2 normal. No S3 or S4. No discernible murmur noted. Heart sounds are distant. Heart rate 92 bpm. Lungs reveal scattered inspiratory and expiratory rhonchi and expiratory wheeze s. No crackles. Breath sounds are equal. Slight prolongation on forced maneuver. Saturations are 98% on 3 L. Abdomen soft bowel sounds are heard. No masses or tenderness. Extremities are intact. No cyanosis clubbing or edema. Skin is without rash or lesion. Neurologic examination is brief but nonfocal. - Labs CBC & Chem 7: 11/01/22 11:53 11/04/22 08:28 Labs: Abnormal Lab Results - Last 24 Hours (Table) 11/03/22 11/03/22 11/03/22 Range/Units 11:59 16:44 20:34 Sodium (137-145) mmol/L Chloride (98-107) mmol/L Carbon Dioxide (22-30) mmol/L BUN (9-20) mg/dL Creatinine (0.66-1.25) mg/dL Glucose (74-99) mg/dL POC Glucose (mg/dL) 120 H 204 H 151 H (70-110) mg/dL Calcium (8.4-10.2) mg/dL 11/04/22 11/04/22 Range/Units 06:14 08:28 Sodium 130 L (137-145) mmol/L Chloride 94 L (98-107) mmol/L Carbon Dioxide 31 H (22-30) mmol/L BUN 23 H (9-20) mg/dL Creatinine 0.65 L (0.66-1.25) mg/dL Glucose 188 H (74-99) mg/dL POC Glucose (mg/dL) 136 H (70-110) mg/dL Calcium 8.3 L (8.4-10.2) mg/dL Microbiology - Last 24 Hours (Table) 11/02/22 21:25 Gram Stain - Preliminary Sputum Sputum Culture - Preliminary 11/01/22 11:55 Blood Culture - Preliminary Blood No Growth after 48 hours 11/01/22 11:40 Blood Culture - Preliminary Blood No Growth after 48 hours Assessment and Plan Assessment: Acute hypoxemic respiratory failure, secondary to COPD exacerbation, without obvious pneumonia. History of esophageal cancer, previous esophageal surgery. History of gastroesophageal reflux disease. Prior history of heavy tobacco use. Plan: Plan dated 11/02/2022. The patient appears to be improving. Yesterday in the emergency room, he was on BiPAP. He was converted to nasal oxygen at 5 L, and now has been weaned down to 3 L. Labs, x-rays, and medications are all reviewed. Chest x-ray shows nothing acute. Currently, the patient is on azithromycin, Pulmicort updrafts, formo terol updrafts, doing nebs, and Solu-Medrol. We will continue to follow and make recommendations along the way. Prognosis is guarded. Plan dated 11/03/2022. The patient is seen today in 360. The nurse mentioned test before we went into the room, the patient was having some respiratory difficulty. The patient's currently on 3 L. We'll ask respiratory therapy to place him on BiPAP. The rest of his medications are appropriate. We will continue to follow the patient and make recommendations along the way. Prognosis is guarded. Labs, x-rays, and medications are all reviewed. Plan dated 11/04/2022. The patient appears to be doing better today than he did yesterday. Yesterday, we placed him on BiPAP, for worsening respiratory status. Clinically, he looks much better today. He is on 3 L of oxygen. He still is coughing up dark phlegm. Labs, x-rays, and medications are reviewed. Overall prognosis remains guarded. The patient will be kept nothing by mouth after midnight, just in case, my partner once do bronchoscopy on this patient. Time with Patient: Less than 30
[2022-11-04 11:57] LABS: Glucose,Whole Blood 142 mg/dL (70-110)
--- NOTE | 2022-11-04 12:26 | P.PN ---
Subjective Progress Note Date: 11/04/22 Patient is evaluated today on the stepdown unit. Patient was weaned to 3L of oxygen, however patient was found to have increased work of breathing and was placed back on BiPAP with FiO2 of 35%. He is rhonchorous throughout with some scattered basilar wheezing noted. Chest xray taken showing small left pleural effusion and mild scattered increased lungs markings. His proBNP is slightly increased to 1600. Patient is maintained on oral lasix at home 20 mg every saturday and which has been off this admission. Patient is receiving IV solumedrol 60 mg every 6 hours. Currently on day 2 of 3 oral azithromycin. Labs today showing sodium 132, stable kidney function. Sputum culture pending. 11/04/2022 Patient evaluated today on stepdown unit. Breathing is improved from yesterday, patient did not require BiPAP overnight, currently on 3L nasal cannula. Reports having increased productive cough today. Lung sounds are more ronchorous throughout. Resumed on lasix. Continues on updrafts, IV solumedrol. Possible bronchoscopy tomorrow per pulmonary. Review of Systems Constitutional: Denied any fatigue denied any fever. Cardio vascular: denied any chest pain, palpitations Gastrointestinal: denied any nausea, vomiting, diarrhea Pulmonary: Reports shortness of breath. Reports cough. Neurologic denied any new focal deficits All inpatient medications were reviewed and appropriate changes in these medications as dictated in the interval history and assessment and plan. PHYSICAL EXAMINATION: GENERAL: The patient is alert and oriented x3, not in any acute distress. Well developed, well nourished. HEENT: Pupils are round and equally reacting to light. EOMI. No scleral icterus. No conjunctival pallor. Normocephalic, atraumatic. No pharyngeal erythema. No thyromegaly. CARDIOVASCULAR: S1 and S2 present. No murmurs, rubs, or gallops. PULMONARY: Scattered wheezing and rhonchi throughout. Brown sputum. ABDOMEN: Soft, nontender, nondistended, normoactive bowel sounds. No palpable organomegaly. MUSCULOSKELETAL: No joint swelling or deformity. EXTREMITIES: No cyanosis, clubbing, or pedal edema. NEUROLOGICAL: Gross neurological examination did not reveal any focal deficits. Generalized weakness. SKIN: No rashes. Assessment and Plan Assessment Acute hypoxic and hypercapnic respiratory failure secondary to acute COPD exacerbation. Currently on 3L nasal cannula. Leukocytosis secondary to above Chronic diastolic CHF Chronic atrial fibrillation History of iron deficiency anemia Elevated transaminases improving History of esophageal cancer Former smoker GI prophylaxis DVT prophylaxis Plan Continue same medications Continue supportive care NPO for possible bronchoscopy tomorrow Pulmonary following closely AM Labs PT/OT on consultation The impression and plan of care has been dictated by Anat Bynum, Nurse Practitioner as directed. Dr. Misha MD I have performed a history and physical examination and medical decision making of this patient, discussed the same with the dictator, and agree with the dictators assessment and plan as written, documented as a scribe. Based on total visit time, I have performed more than 50% of this visit. Objective - Vital Signs Vital signs: Vital Signs Temp 97.5 F L 11/04/22 04:46 Pulse 92 11/04/22 08:22 Resp 20 11/04/22 04:46 BP 135/76 11/04/22 04:46 Pulse Ox 97 11/04/22 04:46 FiO2 35 11/03/22 12:41 Intake & Output 11/03/22 11/04/22 11/04/22 18:59 06:59 18:59 Intake Total 476 Balance 476 Intake: Oral 476 Other: Voiding Method Urinal Urinal # Voids 3 2 - Labs CBC & Chem 7: 11/01/22 11:53 11/04/22 08:28 Labs: Abnormal Lab Results - Last 24 Hours (Table) 11/03/22 11/03/22 11/03/22 Range/Units 09:20 11:59 16:44 Sodium 132 L (137-145) mmol/L Chloride 97 L (98-107) mmol/L BUN 21 H (9-20) mg/dL Creatinine 0.64 L (0.66-1.25) mg/dL Glucose 126 H (74-99) mg/dL POC Glucose (mg/dL) 120 H 204 H (70-110) mg/dL ALT 98 H (4-49) U/L Total Protein 6.0 L (6.3-8.2) g/dL 11/03/22 11/04/22 Range/Units 20:34 06:14 Sodium (137-145) mmol/L Chloride (98-107) mmol/L BUN (9-20) mg/dL Creatinine (0.66-1.25) mg/dL Glucose (74-99) mg/dL POC Glucose (mg/dL) 151 H 136 H (70-110) mg/dL ALT (4-49) U/L Total Protein (6.3-8.2) g/dL Microbiology - Last 24 Hours (Table) 11/01/22 11:55 Blood Culture - Preliminary Blood No Growth after 48 hours 11/01/22 11:40 Blood Culture - Preliminary Blood No Growth after 48 hours 11/02/22 21:25 Sputum Culture - Preliminary Sputum Assessment and Plan Time with Patient: Less than 30
[2022-11-04 16:40] LABS: Glucose,Whole Blood 188 mg/dL (70-110)
[2022-11-04 20:03] LABS: Glucose,Whole Blood 238 mg/dL (70-110)
[2022-11-04] MEDS: METOPROLOL TARTRATE 12.5 MG TAB PO SCH (20:11)
[2022-11-05] MEDS: DILTIAZEM 125 MG in SODIUM CHLORIDE 0.9% 100 ML IV SCH (01:28)
[2022-11-05] MEDS: PANTOPRAZOLE 40 MG TABLET PO SCH (05:52)
[2022-11-05] MEDS: LEVOTHYROXINE 25 MCG TAB PO SCH (05:52)
[2022-11-05] MEDS: methylPREDNISolone SOD SUCCI 125 MG/2 ML VIAL IV SCH ×3 (06:00→17:27)
[2022-11-05 06:06] LABS: Glucose,Whole Blood 146 mg/dL (70-110)
[2022-11-05 07:48] LABS: African American GFR (CKD) >90 (>60 ml/min/1.73 sqM); Anion Gap 5 mmol/L; Blood Urea Nitrogen 25 mg/dL (9-20); Carbon Dioxide 32 mmol/L (22-30); Chloride 93 mmol/L (98-107); Glucose 146 mg/dL (74-99); Non-African American GFR(CKD) >90 (>60 ml/min/1.73 sqM); Potassium 3.9 mmol/L (3.5-5.1); Sodium 130 mmol/L (137-145)
[2022-11-05] MEDS: FORMOTEROL FUMARATE 20 MCG/2 ML NEBU INHALATION SCH ×2 (08:00→20:35)
[2022-11-05] MEDS: BUDESONIDE 1 MG/2 ML NEBU INHALATION SCH ×2 (08:00→20:35)
[2022-11-05] MEDS: IPRATROPIUM-ALBUTEROL 3 ML NEB INHALATION SCH ×4 (08:00→20:35)
[2022-11-05] MEDS: TIOTROPIUM 2.5 MCG INHALER INHALATION SCH (08:35)
[2022-11-05] MEDS ORDERED: APIXABAN 5 MG TAB PO SCH ×2 (09:15→20:00)
[2022-11-05] MEDS ORDERED: DEXTROSE 50% SYRINGE 50 ML IVP PRN ×2 (09:58)
--- NOTE | 2022-11-05 10:02 | P.PN ---
Subjective Progress Note Date: 11/05/22 H&P Date: 11/02/22 Chief Complaint: shortness of breath Keshav Cuevas is a 76 yo M with PMH of COPD, hx esophageal cancer, AF who presented to the ED on the recommendation of his paralegal assistant with increasing shortness of breath, cough, wheezing. He states his symptoms worsened relatively quickly over the past few days, denies any specific trigger. He denies fever, chills. Reports he has been complaint with duonebs qid and pulmicort nebs bid. On presentation pt hypoxic, requiring BIPAP, WBC 13.7, Hgb 12.7, plt 281k, VBG with CO2 56. BNP 1270, BUN 24, Cr 0.64. CXR with COPD, interstitial opacitiy. 11/05/2022 continues on nebulized bronchodilators, IV steroids ,maintaining O2 sats in the 90s on 3 L nasal cannula. Continues to have ongoing diffuse rhonchi and wheezes, productive cough with thick dark yellow sputum. He developed atrial fibrillation with RVR last night, rates noted into the 130s, currently 60s to 90s ,maintained on Cardizem drip. Systolic blood pressure high 90s to low 100s.Cardiology discussing anticoagulation, Eliquis-on hold pending pulmonary's decision regarding bronchoscopy.NPO, blood sugars controlled .Denies chest pain, palpitations. Objective - Vital Signs Vital signs: Vital Signs Temp 97.4 F L 11/05/22 08:51 Pulse 65 11/05/22 08:51 Resp 18 11/05/22 08:51 BP 99/58 11/05/22 08:51 Pulse Ox 96 11/05/22 08:51 FiO2 35 11/03/22 12:41 Intake & Output 11/04/22 11/05/22 11/05/22 18:59 06:59 18:59 Intake Total 480 Balance 480 Weight 57.3 kg Intake: Oral 480 Other: Voiding Method Urinal Urinal - Exam Gen: thin, elderly male, sitting up in bed, NAD HEENT: NC/AT, mmm. On 3 LPM NC Neck: supple, no JVD CV: Regular S1,S2, irregular, no murmur Lungs: Normal effort,rhonchi and wheezing scattered throughout Abd: soft, nontender, non distended Neuro: alert and oriented x3, no focal deficit Skin: warm and dry - Labs CBC & Chem 7: 11/01/22 11:53 11/05/22 06:50 Labs: Abnormal Lab Results - Last 24 Hours (Table) 11/04/22 11/04/22 11/04/22 Range/Units 08:28 11:49 16:39 Sodium 130 L (137-145) mmol/L Chloride 94 L (98-107) mmol/L Carbon Dioxide 31 H (22-30) mmol/L BUN 23 H (9-20) mg/dL Creatinine 0.65 L (0.66-1.25) mg/dL Glucose 188 H (74-99) mg/dL POC Glucose (mg/dL) 142 H 188 H (70-110) mg/dL Calcium 8.3 L (8.4-10.2) mg/dL 11/04/22 11/05/22 11/05/22 Range/Units 20:01 06:04 06:50 Sodium 130 L (137-145) mmol/L Chloride 93 L (98-107) mmol/L Carbon Dioxide 32 H (22-30) mmol/L BUN 25 H (9-20) mg/dL Creatinine 0.58 L (0.66-1.25) mg/dL Glucose 146 H (74-99) mg/dL POC Glucose (mg/dL) 238 H 146 H (70-110) mg/dL Calcium 8.0 L (8.4-10.2) mg/dL Microbiology - Last 24 Hours (Table) 11/01/22 11:55 Blood Culture - Preliminary Blood No Growth after 72 hours 11/01/22 11:40 Blood Culture - Preliminary Blood No Growth after 72 hours 11/02/22 21:25 Gram Stain - Preliminary Sputum Sputum Culture - Preliminary Assessment and Plan Assessment: Acute hypoxic and hypercapnic respiratory failure secondary to acute COPD exacerbation Chronic diastolic CHF Iron deficiency anemia Plan: Continue on current medication regime ,monitoring and symptomatic treatm ent.NPO for potential bronchoscopy with pulmonary. Antiarrhythmics and anticoagulation as per cardiology. Oral anticoagulation/ Eliquis on hold pending pulmonary decision regarding potential bronchoscopy. Maintained on nebulized bronchodilators and steroids. Close monitoring of Accu-Cheks with No voLog Insulin sliding scale ordered. The impression and plan of care has been dictated as directed. : I performed a history and examination of this patient, discussed the same with the dictator. I agree with the dictator's note ,documented as a scribe. Any additional findings or plans will be noted.
[2022-11-05] MEDS ORDERED: HEPARIN SODIUM 1,000 UN/ML (10ML VL) IV ONE (10:28)
[2022-11-05] MEDS ORDERED: HEPARIN SODIUM 1,000 UN/ML (10ML VL) IV PRN (10:28)
[2022-11-05 11:36] LABS: Glucose,Whole Blood 228 mg/dL (70-110)
[2022-11-05] MEDS: POTASSIUM CHLORIDE ER 10 MEQ TAB.ER.PRT PO SCH (12:00)
[2022-11-05] MEDS: SODIUM CHLORIDE TAB 1 GM TAB PO SCH (12:00)
[2022-11-05] MEDS: MAGNESIUM OXIDE 400 MG TAB PO SCH (12:01)
[2022-11-05] MEDS: FERROUS SULFATE 325 MG TAB PO SCH (12:01)
[2022-11-05] MEDS: ZINC SULFATE 220 MG CAP PO SCH (12:01)
[2022-11-05] MEDS: DIGOXIN 125 MCG TAB PO SCH (12:01)
[2022-11-05] MEDS: METOPROLOL TARTRATE 25 MG TAB PO SCH (12:01)
[2022-11-05] MEDS: FUROSEMIDE 20 MG TAB PO SCH (12:01)
[2022-11-05] MEDS: FOLIC ACID 1 MG TAB PO SCH (12:01)
[2022-11-05] MEDS: ASCORBIC ACID 500 MG TAB PO SCH (12:02)
[2022-11-05] MEDS: INSULIN ASPART (NovoLOG) 100 UNIT/ML VIAL SQ SCH ×5 (12:02→21:00)
[2022-11-05] MEDS: HEPARIN SOD,PORK IN 0.45% NACL 25,000 UNIT in 0.45% NACL 1 250ML.BAG IV SCH (12:03)
[2022-11-05] MEDS: polyethylene glycoL 3350 17 GM POWD.PACK PO SCH (12:04)
[2022-11-05] MEDS: guaiFENesin 600 MG TABLET.ER PO SCH ×2 (12:19→20:59)
--- NOTE | 2022-11-05 12:37 | P.CRDCN ---
History of Present Illness Consult date: 11/05/22 Consult reason: atrial fibrillation (w RVR) History of present illness: History of present illness: This is a 76-year-old male patient of Dr. Parham with past medical history of hypertension, aortic stenosis, COPD, esophageal cancer status post resection, gastroesophageal reflux disease, remote history of tobacco use. We have been asked to see the patient A. fib with RVR. Patient presented to the emergency center on 11/01 with shortness of breath and has been treated by pulmonary medicine for COPD exacerbation. Early this morning, patient went into A. fib with RVR and a consult was placed with cardiology and Dr. Barahona was contacted, patient started on Cardizem drip and heparin drip. Heart rate remains mildly elevated well and Cardizem drip. Regarding atrial fibrillation, patient states he did not feel that someone will come up and currently around midnight. The patient states his breathing status is improved. He may undergo bronchoscopy, waiting for pulmonary to round today. EKG 11/01: Atrial fibrillation at 104 bpm, telemetry atrial fibrillation 90-109 bpm TSH 10/13/2022 2.05. Other lab work from today reveal sodium of 130, potassium 3.9, chloride 93, CO2 32, BUN 25 creatinine 0.58. Pro-BNP from 11/03 is 1640. Chest x-ray reveals mild scattered increased lung markings stable very small left pleural effusion Home cardiac medications: Lasix 20 mg on Mondays and , Lopressor 25 mg daily until 0.5 mg in the evening, Klor-Con 10 mEq Saturday. Patient is also on magnesium and levothyroxine. Effie scan stress test 08/17/2022: Normal EF without stress-induced ischemia Echocardiogram 10/12/2022 revealed EF 45-50%, aortic sclerosis with mild aortic stenosis and moderate aortic insufficiency, [id number] mitral regurgitation. Review Of Systems: At the time of my evaluation: Constitutional: No fever, no chills. No weakness, fatigue or lethargy. EENT: No headache. No dizziness. Lungs: Reports shortness of breath, cough. Cardiovascular: No chest pain, no lower extremity edema. No palpitations. No paroxysmal nocturnal dyspnea. No orthopnea. No lightheadedness or dizziness. No syncopal episodes. Neurologic: No aphasia. No facial droop. No change in mentation. No head injury. No headache. Physical examination: Gen: This is a 76-year-old male. He is resting in bed and appears to be comfortable and in no acute distress VS: reviewed HEENT: Head is atraumatic, normocephalic. Pupils equal, round. Sclerae is anicteric. NECK: Supple. No JVD. No lymphadenopathy. No thyromegaly. LUNGS: Bilateral rhonchi and expiratory wheeze. No intercostal retractions. HEART: Regular rate and rhythm. 1/6 systolic murmur at the base. ABDOMEN: Soft. Bowel sounds are present. No masses. No tenderness. EXTREMITIES: No pedal edema. No calf tenderness. NEUROLOGICAL: Patient is awake, alert and oriented x3. Assessment: New onset paroxysmal atrial fibrillation Chronic diastolic heart failure COPD exacerbation Valvular heart disease with Moderate to severe aortic stenosis, moderate MR, mild MS, moderate TR Hypertension Esophageal cancer Gastroesophageal reflux disease Remote history of tobacco use. Plan: Continue patient's home cardiac medications, increase Lopressor to 25 mg twice daily, add digoxin 125 g daily Continue Cardizem drip and heparin drip until bronchoscopy is completed and then patient will transition to oral eliquis No need to repeat echocardiogram Further recommendations to follow based upon clinical course Thank you kindly for this consultation. Nurse practitioner note has been reviewed, I agree with documented findings and plan of care. Patient was seen and examined. Past Medical History Past Medical History: Cancer, COPD, GERD/Reflux Additional Past Medical History / Comment(s): esophageal cancer, cataracts, History of Any Multi-Drug Resistant Organisms: None Reported Additional Past Surgical History / Comment(s): esophageal surgery, Past Psychological History: No Psychological Hx Reported Smoking Status: Former smoker Past Alcohol Use History: Daily Past Drug Use History: None Reported Medications and Allergies Home Medications Medication Instructions Recorded Confirmed Type Omeprazole [PriLOSEC] 20 mg PO DAILY 06/18/14 11/01/22 History Tiotropium [place] [Spiriva] 1 puff INHALATION RT-DAILY 06/18/14 11/01/22 History Cyanocobalamin (Vitamin B-12) 1,000 mcg PO DAILY 04/19/20 11/01/22 History [Vitamin B-12] Levothyroxine Sodium 25 mcg PO DAILY 04/19/20 11/01/22 History Zinc 50 mg PO DAILY 04/19/20 11/01/22 History Ipratropium-Albuterol Nebulize 3 ml INHALATION RT-QID #120 ml 04/25/20 11/01/22 Rx [Duoneb 0.5 mg-3 mg/3 ml Soln] Ascorbic Acid [Vitamin C] 1,000 mg PO DAILY 10/11/22 11/01/22 History Ferrous Sulfate [Iron (65 MG 325 mg PO DAILY 10/11/22 11/01/22 History Elemental)] Folate 666mcg 1 tab PO DAILY 10/11/22 11/01/22 History Magnesium 250 mg PO DAILY 10/11/22 11/01/22 History Metoprolol Tartrate [Lopressor] 12.5 mg PO HS 10/11/22 11/01/22 History Metoprolol Tartrate [Lopressor] 25 mg PO DAILY 10/11/22 11/01/22 History [place]-3 Fatty Acids [[place]-3] 1,000 mg PO DAILY 10/11/22 11/01/22 History Sodium Chloride Tab 1 gm PO DAILY 10/11/22 11/01/22 History Budesonide 0.5 mg INHALATION RT-BID 11/01/22 11/01/22 History Furosemide [Lasix] 20 mg PO MOTH 11/01/22 11/01/22 History Multivit-Min/FA/Lycopen/Lutein 1 tab PO DAILY 11/01/22 11/01/22 History [Centrum Silver Tablet] Potassium Chloride [Klor-Con M10] 10 meq PO MOTH 11/01/22 11/01/22 History Allergies Allergy/AdvReac Type Severity Reaction Status Date / Time No Known Allergies Allergy Verified 11/01/22 13:29 Physical Exam Vitals: Vital Signs Temp Pulse Pulse Resp BP Pulse Ox 11/05/22 03:24 98.1 F 86 18 110/65 98 11/05/22 01:43 92 105/76 11/05/22 01:35 125 H 109/73 11/04/22 23:27 97.6 F 96 22 115/67 99 11/04/22 22:19 92 11/04/22 22:10 90 11/04/22 22:09 90 11/04/22 21:54 84 11/04/22 19:37 97.8 F 88 24 119/69 98 11/04/22 16:00 97.2 F L 83 19 124/72 100 11/04/22 15:40 96 11/04/22 15:28 88 11/04/22 13:58 79 20 11/04/22 12:00 97.8 F 79 20 111/67 99 11/04/22 11:36 92 11/04/22 11:25 92 11/04/22 08:22 92 11/04/22 08:15 88 11/04/22 08:00 98.0 F 88 95 22 117/67 98 Intake and Output 11/04/22 11/05/22 11/05/22 22:59 06:59 14:59 Other: Voiding Method Urinal Urinal Weight 57.3 kg Results 11/01/22 11:53 11/05/22 06:50 Comprehensive Metabolic Panel 11/04/22 Range/Units 08:28 Sodium 130 L (137-145) mmol/L Potassium 4.3 (3.5-5.1) mmol/L Chloride 94 L (98-107) mmol/L Carbon Dioxide 31 H (22-30) mmol/L BUN 23 H (9-20) mg/dL Creatinine 0.65 L (0.66-1.25) mg/dL Glucose 188 H (74-99) mg/dL Calcium 8.3 L (8.4-10.2) mg/dL Current Medications Generic Name Dose Route Start Last Admin Trade Name Freq PRN Reason Stop Dose Admin Acetaminophen 650 mg 11/01/22 13:46 Acetaminophen Tab 325 Mg Tab PO Q4HR PRN Mild Pain or Fever > 100.5 Albuterol/Ipratropium 3 ml 11/02/22 06:50 Ipratropium-Albuterol 3 Ml Neb INHALATION RT-Q2H PRN Shortness Of Breath Albuterol/Ipratropium 3 ml 11/02/22 08:00 11/04/22 21:54 Ipratropium-Albuterol 3 Ml Neb INHALATION 3 ml RT-QID BREE Administration Ascorbic Acid 1,000 mg 11/02/22 09:00 11/04/22 09:54 Ascorbic Acid 500 Mg Tab PO 1,000 mg DAILY BREE Administration Budesonide 1 mg 11/01/22 20:00 11/04/22 21:54 Budesonide 1 Mg/2 Ml Nebu INHALATION 1 mg RT-BID BREE Administration Ferrous Sulfate 325 mg 11/02/22 09:00 11/04/22 09:53 Ferrous Sulfate 325 Mg Tab PO 325 mg DAILY BREE Administration Folic Acid 0.5 mg 11/02/22 09:00 11/04/22 09:53 Folic Acid 1 Mg Tab PO 0.5 mg DAILY BREE Administration Formoterol Fumarate 20 mcg 11/01/22 20:00 11/04/22 21:54 Formoterol Fumarate 20 Mcg/2 Ml Nebu INHALATION 20 mcg RT-BID BERE Administration Furosemide 20 mg 11/04/22 09:00 11/04/22 09:53 Furosemide 20 Mg Tab PO 20 mg DAILY BREE Administration Heparin Sodium (Porcine) 5,000 unit 11/03/22 16:00 11/04/22 23:01 Heparin Sodium,Porcine/Pf 5,000 Unit/0.5 Ml Syringe SQ 5,000 unit Q8HR BREE Administration Diltiazem HCl 125 mg/ Sodium 125 mls @ 5 mls/hr 11/05/22 01:30 11/05/22 01:28 Chloride IV 5 mg/hr .Q24H BREE 5 mls/hr Administration 5 MG/HR Levothyroxine Sodium 25 mcg 11/02/22 06:30 11/05/22 05:52 Levothyroxine 25 Mcg Tab PO Not Given DAILY@0630 [facility] Magnesium Oxide 400 mg 11/02/22 09:00 11/04/22 09:53 Magnesium Oxide 400 Mg Tab PO 400 mg DAILY [facility] Administration Methylprednisolone Sodium Succinate 60 mg 11/01/22 18:00 11/05/22 06:00 Methylprednisolone Sod Succi 125 Mg/2 Ml Vial IV 60 mg Q6HR BREE Administration Metoprolol Tartrate 25 mg 11/02/22 09:00 11/04/22 09:53 Metoprolol Tartrate 25 Mg Tab PO 25 mg DAILY [facility] Administration Metoprolol Tartrate 12.5 mg 11/01/22 21:00 11/04/22 20:11 Metoprolol Tartrate 12.5 Mg Tab PO 12.5 mg HS [facility] Administration Naloxone HCl 0.2 mg 11/01/22 13:46 Naloxone 0.4 Mg/Ml 1 Ml Vial IVP Q2M PRN Opioid Reversal Pantoprazole Sodium 40 mg 11/02/22 07:30 11/05/22 05:52 Pantoprazole 40 Mg Tablet PO Not Given DAILY@0730 [facility] Polyethylene Glycol 17 gm 11/04/22 09:00 11/04/22 09:52 Polyethylene Glycol 3350 17 Gm Powd.Pack PO 17 gm DAILY BREE Administration Potassium Chloride 10 meq 11/01/22 14:15 11/01/22 15:37 Potassium Chloride Er 10 Meq Tab.Er.Prt PO 10 meq MoTh@0900 BREE Administration Sodium Chloride 1 gm 11/02/22 09:00 11/04/22 09:52 Sodium Chloride Tab 1 Gm Tab PO 1 gm DAILY BREE Administration Tiotropium [place] 2 puff 11/02/22 08:00 11/04/22 08:07 Tiotropium 2.5 Mcg Inhaler INHALATION Not Given RT-DAILY BREE Zinc Sulfate 220 mg 11/02/22 09:00 11/04/22 09:53 Zinc Sulfate 220 Mg Cap PO 220 mg DAILY BREE Administration Intake and Output 11/04/22 11/05/22 11/05/22 22:59 06:59 14:59 Other: Voiding Method Urinal Urinal Weight 57.3 kg 11/01/22 11:53 11/04/22 08:28
--- NOTE | 2022-11-05 13:12 | P.PN ---
Subjective Progress Note Date: 11/05/22 76-year-old male who was seen by my partner in the office, and sent to the emergency room. We saw him briefly yesterday, did not do a consult on him yesterday. The patient was admitted to the hospital with a diagnosis of COPD exacerbation. He came in complaining of shortness of breath, cough, chest co ngestion, wheezing, and occasional phlegm production. He does have history of underlying COPD, THF, atrial fibrillation, and esophageal cancer. Currently, the patient appears to be doing reasonably well. He is on 5 L nasal cannula, turned down to 3 L. He's not receiving any IV fluids. He did not use of BiPAP device. When we saw him in the emergency room yesterday, he was on BiPAP, with settings of 10/5 and 40%. His chest x-ray was unchanged. He was seen in room 5, in the emergency department. White count 13.7, hemoglobin 12.7, hematocrit 39.4, and platelet count 281,000. Coagulation studies were normal. Venous blood gases show a pCO2 of 56, and a pH is 7.33. Sodium 132, potassium 4.3, chlorides 98, CO2 26, BUN 24, and creatinine 0.64. Calcium was 8. AST was 127 with an ALT 146. N-terminal proBNP was 1270. The patient's chest x-ray was consistent with COPD, and some increased interstitial opacities, which are not new. Progress note dated 11/03/2022. Patient was seen in consultation yesterday. He was seen in my office, by one of my partners, and sent to the emergency room. Currently, the patient is on 3 L of oxygen. He's not receiving any IV fluids. His respiratory status is somewhat tenuous right now, and we've asked respiratory to place him back on BiPAP. He has a history of COPD, CHF, atrial fibrillation, and esophageal cancer. Certain laboratory includes a sodium 132, potassium 4, chlorides 97, CO2 24, BUN 21, creatinine 0.64. Albumin is 3.6. Culture data is as far negative. Progress note dated 11/04/2022. The patient is seen today in room 360. Currently, he's on 3 L of oxygen. The patient is not using his BiPAP. BiPAP settings are 12/6 and dirty 5%. He was placed on a yesterday, because his respiratory status has declined. The patient mention to us, that Dr. Concepcion, mention doing a bronchoscopy on this patient. For this reason, we'll keep the patient nothing by mouth after midnight. The patient is still coughing up dark phlegm. Sodium 1:30, potassium 4.3, chlorides 94, CO2 31, BUN 23, and creatinine 0.65. Anion gap is normal. Sputum and blood sampling assess far negative. Chest x-ray from yesterday shows a small left-s ided pleural effusion, and chronic changes, without anything acute. On today's evaluation of 11/05/2022, the patient is being seen for a follow-up. Since his admission 3 days ago, the patient is gradually improving. He continues to have cough and congestion. He is afebrile. He is hemodynamically stable. His pro calcitonin level at time of admission was 0.06 and he does not have an elevation the pro calcitonin level. Chest x-ray showed mild scattered. Lung markings. There was also small left-sided pleural effusion. Meanwhile, the patient earlier this morning went into atrial fibrillation with rapid ventricular response. Cardiology was consulted. The patient was started on Cardizem drip which is currently running at 5 mg an hour and the patient's rate is under better control. Antibiotic regulations of the started yet. I made recommendations to start the patient on IV heparin as there is a very high likelihood that the patient may need a bronchoscopy within next 24-48 hours regarding his respiratory secretions and the mucus. Echocardiogram was also ordered and is also still pending for now. No palpitations. No focal neurological deficits. No other new complaints. Objective - Vital Signs Vital signs: Vital Signs Temp 97.4 F L 11/05/22 08:51 Pulse 92 11/05/22 09:15 Resp 18 11/05/22 08:51 BP 99/58 11/05/22 08:51 Pulse Ox 96 11/05/22 08:51 FiO2 35 11/03/22 12:41 Intake & Output 11/04/22 11/05/22 11/05/22 18:59 06:59 18:59 Intake Total 480 Balance 480 Weight 57.3 kg Intake: Oral 480 Other: Voiding Method Urinal Urinal # Voids 1 - Exam Gen: This is a 76-year-old male. He is resting in bed and appears to be comfortable and in no acute distress, the patient is currently on 4 L of oxygen by nasal cannula Head exam was generally normal. There was no scleral icterus or corneal arcus. Mucous membranes were moist. HEENT: Head is atraumatic, normocephalic. Pupils equal, round. Sclerae is anicteric. NECK: Supple. No JVD. No lymphadenopathy. No thyromegaly. LUNGS: Bilateral rhonchi and expiratory wheeze. No intercostal retractions. HEART: Regular rate and rhythm. 1/6 systolic murmur at the base. ABDOMEN: Soft. Bowel sounds are present. No masses. No tenderness. EXTREMITIES: No pedal edema. No calf tenderness. NEUROLOGICAL: Patient is awake, alert and oriented x3. - Labs CBC & Chem 7: 11/01/22 11:53 11/05/22 06:50 Labs: Abnormal Lab Results - Last 24 Hours (Table) 11/04/22 11/04/22 11/04/22 Range/Units 11:49 16:39 20:01 Sodium (137-145) mmol/L Chloride (98-107) mmol/L Carbon Dioxide (22-30) mmol/L BUN (9-20) mg/dL Creatinine (0.66-1.25) mg/dL Glucose (74-99) mg/dL POC Glucose (mg/dL) 142 H 188 H 238 H (70-110) mg/dL Calcium (8.4-10.2) mg/dL 11/05/22 11/05/22 Range/Units 06:04 06:50 Sodium 130 L (137-145) mmol/L Chloride 93 L (98-107) mmol/L Carbon Dioxide 32 H (22-30) mmol/L BUN 25 H (9-20) mg/dL Creatinine 0.58 L (0.66-1.25) mg/dL Glucose 146 H (74-99) mg/dL POC Glucose (mg/dL) 146 H (70-110) mg/dL Calcium 8.0 L (8.4-10.2) mg/dL Microbiology - Last 24 Hours (Table) 11/01/22 11:55 Blood Culture - Preliminary Blood No Growth after 72 hours 11/01/22 11:40 Blood Culture - Preliminary Blood No Growth after 72 hours 11/02/22 21:25 Gram Stain - Preliminary Sputum Sputum Culture - Preliminary Assessment and Plan Plan: Acute hypoxemic respiratory failure, secondary to COPD exacerbation, without obvious pneumonia. I suspect that the patient is having recurrent episodes of aspiration. During his last hospitalization, as well as evaluation [facility] patient [facility]. Following his discharge, his symptoms recurred and the patient is coming in for another exacerbation of COPD with excessive respiratory secretions and mucous with a low pro calcitonin level and chest x-ray that showing limited infiltration. Suspect aspiration. The patient is currently on oxygen at 4 L per minute nasal cannula Suspect aspiration, recurrent as the patient has had previous esophageal resection with a gastric pull New-onset atrial fibrillation, rate is controlled for now History of esophageal cancer, previous esophageal surgery. History of gastroesophageal reflux disease. New onset atrial fibrillation, current rate is controlled. The patient is on Cardizem drip at 5 mg an hour. No anticoagulants Prior history of heavy tobacco use. Plan: Continue using incentive spirometer and put the patient on a flutter valve Continue bronchodilators and steroids Continue IV Zosyn And Mucinex DM Collected sputum Gram stain and culture if possible We'll try to bronchoscope the patient over the next few days The patient is new onset atrial fibrillation with RVR, current rate is controlled. Cardiology ordered for the patient. The patient will be started on IV heparin and the patient is also on a Cardizem drip Ordered an echocardiogram We'll continue to follow
--- NOTE | 2022-11-05 13:24 | P.PN ---
Subjective Progress Note Date: 11/05/22 The patient is a 76-year-old male with a past medical history significant for esophageal cancer, COPD, CHF, A. fib, and GERD. He presented to the emergency department on 11/01/22 with complaints of shortness of breath. Patient was sent in by Dr. Hudson for evaluation of worsening shortness breath. The patient was at his follow up appointment after his recent hospitalization for a COPD exacerbation from 10/11-10/19. The patient started having increasing shortness breath last to 3 days. He denied any chest pain. Peripheral edema or weight gain. Patient reports conversational dyspnea and orthopnea. He was put on BiPAP 40% 05/16 in the emergency department. Chest x-ray shows chronic changes with small to tiny left pleural effusion and left basilar consolidation and/or atelectasis. BNP was 1270, WBC 13.7, hemoglobin 12.7, VBG shows a pH of 7.33 and a pCO2 of 56. 3/24 The patient is sitting up in the chair eating lunch. His and grandson are present. Information regarding palliative care philosophies and services provided. The patient states that his breathing improved very quickly. He is now only on 2L NC. Education provided on COPD progression, including more frequent exacerbations that will be harder to control. Eventually the treatments will not work. The patient is aware and thankful he is not at that end stage yet. He states that he does not weak oxygen at home. He is very independent with his ADL's. He even still drives. He was encouraged to eat more. His BMI is only 18.2. His states that he has always been a skinny jessica and that he eats fairly well. The patient and his will consider palliative care in the future, but they do not feel like they need it or home care at this time. Objective - Vital Signs Vital signs: Vital Signs Temp 97.4 F L 11/05/22 08:51 Pulse 106 H 11/05/22 12:21 Resp 18 11/05/22 12:21 BP 93/58 11/05/22 12:21 Pulse Ox 97 11/05/22 12:21 FiO2 35 11/03/22 12:41 Intake & Output 11/04/22 11/05/22 11/05/22 18:59 06:59 18:59 Intake Total 480 Balance 480 Weight 57.3 kg Intake: Oral 480 Other: Voiding Method Urinal Urinal # Voids 1 - Exam General: No acute distress. Chronically ill appearing. Appears stated age. HEENT: Head is atraumatic, normocephalic. Sclera are clear. Mucus membranes moist. CV: Heart regular in rate and rhythm positive S1 and S2. No peripheral edema Lungs: Respirations even and nonlabored. On 3L NC. Abdomen/GI: Soft, nondistended, nontender. : No suprapubic tenderness. Musculoskeletal/ Extremities: No joint deformity or swelling. No contractures or gross atrophy. + generalized weakness Skin: Warm and dry Neurologic: Awake, alert and oriented times 3. CN II-XII grossly intact. No focal deficits. Psychiatric: Appropriate mood and affect. - Labs CBC & Chem 7: 11/01/22 11:53 11/05/22 06:50 Labs: Abnormal Lab Results - Last 24 Hours (Table) 11/04/22 11/04/22 11/05/22 Range/Units 16:39 20:01 06:04 Sodium (137-145) mmol/L Chloride (98-107) mmol/L Carbon Dioxide (22-30) mmol/L BUN (9-20) mg/dL Creatinine (0.66-1.25) mg/dL Glucose (74-99) mg/dL POC Glucose (mg/dL) 188 H 238 H 146 H (70-110) mg/dL Calcium (8.4-10.2) mg/dL 11/05/22 11/05/22 Range/Units 06:50 11:34 Sodium 130 L (137-145) mmol/L Chloride 93 L (98-107) mmol/L Carbon Dioxide 32 H (22-30) mmol/L BUN 25 H (9-20) mg/dL Creatinine 0.58 L (0.66-1.25) mg/dL Glucose 146 H (74-99) mg/dL POC Glucose (mg/dL) 228 H (70-110) mg/dL Calcium 8.0 L (8.4-10.2) mg/dL Microbiology - Last 24 Hours (Table) 11/02/22 21:25 Gram Stain - Final Sputum Sputum Culture - Final 11/01/22 11:55 Blood Culture - Preliminary Blood No Growth after 72 hours 11/01/22 11:40 Blood Culture - Preliminary Blood No Growth after 72 hours Assessment and Plan Assessment: Symptoms * Pain - No pain, Tylenol prn * Fatigue - Yes, Generalized weakness and fatigue, continue Feosol * SOB - Conversational dyspnea - improved. Dyspnea with exertion. On 3L NC. Continue Lasix, Solumedrol, Pulmicort, Peroromist, Duoneb, Spiriva, and Zithromax * Insomnia - No * N/V - No * Anxiety - No * Depression - No * Confusion - No * Agitation - No * Hallucinations - No * Appetite/weight loss - Patient reports having a good appetite, no recent weight loss. BMI 18.2, continue with heart healthy diet. Does not want oral supplements - they give him diarrhea * Dysphagia - No * Constipation -Yes, continue Miralax * Incontinence - No * Itch - No * Cough - Occasional Plan: Summary/Goals - The patient is resting in bed. He is eating an egg salad sandwich his made. He seems a little down today. He stated he's not doing great. The longer he is here, the worse he is. He had a "set back" with some respiratory difficulty day before yesterday requiring BiPAP use. He states he is breathing better today, but is coughing up dark phlegm. He is scheduled for a bronchoscopy today. He is 3L NC. He denies prior home O2 use. It was explained that the natural progression of his COPD will include more frequent exacerbations and less responsiveness to treatment. He more than likely will require home oxygen soon. The patient's stated they were still considering outpatient palliative care, but would like to decide closer to discharge. Recommendations - Home when medically stable Advanced Directives - on file Code Status - full code Thank you for this consultation Itzel Carrasco [facility] [employer]ink [phone] Email: [email or web address]
--- NOTE | 2022-11-05 13:36 | CA ---
Transthoracic Echo Report Name: Keshav Cuevas Age: 76 Gender: M : 1945 Exam Date: 11/05/2022 10:53 Exam Location: [facility] Ht (in): 72 Wt (lb): 126 Ordering Physician: Simeon Concepcion MD Attending/Referring Phys: Extractor Tender [employer] Monika Vazquez RDCS Procedure CPT: Indications: sob, Cardiac Hx: Technical Quality: Fair Contrast 1: Total Dose (mL): Contrast 2: Total Dose (mL): MEASUREMENTS (Male / Female) Normal Values 2D ECHO LV Diastolic Diameter PLAX 4.0 cm 4.2 - 5.9 / 3.9 - 5.3 cm LV Systolic Diameter PLAX 2.9 cm IVS Diastolic Thickness 0.9 cm 0.6 - 1.0 / 0.6 - 0.9 cm LVPW Diastolic Thickness 0.8 cm 0.6 - 1.0 / 0.6 - 0.9 cm LV Relative Wall Thickness 0.4 RV Internal Dim ED PLAX 3.3 cm LVOT Diameter 2.2 cm LA Systolic Diameter LX 4.1 cm 3.0 - 4.0 / 2.7 - 3.8 cm LA Volume 64.0 cm??? 18 - 58 / 22 - 52 cm??? M-MODE Aortic Root Diameter MM 3.4 cm AV Cusp Separation MM 1.5 cm DOPPLER AV Peak Velocity 209.3 cm/s AV Peak Gradient 17.5 mmHg AV Mean Velocity 139.7 cm/s AV Mean Gradient 9.6 mmHg AV Velocity Time Integral 44.3 cm MV Peak Velocity 196.9 cm/s MV Peak Gradient 15.5 mmHg MV Mean Velocity 102.4 cm/s MV Mean Gradient 5.3 mmHg MV Velocity Time Integral 60.5 cm MV Area PHT 3.1 cm??? MV Deceleration Time 343.1 ms TR Peak Velocity 307.8 cm/s TR Peak Gradient 37.9 mmHg Right Ventricular Systolic Press 42.3 mmHg FINDINGS Left Ventricle Left ventricular ejection fraction is estimated at 45-50 %. Left ventricular cavity size normal. Left ventricular wall thickness normal. No obvious regional wall motion abnormalities. Right Ventricle Moderate right ventricular dilatation. Mild pulmonary hypertension. Normal right ventricular function. Right Atrium Normal right atrial size. Left Atrium Mildly increased left atrial diameter. Mildly increased left atrial volume. Mildly increased left atrial area. Mitral Valve Mitral valve thickened. Moderate mitral annular calcification. Mitral stenosis with mean gradient of 5 mm/Hg Aortic Valve Focal thickening of the aortic valve cusps. Mild aortic stenosis with a peak gradient of 18 mmHg and a mean gradient of 10 mmHg. Mild aortic regurgitation. Tricuspid Valve Structurally normal tricuspid valve. Mild tricuspid regurgitation. Pulmonic Valve Structurally normal pulmonic valve. Mild pulmonic regurgitation. Pericardium Normal pericardium. No pericardial effusion. Aorta Normal size aortic root and proximal ascending aorta. CONCLUSIONS Left ventricular ejection fraction 45-50% Moderate right ventricular dilation Mildly dilated left atrium Moderate mitral ring or calcification Mild mitral stenosis mean gradient 5 mmHg Mild aortic stenosis Mild tricuspid regurgitation No pericardial effusion Previewed by: Dr. Juanjo Werner DO (Electronically Signed) Final Date: 05 November 2022 13:35
[2022-11-05] MEDS: HEPARIN SODIUM,PORCINE/PF 5,000 UNIT/0.5 ML SYRINGE SQ SCH (14:13)
[2022-11-05 16:29] LABS: Glucose,Whole Blood 167 mg/dL (70-110)
[2022-11-05 20:32] LABS: Glucose,Whole Blood 152 mg/dL (70-110)
[2022-11-05] MEDS ORDERED: METOPROLOL TARTRATE 25 MG TAB PO SCH (21:00)
[2022-11-06] MEDS: methylPREDNISolone SOD SUCCI 125 MG/2 ML VIAL IV SCH ×5 (00:21→23:26)
[2022-11-06 03:16] LABS: Glucose,Whole Blood 167 mg/dL (70-110)
[2022-11-06] MEDS: DILTIAZEM 125 MG in SODIUM CHLORIDE 0.9% 100 ML IV SCH (05:21)
[2022-11-06 06:09] LABS: Glucose,Whole Blood 158 mg/dL (70-110)
[2022-11-06] MEDS: INSULIN ASPART (NovoLOG) 100 UNIT/ML VIAL SQ SCH ×4 (06:16→20:10)
[2022-11-06] MEDS: LEVOTHYROXINE 25 MCG TAB PO SCH (06:17)
[2022-11-06] MEDS: PANTOPRAZOLE 40 MG TABLET PO SCH (06:17)
[2022-11-06] MEDS: BUDESONIDE 1 MG/2 ML NEBU INHALATION SCH ×2 (07:41→20:20)
[2022-11-06] MEDS: IPRATROPIUM-ALBUTEROL 3 ML NEB INHALATION SCH ×4 (07:41→20:20)
[2022-11-06] MEDS: FORMOTEROL FUMARATE 20 MCG/2 ML NEBU INHALATION SCH ×2 (07:41→20:20)
[2022-11-06] MEDS: TIOTROPIUM 2.5 MCG INHALER INHALATION SCH (07:59)
[2022-11-06] MEDS: DIGOXIN 125 MCG TAB PO SCH (09:52)
[2022-11-06] MEDS: FUROSEMIDE 20 MG TAB PO SCH (09:52)
[2022-11-06] MEDS: METOPROLOL TARTRATE 50 MG TAB PO SCH ×2 (09:52→20:09)
--- NOTE | 2022-11-06 09:53 | P.PN ---
Subjective Progress Note Date: 11/06/22 76-year-old male who was seen by my partner in the office, and sent to the emergency room. We saw him briefly yesterday, did not do a consult on him yesterday. The patient was admitted to the hospital with a diagnosis of COPD exacerbation. He came in complaining of shortness of breath, cough, chest co ngestion, wheezing, and occasional phlegm production. He does have history of underlying COPD, THF, atrial fibrillation, and esophageal cancer. Currently, the patient appears to be doing reasonably well. He is on 5 L nasal cannula, turned down to 3 L. He's not receiving any IV fluids. He did not use of BiPAP device. When we saw him in the emergency room yesterday, he was on BiPAP, with settings of 10/5 and 40%. His chest x-ray was unchanged. He was seen in room 5, in the emergency department. White count 13.7, hemoglobin 12.7, hematocrit 39.4, and platelet count 281,000. Coagulation studies were normal. Venous blood gases show a pCO2 of 56, and a pH is 7.33. Sodium 132, potassium 4.3, chlorides 98, CO2 26, BUN 24, and creatinine 0.64. Calcium was 8. AST was 127 with an ALT 146. N-terminal proBNP was 1270. The patient's chest x-ray was consistent with COPD, and some increased interstitial opacities, which are not new. Progress note dated 11/03/2022. Patient was seen in consultation yesterday. He was seen in my office, by one of my partners, and sent to the emergency room. Currently, the patient is on 3 L of oxygen. He's not receiving any IV fluids. His respiratory status is somewhat tenuous right now, and we've asked respiratory to place him back on BiPAP. He has a history of COPD, CHF, atrial fibrillation, and esophageal cancer. Certain laboratory includes a sodium 132, potassium 4, chlorides 97, CO2 24, BUN 21, creatinine 0.64. Albumin is 3.6. Culture data is as far negative. Progress note dated 11/04/2022. The patient is seen today in room 360. Currently, he's on 3 L of oxygen. The patient is not using his BiPAP. BiPAP settings are 12/6 and dirty 5%. He was placed on a yesterday, because his respiratory status has declined. The patient mention to us, that Dr. Concepcion, mention doing a bronchoscopy on this patient. For this reason, we'll keep the patient nothing by mouth after midnight. The patient is still coughing up dark phlegm. Sodium 1:30, potassium 4.3, chlorides 94, CO2 31, BUN 23, and creatinine 0.65. Anion gap is normal. Sputum and blood sampling assess far negative. Chest x-ray from yesterday shows a small left-s ided pleural effusion, and chronic changes, without anything acute. On today's evaluation of 11/05/2022, the patient is being seen for a follow-up. Since his admission 3 days ago, the patient is gradually improving. He continues to have cough and congestion. He is afebrile. He is hemodynamically stable. His pro calcitonin level at time of admission was 0.06 and he does not have an elevation the pro calcitonin level. Chest x-ray showed mild scattered. Lung markings. There was also small left-sided pleural effusion. Meanwhile, the patient earlier this morning went into atrial fibrillation with rapid ventricular response. Cardiology was consulted. The patient was started on Cardizem drip which is currently running at 5 mg an hour and the patient's rate is under better control. Antibiotic regulations of the started yet. I made recommendations to start the patient on IV heparin as there is a very high likelihood that the patient may need a bronchoscopy within next 24-48 hours regarding his respiratory secretions and the mucus. Echocardiogram was also ordered and is also still pending for now. No palpitations. No focal neurological deficits. No other new complaints. 11/06/2022, the patient is improving slowly. Cough and congestion has been subsiding. The patient is feeling better. Is currently on oxygen at 3 L/m nasal cannula. He was given an incentive spirometer. He was also given a flutter valve. He remains in atrial fibrillation. Rate is controlled for now. He is currently on IV heparin. Is also on IV Cardizem running at 5 mg an hour. His heart rate is under much better control without any significant tachycardia. He remains in atrial fibrillation. Echocardiogram was done yesterday and the patient was found to have an ejection fraction of 45-50%. He also has a moderate RV dilatation and mild pulmonary hypertension. Mitral stenosis was als o identified which was mild in addition to and mild aortic stenosis. He is also on metoprolol 50 mg by mouth twice a day and is also on digoxin for rate control. Cardizem drip will be discontinued for now. The plan is to do a bronchoscopy and bronchial lavage on this patient is today. For now, he is nothing by mouth. Objective - Vital Signs Vital signs: Vital Signs Temp 97.6 F 11/06/22 08:00 Pulse 80 11/06/22 08:05 Resp 16 11/06/22 08:00 BP 114/74 11/06/22 08:00 Pulse Ox 97 11/06/22 08:00 FiO2 35 11/03/22 12:41 Intake & Output 11/05/22 11/06/22 11/06/22 18:59 06:59 18:59 Intake Total 43.548 125 Output Total 350 Balance 43.548 -225 Weight 56.6 kg Intake: Intake, IV Titration 43.548 125 Amount Diltiazem 125 mg In 125 Sodium Chloride 0.9% 100 ml @ 5 MG/HR 5 mls/hr IV .Q24H [facility] Rx#:[id number] Heparin Sod,Pork in 0.45% 43.548 NaCl 25,000 unit In 0.45 % NaCl 1 250ml.bag @ 12 UNITS/KG/HR 6.876 mls/hr IV .Q24H [facility] Rx#: [id number] Output: Urine 350 Other: Voiding Method Urinal Urinal # Voids 3 # Bowel Movements 0 - Exam Gen: This is a 76-year-old male. He is resting in bed and appears to be comfortable and in no acute distress, the patient is currently on 3 L of oxygen by nasal cannula Head exam was generally normal. There was no scleral icterus or corneal arcus. Mucous membranes were moist. HEENT: Head is atraumatic, normocephalic. Pupils equal, round. Sclerae is anicteric. NECK: Supple. No JVD. No lymphadenopathy. No thyromegaly. LUNGS: Bilateral rhonchi and expiratory wheeze. No intercostal retractions. HEART: Regular rate and rhythm. 1/6 systolic murmur at the base. ABDOMEN: Soft. Bowel sounds are present. No masses. No tenderness. EXTREMITIES: No pedal edema. No calf tenderness. NEUROLOGICAL: Patient is awake, alert and oriented x3. - Labs CBC & Chem 7: 11/01/22 11:53 11/05/22 06:50 Labs: Abnormal Lab Results - Last 24 Hours (Table) 11/05/22 11/05/22 11/05/22 Range/Units 09:58 11:34 16:14 APTT 32.8 H (22.0-30.0) sec POC Glucose (mg/dL) 228 H (70-110) mg/dL Hemoglobin A1c 6.6 H (0.0-6.0) % 11/05/22 11/05/22 11/06/22 Range/Units 16:28 20:31 00:31 APTT 46.0 H (22.0-30.0) sec POC Glucose (mg/dL) 167 H 152 H (70-110) mg/dL Hemoglobin A1c (0.0-6.0) % 11/06/22 11/06/22 Range/Units 03:14 06:07 APTT (22.0-30.0) sec POC Glucose (mg/dL) 167 H 158 H (70-110) mg/dL Hemoglobin A1c (0.0-6.0) % Microbiology - Last 24 Hours (Table) 11/01/22 11:55 Blood Culture - Preliminary Blood No Growth after 96 hours 11/01/22 11:40 Blood Culture - Preliminary Blood No Growth after 96 hours 11/02/22 21:25 Gram Stain - Final Sputum Sputum Culture - Final Assessment and Plan Plan: Acute hypoxemic respiratory failure, secondary to COPD exacerbation, without obvious pneumonia. I suspect that the patient is having recurrent episodes of aspiration. During his last hospitalization, as well as evaluation was done which the patient passed. Following his discharge, his symptoms recurred and the patient is coming in for another exacerbation of COPD with excessive respiratory secretions and mucous with a low pro calcitonin level and chest x- ray that showing limited infiltration. Suspect aspiration. The patient is c urrently on oxygen at 3 L per minute nasal cannula Suspect aspiration, recurrent as the patient has had previous esophageal resection with a gastric pull New-onset atrial fibrillation, rate is controlled for now, currently on IV heparin, Cardizem drip at 5 mg an hour, metoprolol 50 mg twice a day and digoxin. 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 History of gastroesophageal reflux disease. Prior history of heavy tobacco use. Plan: Continue using incentive spirometer and put the patient on a flutter valve Continue bronchodilators and steroids Continue IV Zosyn Mucinex DM Discontinue the IV Cardizem drip Keep the IV heparin for now and stop it 90 minutes prior to the procedure The patient is scheduled to undergo bronchoscopy and lavage today at around 1 PM. We'll continue to follow
--- NOTE | 2022-11-06 11:02 | P.PN ---
Subjective Progress Note Date: 11/06/22 History of present illness: This is a 76-year-old male patient of Dr. Parham with past medical history of h ypertension, aortic stenosis, COPD, esophageal cancer status post resection, gastroesophageal reflux disease, remote history of tobacco use. We have been asked to see the patient A. fib with RVR. Patient presented to the emergency center on 11/01 with shortness of breath and has been treated by pulmonary medicine for COPD exacerbation. Early this morning, patient went into A. fib with RVR and a consult was placed with cardiology and Dr. Barahona was contacted, patient started on Cardizem drip and heparin drip. Heart rate remains mildly elevated well and Cardizem drip. Regarding atrial fibrillation, patient states he did not feel that someone will come up and currently around midnight. The dakota hooker states his breathing status is improved. He may undergo bronchoscopy, waiting for pulmonary to round today. EKG 11/01: Atrial fibrillation at 104 bpm, telemetry atrial fibrillation 90-109 bpm TSH 10/13/2022 2.05. Other lab work from today reveal sodium of 130, potassium 3.9, chloride 93, CO2 32, BUN 25 creatinine 0.58. Pro-BNP from 11/03 is 1640. Chest x-ray reveals mild scattered increased lung markings stable very small left pleural effusion Home cardiac medications: Lasix 20 mg on Mondays and , Lopressor 25 mg daily until 0.5 mg in the evening, Klor-Con 10 mEq Saturday. Patient is also on magnesium and levothyroxine. Effie scan stress test 08/17/2022: Normal EF without stress-induced ischemia Echocardiogram 10/12/2022 revealed EF 45-50%, aortic sclerosis with mild aortic stenosis and moderate aortic insufficiency, [id number] mitral regurgitation. 11/06 Patient states that his breathing is stable today. He is currently on Cardizem drip and heparin drip. Telemetry is atrial fibrillation rate controlledwith heart rates in the 70s - 90s. echocardiogram reveals EF of 45-50%, moderate right ventricular dilation, mildly dilated left atrium, moderate mitral ring or calcification, mild mitral stenosis mean gradient 5 mmHg, mild aortic stenosis, mild tricuspid regurgitation, no pericardial effusion. Physical examination: Gen: This is a 76-year-old male. He is resting in bed and appears to be comfortable and in no acute distress VS: reviewed HEENT: Head is atraumatic, normocephalic. Pupils equal, round. Sclerae is anicteric. NECK: Supple. No JVD. No lymphadenopathy. No thyromegaly. LUNGS: Bilateral rhonchi and expiratory wheeze. No intercostal retractions. HEART: Regular rate and rhythm. 1/6 systolic murmur at the base. EXTREMITIES: No pedal edema. No calf tenderness. NEUROLOGICAL: Patient is awake, alert and oriented x3. Assessment: New onset paroxysmal atrial fibrillation Chronic diastolic heart failure COPD exacerbation Valvular heart disease with Moderate to severe aortic stenosis, moderate MR, mild MS, moderate TR Hypertension Esophageal cancer Gastroesophageal reflux disease Remote history of tobacco use. Plan: Continue patient's home cardiac medications, increase Lopressor to 50 mg twice daily, continue digoxin 125 g daily Continue Cardizem drip Continue heparin drip until bronchoscopy is completed and then patient will transition to oral eliquis Further recommendations to follow based upon clinical course Thank you kindly for this consultation. Nurse practitioner note has been reviewed, I agree with documented findings and plan of care. Patient was seen and examined. Objective - Vital Signs Vital signs: Vital Signs Temp 97.6 F 11/06/22 08:00 Pulse 80 11/06/22 08:05 Resp 16 11/06/22 08:00 BP 114/74 11/06/22 08:00 Pulse Ox 97 11/06/22 08:00 FiO2 35 11/03/22 12:41 Intake & Output 11/05/22 11/06/22 11/06/22 18:59 06:59 18:59 Intake Total 43.548 125 Output Total 350 Balance 43.548 -225 Weight 56.6 kg Intake: Intake, IV Titration 43.548 125 Amount Diltiazem 125 mg In 125 Sodium Chloride 0.9% 100 ml @ 5 MG/HR 5 mls/hr IV .Q24H [facility] Rx#:[id number] Heparin Sod,Pork in 0.45% 43.548 NaCl 25,000 unit In 0.45 % NaCl 1 250ml.bag @ 12 UNITS/KG/HR 6.876 mls/hr IV .Q24H [facility] Rx#: [id number] Output: Urine 350 Other: Voiding Method Urinal Urinal # Voids 3 # Bowel Movements 0 - Labs CBC & Chem 7: 11/01/22 11:53 11/05/22 06:50 Labs: Abnormal Lab Results - Last 24 Hours (Table) 11/05/22 11/05/22 11/05/22 Range/Units 09:58 11:34 16:14 APTT 32.8 H (22.0-30.0) sec POC Glucose (mg/dL) 228 H (70-110) mg/dL Hemoglobin A1c 6.6 H (0.0-6.0) % 11/05/22 11/05/22 11/06/22 Range/Units 16:28 20:31 00:31 APTT 46.0 H (22.0-30.0) sec POC Glucose (mg/dL) 167 H 152 H (70-110) mg/dL Hemoglobin A1c (0.0-6.0) % 11/06/22 11/06/22 Range/Units 03:14 06:07 APTT (22.0-30.0) sec POC Glucose (mg/dL) 167 H 158 H (70-110) mg/dL Hemoglobin A1c (0.0-6.0) % Microbiology - Last 24 Hours (Table) 11/01/22 11:55 Blood Culture - Preliminary Blood No Growth after 96 hours 11/01/22 11:40 Blood Culture - Preliminary Blood No Growth after 96 hours 11/02/22 21:25 Gram Stain - Final Sputum Sputum Culture - Final
[2022-11-06 11:39] LABS: Glucose,Whole Blood 135 mg/dL (70-110)
--- NOTE | 2022-11-06 11:39 | P.PN ---
Subjective Progress Note Date: 11/06/22 H&P Date: 11/02/22 Chief Complaint: shortness of breath Keshav Cuevas is a 76 yo M with PMH of COPD, hx esophageal cancer, AF who presented to the ED on the recommendation of his collateral analyst with increasing shortness of breath, cough, wheezing. He states his symptoms worsened relatively quickly over the past few days, denies any specific trigger. He denies fever, chills. Reports he has been complaint with duonebs qid and pulmicort nebs bid. On presentation pt hypoxic, requiring BIPAP, WBC 13.7, Hgb 12.7, plt 281k, VBG with CO2 56. BNP 1270, BUN 24, Cr 0.64. CXR with COPD, interstitial opacitiy. 11/05/2022 continues on nebulized bronchodilators, IV steroids ,maintaining O2 sats in the 90s on 3 L nasal cannula. Continues to have ongoing diffuse rhonchi and wheezes, productive cough with thick dark yellow sputum. He developed atrial fibrillation with RVR last night, rates noted into the 130s, currently 60s to 90s ,maintained on Cardizem drip. Systolic blood pressure high 90s to low 100s.Cardiology discussing anticoagulation, Eliquis-on hold pending pulmonary's decision regarding bronchoscopy.NPO, blood sugars controlled .Denies chest pain, palpitations. 11/06/2022 Flutter valve at bedside. Continues on 3 L nasal cannula O2 sven ntaining O2 sats in the 90s. Denies increase in shortness of breath;productive cough Telemetry reporting controlled atrial fibrillation. Maintained on heparin and Cardizem drips. Also on digoxin and metoprolol. Echocardiogram reported EF of 45-50%, moderate right ventricular dilation, moderate mitral ring or calcification, mild mitral stenosis, mild aortic stenosis. Nothing by mouth for bronchoscopy today. Blood sugars controlled. Objective - Vital Signs Vital signs: Vital Signs Temp 97.6 F 11/06/22 08:00 Pulse 72 11/06/22 11:08 Resp 16 11/06/22 08:00 BP 114/74 11/06/22 08:00 Pulse Ox 97 11/06/22 08:00 FiO2 35 11/03/22 12:41 Intake & Output 11/05/22 11/06/22 11/06/22 18:59 06:59 18:59 Intake Total 43.548 125 Output Total 350 Balance 43.548 -225 Weight 56.6 kg Intake: Intake, IV Titration 43.548 125 Amount Diltiazem 125 mg In 125 Sodium Chloride 0.9% 100 ml @ 5 MG/HR 5 mls/hr IV .Q24H [facility] Rx#:[id number] Heparin Sod,Pork in 0.45% 43.548 NaCl 25,000 unit In 0.45 % NaCl 1 250ml.bag @ 12 UNITS/KG/HR 6.876 mls/hr IV .Q24H [facility] Rx#: [id number] Output: Urine 350 Other: Voiding Method Urinal Urinal Urinal # Voids 3 # Bowel Movements 0 - Exam Gen: thin, elderly male, sitting up in bed, NAD HEENT: NC/AT, mmm. On 3 LPM NC Neck: supple, no JVD CV: Regular S1,S2, irregular, systolic murmur,no edema Lungs: Normal effort,rhonchi and wheezing scattered throughout Abd: soft, nontender, non distended Neuro: alert and oriented x3, no focal deficit Skin: warm and dry - Labs CBC & Chem 7: 11/01/22 11:53 11/05/22 06:50 Labs: Abnormal Lab Results - Last 24 Hours (Table) 11/05/22 11/05/22 11/05/22 Range/Units 09:58 11:34 16:14 APTT 32.8 H (22.0-30.0) sec POC Glucose (mg/dL) 228 H (70-110) mg/dL Hemoglobin A1c 6.6 H (0.0-6.0) % 11/05/22 11/05/22 11/06/22 Range/Units 16:28 20:31 00:31 APTT 46.0 H (22.0-30.0) sec POC Glucose (mg/dL) 167 H 152 H (70-110) mg/dL Hemoglobin A1c (0.0-6.0) % 11/06/22 11/06/22 Range/Units 03:14 06:07 APTT (22.0-30.0) sec POC Glucose (mg/dL) 167 H 158 H (70-110) mg/dL Hemoglobin A1c (0.0-6.0) % Microbiology - Last 24 Hours (Table) 11/01/22 11:55 Blood Culture - Preliminary Blood No Growth after 96 hours 11/01/22 11:40 Blood Culture - Preliminary Blood No Growth after 96 hours 11/02/22 21:25 Gram Stain - Final Sputum Sputum Culture - Final Assessment and Plan Assessment: Acute hypoxic and hypercapnic respiratory failure secondary to acute COPD exacerbation, possible recurrent aspiration Paroximal Afibrillation, new onset Chronic diastolic CHF Multivalvular heart disease Pulmonary hypertension Iron deficiency anemia Plan: Continue on current medication regime ,monitoring and symptomatic treatment.NPO for bronchoscopy today. Antiarrhythmics and anticoagulation as per cardiology. Maintained on nebulized bronchodilators and steroids. Close monitoring of Accu-Cheks. The impression and plan of care has been dictated as directed. : I performed a history and examination of this patient, discussed the same with the dictator. I agree with the dictator's note ,documented as a scribe. Any additional findings or plans will be noted.
[2022-11-06] MEDS ORDERED: PROPOFOL 10 MG/ML 20 ML VIAL IV ONE (13:12)
[2022-11-06] MEDS ORDERED: MIDAZOLAM 2 MG/2 ML VIAL ONE (13:12)
[2022-11-06] MEDS ORDERED: SODIUM CHLORIDE 0.9% 500 ML 500 ML IV ONE (13:18)
[2022-11-06] MEDS ORDERED: LIDOCAINE 2% INJ 20 MG/ML INTRATRACH ONE ×2 (13:21→13:23)
--- NOTE | 2022-11-06 13:38 | P.PCN ---
Date of Procedure: 11/06/22 Preoperative Diagnosis: COPD exacerbation Left lower lobe pneumonia Postoperative Diagnosis: Same Procedure(s) Performed: Bronchoscopy, bronchioloalveolar lavage of the left lower lobe Anesthesia: MAC Surgeon: Simeon Concepcion Estimated Blood Loss (ml): 0 Condition: stable Disposition: floor Operative Findings: This procedure was done in the endoscopy suite. This procedure was done under conscious sedation. The patient was given a full facemask oxygen. Anesthetic agents was administered by PIPEFITTER the bedside. The patient was given a combination of propofol and Versed. After achieving adequate sedation, the flexible bronchoscope was introduced through the left nostril. Examination of posterior pharynx, larynx, epiglottis, vallecula, arytenoids and vocal cords was all within normal limits. The patient had normal vocal cord function and mobility. No lesions or abnormalities or any other upper airway secretions identified. A total of 2 mL of 1% lidocaine was applied to the vocal cord and following that the bronchoscope was advanced into the upper trachea. Examination of the tracheal bronchial tree was done.. There was some loose cystoscopy secretions within the trachea that were suctioned out. As airway inspection was completed, the majority of the purulent blister secretions were originating from the left lower lobe. Examination included the entire trachea, right mainstem bronchus, right upper lobe bronchus and right lower lobe bronchus and right middle lobe bronchus and the various 10 segments on the right. All of the loose secretions in the right side were suctioned out. Following that, the bronchoscope was multiple left. Left mainstem bronchus was occupied by recurrent respiratory secretions and more secretions were identified and the left lower lobe bronchus. Therapeutic airway suctioning was done. The secretions were easily suctioned out using the bronchoscope without any major difficulties and airway patency was achieved. Examination of the left side included the left upper lobe bronchus, left lower lobe bronchus and the various 8 segments on the left. After performing therapeutic airway suctioning, the airway was inspected again and the bronchial mucosa and the left lower lobe and the distal left mainstem bronchus was easily friable and inflamed and erythematous. No endobronchial tumors or lesions identified. No foreign body. No food particles. A bronchioloalveolar lavage of the left lower lobe was done. A total of 40 mL of fluid was infused in the form of saline and 20 mL was aspirated. The aspirate was nonbloody. The patient tolerated the procedure well without any major difficulties and oxygenation. The patient maintained a pulse ox above 90% throughout the procedure. The patient will be transferred to recovery in a stable condition. Anticoagulation will be restarted in the form of IV heparin, and the bronchial lavage will be sent for microbial cultures and analysis. We'll keep the patient IV Zosyn for now.
[2022-11-06] MEDS: polyethylene glycoL 3350 17 GM POWD.PACK PO SCH (16:05)
[2022-11-06] MEDS ORDERED: HEPARIN SODIUM 1,000 UN/ML (10ML VL) IV PRN (16:08)
[2022-11-06] MEDS ORDERED: HEPARIN SOD,PORK IN 0.45% NACL 25,000 UNIT in 0.45% NACL 1 250ML.BAG IV SCH (16:15)
[2022-11-06 16:33] LABS: Glucose,Whole Blood 202 mg/dL (70-110)
[2022-11-06] MEDS: ZINC SULFATE 220 MG CAP PO SCH (16:58)
[2022-11-06] MEDS: ASCORBIC ACID 500 MG TAB PO SCH (16:58)
[2022-11-06] MEDS: SODIUM CHLORIDE TAB 1 GM TAB PO SCH (16:58)
[2022-11-06] MEDS: FOLIC ACID 1 MG TAB PO SCH (16:59)
[2022-11-06] MEDS: MAGNESIUM OXIDE 400 MG TAB PO SCH (16:59)
[2022-11-06] MEDS: FERROUS SULFATE 325 MG TAB PO SCH (16:59)
[2022-11-06] MEDS: guaiFENesin 600 MG TABLET.ER PO SCH ×2 (17:05→20:09)
[2022-11-06] MEDS: LACTATED RINGERS 1,000 ML IV SCH (17:06)
[2022-11-06] MEDS: HEPARIN SOD,PORK IN 0.45% NACL 25,000 UNIT in 0.45% NACL 1 250ML.BAG IV SCH (17:40)
[2022-11-06 19:55] LABS: Glucose,Whole Blood 158 mg/dL (70-110)
[2022-11-07 05:58] LABS: Glucose,Whole Blood 144 mg/dL (70-110)
[2022-11-07] MEDS: INSULIN ASPART (NovoLOG) 100 UNIT/ML VIAL SQ SCH ×4 (06:21→21:18)
[2022-11-07] MEDS: methylPREDNISolone SOD SUCCI 125 MG/2 ML VIAL IV SCH ×3 (06:24→17:31)
[2022-11-07] MEDS: PANTOPRAZOLE 40 MG TABLET PO SCH (06:25)
[2022-11-07] MEDS: LEVOTHYROXINE 25 MCG TAB PO SCH (06:25)
[2022-11-07] MEDS: TIOTROPIUM 2.5 MCG INHALER INHALATION SCH (07:38)
[2022-11-07] MEDS: FORMOTEROL FUMARATE 20 MCG/2 ML NEBU INHALATION SCH ×2 (07:39→20:14)
[2022-11-07] MEDS: BUDESONIDE 1 MG/2 ML NEBU INHALATION SCH ×2 (07:39→20:14)
[2022-11-07] MEDS: IPRATROPIUM-ALBUTEROL 3 ML NEB INHALATION SCH ×4 (07:39→20:14)
--- NOTE | 2022-11-07 09:23 | P.PN ---
Subjective Progress Note Date: 11/07/22 History of present illness: This is a 76-year-old male patient of Dr. Parham with past medical history of h ypertension, aortic stenosis, COPD, esophageal cancer status post resection, gastroesophageal reflux disease, remote history of tobacco use. We have been asked to see the patient A. fib with RVR. Patient presented to the emergency center on 11/01 with shortness of breath and has been treated by pulmonary medicine for COPD exacerbation. Early this morning, patient went into A. fib with RVR and a consult was placed with cardiology and Dr. Barahona was contacted, patient started on Cardizem drip and heparin drip. Heart rate remains mildly elevated well and Cardizem drip. Regarding atrial fibrillation, patient states he did not feel that someone will come up and currently around midnight. The dakota hooker states his breathing status is improved. He may undergo bronchoscopy, waiting for pulmonary to round today. EKG 11/01: Atrial fibrillation at 104 bpm, telemetry atrial fibrillation 90-109 bpm TSH 10/13/2022 2.05. Other lab work from today reveal sodium of 130, potassium 3.9, chloride 93, CO2 32, BUN 25 creatinine 0.58. Pro-BNP from 11/03 is 1640. Chest x-ray reveals mild scattered increased lung markings stable very small left pleural effusion Home cardiac medications: Lasix 20 mg on Mondays and , Lopressor 25 mg daily until 0.5 mg in the evening, Klor-Con 10 mEq Saturday. Patient is also on magnesium and levothyroxine. Effie scan stress test 08/17/2022: Normal EF without stress-induced ischemia Echocardiogram 10/12/2022 revealed EF 45-50%, aortic sclerosis with mild aortic stenosis and moderate aortic insufficiency, [id number] mitral regurgitation. 11/06 Patient states that his breathing is stable today. He is currently on Cardizem drip and heparin drip. Telemetry is atrial fibrillation rate controlledwith heart rates in the 70s - 90s. echocardiogram reveals EF of 45-50%, moderate right ventricular dilation, mildly dilated left atrium, moderate mitral ring or calcification, mild mitral stenosis mean gradient 5 mmHg, mild aortic stenosis, mild tricuspid regurgitation, no pericardial effusion. 11/07 Yesterday, patient underwent bronchoscopy with Dr. Concepcion that showed COPD and left lower lobe pneumonia. Pathology report is pending.property assessment monitor remains in atrial fibrillation with rate controlled 98-103. Patient is on heparin drip which we will transition to oral eliquis. Physical examination: Gen: This is a 76-year-old male. He is resting in bed and appears to be comfortable and in no acute distress VS: reviewed HEENT: Head is atraumatic, normocephalic. Pupils equal, round. Sclerae is anicteric. NECK: Supple. No JVD. No lymphadenopathy. No thyromegaly. LUNGS: Bilateral rhonchi and expiratory wheeze. No intercostal retractions. HEART: Regular rate and rhythm. 1/6 systolic murmur at the base. EXTREMITIES: No pedal edema. No calf tenderness. NEUROLOGICAL: Patient is awake, alert and oriented x3. Assessment: New onset paroxysmal atrial fibrillation, rate controlled Chronic diastolic heart failure COPD exacerbation Valvular heart disease with Moderate to severe aortic stenosis, moderate MR, mild MS, moderate TR Hypertension Esophageal cancer Gastroesophageal reflux disease Remote history of tobacco use. Plan: Continue current cardiac medications at discharge Heparin drip will be discontinued and patient started on eliquis 5 mg twice daily Patient is cleared for discharge home from cardiology may follow-up in the office with Dr. Parham in one to 2 weeks. Nurse practitioner note has been reviewed, I agree with documented findings and plan of care. Patient was seen and examined. Objective - Vital Signs Vital signs: Vital Signs Temp 97.5 F L 11/07/22 04:00 Pulse 100 11/07/22 08:03 Resp 14 11/07/22 04:00 BP 148/76 11/07/22 04:00 Pulse Ox 97 11/07/22 07:40 FiO2 35 11/03/22 12:41 Intake & Output 11/06/22 11/07/22 11/07/22 18:59 06:59 18:59 Intake Total 630 53.629 180 Balance 630 53.629 180 Weight 57.1 kg Intake: IV 450 Intake, IV Titration 53.629 Amount Heparin Sod,Pork in 0.45% 53.629 NaCl 25,000 unit In 0.45 % NaCl 1 250ml.bag @ 15 UNITS/KG/HR 8.49 mls/hr IV .Q24H BREE Rx#: [id number] Oral 180 180 Other: Voiding Method Urinal Urinal # Voids 1 # Bowel Movements 0 - Labs CBC & Chem 7: 11/01/22 11:53 11/05/22 06:50 Labs: Abnormal Lab Results - Last 24 Hours (Table) 11/06/22 11/06/22 11/06/22 Range/Units 11:37 16:31 19:53 APTT (22.0-30.0) sec POC Glucose (mg/dL) 135 H 202 H 158 H (70-110) mg/dL 11/06/22 11/07/22 11/07/22 Range/Units 22:24 05:56 06:29 APTT 30.6 H 38.2 H (22.0-30.0) sec POC Glucose (mg/dL) 144 H (70-110) mg/dL Microbiology - Last 24 Hours (Table) 11/06/22 13:29 Legionella Culture - Preliminary Bronchial Washings - Left 11/06/22 13:29 Bronchial Washings Culture - Preliminary Bronchoalviolar Lavage - Left 11/06/22 13:29 Acid Fast Bacilli Culture - Preliminary Bronchoalviolar Lavage - Left 11/06/22 13:29 Fungal Culture - Preliminary Bronchoalviolar Lavage - Left 11/01/22 11:55 Blood Culture - Preliminary Blood No Growth after 120 hours 11/01/22 11:40 Blood Culture - Preliminary Blood No Growth after 120 hours
[2022-11-07] MEDS: APIXABAN 5 MG TAB PO SCH ×2 (09:54→21:17)
[2022-11-07] MEDS: FOLIC ACID 1 MG TAB PO SCH (09:54)
[2022-11-07] MEDS: FUROSEMIDE 20 MG TAB PO SCH (09:54)
[2022-11-07] MEDS: guaiFENesin 600 MG TABLET.ER PO SCH ×2 (09:54→21:17)
[2022-11-07] MEDS: FERROUS SULFATE 325 MG TAB PO SCH (09:54)
[2022-11-07] MEDS: MAGNESIUM OXIDE 400 MG TAB PO SCH (09:55)
[2022-11-07] MEDS: METOPROLOL TARTRATE 50 MG TAB PO SCH ×2 (09:55→21:17)
[2022-11-07] MEDS: DIGOXIN 125 MCG TAB PO SCH (09:55)
[2022-11-07] MEDS: ASCORBIC ACID 500 MG TAB PO SCH (09:55)
[2022-11-07] MEDS: SODIUM CHLORIDE TAB 1 GM TAB PO SCH (09:55)
[2022-11-07] MEDS: polyethylene glycoL 3350 17 GM POWD.PACK PO SCH (09:55)
[2022-11-07] MEDS: ZINC SULFATE 220 MG CAP PO SCH (09:56)
--- NOTE | 2022-11-07 10:23 | P.DS ---
Providers Date of admission: 11/01/22 13:59 Expected date of discharge: 11/07/22 Attending physician: Saeed Mitchell MD Consults: 11/01/22 13:47 Consult Physician Urgent Consulting Provider: Marc Morelos Consult Reason/Comments: COPD, acute respiratory distress Do you want consulting provider notified?: Yes 11/01/22 14:17 Consult to Palliative Care Routine Consulting Provider: Itzel Carrasco Consult Reason/Comments: Goals of Care Do you want consulting provider notified?: Yes 11/05/22 01:05 Consult Physician Urgent Consulting Provider: Veronica Parham Consult Reason/Comments: Atrial fibrillation with RVR Do you want consulting provider notified?: Yes Primary care physician: Izabella Caal [facility] Course: Final Diagnoses: Acute hypoxic and hypercapnic respiratory failure secondary to acute COPD exacerbation, left lower lobe pneumonia-status post bronchoscopy with lavage, cultures/cytology pending and suspect recurrent aspiration. secondary to esophageal resection. 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 He states his symptoms worsened relatively quickly over the past few days, denies any specific trigger. He denies fever, chills. Reports he has been complaint with duonebs qid and pulmicort nebs bid. On presentation pt hypoxic, requiring BIPAP, WBC 13.7, Hgb 12.7, plt 281k, VBG with CO2 56. BNP 1270, BUN 24, Cr 0.64. CXR with COPD, interstitial opacitiy. 11/05/2022 continues on nebulized bronchodilators, IV steroids ,maintaining O2 sats in the 90s on 3 L nasal cannula. Continues to have ongoing diffuse rhonchi and wheezes, productive cough with thick dark yellow sputum. He developed atrial fibrillation with RVR last night, rates noted into the 130s, currently 60s to 90s ,maintained on Cardizem drip. Systolic blood pressure high 90s to low 100s.Cardiology discussing anticoagulation, Eliquis-on hold pending pulmonary's decision regarding bronchoscopy.NPO, blood sugars controlled .Denies chest pain, palpitations. 11/06/2022 Flutter valve at bedside. Continues on 3 L nasal cannula O2 maintaining O2 sats in the 90s. Denies increase in shortness of breath;productive cough Telemetry reporting controlled atrial fibrillation. Maintained on heparin and Cardizem drips. Also on digoxin and metoprolol. Echocardiogram reported EF of 45-50%, moderate right ventricular dilation, moderate mitral ring or calcification, mild mitral stenosis, mild aortic stenosis. Nothing by mouth for bronchoscopy today. Blood sugars controlled. Completed bronchoscopy with lavage yesterday with pulmonary reporting COPD and left lower lobe pneumonia. Cultures and cytology pending. Maintained on Zosyn. Telemetry reporting controlled A. fib heart rates up into the low 100s. Anticoagulation-transitioning to oral Eliquis. Significant clinical improvement. Reports breathing and coughing improved with less mucus production. Decreased bilateral rhonchi and expiratory wheezing. Maintaining O2 sats in the high 90s on 3 L nasal cannula. Afebrile. Patient has been cleared for discharge by cardiology, including increasing diuretics to daily. Close monitoring of electrolytes outpatient. Patient will be discharged home today in a stable condition with guarded prognosis pending final DC recommendations and clearance per pulmonary. Aspiration precautions reinforced .It has also been recommended that presented to patient to follow-up with outpatient GI specialist regarding suspected aspiration. The impression and plan of care has been dictated as directed. : I performed a history and examination of this patient, discussed the same with the dictator. I agree with the dictator's note ,documented as a scribe. Any additional findings or plans will be noted. Patient Condition at Discharge: Stable Plan - Discharge Summary Discharge Rx Participant: No New Discharge Prescriptions: New Apixaban [Eliquis] 5 mg PO BID #60 tab guaiFENesin [Mucinex] 600 mg PO Q12HR tab Digoxin [Lanoxin] 125 mcg PO DAILY #30 tab Furosemide [Lasix] 20 mg PO DAILY #30 tab Metoprolol Tartrate [Lopressor] 50 mg PO BID #60 tab polyethylene glycoL 3350 [Miralax] 17 gm PO DAILY packet predniSONE 10 mg PO DIRECTED #30 tab Amoxic-Pot Clav 875-125Mg [Augmentin 875-125] 1 tab PO BID 5 Days #10 tab Continue Omeprazole [PriLOSEC] 20 mg PO DAILY Tiotropium [place] [Spiriva] 1 puff INHALATION RT-DAILY Cyanocobalamin (Vitamin B-12) [Vitamin B-12] 1,000 mcg PO DAILY Levothyroxine Sodium 25 mcg PO DAILY Zinc 50 mg PO DAILY Ipratropium-Albuterol Nebulize [Duoneb 0.5 mg-3 mg/3 ml Soln] 3 ml INHALATION RT-QID #120 ml Ascorbic Acid [Vitamin C] 1,000 mg PO DAILY Bridgman-3 Fatty Acids [Bridgman-3] 1,000 mg PO DAILY Ferrous Sulfate [Iron (65 MG Elemental)] 325 mg PO DAILY Folate 666mcg 1 tab PO DAILY Multivit-Min/FA/Lycopen/Lutein [Centrum Silver Tablet] 1 tab PO DAILY Sodium Chloride Tab 1 gm PO DAILY Magnesium 250 mg PO DAILY Budesonide 0.5 mg INHALATION RT-BID Changed Potassium Chloride [Klor-Con M10] 10 meq PO DAILY #0 Discontinued Metoprolol Tartrate [Lopressor] 12.5 mg PO HS Metoprolol Tartrate [Lopressor] 25 mg PO DAILY Furosemide [Lasix] 20 mg PO MOTH Discharge Medication List Omeprazole [PriLOSEC] 20 mg PO DAILY 06/18/14 [History] Tiotropium [place] [Spiriva] 1 puff INHALATION RT-DAILY 06/18/14 [History] Cyanocobalamin (Vitamin B-12) [Vitamin B-12] 1,000 mcg PO DAILY 04/19/20 [History] Levothyroxine Sodium 25 mcg PO DAILY 04/19/20 [History] Zinc 50 mg PO DAILY 04/19/20 [History] Ipratropium-Albuterol Nebulize [Duoneb 0.5 mg-3 mg/3 ml Soln] 3 ml INHALATION RT-QID #120 ml 04/25/20 [Rx] Ascorbic Acid [Vitamin C] 1,000 mg PO DAILY 10/11/22 [History] Ferrous Sulfate [Iron (65 MG Elemental)] 325 mg PO DAILY 10/11/22 [History] Folate 666mcg 1 tab PO DAILY 10/11/22 [History] Magnesium 250 mg PO DAILY 10/11/22 [History] Bridgman-3 Fatty Acids [Bridgman-3] 1,000 mg PO DAILY 10/11/22 [History] Sodium Chloride Tab 1 gm PO DAILY 10/11/22 [History] Budesonide 0.5 mg INHALATION RT-BID 11/01/22 [History] Multivit-Min/FA/Lycopen/Lutein [Centrum Silver Tablet] 1 tab PO DAILY 11/01/22 [History] Amoxic-Pot Clav 875-125Mg [Augmentin 875-125] 1 tab PO BID 5 Days #10 tab 11/07/22 [Rx] Apixaban [Eliquis] 5 mg PO BID #60 tab 11/07/22 [Rx] Digoxin [Lanoxin] 125 mcg PO DAILY #30 tab 11/07/22 [Rx] Furosemide [Lasix] 20 mg PO DAILY #30 tab 11/07/22 [Rx] Metoprolol Tartrate [Lopressor] 50 mg PO BID #60 tab 11/07/22 [Rx] Potassium Chloride [Klor-Con M10] 10 meq PO DAILY #0 11/07/22 [Rx] guaiFENesin [Mucinex] 600 mg PO Q12HR tab 11/07/22 [Rx] polyethylene glycoL 3350 [Miralax] 17 gm PO DAILY packet 11/07/22 [Rx] predniSONE 10 mg PO DIRECTED #30 tab 11/07/22 [Rx] Follow up Appointment(s)/Referral(s): Veronica Parham MD [STAFF PHYSICIAN] - 1 Week Emilie Vargas MD [STAFF PHYSICIAN] - 2 Weeks Izabella Caal MD [Primary Care Provider] - 3 Days Simeon Concepcion MD [STAFF PHYSICIAN] - 2 Weeks Activity/Diet/Wound Care/Special Instructions: Eliquis RX downstairs in [facility], case management confirming coverage.
--- NOTE | 2022-11-07 10:46 | P.PN ---
Subjective Progress Note Date: 11/07/22 76-year-old male who was seen by my partner in the office, and sent to the emergency room. We saw him briefly yesterday, did not do a consult on him yesterday. The patient was admitted to the hospital with a diagnosis of COPD exacerbation. He came in complaining of shortness of breath, cough, chest co ngestion, wheezing, and occasional phlegm production. He does have history of underlying COPD, THF, atrial fibrillation, and esophageal cancer. Currently, the patient appears to be doing reasonably well. He is on 5 L nasal cannula, turned down to 3 L. He's not receiving any IV fluids. He did not use of BiPAP device. When we saw him in the emergency room yesterday, he was on BiPAP, with settings of 10/5 and 40%. His chest x-ray was unchanged. He was seen in room 5, in the emergency department. White count 13.7, hemoglobin 12.7, hematocrit 39.4, and platelet count 281,000. Coagulation studies were normal. Venous blood gases show a pCO2 of 56, and a pH is 7.33. Sodium 132, potassium 4.3, chlorides 98, CO2 26, BUN 24, and creatinine 0.64. Calcium was 8. AST was 127 with an ALT 146. N-terminal proBNP was 1270. The patient's chest x-ray was consistent with COPD, and some increased interstitial opacities, which are not new. Progress note dated 11/03/2022. Patient was seen in consultation yesterday. He was seen in my office, by one of my partners, and sent to the emergency room. Currently, the patient is on 3 L of oxygen. He's not receiving any IV fluids. His respiratory status is somewhat tenuous right now, and we've asked respiratory to place him back on BiPAP. He has a history of COPD, CHF, atrial fibrillation, and esophageal cancer. Certain laboratory includes a sodium 132, potassium 4, chlorides 97, CO2 24, BUN 21, creatinine 0.64. Albumin is 3.6. Culture data is as far negative. Progress note dated 11/04/2022. The patient is seen today in room 360. Currently, he's on 3 L of oxygen. The patient is not using his BiPAP. BiPAP settings are 12/6 and dirty 5%. He was placed on a yesterday, because his respiratory status has declined. The patient mention to us, that Dr. Concepcion, mention doing a bronchoscopy on this patient. For this reason, we'll keep the patient nothing by mouth after midnight. The patient is still coughing up dark phlegm. Sodium 1:30, potassium 4.3, chlorides 94, CO2 31, BUN 23, and creatinine 0.65. Anion gap is normal. Sputum and blood sampling assess far negative. Chest x-ray from yesterday shows a small left-s ided pleural effusion, and chronic changes, without anything acute. On today's evaluation of 11/05/2022, the patient is being seen for a follow-up. Since his admission 3 days ago, the patient is gradually improving. He continues to have cough and congestion. He is afebrile. He is hemodynamically stable. His pro calcitonin level at time of admission was 0.06 and he does not have an elevation the pro calcitonin level. Chest x-ray showed mild scattered. Lung markings. There was also small left-sided pleural effusion. Meanwhile, the patient earlier this morning went into atrial fibrillation with rapid ventricular response. Cardiology was consulted. The patient was started on Cardizem drip which is currently running at 5 mg an hour and the patient's rate is under better control. Antibiotic regulations of the started yet. I made recommendations to start the patient on IV heparin as there is a very high likelihood that the patient may need a bronchoscopy within next 24-48 hours regarding his respiratory secretions and the mucus. Echocardiogram was also ordered and is also still pending for now. No palpitations. No focal neurological deficits. No other new complaints. 11/06/2022, the patient is improving slowly. Cough and congestion has been subsiding. The patient is feeling better. Is currently on oxygen at 3 L/m nasal cannula. He was given an incentive spirometer. He was also given a flutter valve. He remains in atrial fibrillation. Rate is controlled for now. He is currently on IV heparin. Is also on IV Cardizem running at 5 mg an hour. His heart rate is under much better control without any significant tachycardia. He remains in atrial fibrillation. Echocardiogram was done yesterday and the patient was found to have an ejection fraction of 45-50%. He also has a moderate RV dilatation and mild pulmonary hypertension. Mitral stenosis was als o identified which was mild in addition to and mild aortic stenosis. He is also on metoprolol 50 mg by mouth twice a day and is also on digoxin for rate control. Cardizem drip will be discontinued for now. The plan is to do a bronchoscopy and bronchial lavage on this patient is today. For now, he is nothing by mouth. 11/07/2022, I'm seeing the patient for a follow-up. He underwent a bronchoscopy yesterday and therapeutic airway suctioning was done and the patient showed remarkable response. There was copious amount of purulent rest or secretions in his left lower lobe and therapeutic airway suctioning was done and following that the bronchial lavage of the left lower lobe was done. Today's cough is dry. On 3 L of oxygen, the patient is up to 98%. He remains on the same antibiotic coverage. He is doing much better. He is not having any significant shortness of breath on today's evaluation. Meanwhile, the patient remains in atrial fibrillation. His heart rate is under better control. He is off the IV heparin. Is also off the Cardizem drip. Objective - Vital Signs Vital signs: Vital Signs Temp 97.7 F 11/07/22 08:00 Pulse 100 11/07/22 08:03 Resp 19 11/07/22 08:00 BP 125/80 11/07/22 08:00 Pulse Ox 98 11/07/22 08:00 FiO2 35 11/03/22 12:41 Intake & Output 11/06/22 11/07/22 11/07/22 18:59 06:59 18:59 Intake Total 630 53.629 180 Balance 630 53.629 180 Weight 57.1 kg Intake: IV 450 Intake, IV Titration 53.629 Amount Heparin Sod,Pork in 0.45% 53.629 NaCl 25,000 unit In 0.45 % NaCl 1 250ml.bag @ 15 UNITS/KG/HR 8.49 mls/hr IV .Q24H BREE Rx#: [id number] Oral 180 180 Other: Voiding Method Urinal Urinal Urinal # Voids 1 # Bowel Movements 0 - Exam Gen: This is a 76-year-old male. He is resting in bed and appears to be comfortable and in no acute distress, the patient is currently on 3 L of oxygen by nasal cannula Head exam was generally normal. There was no scleral icterus or corneal arcus. Mucous membranes were moist. HEENT: Head is atraumatic, normocephalic. Pupils equal, round. Sclerae is anicteric. NECK: Supple. No JVD. No lymphadenopathy. No thyromegaly. LUNGS: Bilateral rhonchi and expiratory wheeze. No intercostal retractions. HEART: Regular rate and rhythm. 1/6 systolic murmur at the base. ABDOMEN: Soft. Bowel sounds are present. No masses. No tenderness. EXTREMITIES: No pedal edema. No calf tenderness. NEUROLOGICAL: Patient is awake, alert and oriented x3. - Labs CBC & Chem 7: 11/01/22 11:53 11/05/22 06:50 Labs: Abnormal Lab Results - Last 24 Hours (Table) 11/06/22 11/06/22 11/06/22 Range/Units 11:37 16:31 19:53 APTT (22.0-30.0) sec POC Glucose (mg/dL) 135 H 202 H 158 H (70-110) mg/dL 11/06/22 11/07/22 11/07/22 Range/Units 22:24 05:56 06:29 APTT 30.6 H 38.2 H (22.0-30.0) sec POC Glucose (mg/dL) 144 H (70-110) mg/dL Microbiology - Last 24 Hours (Table) 11/06/22 13:29 Legionella Culture - Preliminary Bronchial Washings - Left 11/06/22 13:29 Bronchial Washings Culture - Preliminary Bronchoalviolar Lavage - Left 11/06/22 13:29 Acid Fast Bacilli Culture - Preliminary Bronchoalviolar Lavage - Left 11/06/22 13:29 Fungal Culture - Preliminary Bronchoalviolar Lavage - Left 11/01/22 11:55 Blood Culture - Preliminary Blood No Growth after 120 hours 11/01/22 11:40 Blood Culture - Preliminary Blood No Growth after 120 hours Assessment and Plan Plan: Acute hypoxemic respiratory failure, secondary to COPD exacerbation Left lower lobe pneumonia with purulent rest or secretions originating from the left lower lobe based on bronchoscopy that was done yesterday. Therapeutic airway suctioning was done. Awaiting cultures. Suspect aspiration, recurrent as the patient has had previous esophageal resection with a gastric pull New-onset atrial fibrillation, rate is controlled for now, patient is on beta blockers and the patient is also on anticoagulation with Eliquis. 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 History of gastroesophageal reflux disease. Prior history of heavy tobacco use. Plan: We'll continue same treatment for another 24 hours pending the results of the bronchial alveolar lavage Continue using incentive spirometer and put the patient on a flutter valve Continue bronchodilators and steroids Continue IV Zosyn Mucinex DM Patient was started on anticoagulation with Eliquis and IV heparin was di scontinued We'll continue to follow, will make further modifications based on the results of the bronchoalveolar lavage.
[2022-11-07 11:45] LABS: Glucose,Whole Blood 166 mg/dL (70-110)
[2022-11-07] MEDS: LACTATED RINGERS 1,000 ML IV SCH (12:09)
[2022-11-07 16:18] LABS: Glucose,Whole Blood 157 mg/dL (70-110)
[2022-11-07 20:01] LABS: Glucose,Whole Blood 248 mg/dL (70-110)
[2022-11-08] MEDS: methylPREDNISolone SOD SUCCI 125 MG/2 ML VIAL IV SCH ×2 (00:02→06:21)
[2022-11-08 01:51] LABS: Glucose,Whole Blood 127 mg/dL (70-110)
[2022-11-08 06:02] LABS: Glucose,Whole Blood 152 mg/dL (70-110)
[2022-11-08] MEDS: INSULIN ASPART (NovoLOG) 100 UNIT/ML VIAL SQ SCH ×4 (06:22→20:15)
[2022-11-08] MEDS: LEVOTHYROXINE 25 MCG TAB PO SCH (06:23)
[2022-11-08] MEDS: PANTOPRAZOLE 40 MG TABLET PO SCH (06:23)
[2022-11-08] MEDS: polyethylene glycoL 3350 17 GM POWD.PACK PO SCH (09:09)
[2022-11-08] MEDS: BUDESONIDE 1 MG/2 ML NEBU INHALATION SCH ×2 (09:10→20:10)
[2022-11-08] MEDS: IPRATROPIUM-ALBUTEROL 3 ML NEB INHALATION SCH ×4 (09:10→20:10)
[2022-11-08] MEDS: FORMOTEROL FUMARATE 20 MCG/2 ML NEBU INHALATION SCH ×2 (09:10→20:10)
[2022-11-08] MEDS: TIOTROPIUM 2.5 MCG INHALER INHALATION SCH (09:15)
[2022-11-08] MEDS: ASCORBIC ACID 500 MG TAB PO SCH (09:17)
[2022-11-08] MEDS: POTASSIUM CHLORIDE ER 10 MEQ TAB.ER.PRT PO SCH (09:17)
[2022-11-08] MEDS: FUROSEMIDE 20 MG TAB PO SCH (09:17)
[2022-11-08] MEDS: APIXABAN 5 MG TAB PO SCH ×2 (09:17→20:15)
[2022-11-08] MEDS: METOPROLOL TARTRATE 50 MG TAB PO SCH ×2 (09:17→20:15)
[2022-11-08] MEDS: FERROUS SULFATE 325 MG TAB PO SCH (09:17)
[2022-11-08] MEDS: FOLIC ACID 1 MG TAB PO SCH (09:17)
[2022-11-08] MEDS: DIGOXIN 125 MCG TAB PO SCH (09:17)
[2022-11-08] MEDS: guaiFENesin 600 MG TABLET.ER PO SCH ×2 (09:17→20:15)
[2022-11-08] MEDS: ZINC SULFATE 220 MG CAP PO SCH (09:17)
[2022-11-08] MEDS: SODIUM CHLORIDE TAB 1 GM TAB PO SCH (09:18)
[2022-11-08] MEDS: MAGNESIUM OXIDE 400 MG TAB PO SCH (09:18)
--- NOTE | 2022-11-08 10:34 | P.PN ---
Subjective Progress Note Date: 11/08/22 76-year-old male who was seen by my partner in the office, and sent to the emergency room. We saw him briefly yesterday, did not do a consult on him yesterday. The patient was admitted to the hospital with a diagnosis of COPD exacerbation. He came in complaining of shortness of breath, cough, chest co ngestion, wheezing, and occasional phlegm production. He does have history of underlying COPD, THF, atrial fibrillation, and esophageal cancer. Currently, the patient appears to be doing reasonably well. He is on 5 L nasal cannula, turned down to 3 L. He's not receiving any IV fluids. He did not use of BiPAP device. When we saw him in the emergency room yesterday, he was on BiPAP, with settings of 10/5 and 40%. His chest x-ray was unchanged. He was seen in room 5, in the emergency department. White count 13.7, hemoglobin 12.7, hematocrit 39.4, and platelet count 281,000. Coagulation studies were normal. Venous blood gases show a pCO2 of 56, and a pH is 7.33. Sodium 132, potassium 4.3, chlorides 98, CO2 26, BUN 24, and creatinine 0.64. Calcium was 8. AST was 127 with an ALT 146. N-terminal proBNP was 1270. The patient's chest x-ray was consistent with COPD, and some increased interstitial opacities, which are not new. Progress note dated 11/03/2022. Patient was seen in consultation yesterday. He was seen in my office, by one of my partners, and sent to the emergency room. Currently, the patient is on 3 L of oxygen. He's not receiving any IV fluids. His respiratory status is somewhat tenuous right now, and we've asked respiratory to place him back on BiPAP. He has a history of COPD, CHF, atrial fibrillation, and esophageal cancer. Certain laboratory includes a sodium 132, potassium 4, chlorides 97, CO2 24, BUN 21, creatinine 0.64. Albumin is 3.6. Culture data is as far negative. Progress note dated 11/04/2022. The patient is seen today in room 360. Currently, he's on 3 L of oxygen. The patient is not using his BiPAP. BiPAP settings are 12/6 and dirty 5%. He was placed on a yesterday, because his respiratory status has declined. The patient mention to us, that Dr. Concepcion, mention doing a bronchoscopy on this patient. For this reason, we'll keep the patient nothing by mouth after midnight. The patient is still coughing up dark phlegm. Sodium 1:30, potassium 4.3, chlorides 94, CO2 31, BUN 23, and creatinine 0.65. Anion gap is normal. Sputum and blood sampling assess far negative. Chest x-ray from yesterday shows a small left-s ided pleural effusion, and chronic changes, without anything acute. On today's evaluation of 11/05/2022, the patient is being seen for a follow-up. Since his admission 3 days ago, the patient is gradually improving. He continues to have cough and congestion. He is afebrile. He is hemodynamically stable. His pro calcitonin level at time of admission was 0.06 and he does not have an elevation the pro calcitonin level. Chest x-ray showed mild scattered. Lung markings. There was also small left-sided pleural effusion. Meanwhile, the patient earlier this morning went into atrial fibrillation with rapid ventricular response. Cardiology was consulted. The patient was started on Cardizem drip which is currently running at 5 mg an hour and the patient's rate is under better control. Antibiotic regulations of the started yet. I made recommendations to start the patient on IV heparin as there is a very high likelihood that the patient may need a bronchoscopy within next 24-48 hours regarding his respiratory secretions and the mucus. Echocardiogram was also ordered and is also still pending for now. No palpitations. No focal neurological deficits. No other new complaints. 11/06/2022, the patient is improving slowly. Cough and congestion has been subsiding. The patient is feeling better. Is currently on oxygen at 3 L/m nasal cannula. He was given an incentive spirometer. He was also given a flutter valve. He remains in atrial fibrillation. Rate is controlled for now. He is currently on IV heparin. Is also on IV Cardizem running at 5 mg an hour. His heart rate is under much better control without any significant tachycardia. He remains in atrial fibrillation. Echocardiogram was done yesterday and the patient was found to have an ejection fraction of 45-50%. He also has a moderate RV dilatation and mild pulmonary hypertension. Mitral stenosis was als o identified which was mild in addition to and mild aortic stenosis. He is also on metoprolol 50 mg by mouth twice a day and is also on digoxin for rate control. Cardizem drip will be discontinued for now. The plan is to do a bronchoscopy and bronchial lavage on this patient is today. For now, he is nothing by mouth. 11/07/2022, I'm seeing the patient for a follow-up. He underwent a bronchoscopy yesterday and therapeutic airway suctioning was done and the patient showed remarkable response. There was copious amount of purulent rest or secretions in his left lower lobe and therapeutic airway suctioning was done and following that the bronchial lavage of the left lower lobe was done. Today's cough is dry. On 3 L of oxygen, the patient is up to 98%. He remains on the same antibiotic coverage. He is doing much better. He is not having any significant shortness of breath on today's evaluation. Meanwhile, the patient remains in atrial fibrillation. His heart rate is under better control. He is off the IV heparin. Is also off the Cardizem drip. On 11/08/2022, the patient is being seen for a follow-up. Is currently on room air oxygen. Had recurrence of some of his congestion. Nevertheless, this is not affecting his breathing and the patient is calm and comfortable on room air oxygen. No chest pain. No fever or chills. The bronchoscopy and bronchial lavage has yielded no microbial growth thus far. Remains on IV Solu-Medrol. Remains on bronchodilators. Objective - Vital Signs Vital signs: Vital Signs Temp 97.7 F 11/08/22 08:00 Pulse 78 11/08/22 10:11 Resp 18 11/08/22 08:00 BP 127/80 11/08/22 08:00 Pulse Ox 95 11/08/22 10:11 FiO2 35 11/03/22 12:41 Intake & Output 11/07/22 11/08/22 11/08/22 18:59 06:59 18:59 Intake Total 6771 618 Balance 2118 618 Weight 56.4 kg Intake: Oral 1080 618 Other: Voiding Method Urinal Toilet Toilet Urinal Urinal # Voids 3 4 # Bowel Movements 1 0 - Exam Gen: This is a 76-year-old male. He is resting in bed and appears to be comfortable and in no acute distress, the patient is currently on room air oxygen Head exam was generally normal. There was no scleral icterus or corneal arcus. Mucous membranes were moist. HEENT: Head is atraumatic, normocephalic. Pupils equal, round. Sclerae is anicteric. NECK: Supple. No JVD. No lymphadenopathy. No thyromegaly. LUNGS: Bilateral rhonchi and expiratory wheeze. No intercostal retractions. HEART: Regular rate and rhythm. 1/6 systolic murmur at the base. ABDOMEN: Soft. Bowel sounds are present. No masses. No tenderness. EXTREMITIES: No pedal edema. No calf tenderness. NEUROLOGICAL: Patient is awake, alert and oriented x3. - Labs CBC & Chem 7: 11/01/22 11:53 11/05/22 06:50 Labs: Abnormal Lab Results - Last 24 Hours (Table) 11/07/22 11/07/22 11/07/22 Range/Units 11:44 16:17 20:00 POC Glucose (mg/dL) 166 H 157 H 248 H (70-110) mg/dL 11/08/22 11/08/22 Range/Units 01:49 06:01 POC Glucose (mg/dL) 127 H 152 H (70-110) mg/dL Microbiology - Last 24 Hours (Table) 11/01/22 11:55 Blood Culture - Final Blood No Growth after 144 hours 11/01/22 11:40 Blood Culture - Final Blood No Growth after 144 hours 11/06/22 13:29 Gram Stain - Preliminary Bronchoalviolar Lavage - Left Bronchial Washings Culture - Preliminary Assessment and Plan Plan: Acute hypoxemic respiratory failure, secondary to COPD exacerbation, improving, currently on room air oxygen Left lower lobe pneumonia with purulent rest or secretions originating from the left lower lobe based on bronchoscopy that was done yesterday. Therapeutic airway suctioning was done. Awaiting cultures. The cultures are negative thus far. Suspect aspiration, recurrent as the patient has had previous esophageal resection with a gastric pull New-onset atrial fibrillation, rate is controlled for now, patient is on beta b lockers and the patient is also on anticoagulation with Eliquis. 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 History of gastroesophageal reflux disease. Prior history of heavy tobacco use. Plan: We'll continue same treatment for another 24 hours pending the results of the bronchial alveolar lavage Continue using incentive spirometer and put the patient on a flutter valve Continue bronchodilators and steroids Continue the IV Solu-Medrol and put the patient prednisone burst taper Start the patient Augmentin 875 mg by mouth twice a day Mucinex DM twice a day Patient was started on anticoagulation with Eliquis We'll continue to follow Increase mobility and we'll keep him in the hospital for another 24 hours pending further cultures.
[2022-11-08] MEDS: LACTATED RINGERS 1,000 ML IV SCH (10:45)
[2022-11-08] MEDS: AMOXIC-POT CLAV 875-125MG 1 EACH TAB PO SCH ×2 (11:18→20:15)
[2022-11-08] MEDS: predniSONE 20 MG TAB PO SCH (11:18)
[2022-11-08 11:37] LABS: Glucose,Whole Blood 132 mg/dL (70-110)
[2022-11-08 16:41] LABS: Glucose,Whole Blood 123 mg/dL (70-110)
--- NOTE | 2022-11-08 17:22 | P.PN ---
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 He states his symptoms worsened relatively quickly over the past few days, denies any specific trigger. He denies fever, chills. Reports he has been complaint with duonebs qid and pulmicort nebs bid. On presentation pt hypoxic, requiring BIPAP, WBC 13.7, Hgb 12.7, plt 281k, VBG with CO2 56. BNP 1270, BUN 24, Cr 0.64. CXR with COPD, interstitial opacitiy. 11/05/2022 continues on nebulized bronchodilators, IV steroids ,maintaining O2 sats in the 90s on 3 L nasal cannula. Continues to have ongoing diffuse rhonchi and wheezes, productive cough with thick dark yellow sputum. He developed atrial fibrillation with RVR last night, rates noted into the 130s, currently 60s to 90s ,maintained on Cardizem drip. Systolic blood pressure high 90s to low 100s.Cardiology discussing anticoagulation, Eliquis-on hold pending pulmonary's decision regarding bronchoscopy.NPO, blood sugars controlled .Denies chest pain, palpitations. 11/06/2022 Flutter valve at bedside. Continues on 3 L nasal cannula O2 sven ntaining O2 sats in the 90s. Denies increase in shortness of breath;productive cough Telemetry reporting controlled atrial fibrillation. Maintained on heparin and Cardizem drips. Also on digoxin and metoprolol. Echocardiogram reported EF of 45-50%, moderate right ventricular dilation, moderate mitral ring or calcification, mild mitral stenosis, mild aortic stenosis. Nothing by mouth for bronchoscopy today. Blood sugars controlled. 11/07/2022 Completed bronchoscopy with lavage yesterday with pulmonary reporting COPD and left lower lobe pneumonia. Cultures and cytology pending. Maintained on Zosyn. Telemetry reporting controlled A. fib heart rates up into the low 100s. Anticoagulation-transitioning to oral Eliquis. Significant clinical improvement. Reports breathing and coughing improved with less mucus production. Decreased bilateral rhonchi and expiratory wheezing. Maintaining O2 sats in the high 90s on 3 L nasal cannula. Afebrile. Patient has been cleared for discharge by cardiology, including increasing diuretics to daily. Close monitoring of electrolytes outpatient. Patient will be discharged home today in a stable condition with guarded prognosis pending final DC recommendations and clearance per pulmonary. Aspiration precautions reinforced .It has also been recommended that presented to patient to follow-up with outpatient GI specialist regarding suspected aspiration. 11/08/2022 maintaining O2 sats in the 90s on room air. Feels better, breathing easier, using his flutter valve. Maintained on antibiotics, nebulized bronchodilators, IV steroids. Reports productive cough with cream-colored sputum. Denies chest pain, palpitations. Bronchoscopy cultures/cytology pending. Objective - Vital Signs Vital signs: Vital Signs Temp 98.4 F 11/08/22 16:00 Pulse 86 11/08/22 16:02 Resp 19 11/08/22 16:00 BP 128/77 11/08/22 16:00 Pulse Ox 96 11/08/22 16:00 FiO2 35 11/03/22 12:41 Intake & Output 11/07/22 11/08/22 11/08/22 18:59 06:59 18:59 Intake Total 1080 736 Balance 1080 736 Weight 56.4 kg Intake: Oral 1080 736 Other: Voiding Method Urinal Toilet Toilet Urinal Urinal # Voids 3 4 3 # Bowel Movements 1 0 - Exam Gen: thin, elderly male, sitting up in bed, NAD HEENT: NC/AT, mmm. On RA Neck: supple, no JVD CV: Regular S1,S2, irregular, systolic murmur,no edema Lungs: Normal effort, decreased rhonchi and wheezing scattered throughout Abd: soft, nontender, non distended Neuro: alert and oriented x3, no focal deficit Skin: warm and dry - Labs CBC & Chem 7: 11/01/22 11:53 11/05/22 06:50 Labs: Abnormal Lab Results - Last 24 Hours (Table) 11/06/22 11/07/22 11/08/22 Range/Units 13:29 20:00 01:49 POC Glucose (mg/dL) 248 H 127 H (70-110) mg/dL Viral Test See Below A 11/08/22 11/08/22 11/08/22 Range/Units 06:01 11:35 16:39 POC Glucose (mg/dL) 152 H 132 H 123 H (70-110) mg/dL Viral Test Microbiology - Last 24 Hours (Table) 11/06/22 13:29 Gram Stain - Preliminary Bronchoalviolar Lavage - Left Bronchial Washings Culture - Preliminary Presumptive Staph aureus 11/01/22 11:55 Blood Culture - Final Blood No Growth after 144 hours 11/01/22 11:40 Blood Culture - Final Blood No Growth after 144 hours Assessment and Plan Assessment: Acute hypoxic and hypercapnic respiratory failure secondary to acute COPD exacerbation, left lower lobe pneumonia-status post bronchoscopy with lavage, cultures/cytology pending and suspect recurrent aspiration. secondary to esophageal resection. Paroximal Afibrillation, new onset Acute on chronic hyponatremia Chronic diastolic CHF Multivalvular heart disease Pulmonary hypertension Gastroesophageal reflux disease History of esophageal cancer, status post resection, in remission Iron deficiency anemia Former nicotine dependence Glaucoma Restless leg syndrome Plan: Continue on current medication regime ,monitoring and symptomatic treatment.cultures/cytology pending .Maintained on antibiotics, nebulized bronchodilators and steroids. Transition to oral steroids. Discharge planning in progress pending final DC recommendations and clearance per pulmonary. The impression and plan of care has been dictated as directed. : I performed a history and examination of this patient, discussed the same with the dictator. I agree with the dictator's note ,documented as a scribe. Any additional findings or plans will be noted.
[2022-11-08 19:53] LABS: Glucose,Whole Blood 197 mg/dL (70-110)
[2022-11-09 02:07] LABS: Glucose,Whole Blood 101 mg/dL (70-110)
[2022-11-09] MEDS: LEVOTHYROXINE 25 MCG TAB PO SCH (05:04)
[2022-11-09] MEDS: PANTOPRAZOLE 40 MG TABLET PO SCH (05:04)
[2022-11-09 05:55] LABS: Glucose,Whole Blood 102 mg/dL (70-110)
[2022-11-09] MEDS: INSULIN ASPART (NovoLOG) 100 UNIT/ML VIAL SQ SCH ×4 (07:31→20:11)
[2022-11-09] MEDS: FOLIC ACID 1 MG TAB PO SCH (07:51)
[2022-11-09] MEDS: FERROUS SULFATE 325 MG TAB PO SCH (07:51)
[2022-11-09] MEDS: FUROSEMIDE 20 MG TAB PO SCH (07:51)
[2022-11-09] MEDS: APIXABAN 5 MG TAB PO SCH ×2 (07:51→20:11)
[2022-11-09] MEDS: METOPROLOL TARTRATE 50 MG TAB PO SCH ×2 (07:51→20:10)
[2022-11-09] MEDS: ASCORBIC ACID 500 MG TAB PO SCH (07:51)
[2022-11-09] MEDS: predniSONE 20 MG TAB PO SCH (07:52)
[2022-11-09] MEDS: ZINC SULFATE 220 MG CAP PO SCH (07:52)
[2022-11-09] MEDS: AMOXIC-POT CLAV 875-125MG 1 EACH TAB PO SCH ×2 (07:52→20:10)
[2022-11-09] MEDS: DIGOXIN 125 MCG TAB PO SCH (07:52)
[2022-11-09] MEDS: guaiFENesin 600 MG TABLET.ER PO SCH ×2 (07:52→20:10)
[2022-11-09] MEDS: MAGNESIUM OXIDE 400 MG TAB PO SCH (07:52)
[2022-11-09] MEDS: polyethylene glycoL 3350 17 GM POWD.PACK PO SCH (07:53)
[2022-11-09] MEDS: SODIUM CHLORIDE TAB 1 GM TAB PO SCH (07:53)
[2022-11-09] MEDS: TIOTROPIUM 2.5 MCG INHALER INHALATION SCH ×2 (09:04→09:28)
[2022-11-09] MEDS: BUDESONIDE 1 MG/2 ML NEBU INHALATION SCH ×2 (09:04→21:00)
[2022-11-09] MEDS: IPRATROPIUM-ALBUTEROL 3 ML NEB INHALATION SCH ×4 (09:04→21:00)
[2022-11-09] MEDS: FORMOTEROL FUMARATE 20 MCG/2 ML NEBU INHALATION SCH ×2 (09:04→21:00)
[2022-11-09 11:18] LABS: ALT 43 U/L (4-49); AST 24 U/L (17-59); African American GFR (CKD) >90 (>60 ml/min/1.73 sqM); Albumin 3.4 g/dL (3.5-5.0); Alkaline Phosphatase 69 U/L (38-126); Anion Gap 6 mmol/L; Blood Urea Nitrogen 24 mg/dL (9-20); Calcium 7.9 mg/dL (8.4-10.2); Carbon Dioxide 37 mmol/L (22-30); Chloride 88 mmol/L (98-107); Glucose 88 mg/dL (74-99); Magnesium 2.1 mg/dL (1.6-2.3); Non-African American GFR(CKD) >90 (>60 ml/min/1.73 sqM); Potassium 3.4 mmol/L (3.5-5.1); Sodium 131 mmol/L (137-145); Total Bilirubin 0.9 mg/dL (0.2-1.3); Total Protein 5.9 g/dL (6.3-8.2)
--- NOTE | 2022-11-09 11:26 | P.PN ---
Progress Note - Text Progress Note Date: 11/09/22 Followed up with patient regarding needs at home and symptom management. Patient and his agree that they do not need home health care or palliative care services upon discharge. Itzel Carrasco [facility] Palliative Care/Urology [facility] [id number] Email: [email or web address]
[2022-11-09 11:40] LABS: Glucose,Whole Blood 113 mg/dL (70-110)
[2022-11-09 13:25] LABS: Pneumocystis jirovecii by DFA Negative (Negative)
[2022-11-09] MEDS ORDERED: Potassium Replacement Protocol 1 EACH MISC MISCELLANE PRN (13:30)
--- NOTE | 2022-11-09 14:34 | P.PN ---
Subjective Progress Note Date: 11/09/22 76-year-old male who was seen by my partner in the office, and sent to the emergency room. We saw him briefly yesterday, did not do a consult on him yesterday. The patient was admitted to the hospital with a diagnosis of COPD exacerbation. He came in complaining of shortness of breath, cough, chest co ngestion, wheezing, and occasional phlegm production. He does have history of underlying COPD, THF, atrial fibrillation, and esophageal cancer. Currently, the patient appears to be doing reasonably well. He is on 5 L nasal cannula, turned down to 3 L. He's not receiving any IV fluids. He did not use of BiPAP device. When we saw him in the emergency room yesterday, he was on BiPAP, with settings of 10/5 and 40%. His chest x-ray was unchanged. He was seen in room 5, in the emergency department. White count 13.7, hemoglobin 12.7, hematocrit 39.4, and platelet count 281,000. Coagulation studies were normal. Venous blood gases show a pCO2 of 56, and a pH is 7.33. Sodium 132, potassium 4.3, chlorides 98, CO2 26, BUN 24, and creatinine 0.64. Calcium was 8. AST was 127 with an ALT 146. N-terminal proBNP was 1270. The patient's chest x-ray was consistent with COPD, and some increased interstitial opacities, which are not new. Progress note dated 11/03/2022. Patient was seen in consultation yesterday. He was seen in my office, by one of my partners, and sent to the emergency room. Currently, the patient is on 3 L of oxygen. He's not receiving any IV fluids. His respiratory status is somewhat tenuous right now, and we've asked respiratory to place him back on BiPAP. He has a history of COPD, CHF, atrial fibrillation, and esophageal cancer. Certain laboratory includes a sodium 132, potassium 4, chlorides 97, CO2 24, BUN 21, creatinine 0.64. Albumin is 3.6. Culture data is as far negative. Progress note dated 11/04/2022. The patient is seen today in room 360. Currently, he's on 3 L of oxygen. The patient is not using his BiPAP. BiPAP settings are 12/6 and dirty 5%. He was placed on a yesterday, because his respiratory status has declined. The patient mention to us, that Dr. Concepcion, mention doing a bronchoscopy on this patient. For this reason, we'll keep the patient nothing by mouth after midnight. The patient is still coughing up dark phlegm. Sodium 1:30, potassium 4.3, chlorides 94, CO2 31, BUN 23, and creatinine 0.65. Anion gap is normal. Sputum and blood sampling assess far negative. Chest x-ray from yesterday shows a small left-s ided pleural effusion, and chronic changes, without anything acute. On today's evaluation of 11/05/2022, the patient is being seen for a follow-up. Since his admission 3 days ago, the patient is gradually improving. He continues to have cough and congestion. He is afebrile. He is hemodynamically stable. His pro calcitonin level at time of admission was 0.06 and he does not have an elevation the pro calcitonin level. Chest x-ray showed mild scattered. Lung markings. There was also small left-sided pleural effusion. Meanwhile, the patient earlier this morning went into atrial fibrillation with rapid ventricular response. Cardiology was consulted. The patient was started on Cardizem drip which is currently running at 5 mg an hour and the patient's rate is under better control. Antibiotic regulations of the started yet. I made recommendations to start the patient on IV heparin as there is a very high likelihood that the patient may need a bronchoscopy within next 24-48 hours regarding his respiratory secretions and the mucus. Echocardiogram was also ordered and is also still pending for now. No palpitations. No focal neurological deficits. No other new complaints. 11/06/2022, the patient is improving slowly. Cough and congestion has been subsiding. The patient is feeling better. Is currently on oxygen at 3 L/m nasal cannula. He was given an incentive spirometer. He was also given a flutter valve. He remains in atrial fibrillation. Rate is controlled for now. He is currently on IV heparin. Is also on IV Cardizem running at 5 mg an hour. His heart rate is under much better control without any significant tachycardia. He remains in atrial fibrillation. Echocardiogram was done yesterday and the patient was found to have an ejection fraction of 45-50%. He also has a moderate RV dilatation and mild pulmonary hypertension. Mitral stenosis was als o identified which was mild in addition to and mild aortic stenosis. He is also on metoprolol 50 mg by mouth twice a day and is also on digoxin for rate control. Cardizem drip will be discontinued for now. The plan is to do a bronchoscopy and bronchial lavage on this patient is today. For now, he is nothing by mouth. 11/07/2022, I'm seeing the patient for a follow-up. He underwent a bronchoscopy yesterday and therapeutic airway suctioning was done and the patient showed remarkable response. There was copious amount of purulent rest or secretions in his left lower lobe and therapeutic airway suctioning was done and following that the bronchial lavage of the left lower lobe was done. Today's cough is dry. On 3 L of oxygen, the patient is up to 98%. He remains on the same antibiotic coverage. He is doing much better. He is not having any significant shortness of breath on today's evaluation. Meanwhile, the patient remains in atrial fibrillation. His heart rate is under better control. He is off the IV heparin. Is also off the Cardizem drip. On 11/08/2022, the patient is being seen for a follow-up. Is currently on room air oxygen. Had recurrence of some of his congestion. Nevertheless, this is not affecting his breathing and the patient is calm and comfortable on room air oxygen. No chest pain. No fever or chills. The bronchoscopy and bronchial lavage has yielded no microbial growth thus far. Remains on IV Solu-Medrol. Remains on bronchodilators. 11/09/2022, I'm seeing the patient for a follow-up. The patient is stable. Is still having a congestive cough and is producing mucus and is able to cough the mucus with the assistance of a flutter valve. He is doing aggressive PT. Is also on bronchodilators. He is on Augmentin and the bronchial alveolar lavage showed MSSA. He is also on a prednisone burst taper. Oxygenation is still fluctuating and the patient may end up requiring home O2. No other new complaints otherwise for now. The the blood counts including electrodes are all within normal limits. The enzymes at 24 with a creatinine of 0.6. LFTs are normal. Objective - Vital Signs Vital signs: Vital Signs Temp 98.3 F 11/09/22 12:00 Pulse 84 11/09/22 12:49 Resp 16 11/09/22 12:00 BP 103/66 11/09/22 12:00 Pulse Ox 93 L 11/09/22 13:42 FiO2 21 11/08/22 20:12 Intake & Output 11/08/22 11/09/22 11/09/22 18:59 06:59 18:59 Intake Total 854 500 Output Total 300 Balance 854 -300 500 Intake: Oral 854 500 Output: Urine 300 Other: Voiding Method Toilet Toilet Urinal Urinal Urinal # Voids 3 - Exam Gen: This is a 76-year-old male. He is resting in bed and appears to be comfortable and in no acute distress, the patient is currently on room air oxygen Head exam was generally normal. There was no scleral icterus or corneal arcus. Mucous membranes were moist. HEENT: Head is atraumatic, normocephalic. Pupils equal, round. Sclerae is anicteric. NECK: Supple. No JVD. No lymphadenopathy. No thyromegaly. LUNGS: Bilateral rhonchi and expiratory wheeze. No intercostal retractions. HEART: Regular rate and rhythm. 1/6 systolic murmur at the base. ABDOMEN: Soft. Bowel sounds are present. No masses. No tenderness. EXTREMITIES: No pedal edema. No calf tenderness. NEUROLOGICAL: Patient is awake, alert and oriented x3. - Labs CBC & Chem 7: 11/01/22 11:53 11/09/22 10:23 Labs: Abnormal Lab Results - Last 24 Hours (Table) 11/08/22 11/08/22 11/09/22 Range/Units 16:39 19:51 10:23 Sodium 131 L (137-145) mmol/L Potassium 3.4 L (3.5-5.1) mmol/L Chloride 88 L (98-107) mmol/L Carbon Dioxide 37 H (22-30) mmol/L BUN 24 H (9-20) mg/dL POC Glucose (mg/dL) 123 H 197 H (70-110) mg/dL Calcium 7.9 L (8.4-10.2) mg/dL Total Protein 5.9 L (6.3-8.2) g/dL Albumin 3.4 L (3.5-5.0) g/dL 11/09/22 Range/Units 11:35 Sodium (137-145) mmol/L Potassium (3.5-5.1) mmol/L Chloride (98-107) mmol/L Carbon Dioxide (22-30) mmol/L BUN (9-20) mg/dL POC Glucose (mg/dL) 113 H (70-110) mg/dL Calcium (8.4-10.2) mg/dL Total Protein (6.3-8.2) g/dL Albumin (3.5-5.0) g/dL Microbiology - Last 24 Hours (Table) 11/06/22 13:29 Gram Stain - Final Bronchoalviolar Lavage - Left Bronchial Washings Culture - Final Staphylococcus aureus Assessment and Plan Plan: Acute hypoxemic respiratory failure, secondary to COPD exacerbation, improving, and the patient is still requiring some degree of oxygen specially with activity. He may not requiring home O2 Left lower lobe pneumonia with purulent rest or secretions originating from the left lower lobe based on bronchoscopy that was done yesterday. Therapeutic airway suctioning was done. Awaiting cultures. The cultures are negative thus far. A bronchoscopy yielded a MSSA in the left lower lobe and the patient's current on Augmentin New-onset atrial fibrillation, rate is controlled for now, patient is on beta blockers and the patient is also on anticoagulation with Eliquis. 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 History of gastroesophageal reflux disease. Prior history of heavy tobacco use. Plan: We'll continue same treatment Aggressive pulmonary toileting Continue Augmentin Prednisone burst taper Continue using incentive spirometer and put the patient on a flutter valve Continue bronchodilators Arrange home O2 Mucinex DM twice a day Patient was started on anticoagulation with Eliquis We'll continue to follow Increase mobility
[2022-11-09 16:51] LABS: Glucose,Whole Blood 181 mg/dL (70-110)
[2022-11-09] MEDS: POTASSIUM CHLORIDE ER 20 MEQ TAB.ER PO SCH ×2 (17:00→18:06)
--- NOTE | 2022-11-09 18:51 | P.PN ---
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 He states his symptoms worsened relatively quickly over the past few days, denies any specific trigger. He denies fever, chills. Reports he has been complaint with duonebs qid and pulmicort nebs bid. On presentation pt hypoxic, requiring BIPAP, WBC 13.7, Hgb 12.7, plt 281k, VBG with CO2 56. BNP 1270, BUN 24, Cr 0.64. CXR with COPD, interstitial opacitiy. 11/05/2022 continues on nebulized bronchodilators, IV steroids ,maintaining O2 sats in the 90s on 3 L nasal cannula. Continues to have ongoing diffuse rhonchi and wheezes, productive cough with thick dark yellow sputum. He developed atrial fibrillation with RVR last night, rates noted into the 130s, currently 60s to 90s ,maintained on Cardizem drip. Systolic blood pressure high 90s to low 100s.Cardiology discussing anticoagulation, Eliquis-on hold pending pulmonary's decision regarding bronchoscopy.NPO, blood sugars controlled .Denies chest pain, palpitations. 11/06/2022 Flutter valve at bedside. Continues on 3 L nasal cannula O2 sven ntaining O2 sats in the 90s. Denies increase in shortness of breath;productive cough Telemetry reporting controlled atrial fibrillation. Maintained on heparin and Cardizem drips. Also on digoxin and metoprolol. Echocardiogram reported EF of 45-50%, moderate right ventricular dilation, moderate mitral ring or calcification, mild mitral stenosis, mild aortic stenosis. Nothing by mouth for bronchoscopy today. Blood sugars controlled. 11/07/2022 Completed bronchoscopy with lavage yesterday with pulmonary reporting COPD and left lower lobe pneumonia. Cultures and cytology pending. Maintained on Zosyn. Telemetry reporting controlled A. fib heart rates up into the low 100s. Anticoagulation-transitioning to oral Eliquis. Significant clinical improvement. Reports breathing and coughing improved with less mucus production. Decreased bilateral rhonchi and expiratory wheezing. Maintaining O2 sats in the high 90s on 3 L nasal cannula. Afebrile. Patient has been cleared for discharge by cardiology, including increasing diuretics to daily. Close monitoring of electrolytes outpatient. Patient will be discharged home today in a stable condition with guarded prognosis pending final DC recommendations and clearance per pulmonary. Aspiration precautions reinforced .It has also been recommended that presented to patient to follow-up with outpatient GI specialist regarding suspected aspiration. 11/08/2022 maintaining O2 sats in the 90s on room air. Feels better, breathing easier, using his flutter valve. Maintained on antibiotics, nebulized bronchodilators, IV steroids. Reports productive cough with cream-colored sputum. Denies chest pain, palpitations. Bronchoscopy cultures/cytology pending. 11/09/2022 ambulating in hallways yesterday, reports he tolerated exertion well, staf documented decreased O2 sat to 83% on room air. Currently maintaining O2 sats in the high 90s on room air at rest. Continues on nebulized bronchodilators, oral Augmentin, oral prednisone taper. Reports coughing up increased mucus production, sore throat. Denies sinus drainage, stuffy nose or headache. Compliant with using flutter valve Afebrile, labs pending. Bronchial washings reporting MSSA. Cytology, fungal and acid-fast bacilli cultures pending. Afebrile.Labs ordered. Objective - Vital Signs Vital signs: Vital Signs Temp 98.3 F 11/09/22 12:00 Pulse 84 11/09/22 12:49 Resp 16 11/09/22 12:00 BP 103/66 11/09/22 12:00 Pulse Ox 92 L 11/09/22 12:00 FiO2 21 11/08/22 20:12 Intake & Output 11/08/22 11/09/22 11/09/22 18:59 06:59 18:59 Intake Total 854 500 Output Total 300 Balance 854 -300 500 Intake: Oral 854 500 Output: Urine 300 Other: Voiding Method Toilet Toilet Urinal Urinal Urinal # Voids 3 - Exam Gen: sitting up in bed, NAD HEENT: NC/AT, mmm. On RA Neck: supple, no JVD CV: Regular S1,S2, irregular, systolic murmur,no edema Lungs: Normal effort, scattered rhonchi and expiratory wheezing Abd: soft, nontender, non distended,+BS Neuro: alert and oriented x3, no focal deficits Skin: warm and dry - Labs CBC & Chem 7: 11/01/22 11:53 11/09/22 10:23 Labs: Abnormal Lab Results - Last 24 Hours (Table) 11/06/22 11/08/22 11/08/22 Range/Units 13:29 16:39 19:51 Sodium (137-145) mmol/L Potassium (3.5-5.1) mmol/L Chloride (98-107) mmol/L Carbon Dioxide (22-30) mmol/L BUN (9-20) mg/dL POC Glucose (mg/dL) 123 H 197 H (70-110) mg/dL Calcium (8.4-10.2) mg/dL Total Protein (6.3-8.2) g/dL Albumin (3.5-5.0) g/dL Viral Test See Below A 11/09/22 11/09/22 Range/Units 10:23 11:35 Sodium 131 L (137-145) mmol/L Potassium 3.4 L (3.5-5.1) mmol/L Chloride 88 L (98-107) mmol/L Carbon Dioxide 37 H (22-30) mmol/L BUN 24 H (9-20) mg/dL POC Glucose (mg/dL) 113 H (70-110) mg/dL Calcium 7.9 L (8.4-10.2) mg/dL Total Protein 5.9 L (6.3-8.2) g/dL Albumin 3.4 L (3.5-5.0) g/dL Viral Test Microbiology - Last 24 Hours (Table) 11/06/22 13:29 Gram Stain - Final Bronchoalviolar Lavage - Left Bronchial Washings Culture - Final Staphylococcus aureus Assessment and Plan Assessment: Acute hypoxic and hypercapnic respiratory failure secondary to acute COPD exacerbation, MSSA -left lower lobe pneumonia-status post bronchoscopy with lavage, fungal and acid-fast bacilli cultures/cytology pending and suspect recurrent aspiration, secondary to esophageal resection. Persistent hypoxia with activity, recent documentation of 83% on room air after ambulation. Paroximal Afibrillation, new onset Acute on chronic hyponatremia Chronic diastolic CHF Multivalvular heart disease Pulmonary hypertension Gastroesophageal reflux disease History of esophageal cancer, status post resection, in remission Iron deficiency anemia Former nicotine dependence Glaucoma Restless leg syndrome Plan: Continue on current medication regime ,monitoring and symptomatic treatment. Labs ordered. Continue on aggressive pulmonary toileting with nebulized bronchodilators, steroids, antibiotics .Fungal and acid-fast bacilli cultures/cytology pending. Discharge planning in progress pending final DC recommendations and clearance per pulmonary. The impression and plan of care has been dictated as directed. : I performed a history and examination of this patient, discussed the same with the dictator. I agree with the dictator's note ,documented as a scribe. Any additional findings or plans will be noted.
[2022-11-09 20:09] LABS: Glucose,Whole Blood 139 mg/dL (70-110)
[2022-11-10 06:08] LABS: Glucose,Whole Blood 89 mg/dL (70-110)
[2022-11-10] MEDS: LEVOTHYROXINE 25 MCG TAB PO SCH (06:27)
[2022-11-10] MEDS: PANTOPRAZOLE 40 MG TABLET PO SCH (06:27)
[2022-11-10] MEDS: INSULIN ASPART (NovoLOG) 100 UNIT/ML VIAL SQ SCH ×4 (06:27→20:13)
[2022-11-10] MEDS: AMOXIC-POT CLAV 875-125MG 1 EACH TAB PO SCH ×2 (08:11→20:12)
[2022-11-10] MEDS: SODIUM CHLORIDE TAB 1 GM TAB PO SCH (08:11)
[2022-11-10] MEDS: MAGNESIUM OXIDE 400 MG TAB PO SCH (08:11)
[2022-11-10] MEDS: APIXABAN 5 MG TAB PO SCH ×2 (08:12→20:13)
[2022-11-10] MEDS: DIGOXIN 125 MCG TAB PO SCH (08:12)
[2022-11-10] MEDS: ASCORBIC ACID 500 MG TAB PO SCH (08:12)
[2022-11-10] MEDS: FOLIC ACID 1 MG TAB PO SCH (08:12)
[2022-11-10] MEDS: FERROUS SULFATE 325 MG TAB PO SCH (08:12)
[2022-11-10] MEDS: guaiFENesin 600 MG TABLET.ER PO SCH ×2 (08:12→20:13)
[2022-11-10] MEDS: FUROSEMIDE 20 MG TAB PO SCH (08:12)
[2022-11-10] MEDS: predniSONE 20 MG TAB PO SCH (08:19)
[2022-11-10] MEDS: ZINC SULFATE 220 MG CAP PO SCH (08:20)
[2022-11-10] MEDS: polyethylene glycoL 3350 17 GM POWD.PACK PO SCH (08:20)
[2022-11-10] MEDS: METOPROLOL TARTRATE 50 MG TAB PO SCH ×2 (08:22→20:13)
--- NOTE | 2022-11-10 09:33 | P.PN ---
Subjective Progress Note Date: 11/10/22 76-year-old male who was seen by my partner in the office, and sent to the emergency room. We saw him briefly yesterday, did not do a consult on him yesterday. The patient was admitted to the hospital with a diagnosis of COPD exacerbation. He came in complaining of shortness of breath, cough, chest co ngestion, wheezing, and occasional phlegm production. He does have history of underlying COPD, THF, atrial fibrillation, and esophageal cancer. Currently, the patient appears to be doing reasonably well. He is on 5 L nasal cannula, turned down to 3 L. He's not receiving any IV fluids. He did not use of BiPAP device. When we saw him in the emergency room yesterday, he was on BiPAP, with settings of 10/5 and 40%. His chest x-ray was unchanged. He was seen in room 5, in the emergency department. White count 13.7, hemoglobin 12.7, hematocrit 39.4, and platelet count 281,000. Coagulation studies were normal. Venous blood gases show a pCO2 of 56, and a pH is 7.33. Sodium 132, potassium 4.3, chlorides 98, CO2 26, BUN 24, and creatinine 0.64. Calcium was 8. AST was 127 with an ALT 146. N-terminal proBNP was 1270. The patient's chest x-ray was consistent with COPD, and some increased interstitial opacities, which are not new. Progress note dated 11/03/2022. Patient was seen in consultation yesterday. He was seen in my office, by one of my partners, and sent to the emergency room. Currently, the patient is on 3 L of oxygen. He's not receiving any IV fluids. His respiratory status is somewhat tenuous right now, and we've asked respiratory to place him back on BiPAP. He has a history of COPD, CHF, atrial fibrillation, and esophageal cancer. Certain laboratory includes a sodium 132, potassium 4, chlorides 97, CO2 24, BUN 21, creatinine 0.64. Albumin is 3.6. Culture data is as far negative. Progress note dated 11/04/2022. The patient is seen today in room 360. Currently, he's on 3 L of oxygen. The patient is not using his BiPAP. BiPAP settings are 12/6 and dirty 5%. He was placed on a yesterday, because his respiratory status has declined. The patient mention to us, that Dr. Concepcion, mention doing a bronchoscopy on this patient. For this reason, we'll keep the patient nothing by mouth after midnight. The patient is still coughing up dark phlegm. Sodium 1:30, potassium 4.3, chlorides 94, CO2 31, BUN 23, and creatinine 0.65. Anion gap is normal. Sputum and blood sampling assess far negative. Chest x-ray from yesterday shows a small left-s ided pleural effusion, and chronic changes, without anything acute. On today's evaluation of 11/05/2022, the patient is being seen for a follow-up. Since his admission 3 days ago, the patient is gradually improving. He continues to have cough and congestion. He is afebrile. He is hemodynamically stable. His pro calcitonin level at time of admission was 0.06 and he does not have an elevation the pro calcitonin level. Chest x-ray showed mild scattered. Lung markings. There was also small left-sided pleural effusion. Meanwhile, the patient earlier this morning went into atrial fibrillation with rapid ventricular response. Cardiology was consulted. The patient was started on Cardizem drip which is currently running at 5 mg an hour and the patient's rate is under better control. Antibiotic regulations of the started yet. I made recommendations to start the patient on IV heparin as there is a very high likelihood that the patient may need a bronchoscopy within next 24-48 hours regarding his respiratory secretions and the mucus. Echocardiogram was also ordered and is also still pending for now. No palpitations. No focal neurological deficits. No other new complaints. 11/06/2022, the patient is improving slowly. Cough and congestion has been subsiding. The patient is feeling better. Is currently on oxygen at 3 L/m nasal cannula. He was given an incentive spirometer. He was also given a flutter valve. He remains in atrial fibrillation. Rate is controlled for now. He is currently on IV heparin. Is also on IV Cardizem running at 5 mg an hour. His heart rate is under much better control without any significant tachycardia. He remains in atrial fibrillation. Echocardiogram was done yesterday and the patient was found to have an ejection fraction of 45-50%. He also has a moderate RV dilatation and mild pulmonary hypertension. Mitral stenosis was als o identified which was mild in addition to and mild aortic stenosis. He is also on metoprolol 50 mg by mouth twice a day and is also on digoxin for rate control. Cardizem drip will be discontinued for now. The plan is to do a bronchoscopy and bronchial lavage on this patient is today. For now, he is nothing by mouth. 11/07/2022, I'm seeing the patient for a follow-up. He underwent a bronchoscopy yesterday and therapeutic airway suctioning was done and the patient showed remarkable response. There was copious amount of purulent rest or secretions in his left lower lobe and therapeutic airway suctioning was done and following that the bronchial lavage of the left lower lobe was done. Today's cough is dry. On 3 L of oxygen, the patient is up to 98%. He remains on the same antibiotic coverage. He is doing much better. He is not having any significant shortness of breath on today's evaluation. Meanwhile, the patient remains in atrial fibrillation. His heart rate is under better control. He is off the IV heparin. Is also off the Cardizem drip. On 11/08/2022, the patient is being seen for a follow-up. Is currently on room air oxygen. Had recurrence of some of his congestion. Nevertheless, this is not affecting his breathing and the patient is calm and comfortable on room air oxygen. No chest pain. No fever or chills. The bronchoscopy and bronchial lavage has yielded no microbial growth thus far. Remains on IV Solu-Medrol. Remains on bronchodilators. 11/09/2022, I'm seeing the patient for a follow-up. The patient is stable. Is still having a congestive cough and is producing mucus and is able to cough the mucus with the assistance of a flutter valve. He is doing aggressive PT. Is also on bronchodilators. He is on Augmentin and the bronchial alveolar lavage showed MSSA. He is also on a prednisone burst taper. Oxygenation is still fluctuating and the patient may end up requiring home O2. No other new complaints otherwise for now. The the blood counts including electrodes are all within normal limits. The enzymes at 24 with a creatinine of 0.6. LFTs are normal. 11/10/2022, the patient is doing well. He is currently on room air oxygen with a pulse ox of 97%. He is currently on oral Augmentin. He is on prednisone. He is on bronchodilators. Limited cough and congestion. Overall condition is improving. He had some urinary retention this morning. The patient was straight cathed and he had significant relief. Is being monitored for the time being. Objective - Vital Signs Vital signs: Vital Signs Temp 97.9 F 11/10/22 04:00 Pulse 108 H 11/10/22 08:00 Resp 16 11/10/22 08:00 BP 109/58 11/10/22 08:00 Pulse Ox 97 11/10/22 08:00 FiO2 21 11/08/22 20:12 Intake & Output 11/09/22 11/10/22 11/10/22 18:59 06:59 18:59 Intake Total 1238 40 118 Output Total 450 Balance 1238 -410 118 Intake: IV 20 40 Invasive Line 4 20 40 Oral 1218 118 Output: Urine 450 Other: Voiding Method Urinal Toilet Urinal # Voids 3 - Exam Gen: This is a 76-year-old male. He is resting in bed and appears to be comfortable and in no acute distress, the patient is currently on room air oxygen Head exam was generally normal. There was no scleral icterus or corneal arcus. Mucous membranes were moist. HEENT: Head is atraumatic, normocephalic. Pupils equal, round. Sclerae is anicteric. NECK: Supple. No JVD. No lymphadenopathy. No thyromegaly. LUNGS: Bilateral rhonchi and expiratory wheeze. No intercostal retractions. HEART: Regular rate and rhythm. 1/6 systolic murmur at the base. ABDOMEN: Soft. Bowel sounds are present. No masses. No tenderness. EXTREMITIES: No pedal edema. No calf tenderness. NEUROLOGICAL: Patient is awake, alert and oriented x3. - Labs CBC & Chem 7: 11/01/22 11:53 11/09/22 10:23 Labs: Abnormal Lab Results - Last 24 Hours (Table) 11/09/22 11/09/22 11/09/22 Range/Units 10:23 11:35 16:50 Sodium 131 L (137-145) mmol/L Potassium 3.4 L (3.5-5.1) mmol/L Chloride 88 L (98-107) mmol/L Carbon Dioxide 37 H (22-30) mmol/L BUN 24 H (9-20) mg/dL POC Glucose (mg/dL) 113 H 181 H (70-110) mg/dL Calcium 7.9 L (8.4-10.2) mg/dL Total Protein 5.9 L (6.3-8.2) g/dL Albumin 3.4 L (3.5-5.0) g/dL 11/09/22 Range/Units 20:07 Sodium (137-145) mmol/L Potassium (3.5-5.1) mmol/L Chloride (98-107) mmol/L Carbon Dioxide (22-30) mmol/L BUN (9-20) mg/dL POC Glucose (mg/dL) 139 H (70-110) mg/dL Calcium (8.4-10.2) mg/dL Total Protein (6.3-8.2) g/dL Albumin (3.5-5.0) g/dL Microbiology - Last 24 Hours (Table) 11/06/22 13:29 Gram Stain - Final Bronchoalviolar Lavage - Left Bronchial Washings Culture - Final Staphylococcus aureus Assessment and Plan Plan: Acute hypoxemic respiratory failure, secondary to COPD exacerbation, improving, much improved on today's evaluation. Oxygenation is also improved. We arranged home O2 Left lower lobe pneumonia with purulent rest or secretions originating from the left lower lobe based on bronchoscopy that was done yesterday. Therapeutic airway suctioning was done. Awaiting cultures. The cultures are negative thus far. A bronchoscopy yielded a MSSA in the left lower lobe and the patient's current on Augmentin New-onset atrial fibrillation, rate is controlled for now, patient is on beta blockers and the patient is also on anticoagulation with Eliquis. 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 History of gastroesophageal reflux disease. Prior history of heavy tobacco use. Urinary retention Plan: We'll continue same treatment Aggressive pulmonary toileting Continue Augmentin and I would suggest completing a two-week course of Augmentin Prednisone burst taper Continue using incentive spirometer and put the patient on a flutter valve Continue bronchodilators Arrange home O2 Mucinex DM twice a day Patient was started on anticoagulation with Eliquis Monitor the urinary outflow and do bladder scans over the next few hours Increase mobility Possible home is able to urinate
[2022-11-10] MEDS: FORMOTEROL FUMARATE 20 MCG/2 ML NEBU INHALATION SCH ×2 (09:52→20:42)
[2022-11-10] MEDS: TIOTROPIUM 2.5 MCG INHALER INHALATION SCH (09:52)
[2022-11-10] MEDS: BUDESONIDE 1 MG/2 ML NEBU INHALATION SCH ×2 (09:52→20:42)
[2022-11-10] MEDS: IPRATROPIUM-ALBUTEROL 3 ML NEB INHALATION SCH ×4 (09:52→20:42)
[2022-11-10 11:48] LABS: Glucose,Whole Blood 106 mg/dL (70-110)
[2022-11-10 16:54] LABS: Glucose,Whole Blood 123 mg/dL (70-110)
[2022-11-10 20:12] LABS: Glucose,Whole Blood 126 mg/dL (70-110)
[2022-11-11] MEDS: LEVOTHYROXINE 25 MCG TAB PO SCH (05:24)
[2022-11-11] MEDS: PANTOPRAZOLE 40 MG TABLET PO SCH (05:24)
[2022-11-11 06:22] LABS: Glucose,Whole Blood 98 mg/dL (70-110)
[2022-11-11] MEDS: INSULIN ASPART (NovoLOG) 100 UNIT/ML VIAL SQ SCH ×4 (06:28→20:26)
[2022-11-11] MEDS: BUDESONIDE 1 MG/2 ML NEBU INHALATION SCH ×2 (09:22→20:45)
[2022-11-11] MEDS: IPRATROPIUM-ALBUTEROL 3 ML NEB INHALATION SCH ×4 (09:22→20:45)
[2022-11-11] MEDS: FORMOTEROL FUMARATE 20 MCG/2 ML NEBU INHALATION SCH ×2 (09:23→20:45)
[2022-11-11] MEDS: TIOTROPIUM 2.5 MCG INHALER INHALATION SCH (09:37)
--- NOTE | 2022-11-11 09:40 | P.PN ---
Subjective Progress Note Date: 11/11/22 76-year-old male who was seen by my partner in the office, and sent to the emergency room. We saw him briefly yesterday, did not do a consult on him yesterday. The patient was admitted to the hospital with a diagnosis of COPD exacerbation. He came in complaining of shortness of breath, cough, chest co ngestion, wheezing, and occasional phlegm production. He does have history of underlying COPD, THF, atrial fibrillation, and esophageal cancer. Currently, the patient appears to be doing reasonably well. He is on 5 L nasal cannula, turned down to 3 L. He's not receiving any IV fluids. He did not use of BiPAP device. When we saw him in the emergency room yesterday, he was on BiPAP, with settings of 10/5 and 40%. His chest x-ray was unchanged. He was seen in room 5, in the emergency department. White count 13.7, hemoglobin 12.7, hematocrit 39.4, and platelet count 281,000. Coagulation studies were normal. Venous blood gases show a pCO2 of 56, and a pH is 7.33. Sodium 132, potassium 4.3, chlorides 98, CO2 26, BUN 24, and creatinine 0.64. Calcium was 8. AST was 127 with an ALT 146. N-terminal proBNP was 1270. The patient's chest x-ray was consistent with COPD, and some increased interstitial opacities, which are not new. Progress note dated 11/03/2022. Patient was seen in consultation yesterday. He was seen in my office, by one of my partners, and sent to the emergency room. Currently, the patient is on 3 L of oxygen. He's not receiving any IV fluids. His respiratory status is somewhat tenuous right now, and we've asked respiratory to place him back on BiPAP. He has a history of COPD, CHF, atrial fibrillation, and esophageal cancer. Certain laboratory includes a sodium 132, potassium 4, chlorides 97, CO2 24, BUN 21, creatinine 0.64. Albumin is 3.6. Culture data is as far negative. Progress note dated 11/04/2022. The patient is seen today in room 360. Currently, he's on 3 L of oxygen. The patient is not using his BiPAP. BiPAP settings are 12/6 and dirty 5%. He was placed on a yesterday, because his respiratory status has declined. The patient mention to us, that Dr. Concepcion, mention doing a bronchoscopy on this patient. For this reason, we'll keep the patient nothing by mouth after midnight. The patient is still coughing up dark phlegm. Sodium 1:30, potassium 4.3, chlorides 94, CO2 31, BUN 23, and creatinine 0.65. Anion gap is normal. Sputum and blood sampling assess far negative. Chest x-ray from yesterday shows a small left-s ided pleural effusion, and chronic changes, without anything acute. On today's evaluation of 11/05/2022, the patient is being seen for a follow-up. Since his admission 3 days ago, the patient is gradually improving. He continues to have cough and congestion. He is afebrile. He is hemodynamically stable. His pro calcitonin level at time of admission was 0.06 and he does not have an elevation the pro calcitonin level. Chest x-ray showed mild scattered. Lung markings. There was also small left-sided pleural effusion. Meanwhile, the patient earlier this morning went into atrial fibrillation with rapid ventricular response. Cardiology was consulted. The patient was started on Cardizem drip which is currently running at 5 mg an hour and the patient's rate is under better control. Antibiotic regulations of the started yet. I made recommendations to start the patient on IV heparin as there is a very high likelihood that the patient may need a bronchoscopy within next 24-48 hours regarding his respiratory secretions and the mucus. Echocardiogram was also ordered and is also still pending for now. No palpitations. No focal neurological deficits. No other new complaints. 11/06/2022, the patient is improving slowly. Cough and congestion has been subsiding. The patient is feeling better. Is currently on oxygen at 3 L/m nasal cannula. He was given an incentive spirometer. He was also given a flutter valve. He remains in atrial fibrillation. Rate is controlled for now. He is currently on IV heparin. Is also on IV Cardizem running at 5 mg an hour. His heart rate is under much better control without any significant tachycardia. He remains in atrial fibrillation. Echocardiogram was done yesterday and the patient was found to have an ejection fraction of 45-50%. He also has a moderate RV dilatation and mild pulmonary hypertension. Mitral stenosis was als o identified which was mild in addition to and mild aortic stenosis. He is also on metoprolol 50 mg by mouth twice a day and is also on digoxin for rate control. Cardizem drip will be discontinued for now. The plan is to do a bronchoscopy and bronchial lavage on this patient is today. For now, he is nothing by mouth. 11/07/2022, I'm seeing the patient for a follow-up. He underwent a bronchoscopy yesterday and therapeutic airway suctioning was done and the patient showed remarkable response. There was copious amount of purulent rest or secretions in his left lower lobe and therapeutic airway suctioning was done and following that the bronchial lavage of the left lower lobe was done. Today's cough is dry. On 3 L of oxygen, the patient is up to 98%. He remains on the same antibiotic coverage. He is doing much better. He is not having any significant shortness of breath on today's evaluation. Meanwhile, the patient remains in atrial fibrillation. His heart rate is under better control. He is off the IV heparin. Is also off the Cardizem drip. On 11/08/2022, the patient is being seen for a follow-up. Is currently on room air oxygen. Had recurrence of some of his congestion. Nevertheless, this is not affecting his breathing and the patient is calm and comfortable on room air oxygen. No chest pain. No fever or chills. The bronchoscopy and bronchial lavage has yielded no microbial growth thus far. Remains on IV Solu-Medrol. Remains on bronchodilators. 11/09/2022, I'm seeing the patient for a follow-up. The patient is stable. Is still having a congestive cough and is producing mucus and is able to cough the mucus with the assistance of a flutter valve. He is doing aggressive PT. Is also on bronchodilators. He is on Augmentin and the bronchial alveolar lavage showed MSSA. He is also on a prednisone burst taper. Oxygenation is still fluctuating and the patient may end up requiring home O2. No other new complaints otherwise for now. The the blood counts including electrodes are all within normal limits. The enzymes at 24 with a creatinine of 0.6. LFTs are normal. 11/10/2022, the patient is doing well. He is currently on room air oxygen with a pulse ox of 97%. He is currently on oral Augmentin. He is on prednisone. He is on bronchodilators. Limited cough and congestion. Overall condition is improving. He had some urinary retention this morning. The patient was straight cathed and he had significant relief. Is being monitored for the time being. 11/11/2022, the patient's overall pulmonary status is stable. He was supposed to go home yesterday. He had issues with urinary retention. Kraft catheter was inserted after 2 was straight. The patient currently is producing adequate amount of urine output. No other new complaints otherwise for now. He is on Augmentin. He is on prednisone burst taper is on bronchodilators. Oxygen is adequate and the patient is currently on room air oxygen with a pulse ox of 94- 95%. Otherwise, no other new complaints for now. Blood work from today is still pending. Blood sugars today is 98. Objective - Vital Signs Vital signs: Vital Signs Temp 98.1 F 11/11/22 04:00 Pulse 90 11/11/22 09:23 Resp 17 11/11/22 04:00 BP 123/68 11/11/22 04:00 Pulse Ox 97 11/11/22 04:00 FiO2 21 11/10/22 20:43 Intake & Output 11/10/22 11/11/22 11/11/22 18:59 06:59 18:59 Intake Total 776 40 118 Output Total 675 1500 Balance 101 -1460 118 Intake: IV 40 40 Invasive Line 4 40 40 Oral 736 118 Output: Urine 675 1500 Straight 575 Other: Voiding Method Toilet Indwelling Catheter Urinal # Bowel Movements 1 - Exam Gen: This is a 76-year-old male. He is resting in bed and appears to be comfortable and in no acute distress, the patient is currently on room air oxygen Head exam was generally normal. There was no scleral icterus or corneal arcus. Mucous membranes were moist. HEENT: Head is atraumatic, normocephalic. Pupils equal, round. Sclerae is anicteric. NECK: Supple. No JVD. No lymphadenopathy. No thyromegaly. LUNGS: Bilateral rhonchi and expiratory wheeze. No intercostal retractions. HEART: Regular rate and rhythm. 1/6 systolic murmur at the base. ABDOMEN: Soft. Bowel sounds are present. No masses. No tenderness. EXTREMITIES: No pedal edema. No calf tenderness. NEUROLOGICAL: Patient is awake, alert and oriented x3. - Labs CBC & Chem 7: 11/01/22 11:53 11/09/22 10:23 Labs: Abnormal Lab Results - Last 24 Hours (Table) 11/10/22 11/10/22 Range/Units 16:45 20:11 POC Glucose (mg/dL) 123 H 126 H (70-110) mg/dL Microbiology - Last 24 Hours (Table) 11/06/22 13:29 Legionella Culture - Preliminary Bronchial Washings - Left Assessment and Plan Plan: Acute hypoxemic respiratory failure, secondary to COPD exacerbation, improving, much improved on today's evaluation. Oxygenation is also improved. We arranged home O2 Left lower lobe pneumonia with purulent rest or secretions originating from the left lower lobe based on bronchoscopy that was done yesterday. Therapeutic airway suctioning was done. Awaiting cultures. The cultures are negative thus far. A bronchoscopy yielded a MSSA in the left lower lobe and the patient's current on Augmentin New-onset atrial fibrillation, rate is controlled for now, patient is on beta blockers and the patient is also on anticoagulation with Eliquis. 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 History of gastroesophageal reflux disease. Prior history of heavy tobacco use. Urinary retention, currently has a Kraft catheter in place Plan: Pulmonary status is stable We'll continue same treatment Aggressive pulmonary toileting Continue Augmentin and I would suggest completing a two-week course of Augmentin Prednisone burst taper Continue using incentive spirometer and put the patient on a flutter valve Continue bronchodilators Arrange home O2 Mucinex DM twice a day Patient was started on anticoagulation with Eliquis Keep Kraft catheter in place Start The patient on Flomax Urology evaluation Increase mobility Possible home once urologic condition settles
--- NOTE | 2022-11-11 09:46 | P.PN ---
Subjective Progress Note Date: 11/10/22 76-year-old male who was seen by my partner in the office, and sent to the emergency room. We saw him briefly yesterday, did not do a consult on him yesterday. The patient was admitted to the hospital with a diagnosis of COPD exacerbation. He came in complaining of shortness of breath, cough, chest con gestion, wheezing, and occasional phlegm production. He does have history of underlying COPD, THF, atrial fibrillation, and esophageal cancer. Currently, the patient appears to be doing reasonably well. He is on 5 L nasal cannula, turned down to 3 L. He's not receiving any IV fluids. He did not use of BiPAP device. When we saw him in the emergency room yesterday, he was on BiPAP, with settings of 10/5 and 40%. His chest x-ray was unchanged. He was seen in room 5, in the emergency department. White count 13.7, hemoglobin 12.7, hematocrit 39.4, and platelet count 281,000. Coagulation studies were normal. Venous blood gases show a pCO2 of 56, and a pH is 7.33. Sodium 132, potassium 4.3, chlorides 98, CO2 26, BUN 24, and creatinine 0.64. Calcium was 8. AST was 127 with an ALT 146. N-terminal proBNP was 1270. The patient's chest x-ray was consistent with COPD, and some increased interstitial opacities, which are not new. Objective - Vital Signs Vital signs: Vital Signs Temp 97.9 F 11/10/22 04:00 Pulse 94 11/10/22 12:00 Resp 16 11/10/22 12:00 BP 123/67 11/10/22 12:00 Pulse Ox 95 11/10/22 12:00 FiO2 21 11/08/22 20:12 Intake & Output 11/09/22 11/10/22 11/10/22 18:59 06:59 18:59 Intake Total 1238 40 138 Output Total 450 575 Balance 1238 -410 -437 Intake: IV 20 40 20 Invasive Line 4 20 40 20 Oral 1218 118 Output: Urine 450 575 Straight 575 Other: Voiding Method Urinal Toilet Toilet Urinal Urinal # Voids 3 - Exam Gen: This is a 76-year-old male. He is resting in bed and appears to be comfortable and in no acute distress, the patient is currently on room air oxygen Head exam was generally normal. There was no scleral icterus or corneal arcus. Mucous membranes were moist. HEENT: Head is atraumatic, normocephalic. Pupils equal, round. Sclerae is anicteric. NECK: Supple. No JVD. No lymphadenopathy. No thyromegaly. LUNGS: Bilateral rhonchi and expiratory wheeze. No intercostal retractions. HEART: Regular rate and rhythm. 1/6 systolic murmur at the base. ABDOMEN: Soft. Bowel sounds are present. No masses. No tenderness. EXTREMITIES: No pedal edema. No calf tenderness. NEUROLOGICAL: Patient is awake, alert and oriented x3. - Labs CBC & Chem 7: 11/01/22 11:53 11/09/22 10:23 Labs: Abnormal Lab Results - Last 24 Hours (Table) 11/09/22 11/09/22 Range/Units 16:50 20:07 POC Glucose (mg/dL) 181 H 139 H (70-110) mg/dL Microbiology - Last 24 Hours (Table) 11/06/22 13:29 Gram Stain - Final Bronchoalviolar Lavage - Left Bronchial Washings Culture - Final Staphylococcus aureus Assessment and Plan Assessment: Acute hypoxic and hypercapnic respiratory failure secondary to acute COPD exacerbation, MSSA -left lower lobe pneumonia-status post bronchoscopy with lavage, fungal and acid-fast bacilli cultures/cytology pending and suspect recurrent aspiration, secondary to esophageal resection. Persistent hypoxia with activity, recent documentation of 83% on room air after ambulation. Paroximal Afibrillation, new onset Acute on chronic hyponatremia Chronic diastolic CHF Multivalvular heart disease Pulmonary hypertension Gastroesophageal reflux disease History of esophageal cancer, status post resection, in remission Iron deficiency anemia Former nicotine dependence Glaucoma Restless leg syndrome Plan: Continue on current medication regime ,monitoring and symptomatic treat ment. Labs ordered. Continue on aggressive pulmonary toileting with nebulized bronchodilators, steroids, antibiotics .Fungal and acid-fast bacilli cultures/cytology pending. Discharge planning in progress pending final DC recommendations and clearance per pulmonary. The impression and plan of care has been dictated as directed.
[2022-11-11] MEDS: polyethylene glycoL 3350 17 GM POWD.PACK PO SCH (10:14)
[2022-11-11] MEDS: TAMSULOSIN 0.4 MG CAP.ER.24H PO SCH (10:32)
[2022-11-11] MEDS: FOLIC ACID 1 MG TAB PO SCH (10:33)
[2022-11-11] MEDS: SODIUM CHLORIDE TAB 1 GM TAB PO SCH (10:33)
[2022-11-11] MEDS: ZINC SULFATE 220 MG CAP PO SCH (10:33)
[2022-11-11] MEDS: predniSONE 20 MG TAB PO SCH (10:33)
[2022-11-11] MEDS: METOPROLOL TARTRATE 50 MG TAB PO SCH ×2 (10:33→20:26)
[2022-11-11] MEDS: MAGNESIUM OXIDE 400 MG TAB PO SCH (10:33)
[2022-11-11] MEDS: APIXABAN 5 MG TAB PO SCH ×2 (10:33→20:26)
[2022-11-11] MEDS: AMOXIC-POT CLAV 875-125MG 1 EACH TAB PO SCH ×2 (10:33→20:26)
[2022-11-11] MEDS: FUROSEMIDE 20 MG TAB PO SCH (10:33)
[2022-11-11] MEDS: DIGOXIN 125 MCG TAB PO SCH (10:34)
[2022-11-11] MEDS: FERROUS SULFATE 325 MG TAB PO SCH (10:34)
[2022-11-11] MEDS: ASCORBIC ACID 500 MG TAB PO SCH (10:34)
[2022-11-11] MEDS: guaiFENesin 600 MG TABLET.ER PO SCH ×2 (10:34→20:26)
[2022-11-11 11:44] LABS: Glucose,Whole Blood 108 mg/dL (70-110)
--- NOTE | 2022-11-11 16:26 | P.PN ---
Subjective Progress Note Date: 11/11/22 Principal diagnosis: Acute hypoxic respiratory failure related to COPD exacerbation Left lower lobe pneumonia New-onset atrial fibrillation Urinary retention 76-year-old male who was seen by my partner in the office, and sent to the emergency room. We saw him briefly yesterday, did not do a consult on him yesterday. The patient was admitted to the hospital with a diagnosis of COPD exacerbation. He came in complaining of shortness of breath, cough, chest congestion, wheezing, and occasional phlegm production. He does have history of underlying COPD, THF, atrial fibrillation, and esophageal cancer. Currently, the patient appears to be doing reasonably well. He is on 5 L nasal cannula, turned down to 3 L. He's not receiving any IV fluids. He did not use of BiPAP device. When we saw him in the emergency room yesterday, he was on BiPAP, with settings of 10/5 and 40%. His chest x-ray was unchanged. He was seen in room 5, in the emergency department. White count 13.7, hemoglobin 12.7, hematocrit 39.4, and platelet count 281,000. Coagulation studies were normal. Venous blood gases show a pCO2 of 56, and a pH is 7.33. Sodium 132, potassium 4.3, chlorides 98, CO2 26, BUN 24, and creatinine 0.64. Calcium was 8. AST was 127 with an ALT 146. N-terminal proBNP was 1270. The patient's chest x-ray was consistent with COPD, and some increased interstitial opacities, which are not new. 11/11/2022 Patient is seen and evaluated with at bedside. He was supposed to go home yesterday. He had issues with urinary retention. Kraft catheter was inserted after 2 was straight. The patient currently is producing adequate amount of urine output. No other new complaints otherwise for now. He is on Augmentin. He is on prednisone burst taper is on bronchodilators. Oxygen is adequate and the patient is currently on room air oxygen with a pulse ox of 94-95%. Otherwise, no other new complaints for now. Blood work from today is still pending. Blood sugars today is 98. Patient has been/to oral Augmentin to complete a two-week course along with prednisone burst taper; O2 has been arranged - Continue with Kraft catheter and consult urology for further recommendations Objective - Vital Signs Vital signs: Vital Signs Temp 98.1 F 11/11/22 04:00 Pulse 90 11/11/22 09:35 Resp 17 11/11/22 04:00 BP 123/68 11/11/22 04:00 Pulse Ox 97 11/11/22 04:00 FiO2 21 11/10/22 20:43 Intake & Output 11/10/22 11/11/22 11/11/22 18:59 06:59 18:59 Intake Total 776 40 118 Output Total 675 1500 Balance 101 -1460 118 Intake: IV 40 40 Invasive Line 4 40 40 Oral 736 118 Output: Urine 675 1500 Straight 575 Other: Voiding Method Toilet Indwelling Catheter Urinal # Bowel Movements 1 - Exam Gen: This is a 76-year-old male. He is resting in bed and appears to be comfortable and in no acute distress, the patient is currently on room air oxygen Head exam was generally normal. There was no scleral icterus or corneal arcus. Mucous membranes were moist. HEENT: Head is atraumatic, normocephalic. Pupils equal, round. Sclerae is anicteric. NECK: Supple. No JVD. No lymphadenopathy. No thyromegaly. LUNGS: Bilateral rhonchi and expiratory wheeze. No intercostal retractions. HEART: Regular rate and rhythm. 1/6 systolic murmur at the base. ABDOMEN: Soft. Bowel sounds are present. No masses. No tenderness. EXTREMITIES: No pedal edema. No calf tenderness. NEUROLOGICAL: Patient is awake, alert and oriented x3. - Labs CBC & Chem 7: 11/01/22 11:53 11/09/22 10:23 Labs: Abnormal Lab Results - Last 24 Hours (Table) 11/10/22 11/10/22 Range/Units 16:45 20:11 POC Glucose (mg/dL) 123 H 126 H (70-110) mg/dL Microbiology - Last 24 Hours (Table) 11/06/22 13:29 Legionella Culture - Preliminary Bronchial Washings - Left Assessment and Plan Assessment: Acute hypoxic and hypercapnic respiratory failure secondary to acute COPD exacerbation, MSSA -left lower lobe pneumonia-status post bronchoscopy with lavage, fungal and acid-fast bacilli cultures/cytology pending and suspect recurrent aspiration, secondary to esophageal resection. Persistent hypoxia with activity, recent documentation of 83% on room air after ambulation. Paroximal Afibrillation, new onset Acute on chronic hyponatremia Chronic diastolic CHF Multivalvular heart disease Pulmonary hypertension Gastroesophageal reflux disease History of esophageal cancer, status post resection, in remission Iron deficiency anemia Former nicotine dependence Glaucoma Restless leg syndrome Plan: Continue on current medication regime ,monitoring and symptomatic treatment. Labs ordered. Continue on aggressive pulmonary toileting with nebulized bronchodilators, steroids, antibiotics .Fungal and acid-fast bacilli cultures/cytology pending. Discharge planning in progress pending final DC recommendations and clearance per pulmonary. The impression and plan of care has been dictated as directed.
[2022-11-11 16:35] LABS: Glucose,Whole Blood 140 mg/dL (70-110)
--- NOTE | 2022-11-11 17:27 | P.GSCN ---
History of Present Illness Consult date: 11/11/22 History of present illness: 76 yo male who has been in the hospital for over a week with exacerbation of his copd. He has gone into urine retention and we were asked to see him.The patient was voiding ok prior to admission. There is no history of uits, hematuria, incon tinence. He has never seen a urologist. His primary, dr. roberts, hasnt had to address any urinary issues. He has a catheter in place at present. Review of Systems All systems: negative - Constitutional Denies fever, Denies weight loss - EENT Eyes: denies blurred vision Ears, nose, mouth and throat: Denies dysphagia - Cardiovascular Denies chest pain, Denies shortness of breath - Respiratory Denies cough, Denies 7 - Gastrointestinal Reports as per HPI - Genitourinary Denies dysuria, Denies hematuria - Integumentary Denies rash, Denies unusual bruising - Neurological Denies headaches, Denies syncope - Hematologic/Lymphatic Denies easy bleeding, Denies easy bruising Past Medical History Past Medical History: Cancer, COPD, GERD/Reflux Additional Past Medical History / Comment(s): esophageal cancer, cataracts, History of Any Multi-Drug Resistant Organisms: None Reported Additional Past Surgical History / Comment(s): esophageal surgery, Past Psychological History: No Psychological Hx Reported Smoking Status: Former smoker Past Alcohol Use History: Daily Past Drug Use History: None Reported Medications and Allergies Home Medications Medication Instructions Recorded Confirmed Type Omeprazole [PriLOSEC] 20 mg PO DAILY 06/18/14 11/01/22 History Tiotropium Lissie [Spiriva] 1 puff INHALATION RT-DAILY 06/18/14 11/01/22 History Cyanocobalamin (Vitamin B-12) 1,000 mcg PO DAILY 04/19/20 11/01/22 History [Vitamin B-12] Levothyroxine Sodium 25 mcg PO DAILY 04/19/20 11/01/22 History Zinc 50 mg PO DAILY 04/19/20 11/01/22 History Ipratropium-Albuterol Nebulize 3 ml INHALATION RT-QID #120 ml 04/25/20 11/01/22 Rx [Duoneb 0.5 mg-3 mg/3 ml Soln] Ascorbic Acid [Vitamin C] 1,000 mg PO DAILY 10/11/22 11/01/22 History Ferrous Sulfate [Iron (65 MG 325 mg PO DAILY 10/11/22 11/01/22 History Elemental)] Folate 666mcg 1 tab PO DAILY 10/11/22 11/01/22 History Magnesium 250 mg PO DAILY 10/11/22 11/01/22 History [employer]-3 Fatty Acids [[employer]-3] 1,000 mg PO DAILY 10/11/22 11/01/22 History Budesonide 0.5 mg INHALATION RT-BID 11/01/22 11/01/22 History Multivit-Min/FA/Lycopen/Lutein 1 tab PO DAILY 11/01/22 11/01/22 History [Centrum Silver Tablet] Amoxic-Pot Clav 875-125Mg 1 tab PO BID 7 Days #14 tab 11/07/22 Rx [Augmentin 875-125] Apixaban [Eliquis] 5 mg PO BID #60 tab 11/07/22 Rx Digoxin [Lanoxin] 125 mcg PO DAILY #30 tab 11/07/22 Rx Furosemide [Lasix] 20 mg PO DAILY #30 tab 11/07/22 Rx Metoprolol Tartrate [Lopressor] 50 mg PO BID #60 tab 11/07/22 Rx Pantoprazole Sodium [Protonix] 40 mg PO DAILY #30 tab 11/07/22 Rx Potassium Chloride [Klor-Con M10] 10 meq PO DAILY #0 11/07/22 11/01/22 Rx Sodium Chloride Tab 1 gm PO BID #60 tab 11/07/22 Rx guaiFENesin [Mucinex] 600 mg PO Q12HR tab 11/07/22 Rx polyethylene glycoL 3350 [Miralax] 17 gm PO DAILY packet 11/07/22 Rx predniSONE 10 mg PO DIRECTED #30 tab 11/07/22 Rx Allergies Allergy/AdvReac Type Severity Reaction Status Date / Time No Known Allergies Allergy Verified 11/01/22 13:29 Surgical - Exam Vital Signs Temp Pulse Resp BP Pulse Ox 98 F 72 26 H 107/72 99 11/01/22 11:12 11/01/22 11:12 11/01/22 11:12 11/01/22 11:12 11/01/22 11:12 - General well developed, well nourished, no distress - Eyes normal ocular movement, no icteric - ENT no hearing loss, no congestion - Neck no masses, trachea midline - Respiratory normal respiratory effort, clear to auscultation - Abdomen Abdomen: soft, non tender, no guarding, no rigid, no rebound - Genitourinary indwelling catheter. Normal testes. prostate 30 gm benign. - Integumentary no rash, no abnormal pigmentation - Neurologic no disoriented, no combative - Psychiatric oriented to time, oriented to person, oriented to place, speech is normal, memory intact Results - Labs 11/01/22 11:53 11/09/22 10:23 Abnormal Lab Results - Last 24 Hours (Table) 11/10/22 11/10/22 Range/Units 16:45 20:11 POC Glucose (mg/dL) 123 H 126 H (70-110) mg/dL Microbiology - Last 24 Hours (Table) 11/06/22 13:29 Legionella Culture - Preliminary Bronchial Washings - Left Assessment and Plan Assessment: Impression: acute urinary retention. copd with pulmonary exacerbation Plan: The patient is on tamsulosin. He should have the catheter for 5-7 days and then have it removed for a voiding trial This can be done in my office if he goes home tomorrow.
[2022-11-11 20:13] LABS: Glucose,Whole Blood 180 mg/dL (70-110)
[2022-11-12] MEDS: PANTOPRAZOLE 40 MG TABLET PO SCH (06:01)
[2022-11-12] MEDS: LEVOTHYROXINE 25 MCG TAB PO SCH (06:01)
[2022-11-12 06:13] LABS: Glucose,Whole Blood 98 mg/dL (70-110)
[2022-11-12] MEDS: INSULIN ASPART (NovoLOG) 100 UNIT/ML VIAL SQ SCH ×2 (06:39→11:57)
[2022-11-12] MEDS: predniSONE 20 MG TAB PO SCH (08:46)
[2022-11-12] MEDS: TAMSULOSIN 0.4 MG CAP.ER.24H PO SCH (08:47)
[2022-11-12] MEDS: polyethylene glycoL 3350 17 GM POWD.PACK PO SCH (08:47)
[2022-11-12] MEDS: APIXABAN 5 MG TAB PO SCH (08:47)
[2022-11-12] MEDS: AMOXIC-POT CLAV 875-125MG 1 EACH TAB PO SCH (08:47)
[2022-11-12] MEDS: FOLIC ACID 1 MG TAB PO SCH (08:47)
[2022-11-12] MEDS: ZINC SULFATE 220 MG CAP PO SCH (08:48)
[2022-11-12] MEDS: POTASSIUM CHLORIDE ER 10 MEQ TAB.ER.PRT PO SCH (08:48)
[2022-11-12] MEDS: MAGNESIUM OXIDE 400 MG TAB PO SCH (08:48)
[2022-11-12] MEDS: guaiFENesin 600 MG TABLET.ER PO SCH (08:48)
[2022-11-12] MEDS: DIGOXIN 125 MCG TAB PO SCH (08:48)
[2022-11-12] MEDS: FERROUS SULFATE 325 MG TAB PO SCH (08:48)
[2022-11-12] MEDS: METOPROLOL TARTRATE 50 MG TAB PO SCH (08:48)
[2022-11-12] MEDS: FUROSEMIDE 20 MG TAB PO SCH (08:48)
[2022-11-12] MEDS: ASCORBIC ACID 500 MG TAB PO SCH (08:56)
[2022-11-12] MEDS: SODIUM CHLORIDE TAB 1 GM TAB PO SCH (08:56)
[2022-11-12] MEDS: FORMOTEROL FUMARATE 20 MCG/2 ML NEBU INHALATION SCH (09:25)
[2022-11-12] MEDS: IPRATROPIUM-ALBUTEROL 3 ML NEB INHALATION SCH ×2 (09:25→12:39)
[2022-11-12] MEDS: BUDESONIDE 1 MG/2 ML NEBU INHALATION SCH (09:34)
[2022-11-12 11:44] LABS: Glucose,Whole Blood 102 mg/dL (70-110)
[2022-11-12 12:28] VITALS: BP 116/64; RESP 16; TEMP 98
[2022-11-12 14:07] VITALS: PULSE 98
--- NOTE | 2022-11-12 14:50 | P.PN ---
Subjective Progress Note Date: 11/12/22 Principal diagnosis: Acute hypoxic failure and MSSA left lower lobe pneumonia, acute COPD exacerbation 76-year-old male who was seen by my partner in the office, and sent to the em ergency room. We saw him briefly yesterday, did not do a consult on him yesterday. The patient was admitted to the hospital with a diagnosis of COPD exacerbation. He came in complaining of shortness of breath, cough, chest congestion, wheezing, and occasional phlegm production. He does have history of underlying COPD, THF, atrial fibrillation, and esophageal cancer. Currently, the patient appears to be doing reasonably well. He is on 5 L nasal cannula, turned down to 3 L. He's not receiving any IV fluids. He did not use of BiPAP device. When we saw him in the emergency room yesterday, he was on BiPAP, with settings of 10/5 and 40%. His chest x-ray was unchanged. He was seen in room 5, in the emergency department. White count 13.7, hemoglobin 12.7, hematocrit 39.4, and platelet count 281,000. Coagulation studies were normal. Venous blood gases show a pCO2 of 56, and a pH is 7.33. Sodium 132, potassium 4.3, chlorides 98, CO2 26, BUN 24, and creatinine 0.64. Calcium was 8. AST was 127 with an ALT 146. N-terminal proBNP was 1270. The patient's chest x-ray was consistent with COPD, and some increased interstitial opacities, which are not new. Progress note dated 11/03/2022. Patient was seen in consultation yesterday. He was seen in my office, by one of my partners, and sent to the emergency room. Currently, the patient is on 3 L of oxygen. He's not receiving any IV fluids. His respiratory status is somewhat tenuous right now, and we've asked respiratory to place him back on BiPAP. He has a history of COPD, CHF, atrial fibrillation, and esophageal cancer. Certain laboratory includes a sodium 132, potassium 4, chlorides 97, CO2 24, BUN 21, creatinine 0.64. Albumin is 3.6. Culture data is as far negative. Progress note dated 11/04/2022. The patient is seen today in room 360. Currently, he's on 3 L of oxygen. The patient is not using his BiPAP. BiPAP settings are 12/6 and dirty 5%. He was placed on a yesterday, because his respiratory status has declined. The patient mention to us, that Dr. Concepcion, mention doing a bronchoscopy on this patient. For this reason, we'll keep the patient nothing by mouth after midnight. The patient is still coughing up dark phlegm. Sodium 1:30, potassium 4.3, chlorides 94, CO2 31, BUN 23, and creatinine 0.65. Anion gap is normal. Sputum and blood sampling assess far negative. Chest x-ray from yesterday shows a small left- sided pleural effusion, and chronic changes, without anything acute. On today's evaluation of 11/05/2022, the patient is being seen for a follow-up. Since his admission 3 days ago, the patient is gradually improving. He continues to have cough and congestion. He is afebrile. He is hemodynamically stable. His pro calcitonin level at time of admission was 0.06 and he does not have an elevation the pro calcitonin level. Chest x-ray showed mild scattered. Lung markings. There was also small left-sided pleural effusion. Meanwhile, the patient earlier this morning went into atrial fibrillation with rapid ventricular response. Cardiology was consulted. The patient was started on Cardizem drip which is currently running at 5 mg an hour and the patient's rate is under better control. Antibiotic regulations of the started yet. I made recommendations to start the patient on IV heparin as there is a very high likelihood that the patient may need a bronchoscopy within next 24-48 hours regarding his respiratory secretions and the mucus. Echocardiogram was also ordered and is also still pending for now. No palpitations. No focal neurological deficits. No other new complaints. 11/06/2022, the patient is improving slowly. Cough and congestion has been subsiding. The patient is feeling better. Is currently on oxygen at 3 L/m nasal cannula. He was given an incentive spirometer. He was also given a flutter valve. He remains in atrial fibrillation. Rate is controlled for now. He is currently on IV heparin. Is also on IV Cardizem running at 5 mg an hour. His heart rate is under much better control without any significant tachycardia. He remains in atrial fibrillation. Echocardiogram was done yesterday and the patient was found to have an ejection fraction of 45-50%. He also has a moderate RV dilatation and mild pulmonary hypertension. Mitral stenosis was also identified which was mild in addition to and mild aortic stenosis. He is also on metoprolol 50 mg by mouth twice a day and is also on digoxin for rate control. Cardizem drip will be discontinued for now. The plan is to do a bronchoscopy and bronchial lavage on this patient is today. For now, he is nothing by mouth. 11/07/2022, I'm seeing the patient for a follow-up. He underwent a bronchoscopy yesterday and therapeutic airway suctioning was done and the patient showed remarkable response. There was copious amount of purulent rest or secretions in his left lower lobe and therapeutic airway suctioning was done and following that the bronchial lavage of the left lower lobe was done. Today's cough is dry. On 3 L of oxygen, the patient is up to 98%. He remains on the same antibiotic coverage. He is doing much better. He is not having any significant shortness of breath on today's evaluation. Meanwhile, the patient remains in atrial fibrillation. His heart rate is under better control. He is off the IV heparin. Is also off the Cardizem drip. On 11/08/2022, the patient is being seen for a follow-up. Is currently on room air oxygen. Had recurrence of some of his congestion. Nevertheless, this is not affecting his breathing and the patient is calm and comfortable on room air oxygen. No chest pain. No fever or chills. The bronchoscopy and bronchial lavage has yielded no microbial growth thus far. Remains on IV Solu-Medrol. Remains on bronchodilators. 11/09/2022, I'm seeing the patient for a follow-up. The patient is stable. Is still having a congestive cough and is producing mucus and is able to cough the mucus with the assistance of a flutter valve. He is doing aggressive PT. Is also on bronchodilators. He is on Augmentin and the bronchial alveolar lavage showed MSSA. He is also on a prednisone burst taper. Oxygenation is still fluctuating and the patient may end up requiring home O2. No other new complaints otherwise for now. The the blood counts including electrodes are all within normal limits. The enzymes at 24 with a creatinine of 0.6. LFTs are normal. 11/10/2022, the patient is doing well. He is currently on room air oxygen with a pulse ox of 97%. He is currently on oral Augmentin. He is on prednisone. He is on bronchodilators. Limited cough and congestion. Overall condition is improving. He had some urinary retention this morning. The patient was straight cathed and he had significant relief. Is being monitored for the time being. 11/11/2022, the patient's overall pulmonary status is stable. He was supposed to go home yesterday. He had issues with urinary retention. Kraft catheter was inserted after 2 was straight. The patient currently is producing adequate amount of urine output. No other new complaints otherwise for now. He is on Augmentin. He is on prednisone burst taper is on bronchodilators. Oxygen is adequate and the patient is currently on room air oxygen with a pulse ox of 94- 95%. Otherwise, no other new complaints for now. Blood work from today is st ill pending. Blood sugars today is 98. Reevaluated today on 11/12/2022, patient is doing well, he was stabilized from the pulmonary perspective and he was cleared to be discharged home yesterday, lo bust[place]ante the patient developed urinary retention requiring urology evaluation and Kraft catheter placement and basically the Kraft catheter will remain and will be handled on outpatient basis. Patient denies any cough no wheezing no shortness of breath, feeling much better compared to how he felt on admission his O2 saturation is in the 90s on room air. Hardly any pulmonary symptoms today. Objective - Vital Signs Vital signs: Vital Signs Temp 98 F 11/12/22 12:00 Pulse 98 11/12/22 13:45 Resp 16 11/12/22 13:45 BP 116/64 11/12/22 12:00 Pulse Ox 98 11/12/22 12:00 FiO2 21 11/10/22 20:43 Intake & Output 11/11/22 11/12/22 11/12/22 18:59 06:59 18:59 Intake Total 476 40 830 Output Total 800 500 250 Balance -324 -460 580 Intake: IV 40 40 20 Invasive Line 4 40 40 20 Oral 436 810 Output: Urine 800 500 250 Other: Voiding Method Indwelling Catheter Indwelling Catheter Indwelling Catheter # Bowel Movements 1 - Exam Physical Exam: Revealed 76-year-old white male in no distress Head: Atraumatic normocephalic. HEENT:[Neck is supple.] [No neck masses.] [No thyromegaly.] [No JVD.] Chest: [Clear throughout, no crackles, no rhonchi, no wheezes.] Cardiac Exam: [Normal S1 and S2, no S3 gallop, no murmur.] Abdomen: [Soft, nontender, no megaly, no rebound, no guarding, normal bowel sounds.] Extremities: [No clubbing, no edema, no cyanosis.] Neurological Exam: [No focal neurologic deficit.] Alert and oriented 3 no growth focal deficit Psychiatric: Pleasant mood, normal affect, normal mental status examination. Skin: No rashes. - Labs CBC & Chem 7: 11/01/22 11:53 11/09/22 10:23 Labs: Abnormal Lab Results - Last 24 Hours (Table) 11/11/22 11/11/22 Range/Units 16:33 20:11 POC Glucose (mg/dL) 140 H 180 H (70-110) mg/dL Assessment and Plan Assessment: Impression: Acute hypoxic respiratory failure, multifactorial Acute MSSA left lower lobe pneumonia New-onset atrial fibrillation Acute exacerbation of COPD Mild aortic stenosis and mild systolic heart failure with ejection fraction of 45% GERD without esophagitis Urinary retention requiring Kraft catheter placement Recommendation: Agree with discharge planning Continue two-week course of Augmentin Continue prednisone burst and taper Incentive spirometry Continue home bronchodilators Arrange for home O2 Continue Mucinex twice a day Continue eliquis Keep Kraft catheter in place Follow-up on outpatient basis. Time with Patient: Less than 30
--- NOTE | 2022-11-13 15:21 | P.DS ---
Providers Date of admission: 11/01/22 13:59 Expected date of discharge: 11/12/22 Attending physician: Saeed Mitchell MD Consults: 11/01/22 13:47 Consult Physician Urgent Consulting Provider: Marc Morelos Consult Reason/Comments: COPD, acute respiratory distress Do you want consulting provider notified?: Yes 11/01/22 14:17 Consult to Palliative Care Routine Consulting Provider: Itzel Carrasco Consult Reason/Comments: Goals of Care Do you want consulting provider notified?: Yes 11/05/22 01:05 Consult Physician Urgent Consulting Provider: Veronica Parham Consult Reason/Comments: Atrial fibrillation with RVR Do you want consulting provider notified?: Yes 11/11/22 09:52 Consult Physician Routine Consulting Provider: Compa Joshi Consult Reason/Comments: Urinary Retention Do you want consulting provider notified?: Yes Primary care physician: Izabella Caal [facility] Course: Final Diagnoses: Acute hypoxic and hypercapnic respiratory failure secondary to acute COPD exacerbation, MSSA -left lower lobe pneumonia-status post bronchoscopy with lavage, fungal and acid-fast bacilli cultures/cytology pending and suspect recurrent aspiration, secondary to esophageal resection. Persistent hypoxia with activity, recent documentation of 83% on room air after ambulation. 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 He states his symptoms worsened relatively quickly over the past few days, denies any specific trigger. He denies fever, chills. Reports he has been complaint with duonebs qid and pulmicort nebs bid. On presentation pt hypoxic, requiring BIPAP, WBC 13.7, Hgb 12.7, plt 281k, VBG with CO2 56. BNP 1270, BUN 24, Cr 0.64. CXR with COPD, interstitial opacitiy. 11/05/2022 continues on nebulized bronchodilators, IV steroids ,maintaining O2 sats in the 90s on 3 L nasal cannula. Continues to have ongoing diffuse rhonchi and wheezes, productive cough with thick dark yellow sputum. He developed atrial fibrillation with RVR last night, rates noted into the 130s, currently 60s to 90s ,maintained on Cardizem drip. Systolic blood pressure high 90s to low 100s.Cardiology discussing anticoagulation, Eliquis-on hold pending pulmonary's decision regarding bronchoscopy.NPO, blood sugars controlled .Denies chest pain, palpitations. 11/06/2022 Flutter valve at bedside. Continues on 3 L nasal cannula O2 maintaining O2 sats in the 90s. Denies increase in shortness of breath; productive cough Telemetry reporting controlled atrial fibrillation. Maintained on heparin and Cardizem drips. Also on digoxin and metoprolol. Echocardiogram reported EF of 45-50%, moderate right ventricular dilation, moderate mitral ring or calcification, mild mitral stenosis, mild aortic stenosis. Nothing by mouth for bronchoscopy today. Blood sugars controlled. 11/07/2022 Completed bronchoscopy with lavage yesterday with pulmonary reporting COPD and left lower lobe pneumonia. Cultures and cytology pending. Maintained on Zosyn. Telemetry reporting controlled A. fib heart rates up into the low 100s. Anticoagulation-transitioning to oral Eliquis. Significant clinical improvement. Reports breathing and coughing improved with less mucus production. Decreased bilateral rhonchi and expiratory wheezing. Maintaining O2 sats in the high 90s on 3 L nasal cannula. Afebrile. Patient has been cleared for discharge by cardiology, including increasing diuretics to daily. Close monitoring of electrolytes outpatient. Patient will be discharged home today in a stable condition with guarded prognosis pending final DC recommendations and clearance per pulmonary. Aspiration precautions reinforced .It has also been recommended that presented to patient to follow-up with outpatient GI specialist regarding suspected aspiration. 11/08/2022 maintaining O2 sats in the 90s on room air. Feels better, breathing easier, using his flutter valve. Maintained on antibiotics, nebulized bronchodilators, IV steroids. Reports productive cough with cream-colored sputum. Denies chest pain, palpitations. Bronchoscopy cultures/cytology pending. 11/09/2022 ambulating in hallways yesterday, reports he tolerated exertion well, staf documented decreased O2 sat to 83% on room air. Currently maintaining O2 sats in the high 90s on room air at rest. Continues on nebulized bronchodilators, oral Augmentin, oral prednisone taper. Reports coughing up increased mucus production, sore throat. Denies sinus drainage, stuffy nose or headache. Compliant with using flutter valve Afebrile, labs pending. Bronchial washings reporting MSSA. Cytology, fungal and acid-fast bacilli cultures pendin g. Afebrile.Labs ordered. Developed urinary retention requiring urology evaluation, Kraft catheter placement. Cleared by urology and pulmonary for discharge. Significant clinical improvement. Continues using flutter valve. Maintaining O2 sat in the 90s on room air. Denies cough, wheezing or shortness of breath. Patient will be discharged home today in a stable condition with guarded prognosis. The impression and plan of care has been dictated as directed. : I performed a history and examination of this patient, discussed the same with the dictator. I agree with the dictator's note ,documented as a scribe. Any additional findings or plans will be noted. Patient Condition at Discharge: Stable Plan - Discharge Summary Discharge Rx Participant: No New Discharge Prescriptions: New Apixaban [Eliquis] 5 mg PO BID #60 tab guaiFENesin [Mucinex] 600 mg PO Q12HR tab Tamsulosin [Flomax] 0.4 mg PO PC-BRKFST #30 cap Digoxin [Lanoxin] 125 mcg PO DAILY #30 tab Furosemide [Lasix] 20 mg PO DAILY #30 tab Metoprolol Tartrate [Lopressor] 50 mg PO BID #60 tab polyethylene glycoL 3350 [Miralax] 17 gm PO DAILY packet predniSONE 10 mg PO DIRECTED #30 tab Amoxic-Pot Clav 875-125Mg [Augmentin 875-125] 1 tab PO BID 7 Days #14 tab Pantoprazole Sodium [Protonix] 40 mg PO DAILY #30 tab Continue Omeprazole [PriLOSEC] 20 mg PO DAILY Tiotropium [place] [Spiriva] 1 puff INHALATION RT-DAILY Cyanocobalamin (Vitamin B-12) [Vitamin B-12] 1,000 mcg PO DAILY Levothyroxine Sodium 25 mcg PO DAILY Zinc 50 mg PO DAILY Ipratropium-Albuterol Nebulize [Duoneb 0.5 mg-3 mg/3 ml Soln] 3 ml INHALATION RT-QID #120 ml Ascorbic Acid [Vitamin C] 1,000 mg PO DAILY Cleveland-3 Fatty Acids [Cleveland-3] 1,000 mg PO DAILY Ferrous Sulfate [Iron (65 MG Elemental)] 325 mg PO DAILY Folate 666mcg 1 tab PO DAILY Multivit-Min/FA/Lycopen/Lutein [Centrum Silver Tablet] 1 tab PO DAILY Magnesium 250 mg PO DAILY Budesonide 0.5 mg INHALATION RT-BID Changed Potassium Chloride [Klor-Con M10] 10 meq PO DAILY #0 Sodium Chloride Tab 1 gm PO BID #60 tab Discontinued Metoprolol Tartrate [Lopressor] 12.5 mg PO HS Metoprolol Tartrate [Lopressor] 25 mg PO DAILY Furosemide [Lasix] 20 mg PO MOTH Discharge Medication List Omeprazole [PriLOSEC] 20 mg PO DAILY 06/18/14 [History] Tiotropium [place] [Spiriva] 1 puff INHALATION RT-DAILY 06/18/14 [History] Cyanocobalamin (Vitamin B-12) [Vitamin B-12] 1,000 mcg PO DAILY 04/19/20 [History] Levothyroxine Sodium 25 mcg PO DAILY 04/19/20 [History] Zinc 50 mg PO DAILY 04/19/20 [History] Ipratropium-Albuterol Nebulize [Duoneb 0.5 mg-3 mg/3 ml Soln] 3 ml INHALATION RT-QID #120 ml 04/25/20 [Rx] Ascorbic Acid [Vitamin C] 1,000 mg PO DAILY 10/11/22 [History] Ferrous Sulfate [Iron (65 MG Elemental)] 325 mg PO DAILY 10/11/22 [History] Folate 666mcg 1 tab PO DAILY 10/11/22 [History] Magnesium 250 mg PO DAILY 10/11/22 [History] Cleveland-3 Fatty Acids [Cleveland-3] 1,000 mg PO DAILY 10/11/22 [History] Budesonide 0.5 mg INHALATION RT-BID 11/01/22 [History] Multivit-Min/FA/Lycopen/Lutein [Centrum Silver Tablet] 1 tab PO DAILY 11/01/22 [History] Amoxic-Pot Clav 875-125Mg [Augmentin 875-125] 1 tab PO BID 7 Days #14 tab 11/07/22 [Rx] Apixaban [Eliquis] 5 mg PO BID #60 tab 11/07/22 [Rx] Digoxin [Lanoxin] 125 mcg PO DAILY #30 tab 11/07/22 [Rx] Furosemide [Lasix] 20 mg PO DAILY #30 tab 11/07/22 [Rx] Metoprolol Tartrate [Lopressor] 50 mg PO BID #60 tab 11/07/22 [Rx] Pantoprazole Sodium [Protonix] 40 mg PO DAILY #30 tab 11/07/22 [Rx] Potassium Chloride [Klor-Con M10] 10 meq PO DAILY #0 11/07/22 [Rx] Sodium Chloride Tab 1 gm PO BID #60 tab 11/07/22 [Rx] guaiFENesin [Mucinex] 600 mg PO Q12HR tab 11/07/22 [Rx] polyethylene glycoL 3350 [Miralax] 17 gm PO DAILY packet 11/07/22 [Rx] predniSONE 10 mg PO DIRECTED #30 tab 11/07/22 [Rx] Tamsulosin [Flomax] 0.4 mg PO PC-BRKFST #30 cap 11/12/22 [Rx] Follow up Appointment(s)/Referral(s): Veronica Parham MD [STAFF PHYSICIAN] - 11/20/22 3:15 pm (Your appointment is at the [place] [facility]: [address] [place] [address] Ave.) Emilie Vargas MD [STAFF PHYSICIAN] - As Needed Izabella Caal MD [Primary Care Provider] - 3 Days (, November 15 10:45 in the [facility]) Compa Joshi MD [STAFF PHYSICIAN] - 1 Week (SaturdayNovember 19, 8:40) Simeon Concepcion MD [STAFF PHYSICIAN] - 11/16/22 10:30 am Ambulatory/Diagnostic Orders: Complete Blood Count w/diff [LAB.AMB] Time Frame: 3 Days, Location: None Selected Patient Instructions/Handouts: Heart Failure (ER), A-fib (Atrial Fibrillation) (ED), Pulmonary Edema (ED), COPD (Chronic Obstructive Pulmonary Disease) (DC), Low-Sodium Diet (ED) Activity/Diet/Wound Care/Special Instructions: Call [facility] [phone] for delivery of home oxygen equipment Eliquis RX downstairs in [facility], case management confirming coverage - $47 COPAY Maintain Kraft catheter for 5-7 days and follow-up with urology as advised Continue flutter valve as previously ordered Discharge Disposition: HOME WITH HOME HEALTH SERVICES
== END 2022-11-12 14:02 | disposition home health service (06) | DRG 177 ==
LOC: EC 11:05 → 3SCARD 13:59
PROVIDERS: ADMIT Family Medicine; ATTEND Family Medicine
PROC: 5A09357 Assistance with Respiratory Ventilation, Less than 24 Consecutive Hours, Continuous Positive Airway Pressure (ICD-10-PCS; 2022-11-01)
PROC: 0B9J8ZX Drainage of Left Lower Lung Lobe, Via Natural or Artificial Opening Endoscopic, Diagnostic (ICD-10-PCS; principal; 2022-11-06 13:00)
DX: J15.211 Pneumonia due to Methicillin susceptible Staphylococcus aureus (principal); J96.01 Acute respiratory failure with hypoxia; J96.02 Acute respiratory failure with hypercapnia; J44.1 Chronic obstructive pulmonary disease with (acute) exacerbation; I48.20 Chronic atrial fibrillation, unspecified; I50.32 Chronic diastolic (congestive) heart failure; Z68.1 Body mass index [BMI] 19.9 or less, adult; J44.0 Chronic obstructive pulmonary disease with (acute) lower respiratory infection; E87.1 Hypo-osmolality and hyponatremia; J69.0 Pneumonitis due to inhalation of food and vomit; I11.0 Hypertensive heart disease with heart failure; H40.9 Unspecified glaucoma; I35.0 Nonrheumatic aortic (valve) stenosis; K21.9 Gastro-esophageal reflux disease without esophagitis; G25.81 Restless legs syndrome; D50.9 Iron deficiency anemia, unspecified; I27.20 Pulmonary hypertension, unspecified; Z79.890 Hormone replacement therapy; Z79.52 Long term (current) use of systemic steroids; Z79.899 Other long term (current) drug therapy; Z87.891 Personal history of nicotine dependence; Z85.01 Personal history of malignant neoplasm of esophagus
CPT/HCPCS: 31624; 36415; 71045; 80048; 80053; 82803; 83036; 83735; 83880; 84145; 84484; 85025; 85610; 85730; 87040; 87070; 87075; 87077; 87102; 87116; 87186; 87205; 87206; 87252; 87281; 87496; 87498; 87502; 87529; 87634; 87798; 88108; 88305; 93005; 93306; 94640; 94660; 94667; 94760; 96374; 96375; 99291

== ENCOUNTER → 2023-06-28 | Outpatient (CLI) | payer MEDICARE ==
[2023-06-28 09:21] LABS: African American GFR (CKD) 82 (>60 ml/min/1.73 sqM); Blood Urea Nitrogen 21 mg/dL (9-20); Non-African American GFR(CKD) 71 (>60 ml/min/1.73 sqM)
--- NOTE | 2023-07-01 11:00 | CT ---
EXAMINATION TYPE: CT chest w con CT DLP: 515 mGycm, Automated exposure control for dose reduction was used. DATE OF EXAM: 06/28/2023 9:46 AM COMPARISON: 10/15/2022. CLINICAL INDICATION:Male, 77 years old with history of R04.2 HEMOPTYSIS; PHH, HEMOPTYSIS, h/o esophag us CA TECHNIQUE: Multiple axial images were obtained through the chest. Sagittal and coronal reformats were created for review. Contrast used:100 mL of Isovue 300 with IV Contrast (None if empty) Oral contrast used: (None if empty) FINDINGS: LUNGS/ PLEURA: Redemonstration of moderate to severe emphysema changes throughout the lungs. Right up per lung pulmonary nodule measuring 4 mm is unchanged series 3 image 11. The right upper lungs spicul ation and architectural distortion is not significantly changed. The left lower lung posterior periph eral airspace opacities are not significantly changed. AIRWAY: Patent and unremarkable. HEART: Size within normal limits. MEDIASTINUM: Postsurgical changes of gastric pull-through. The gastric wall and esophagus appear with in normal limits. No evidence for lymphadenopathy. VASCULATURE: No aortic aneurysm. MUSCULOSKELETAL: No acute osseous abnormalities SOFT TISSUES/LYMPH NODES: Unremarkable. LOWER NECK: No significant findings. UPPER ABDOMEN: Fluid collection posterior to the pancreatic tail is unchanged measuring 2.3 x 1.6 cm. IMPRESSION: 1. Postsurgical changes of esophagectomy with gastric pull-through. No gastric wall or esophageal wa ll thickening visualized. No evidence for lymphadenopathy. 2. Suspected bilateral lower lung peripheral airspace opacities correlate for aspiration/infectious/ inflammatory process. 3. Stable pulmonary parenchyma with stable right upper lung pulmonary nodule.
== END | disposition home or self-care (01) ==
LOC: RADCTMAIN 08:28
PROVIDERS: ATTEND Family Medicine
DX: R04.2 Hemoptysis (principal); R91.1 Solitary pulmonary nodule; Z90.49 Acquired absence of other specified parts of digestive tract
CPT/HCPCS: 82565; 84520; 71260; 36415; Q9967

== ENCOUNTER 2023-09-30 08:36 | Day surgery (SDC) | payer MEDICARE ==
[2023-09-30 09:43] VITALS: RESP 16; TEMP 97.2
[2023-09-30] MEDS: LACTATED RINGERS 1,000 ML IV SCH (09:49)
[2023-09-30] MEDS ORDERED: PROPOFOL 10 MG/ML 20 ML VIAL IV ONE (10:58)
[2023-09-30] MEDS ORDERED: LIDOCAINE 1% INJ 10MG/ML (20 ML MDV) ONE (10:58)
--- NOTE | 2023-09-30 11:00 | P.GSHP ---
History of Present Illness H&P Date: 09/30/23 Chief Complaint: Gerd, GI bleed This is a 77-year-old male complains of gerd. Patient also has had hemoptysis and possible GI bleed. Past Medical History Past Medical History: Cancer, COPD, GERD/Reflux, Hypertension, Prostate Disorder Additional Past Medical History / Comment(s): esophageal cancer, cataracts. History of Any Multi-Drug Resistant Organisms: None Reported Additional Past Surgical History / Comment(s): esophageal surgery 22 YRS AGO. Past Anesthesia/Blood Transfusion Reactions: No Reported Reaction Past Psychological History: No Psychological Hx Reported Smoking Status: Former smoker Past Alcohol Use History: Occasional Past Drug Use History: None Reported Medications and Allergies Home Medications Medication Instructions Recorded Confirmed Type Omeprazole [PriLOSEC] 20 mg PO QAM 06/18/14 09/30/23 History Tiotropium [place] [Spiriva] 1 puff INHALATION RT-DAILY 06/18/14 09/30/23 History Cyanocobalamin (Vitamin B-12) 1,000 mcg PO DAILY 04/19/20 09/30/23 History [Vitamin B-12] Levothyroxine Sodium 25 mcg PO QAM 04/19/20 09/30/23 History Zinc 50 mg PO DAILY 04/19/20 09/30/23 History Ascorbic Acid [Vitamin C] 1,000 mg PO DAILY 10/11/22 09/30/23 History Ferrous Sulfate [Iron (65 MG 325 mg PO DAILY 10/11/22 09/30/23 History Elemental)] Folate 666mcg 666 mcg PO DAILY 10/11/22 09/30/23 History Magnesium 250 mg PO DAILY 10/11/22 09/30/23 History Clio-3 Fatty Acids [Clio-3] 1,000 mg PO DAILY 10/11/22 09/30/23 History Multivit-Min/FA/Lycopen/Lutein 1 tab PO DAILY 11/01/22 09/30/23 History [Centrum Silver Tablet] Tamsulosin [Flomax] 0.4 mg PO PC-BRKFST #30 cap 11/12/22 09/30/23 Rx Budesonide-Formot 160-4.5 Mcg 2 puff INHALATION BID 09/26/23 09/30/23 History [Symbicort 160-4.5 Mcg Inhaler] Dabigatran [Pradaxa] 75 mg PO BID 09/26/23 09/30/23 History Digoxin [Lanoxin] 125 mcg PO TUFR 09/26/23 09/30/23 History Furosemide [Lasix] 20 mg PO QAM 09/26/23 09/30/23 History Metoprolol Tartrate 25 mg PO HS 09/26/23 09/30/23 History Metoprolol Tartrate [Lopressor] 50 mg PO QAM 09/26/23 09/30/23 History Potassium Chloride [Klor-Con M10] 10 meq PO QAM 09/26/23 09/30/23 History Sodium Chloride Tab 1 gm PO DAILY 09/26/23 09/30/23 History cycloSPORINE 0.05% OPHTH SOLN 1 drop BOTH EYES BID 09/26/23 09/30/23 History [Restasis] Allergies Allergy/AdvReac Type Severity Reaction Status Date / Time No Known Allergies Allergy Verified 09/30/23 09:29 Surgical - Exam Vital Signs Temp Pulse Resp BP Pulse Ox 97.2 F L 98 16 165/98 98 09/30/23 09:40 09/30/23 09:40 09/30/23 09:40 09/30/23 09:40 09/30/23 09:40 - General well developed, well nourished, no distress - Eyes PERRL - ENT normal pinna - Neck no masses - Respiratory normal expansion - Cardiovascular Rhythm: regular - Abdomen Abdomen: soft, non tender Assessment and Plan Assessment: Gerd, GI bleed. Will perform EGD.
--- NOTE | 2023-09-30 11:17 | P.OP ---
Date of Procedure: 09/30/23 Preoperative Diagnosis: Gerd GI bleed Postoperative Diagnosis: Antral gastritis Body of stomach gastritis Esophagitis Procedure(s) Performed: EGD Anesthesia: MAC Surgeon: Checo Rodriguez Pathology: other (Antrum, body, stomach, esophagus) Condition: stable Disposition: PACU Description of Procedure: The patient was placed on the endoscopy table in the lateral position. He received IV sedation. The G gastroscope was placed in the oropharynx. And then passed pharynx passed in the esophagus of the stomach. Scope was placed through the pylorus. The first and second portion of the duodenum appeared normal. Scope was then brought back to the antrum this was inflamed. A biopsy performed. The scope was then brought back in the mid body of the stomach appeared to have some gastritis. This was biopsied. The scope was then retroflexed remainder of stomach. No. The GE junction was at 40 cm of the distal esophagus. Flaim. A biopsy performed. The proximal esophagus appeared normal. The scope withdrawn for the patient.
--- NOTE | 2023-09-30 11:46 | P.OP ---
Date of Procedure: 09/30/23 Preoperative Diagnosis: History of esophageal cancer Postoperative Diagnosis: Gastritis Procedure(s) Performed: EGD Anesthesia: MAC Surgeon: Checo Rodriguez Pathology: other (Antrum, body of stomach, esophagus) Condition: stable Disposition: PACU Description of Procedure: The patient was placed on the endoscopy table in lateral position. He received IV sedation. Patient previous history of esophagectomy. T the gas was placed in the patient's oropharynx passed in the esophagus and stomach. Scope was placed through the pylorus. The first and second portion duodenum appeared normal. Scope was brought back to the antrum this. Flaim. A biopsy performed. In the mid body of the stomach appeared to be some inflammation. This was biopsied as well. Scope was brought back to the gastroesophageal anastomosis but clearly visualized. The distal esophagus appeared to be inflamed. This was biopsied. The proximal esophagus appeared normal. Scope withdrawn for the patient.
[2023-09-30 12:15] VITALS: BP 109/71; PULSE 65
== END 2023-09-30 11:57 | disposition home or self-care (01) ==
LOC: ORWHC2ENDO 08:36
PROVIDERS: ATTEND Surgery
DX: K29.50 Unspecified chronic gastritis without bleeding (principal); K31.89 Other diseases of stomach and duodenum; K21.00 Gastro-esophageal reflux disease with esophagitis, without bleeding; I10 Essential (primary) hypertension; J44.9 Chronic obstructive pulmonary disease, unspecified; F10.90 Alcohol use, unspecified, uncomplicated; Z79.01 Long term (current) use of anticoagulants; Z79.51 Long term (current) use of inhaled steroids; Z85.01 Personal history of malignant neoplasm of esophagus; Z87.891 Personal history of nicotine dependence; Z79.899 Other long term (current) drug therapy; Z99.81 Dependence on supplemental oxygen
CPT/HCPCS: 43239; J2001; J2704; 88305; 88312